=== PATIENT | female | born 1990 | race African-American/Black ===

== ENCOUNTER 2017-06-30 14:50 | Inpatient (IN) | payer OTHER ==
[~2017-06-30] VITALS: Ht 167.6 cm; Wt 132.7 kg
[2017-06-30] VITALS (13 sets, daily range): BP systolic 105–155; BP diastolic 49–90; PULSE 84–96; TEMP 36.7–37.6; O2SAT 96–100; Ht 167.6 cm; Wt 132.7 kg
[2017-06-30] MEDS ORDERED: ONDANSETRON INJ 2 MG/ML 2 ML VIAL IV STA ×2 (15:14→16:40)
[2017-06-30] MEDS ORDERED: FERR1TAB23 PO (15:28)
[2017-06-30] MEDS ORDERED: PHEN-582 PO (15:28)
[2017-06-30 15:37] LABS: ISTAT CREATININE 0.7 mg/dl (0.6-1.3); ISTAT HEMOGLOBIN 8.5 g/dl (12.0-16.0); ISTAT IONIZED CALCIUM 1.17 mmol/l (1.12-1.32)
[2017-06-30 15:38] LABS: MEAN CELL VOLUME 63.1 fL (80-100); MEAN CORPUSCULAR HEMOGLOBIN 16.4 pg (25-34); MEAN PLATELET VOLUME 8.4 fL (7.4-10.4); PLATELET COUNT 596 K/uL (130-400); RED BLOOD COUNT 3.96 M/uL (4.2-5.4); WHITE BLOOD COUNT 7.12 K/uL (4.8-10.8)
[2017-06-30 15:39] LABS: PROTHROMBIN TIME (PATIENT) 10.8 SECONDS (9.0-12.0)
[2017-06-30 15:47] LABS: ALT/SGPT 28 U/L (12-78); BLOOD UREA NITROGEN 10 mg/dl (7-18); BUN/CREATININE RATIO 11.5 (10-20); CALCIUM 8.7 mg/dl (8.5-10.1); CARBON DIOXIDE 23 mmol/L (21-32); CHLORIDE 105 mmol/L (98-107); CREATININE 0.83 mg/dl (0.60-1.20); GLUCOSE 89 mg/dl (70-99); POTASSIUM 3.5 mmol/L (3.5-5.1); SODIUM 137 mmol/L (136-145)
[2017-06-30 15:50] LABS: ALKALINE PHOSPHATASE 111 U/L (45-117); AST/SGOT 24 U/L (15-37)
[2017-06-30 15:52] LABS: ANISOCYTOSIS PRESENT; BASO % 0.4 %; BASO ABS # 0.03 K/uL (0-0.2); COMPLETE YES; HYPOCHROMIA PRESENT; IG% 0.3 %; LYMPH % 41.6 %; LYMPH ABS # 2.96 K/uL (1.2-3.4); MONO % 12.6 %; NEUT % 43.1 %; STOMATOCYTE 1+
--- NOTE | 2017-06-30 16:36 | DIAGNOSTIC IMAGING REPORT ---
CT SCAN OF THE ABDOMEN AND PELVIS WITH IV CONTRAST CLINICAL HISTORY: Left upper quadrant abdominal pain. Anemia. Vaginal bleeding. COMPARISON STUDY: No priors. TECHNIQUE: Following the IV administration of 115 cc of Optiray 320, CT scan of the abdomen and pelvis is performed from the lung bases to the proximal femora. Images are reviewed in the axial, sagittal, and coronal planes. IV contrast was administered without complication. A dose lowering technique was utilized adhering to the principles of ALARA. The examination is degraded by large body habitus, and by streak artifact from the body wall abutting the CT gantry. CT DOSE: 1654.92 mGy.cm FINDINGS: Lung bases: The heart is normal in size and without pericardial effusion. The lung bases are clear. There is a tiny hiatal hernia. Liver: The contrast-enhanced liver is normal in size, contour, and attenuation. There is no intrahepatic biliary ductal dilatation. The hepatic veins and portal veins are patent. Gallbladder: Unremarkable. Spleen: Normal in size and attenuation. Pancreas: Unremarkable. Adrenal glands: Unremarkable. Kidneys: The contrast enhanced kidneys are normal in size and without hydronephrosis. The kidneys enhance symmetrically. Abdominal vasculature: The abdominal aorta is normal in course and caliber. Bowel: The small bowel and colon are normal in course and caliber. The appendix is well-visualized and normal. Peritoneum: There is no intraperitoneal free air or abdominal ascites. There is a fat-containing umbilical hernia. Lymphadenopathy: None. Pelvic viscera: The bladder is decompressed and grossly unremarkable. The uterus and adnexa are normal as visualized. Bilateral ovarian follicles are observed. Skeletal structures: No lytic or blastic lesions are seen. Sclerotic change is noted in the sacroiliac joints. IMPRESSION: There are no acute infectious or inflammatory findings in the abdomen or pelvis. Electronically signed by: Abimael Lovell M.D. 06/30/2017 4:34 PM Dictated Date/Time: 06/30/2017 4:31 PM
[2017-06-30] MEDS ORDERED: OPTIRAY 320 IV PRN (16:45)
[2017-06-30] MEDS ORDERED: NORETHINDRONE ACETATE 5 MG TAB PO STA (16:45)
[2017-06-30 17:26] LABS: MANUAL MICROSCOPIC REQUIRED? YES; REVIEW REQ? NO
[2017-06-30 17:27] LABS: SULFASALICYLIC ACID POS (NEG); URINE APPEARANCE TURBID (CLEAR); URINE COLOR RED
[2017-06-30 17:28] LABS: URINE SPECIFIC GRAVITY 1.029 (1.000-1.030)
[2017-06-30 17:48] LABS: URINE RBC >30 /hpf (0-4); URINE WBC >30 /hpf (0-5)
[2017-06-30 17:50] LABS: URINE BACTERIA 2+ (NEG)
[2017-06-30] MEDS ORDERED: NXM/40 PO (18:10)
[2017-06-30] MEDS ORDERED: FLUT1INH5 INH (18:10)
[2017-06-30] MEDS ORDERED: MONT1TAB3 PO (18:10)
[2017-06-30] MEDS ORDERED: FLVHFA110 INH (18:10)
[2017-06-30] MEDS ORDERED: ARNUITY~ORDER AWAITING ACTION SCH (18:30)
--- NOTE | 2017-06-30 19:17 | EMERGENCY ROOM VISIT NOTE ---
History Report prepared by Racquel: Carley Weir Under the Supervision of: Dr. Sp Cosme M.D. First contact with patient: 15:01 Chief Complaint: OTHER COMPLAINT Stated Complaint: SENT BY FOR BLOOD TRANSFUSION History of Present Illness The patient is a 26 year old female who presents to the Emergency Room with complaints of constant vaginal bleeding beginning in February. The patient was referred to the ED by her PCP, Dr. Colin, for a blood transfusion. The patient was put on control twice a day for 2 weeks in early May by Dr. Pichardo for her vaginal bleeding. The patient was taken off of control on June 18. She reports she started bleeding again immediately after stopping her control. The patient reports having a hemoglobin level of 7.5 in early May and a hemoglobin level of 5.5 on June 18. On June 18 the patient was put on iron pills. The patient states she has been unable to come into the ED since being referred on June 18 because of her job. She states she would be fired if she takes time off of work. She reports increased weakness, shortness of breath, fatigue, decreased appetite and upper abdominal burning starting in mid-May. She states her abdominal pain begins in her upper left abdomen and radiates to her right upper abdomen. The patient states she has been eating only chicken noodle soup since early May because of her decreased appetite. She notes vomiting and diarrhea on Thursday, 2 days ago. She reports daily chest tightness beginning 2 months ago. The patient also notes a subjective fever occurring 3 days ago. She reports having normal bowel movements last week and denies any black stools. The patient reports a syncopal episode occurring three days before thanks but denies any more recent syncopal episodes. She denies any headache. The patient had a pelvic ultrasound in May which was unremarkable. The patient has a history of asthma. She denies any chance of and reports being abstinent. Source of History: patient Onset: February Position: other (vaginal) Quality: other (bleeding) Timing: constant Associated Symptoms: + fevers, + chest pain, + SOB, + vomiting, + abdominal pain, + diarrhea, + fatigue, + weakness, No headache Review of Systems See HPI for pertinent positives & negatives. A total of 10 systems reviewed and were otherwise negative. Past Medical & Surgical Medical Problems: (1) Asthma (2) Menometrorrhagia Social History Smoking Status: Never Smoker Current/Historical Medications Scheduled Esomeprazole Magnesium (Nexium), 1 CAP PO DAILY Ferrous Sulfate (Iron), 1 TAB PO TID Fluticasone Furoate (Inhalatio (Arnuity Ellipta), 1 PUFF INH DAILY Fluticasone Propionate (Flovent Hfa), Unknown Dose INH BID Montelukast Sodium (Singulair), 1 TAB PO DAILY Scheduled PRN Yttyusxhzdpef-Ri-Im W/ Apap (Tylenol Cold & Flu Severe), 1 TAB PO UD PRN for Cold/Flu Symptoms Allergies Coded Allergies: Penicillins (Verified Allergy, Unknown, Unknown, 06/30/17) As a child Physical Exam Vital Signs Date Time Temp Pulse Resp B/P (MAP) Pulse Ox O2 Delivery O2 Flow Rate FiO2 06/30/17 18:48 37.2 95 18 155/90 99 06/30/17 18:32 37.2 96 20 148/87 98 06/30/17 18:17 37.2 92 18 153/90 99 06/30/17 18:02 37.0 92 18 146/76 99 06/30/17 17:44 96 20 146/76 99 Room Air 06/30/17 16:45 103 06/30/17 16:39 99 20 144/82 100 Room Air 06/30/17 14:54 37.1 111 20 154/96 100 Room Air Physical Exam Constitutional: Vital signs reviewed. Eyes: Pupils are equal round reactive to light. Conjunctiva are noninjected. ENT: Pharynx is clear without erythema or exudate. Mucous membranes are moist. Neck supple without meningeal signs. Respiratory: Clear to auscultation bilaterally. Breath sounds are equal bilaterally. Cardiovascular: Regular rate and rhythm. No rubs or gallops. GI: Left upper quadrant and epigastric tenderness, no guarding. Soft, nondistended.. Bowel sounds are present. Musculoskeletal: No peripheral edema. No lower extremity tenderness. Integumentary: No cyanosis. Neurological: The patient is awake and alert. No focal deficits. Psychiatric: Normal affect. Medical Decision & Procedures ER Provider Diagnostic Interpretation: Radiology results as stated below per my review and the radiologist's interpretation: CT SCAN OF THE ABDOMEN AND PELVIS WITH IV CONTRAST FINDINGS: Lung bases: The heart is normal in size and without pericardial effusion. The lung bases are clear. There is a tiny hiatal hernia. Liver: The contrast-enhanced liver is normal in size, contour, and attenuation. There is no intrahepatic biliary ductal dilatation. The hepatic veins and portal veins are patent. Gallbladder: Unremarkable. Spleen: Normal in size and attenuation. Pancreas: Unremarkable. Adrenal glands: Unremarkable. Kidneys: The contrast enhanced kidneys are normal in size and without hydronephrosis. The kidneys enhance symmetrically. Abdominal vasculature: The abdominal aorta is normal in course and caliber. Bowel: The small bowel and colon are normal in course and caliber. The appendix is well-visualized and normal. Peritoneum: There is no intraperitoneal free air or abdominal ascites. There is a fat-containing umbilical hernia. Lymphadenopathy: None. Pelvic viscera: The bladder is decompressed and grossly unremarkable. The uterus and adnexa are normal as visualized. Bilateral ovarian follicles are observed. Skeletal structures: No lytic or blastic lesions are seen. Sclerotic change is noted in the sacroiliac joints. IMPRESSION: There are no acute infectious or inflammatory findings in the abdomen or pelvis. Electronically signed by: Abimael Lovell M.D. Laboratory Results 06/30/17 15:14 Red Blood Count 3.96, Mean Corpuscular Volume 63.1, Mean Corpuscular Hemoglobin 16.4, Mean Corpuscular Hemoglobin Concent 26.0, Mean Platelet Volume 8.4, Neutrophils (%) (Auto) 43.1, Lymphocytes (%) (Auto) 41.6, Monocytes (%) (Auto) 12.6, Eosinophils (%) (Auto) 2.0, Basophils (%) (Auto) 0.4, Neutrophils # (Auto ) 3.07, Lymphocytes # (Auto) 2.96, Monocytes # (Auto) 0.90, Eosinophils # (Auto ) 0.14, Basophils # (Auto) 0.03 06/30/17 15:14 Test 06/30/17 15:14 06/30/17 15:21 06/30/17 15:24 06/30/17 16:20 White Blood Count 7.12 K/uL (4.8-10.8) Red Blood Count 3.96 M/uL (4.2-5.4) Hemoglobin 6.5 g/dL (12.0-16.0) Hematocrit 25.0 % (37-47) Mean Corpuscular Volume 63.1 fL (80-100) Mean Corpuscular Hemoglobin 16.4 pg (25-34) Mean Corpuscular Hemoglobin Concent 26.0 g/dl (32-36) Platelet Count 596 K/uL (130-400) Mean Platelet Volume 8.4 fL (7.4-10.4) Neutrophils (%) (Auto) 43.1 % Lymphocytes (%) (Auto) 41.6 % Monocytes (%) (Auto) 12.6 % Eosinophils (%) (Auto) 2.0 % Basophils (%) (Auto) 0.4 % Neutrophils # (Auto) 3.07 K/uL (1.4-6.5) Lymphocytes # (Auto) 2.96 K/uL (1.2-3.4) Monocytes # (Auto) 0.90 K/uL (0.11-0.59) Eosinophils # (Auto) 0.14 K/uL (0-0.5) Basophils # (Auto) 0.03 K/uL (0-0.2) RDW Standard Deviation 49.3 fL (36.4-46.3) RDW Coefficient of Variation 21.5 % (11.5-14.5) Immature Granulocyte % (Auto) 0.3 % Immature Granulocyte # (Auto) 0.02 K/uL (0.00-0.02) Hypochromasia PRESENT Anisocytosis PRESENT Stomatocytes 1+ Prothrombin Time 10.8 SECONDS (9.0-12.0) Prothromb Time International Ratio 1.0 (0.9-1.1) Activated Partial Thromboplast Time 25.0 SECONDS (21.0-31.0) Partial Thromboplastin Ratio 1.0 Est Creatinine Clear Calc Drug Dose 143.7 ml/min Estimated GFR () 112.8 Estimated GFR (Non- 97.3 BUN/Creatinine Ratio 11.5 (10-20) Calcium Level 8.7 mg/dl (8.5-10.1) Total Bilirubin 0.3 mg/dl (0.2-1) Direct Bilirubin < 0.1 mg/dl (0-0.2) Aspartate Amino Transf (AST/SGOT) 24 U/L (15-37) Alanine Aminotransferase (ALT/SGPT) 28 U/L (12-78) Alkaline Phosphatase 111 U/L (45-117) Total Protein 8.6 gm/dl (6.4-8.2) Albumin 3.4 gm/dl (3.4-5.0) Lipase 153 U/L (73-393) Bedside Troponin I < 0.030 ng/ml (0-0.045) Bedside Hemoglobin 8.5 g/dl (12.0-16.0) Bedside Hematocrit 25 % (37-47) Bedside Sodium 140 mEq/L (135-144) Bedside Potassium 3.6 mEq/L (3.3-5.0) Bedside Chloride 105 mEq/L (101-112) Bedside Total CO2 24 mEq/l (24-31) Anion Gap 15.0 mmol/L (16-25) Bedside Blood Urea Nitrogen 8 mg/dl (7-18) Bedside Creatinine 0.7 mg/dl (0.6-1.3) Bedside Glucose (other) 97 mg/dl (70-99) Bedside Ionized Calcium (Zonia) 1.17 mmol/l (1.12-1.32) Urine Color RED Urine Appearance TURBID (CLEAR) Urine pH (4.5-7.5) Urine Specific Momence 1.029 (1.000-1.030) Urine Protein POS (NEG) Urine Glucose (UA) (NEG) Urine Ketones (NEG) Urine Occult Blood (NEG) Urine Nitrite (NEG) Urine Bilirubin (NEG) Urine Urobilinogen (NEG) Urine Leukocyte Esterase (NEG) Urine RBC >30 /hpf (0-4) Urine WBC >30 /hpf (0-5) Urine Epithelial Cells 0-5 /lpf (0-5) Urine Bacteria 2+ (NEG) Urine Test NEG (NEG) Laboratory results as reviewed by me. Medications Administered Medications (Trade) Dose Ordered Sig/Kell Route Start Time Stop Time Status Last Admin Dose Admin Ondansetron HCl (Zofran Inj) 4 mg NOW STAT IV 06/30/17 15:14 06/30/17 15:17 DC 06/30/17 15:30 4 MG Ondansetron HCl (Zofran Inj) 4 mg NOW STAT IV 06/30/17 16:40 06/30/17 16:41 DC 06/30/17 16:45 4 MG Norethindrone Acetate (Aygestin Tab) 5 mg NOW STAT PO 06/30/17 16:45 06/30/17 16:46 DC 06/30/17 16:45 5 MG ECG Indication: chest pain Rate (beats per minute): 99 Rhythm: normal sinus Findings: T-wave inversion (lead 3), no ectopy ED Course 1503: The patient was evaluated in room A9B. A complete history and physical exam was performed. 1514: Ordered Zofran Inj 4 mg IV. 1634: On reassessment, the patient is feeling nauseous. I discussed consent for blood transfusion and she is agreeable. 1640: Ordered Zofran Inj 4 mg IV. 1642: I spoke with Dr. Khanna of [facility] OB-REGULATORY AGENCY DIRECTOR. We discussed the patient and her results. He suggested starting the patient on 5 mg Aygestin TID. 1645: Ordered Aygestin Tab 5 mg PO. 165: I spoke with Dr. Pelletier of [facility] Hospitalist Service. We discussed the patient and her results. The patient will be further evaluated by him. 1653: I updated the patient on her test results. 1750: The patient is still waiting for transfusion. Medical Decision This is a 26-year-old female who presents with abdominal pain, weakness, vaginal bleeding, shortness of breath and chest pain. Differential diagnosis includes dysfunctional uterine bleeding, uterine fibroid, bowel obstruction, mass, anemia, asthma exacerbation, cardiac disease. I did perform a limited focused review of portions of the patient's old chart on the electronic medical record. The patient has had no recent pertinent visits to this hospital. Review of EPIC: The patient had a Pelvic Ultrasound on June 04 with showed a normal uterus in size with homogenous myometrium. The patient's hemoglobin level was 6.2 on June 04 and 5.7 on June 18. The patient was advised for transfusion but refused. I did evaluate the patient as noted above. Patient is presenting with worsening weakness with shortness of breath and chest pain since having heavy vaginal bleeding since February. She did have a normal pelvic ultrasound as described above. IV access was established. The patient was placed on a continuous cardiac cath lab technologist. I did order and personally review the patient's 12- lead EKG as described above. I did order and review the patient's blood work as noted in the electronic medical record. The i-STAT labs showed a hemoglobin of 8.5. I verified this with the lab and the lab came up with 6.5. This is more consistent with her clinical history. I did treat patient with Zofran. I did order a transfusion for 2 units of packed red blood cells. I did obtain written consent from the patient. I did order a CT of the abdomen and pelvis. I did review the images myself as well as the radiology report as described above. A CAT scan did not show any signs of acute abnormality. She was given additional IV Zofran for continued nausea. I did discuss the test results with her. I did discuss the case with the entry level youth nutritional monitor from [facility]. He recommended placing a paced and on Aygestin. He will see the patient in the hospital. Her transfusion was started here in the emergency department. I did discuss case with the hospitalist and correctional casework specialist. Medication Reconcilliation Current Medication List: was personally reviewed by me Blood Pressure Screening Patient's blood pressure: Normal blood pressure Consults Time Called: 1640 Consulting Physician: Dr. Khanna of [facility] OB-REGULATORY AGENCY DIRECTOR Returned Call: [address] Khanna of [facility] OB-REGULATORY AGENCY DIRECTOR. We discussed the patient and her results. He suggested starting the patient on 5 mg Aygestin TID. Additional Consults: Time Called: 1649 Consulted Physician: Dr. Pelletier of [facility] Hospitalist Service Returned Call: 1651 Additional Comments: I spoke with Dr. Pelletier of [facility] Hospitalist Service. We discussed the patient and her results. The patient will be further evaluated by him. Impression Primary Impression: Symptomatic anemia Additional Impressions: Dyspnea Abdominal pain, left upper quadrant Dysfunctional uterine bleeding Acute chest pain Critical Care I have personally spent greater than 40 minutes of critical care time in the direct management of this patient. This includes bedside care, interpretation of diagnostic studies, and testing, discussion with consultants, patient, and family members, and other required patient management activities. This 40 minutes is in excess of all separately billable procedures. Scribe Attestation The scribe's documentation has been prepared under my direct and personally reviewed by me in its entirety. I confirm that the note above accurately reflects all work, treatment, procedures, and medical decision making performed by me. Departure Information Dispostion Being Evaluated By Hospitalist Referrals No Doctor, Assigned (PCP) Patient Instructions My [facility] Problem Qualifiers Additional Impressions: Dyspnea Dyspnea type: dyspnea on exertion Qualified Codes: R06.09 - Other forms of dyspnea
--- NOTE | 2017-06-30 19:51 | DIAGNOSTIC IMAGING REPORT ---
CHEST ONE VIEW PORTABLE CLINICAL HISTORY: Chest pain. COMPARISON STUDY: No previous studies for comparison. FINDINGS: Lung volumes are normal. No pneumothorax or pleural effusion is present. There is no consolidation. Pulmonary vascularity is normal. Cardiomediastinal silhouette is normal. IMPRESSION: No acute cardiopulmonary findings. Electronically signed by: Son Perez M.D. 06/30/2017 7:50 PM Dictated Date/Time: 06/30/2017 7:49 PM
--- NOTE | 2017-06-30 20:16 | History and Physical ---
History & Physical Date & Time of Service: Jun 30, 2017 at 18:02 Chief Complaint: Sent By For Blood Transfusion Primary Care Physician: No Doctor, Assigned History of Present Illness Source: patient, clinic records This is a 26 year old obese female with PMH of asthma, GERD and a few month hx. of vaginal bleeding presents with dizziness/lightheadedness and excessive vaginal bleeding. States that since February, she has been having worsening periods and gets daily bleeding since the end of February. She states she was seen by her primary care physician and was initially prescribed oral contraceptives, which helped with her bleeding. At the end of May, she was told to stop the OCPs and the bleeding recurred. She has had a pelvic/ transvaginal US with no acute findings. Has not seen an general scrap worker for this as of yet. As an outpatient, she was noted to have Hgb of 5.7 at the end of May, but she stated that she could not come in to the ER because of work. She finally came to the ER because of worsening symptoms - dizziness. Upon presentation, Hgb was noted to be 6.5. Abdominal CT performed and no acute findings. Computer Typesetter was called and they recommended norethindrone. Denies fevers/ chills, denies urinary symptoms. Past Medical/Surgical History Medical Problems: (1) Asthma Status: Chronic Social History Smoking Status: Never Smoker Allergies Coded Allergies: Penicillins (Verified Allergy, Unknown, Unknown, 06/30/17) As a child Home Medications Scheduled Esomeprazole Magnesium (Nexium), 1 CAP PO DAILY Ferrous Sulfate (Iron), 1 TAB PO TID Fluticasone Furoate (Inhalatio (Arnuity Ellipta), 1 PUFF INH DAILY Fluticasone Propionate (Flovent Hfa), Unknown Dose INH BID Montelukast Sodium (Singulair), 1 TAB PO DAILY Scheduled PRN [id number] W/ Apap (Tylenol Cold & Flu Severe), 1 TAB PO UD PRN for Cold/Flu Symptoms Review of Systems Constitutional: No fever, No chills Respiratory: No cough, No sputum, No wheezing, No shortness of breath, No dyspnea on exertion, No dyspnea at rest, No hemoptysis Cardiovascular: No chest pain, No orthopnea, No edema, No palpitations Abdomen: No pain, No nausea, No vomiting, No diarrhea, No constipation, No GI bleeding Genitourinary - Female: + menorrhagia, + metrorrhagia, No dysuria, No urinary frequency, No urinary urgency, No urinary incontinence, No urinary retention, No hematuria Neurologic: + problem reported (lightheadedness), No numbness/tingling, No balance problems Psychiatric: No depression symptoms, No anxiety, No insomnia Endocrine: No fatigue, No excessive thirst, No excessive urination Hematologic / Lymphatic: + abnormal bleeding/bruising Integumentary: No rash Allergic / Immunologic: No environmental allergies, No seasonal allergies Physical Exam Vital Signs Date Time Temp Pulse Resp B/P (MAP) Pulse Ox O2 Delivery O2 Flow Rate FiO2 06/30/17 17:44 96 20 146/76 99 Room Air 06/30/17 16:45 103 06/30/17 16:39 99 20 144/82 100 Room Air 06/30/17 14:54 37.1 111 20 154/96 100 Room Air General Appearance: no apparent distress, + obese Head: normocephalic, atraumatic Eyes: normal inspection ENT: hearing grossly normal Neck: supple Respiratory/Chest: chest non-tender, lungs clear, normal breath sounds, no respiratory distress, no accessory muscle use Cardiovascular: regular rate, rhythm, no edema, no gallop, no JVD, no murmur, normal peripheral pulses Abdomen/GI: normal bowel sounds, non tender, soft Extremities/Musculoskelatal: normal inspection, no calf tenderness, normal capillary refill, no pedal edema, normal range of motion Neurologic/Psych: community music therapist II-XII nml as tested, no motor/sensory deficits, alert, normal mood/affect, oriented x 3 Skin: normal color Lymphatic: no adenopathy Diagnostics Laboratory Results Results Past 24 Hours Test 06/30/17 15:14 06/30/17 15:21 06/30/17 15:24 06/30/17 16:20 Range/Units White Blood Count 7.12 4.8-10.8 K/uL Red Blood Count 3.96 4.2-5.4 M/uL Hemoglobin 6.5 12.0-16.0 g/dL Hematocrit 25.0 37-47 % Mean Corpuscular Volume 63.1 80-100 fL Mean Corpuscular Hemoglobin 16.4 25-34 pg Mean Corpuscular Hemoglobin Concent 26.0 32-36 g/dl Platelet Count 596 130-400 K/uL Mean Platelet Volume 8.4 7.4-10.4 fL Neutrophils (%) (Auto) 43.1 % Lymphocytes (%) (Auto) 41.6 % Monocytes (%) (Auto) 12.6 % Eosinophils (%) (Auto) 2.0 % Basophils (%) (Auto) 0.4 % Neutrophils # (Auto) 3.07 1.4-6.5 K/uL Lymphocytes # (Auto) 2.96 1.2-3.4 K/uL Monocytes # (Auto) 0.90 0.11-0.59 K/uL Eosinophils # (Auto) 0.14 0-0.5 K/uL Basophils # (Auto) 0.03 0-0.2 K/uL RDW Standard Deviation 49.3 36.4-46.3 fL RDW Coefficient of Variation 21.5 11.5-14.5 % Immature Granulocyte % (Auto) 0.3 % Immature Granulocyte # (Auto) 0.02 0.00-0.02 K/uL Hypochromasia PRESENT Anisocytosis PRESENT Stomatocytes 1+ Prothrombin Time 10.8 9.0-12.0 SECONDS Prothromb Time International Ratio 1.0 0.9-1.1 Activated Partial Thromboplast Time 25.0 21.0-31.0 SECONDS Partial Thromboplastin Ratio 1.0 Sodium Level 137 136-145 mmol/L Potassium Level 3.5 3.5-5.1 mmol/L Chloride Level 105 98-107 mmol/L Carbon Dioxide Level 23 21-32 mmol/L Anion Gap 9.0 15.0 16-25 mmol/L Blood Urea Nitrogen 10 7-18 mg/dl Creatinine 0.83 0.60-1.20 mg/dl Est Creatinine Clear Calc Drug Dose 143.7 ml/min Estimated GFR () 112.8 Estimated GFR (Non- 97.3 BUN/Creatinine Ratio 11.5 10-20 Random Glucose 89 70-99 mg/dl Calcium Level 8.7 8.5-10.1 mg/dl Total Bilirubin 0.3 0.2-1 mg/dl Direct Bilirubin < 0.1 0-0.2 mg/dl Aspartate Amino Transf (AST/SGOT) 24 15-37 U/L Alanine Aminotransferase (ALT/SGPT) 28 12-78 U/L Alkaline Phosphatase 111 45-117 U/L Total Protein 8.6 6.4-8.2 gm/dl Albumin 3.4 3.4-5.0 gm/dl Lipase 153 73-393 U/L Bedside Troponin I < 0.030 0-0.045 ng/ml Bedside Hemoglobin 8.5 12.0-16.0 g/dl Bedside Hematocrit 25 37-47 % Bedside Sodium 140 135-144 mEq/L Bedside Potassium 3.6 3.3-5.0 mEq/L Bedside Chloride 105 101-112 mEq/L Bedside Total CO2 24 24-31 mEq/l Bedside Blood Urea Nitrogen 8 7-18 mg/dl Bedside Creatinine 0.7 0.6-1.3 mg/dl Bedside Glucose (other) 97 70-99 mg/dl Bedside Ionized Calcium (Zonia) 1.17 1.12-1.32 mmol/l Urine Color RED Urine Appearance TURBID CLEAR Urine pH 4.5-7.5 Urine Specific [place] 1.029 1.000-1.030 Urine Protein POS NEG Urine Glucose (UA) NEG Urine Ketones NEG Urine Occult Blood NEG Urine Nitrite NEG Urine Bilirubin NEG Urine Urobilinogen NEG Urine Leukocyte Esterase NEG Urine RBC >30 0-4 /hpf Urine WBC >30 0-5 /hpf Urine Epithelial Cells 0-5 0-5 /lpf Urine Bacteria 2+ NEG Urine Test NEG NEG Diagnostic Radiology CHEST ONE VIEW PORTABLE CLINICAL HISTORY: Chest pain. COMPARISON STUDY: No previous studies for comparison. FINDINGS: Lung volumes are normal. No pneumothorax or pleural effusion is present. There is no consolidation. Pulmonary vascularity is normal. Cardiomediastinal silhouette is normal. IMPRESSION: No acute cardiopulmonary findings. CT SCAN OF THE ABDOMEN AND PELVIS WITH IV CONTRAST CLINICAL HISTORY: Left upper quadrant abdominal pain. Anemia. Vaginal bleeding. COMPARISON STUDY: No priors. TECHNIQUE: Following the IV administration of 115 cc of Optiray 320, CT scan of the abdomen and pelvis is performed from the lung bases to the proximal femora. Images are reviewed in the axial, sagittal, and coronal planes. IV contrast was administered without complication. A dose lowering technique was utilized adhering to the principles of ALARA. The examination is degraded by large body habitus, and by streak artifact from the body wall abutting the CT gantry. CT DOSE: 1654.92 mGy.cm FINDINGS: Lung bases: The heart is normal in size and without pericardial effusion. The lung bases are clear. There is a tiny hiatal hernia. Liver: The contrast-enhanced liver is normal in size, contour, and attenuation. There is no intrahepatic biliary ductal dilatation. The hepatic veins and portal veins are patent. Gallbladder: Unremarkable. Spleen: Normal in size and attenuation. Pancreas: Unremarkable. Adrenal glands: Unremarkable. Kidneys: The contrast enhanced kidneys are normal in size and without hydronephrosis. The kidneys enhance symmetrically. Abdominal vasculature: The abdominal aorta is normal in course and caliber. Bowel: The small bowel and colon are normal in course and caliber. The appendix is well-visualized and normal. Peritoneum: There is no intraperitoneal free air or abdominal ascites. There is a fat-containing umbilical hernia. Lymphadenopathy: None. Pelvic viscera: The bladder is decompressed and grossly unremarkable. The uterus and adnexa are normal as visualized. Bilateral ovarian follicles are observed. Skeletal structures: No lytic or blastic lesions are seen. Sclerotic change is noted in the sacroiliac joints. IMPRESSION: There are no acute infectious or inflammatory findings in the abdomen or pelvis. EKG Normal sinus rhythm Nonspecific T wave abnormality Impression Assessment and Plan This is a 26 year old obese female with PMH of asthma, GERD and a few month hx. of vaginal bleeding presents with dizziness/lightheadedness and excessive vaginal bleeding. Acute Blood Loss Anemia secondary to Menometrorrhagia patient has been having excessive bleeding since February Hgb as outpatient dropped all the way to 5.7 at the end of May symptoms: lightheadedness, dizziness Abdominal CT negative Hgb now 6.5 started on Norethindrone as per support staff will transfuse two units PRBCs recheck CBC in AM consulted support staff Asthma continue Singulair, continue Flovent and Arnuity Ellipta inhalers FULL CODE VTE Prophylaxis VTE Risk Assessment Done? Y/N: Yes Risk Level: Low Given or contraindicated: Treatment not indicated
[2017-06-30] MEDS: MONTELUKAST SOD 10 MG TAB PO SCH (21:13)
[2017-06-30] MEDS: FLUTICASONE HFA 220 MCG INHALER INH SCH (21:13)
[2017-06-30] MEDS: ACETAMINOPHEN 325 MG TAB PO PRN (21:27)
[2017-07-01] MEDS ORDERED: NURSING VERBAL MED ORDER ONE ×2 (03:45→15:15)
[2017-07-01 04:30] VITALS: BP 126/72; PULSE 88; TEMP 36.8; O2SAT 99
[2017-07-01 06:26] LABS: HEMATOCRIT 28.9 % (37-47); MEAN CELL VOLUME 68.3 fL (80-100); MEAN CORPUSCULAR HEMOGLOBIN 18.9 pg (25-34); MEAN CORPUSCULAR HGB CONC 27.7 g/dl (32-36); MEAN PLATELET VOLUME 8.7 fL (7.4-10.4); PLATELET COUNT 496 K/uL (130-400); RED BLOOD COUNT 4.23 M/uL (4.2-5.4); WHITE BLOOD COUNT 7.19 K/uL (4.8-10.8)
[2017-07-01 06:44] LABS: MICROCYTOSIS PRESENT
[2017-07-01 07:25] VITALS: BP 126/64; PULSE 82; TEMP 37; O2SAT 98
[2017-07-01] MEDS: FERROUS SULFATE 325 MG TAB PO SCH ×3 (07:36→17:27)
[2017-07-01] MEDS: ACETAMINOPHEN 325 MG TAB PO PRN (07:37)
[2017-07-01] MEDS ORDERED: PNEUMOCOCCAL POLYSACCHARIDES 25 MCG/0.5 ML VIAL/SYR IM. ONE (08:00)
[2017-07-01] MEDS ORDERED: PNEUMOCOCCAL ADMINISTRATION CHARGE ONE (08:00)
[2017-07-01] MEDS: PANTOprazole SOD 40 MG TAB PO SCH (08:43)
[2017-07-01] MEDS: FLUTICASONE HFA 220 MCG INHALER INH SCH ×2 (08:43→21:07)
--- NOTE | 2017-07-01 12:00 | Medical Consult ---
Consultation Date of Consultation: Jul 01, 2017. Attending Physician: Nathaly Juarez M.D. Reason for Consultation: vaginal bleeding Past Medical/Surgical History Medical Problems: (1) Abdominal pain, left upper quadrant Status: Acute (2) Acute chest pain Status: Acute (3) Dysfunctional uterine bleeding Status: Acute (4) Dyspnea Status: Acute (5) Symptomatic anemia Status: Acute Social History Smoking Status: Former Smoker Smokeless Tobacco Use: No Alcohol Use: none Drug Use: none Marital Status: single Housing Status: unknown Occupation Status: employed Allergies Coded Allergies: Penicillins (Verified Allergy, Unknown, Unknown, 06/30/17) As a child Current Inpatient Medications Current Inpatient Medications Medications (Trade) Dose Ordered Sig/Kell Route Start Time Stop Time Status Last Admin Dose Admin Ioversol (Optiray 320) 111 ml UD PRN IV 06/30/17 16:45 07/04/17 16:44 Acetaminophen (Tylenol Tab) 650 mg Q4H PRN PO 06/30/17 17:30 07/30/17 17:29 07/01/17 07:37 650 MG Ferrous Sulfate (Feosol Tab) 325 mg TIDM PO 07/01/17 08:00 07/31/17 07:59 07/01/17 11:48 325 MG Montelukast Sodium (Singulair Tab) 10 mg HS PO 06/30/17 21:00 07/30/17 20:59 06/30/17 21:13 10 MG Fluticasone Propionate (Flovent Hfa 220MCG Inhaler) 2 puffs BID INH 06/30/17 21:00 07/30/17 20:59 07/01/17 08:43 2 PUFFS Pantoprazole Sodium (Protonix Tab) 40 mg QAM PO 07/01/17 09:00 07/31/17 08:59 07/01/17 08:43 40 MG Review of Systems Constitutional: + weakness, + fatigue Respiratory: + shortness of breath Abdomen: + pain Genitourinary - Female: + metrorrhagia, + vaginal bleeding Hematologic / Lymphatic: + abnormal bleeding/bruising, + clotting problems, No swollen lymph nodes, No night sweats, No problem reported Physical Exam Date Time Temp Pulse Resp B/P (MAP) Pulse Ox O2 Delivery O2 Flow Rate FiO2 07/01/17 07:25 37.0 82 18 126/64 (84) 98 Room Air 07/01/17 07:25 98 Room Air 07/01/17 04:30 36.8 88 18 126/72 (90) 99 Room Air 06/30/17 23:45 36.8 85 18 133/73 99 06/30/17 23:45 99 Room Air 06/30/17 22:45 37.0 92 18 112/70 99 06/30/17 22:16 37.2 96 18 107/55 98 06/30/17 21:47 36.9 92 18 105/59 100 06/30/17 21:30 36.8 94 18 120/66 99 06/30/17 21:16 36.7 84 18 107/49 96 06/30/17 20:44 36.9 92 18 139/80 Room Air 06/30/17 20:15 36.9 95 20 130/88 99 06/30/17 19:41 37.6 95 20 130/75 99 Room Air 06/30/17 19:23 37.2 93 18 153/90 99 Room Air 06/30/17 19:15 37.6 96 20 130/75 99 06/30/17 18:48 37.2 95 18 155/90 99 06/30/17 18:32 37.2 96 20 148/87 98 06/30/17 18:17 37.2 92 18 153/90 99 06/30/17 18:02 37.0 92 18 146/76 99 06/30/17 17:44 96 20 146/76 99 Room Air 06/30/17 16:45 103 06/30/17 16:39 99 20 144/82 100 Room Air 06/30/17 14:54 37.1 111 20 154/96 100 Room Air General Appearance: no apparent distress, + obese Abdomen/GI: non tender, soft Extremities/Musculoskelatal: no calf tenderness Neurologic/Psych: alert, oriented x 3 Skin: normal color, no rash Laboratory Results Last 24 Hours Test 06/30/17 15:14 06/30/17 15:21 06/30/17 15:24 06/30/17 16:20 White Blood Count 7.12 K/uL Red Blood Count 3.96 M/uL Hemoglobin 6.5 g/dL Hematocrit 25.0 % Mean Corpuscular Volume 63.1 fL Mean Corpuscular Hemoglobin 16.4 pg Mean Corpuscular Hemoglobin Concent 26.0 g/dl Platelet Count 596 K/uL Mean Platelet Volume 8.4 fL Neutrophils (%) (Auto) 43.1 % Lymphocytes (%) (Auto) 41.6 % Monocytes (%) (Auto) 12.6 % Eosinophils (%) (Auto) 2.0 % Basophils (%) (Auto) 0.4 % Neutrophils # (Auto) 3.07 K/uL Lymphocytes # (Auto) 2.96 K/uL Monocytes # (Auto) 0.90 K/uL Eosinophils # (Auto) 0.14 K/uL Basophils # (Auto) 0.03 K/uL RDW Standard Deviation 49.3 fL RDW Coefficient of Variation 21.5 % Immature Granulocyte % (Auto) 0.3 % Immature Granulocyte # (Auto) 0.02 K/uL Hypochromasia PRESENT Anisocytosis PRESENT Microcytosis PRESENT Stomatocytes 1+ Prothrombin Time 10.8 SECONDS Prothromb Time International Ratio 1.0 Activated Partial Thromboplast Time 25.0 SECONDS Partial Thromboplastin Ratio 1.0 Sodium Level 137 mmol/L Potassium Level 3.5 mmol/L Chloride Level 105 mmol/L Carbon Dioxide Level 23 mmol/L Anion Gap 9.0 mmol/L 15.0 mmol/L Blood Urea Nitrogen 10 mg/dl Creatinine 0.83 mg/dl Est Creatinine Clear Calc Drug Dose 143.7 ml/min Estimated GFR () 112.8 Estimated GFR (Non- 97.3 BUN/Creatinine Ratio 11.5 Random Glucose 89 mg/dl Calcium Level 8.7 mg/dl Total Bilirubin 0.3 mg/dl Direct Bilirubin < 0.1 mg/dl Aspartate Amino Transf (AST/SGOT) 24 U/L Alanine Aminotransferase (ALT/SGPT) 28 U/L Alkaline Phosphatase 111 U/L Total Protein 8.6 gm/dl Albumin 3.4 gm/dl Lipase 153 U/L Bedside Troponin I < 0.030 ng/ml Bedside Hemoglobin 8.5 g/dl Bedside Hematocrit 25 % Bedside Sodium 140 mEq/L Bedside Potassium 3.6 mEq/L Bedside Chloride 105 mEq/L Bedside Total CO2 24 mEq/l Bedside Blood Urea Nitrogen 8 mg/dl Bedside Creatinine 0.7 mg/dl Bedside Glucose (other) 97 mg/dl Bedside Ionized Calcium (Zonia) 1.17 mmol/l Urine Color RED Urine Appearance TURBID Urine pH Urine Specific [place] 1.029 Urine Protein POS Urine Glucose (UA) Urine Ketones Urine Occult Blood Urine Nitrite Urine Bilirubin Urine Urobilinogen Urine Leukocyte Esterase Urine RBC >30 /hpf Urine WBC >30 /hpf Urine Epithelial Cells 0-5 /lpf Urine Bacteria 2+ Urine Test NEG Test 07/01/17 05:22 White Blood Count 7.19 K/uL Red Blood Count 4.23 M/uL Hemoglobin 8.0 g/dL Hematocrit 28.9 % Mean Corpuscular Volume 68.3 fL Mean Corpuscular Hemoglobin 18.9 pg Mean Corpuscular Hemoglobin Concent 27.7 g/dl RDW Standard Deviation 62.2 fL RDW Coefficient of Variation 25.1 % Platelet Count 496 K/uL Mean Platelet Volume 8.7 fL Assessment & Plan Abnormal uterine bleeding Will recommend starting Aygestin 5 mg PO four times daily for at least 5 days and then transition into oral contraceptives Motrin 800 mg for pain/cramps hold on blood unless symptomatic
[2017-07-01] MEDS ORDERED: IBUPROFEN 800 MG TAB PO PRN (12:15)
[2017-07-01 12:30] VITALS: BP 116/62; PULSE 92; TEMP 37.2; O2SAT 97
[2017-07-01] MEDS: NORETHINDRONE ACETATE 5 MG TAB PO SCH ×3 (13:57→21:06)
[2017-07-01] MEDS ORDERED: ONDANSETRON INJ 2 MG/ML 2 ML VIAL IV PRN (15:15)
[2017-07-01] MEDS: MoRPHine SULFATE 2 MG/ML CARP IV PRN ×2 (15:37→23:14)
[2017-07-01 15:40] VITALS: BP 125/53; PULSE 88; TEMP 37.3; O2SAT 99
--- NOTE | 2017-07-01 18:23 | Progress Note ---
Internal Med Progress Note Date of Service: Jul 01, 2017. Provider Documentation: SUBJECTIVE: complains epigastric discomfort /pain no nausea , not related to food hx of GERD , has been on Nexium pt is continued on PPI , added Maalox for symptom hold NSAID no complain of SOB or dizzy spell , no MCNAIR vaginal bleeding stopped OBJECTIVE: Vital Signs-as noted below Exam: General-well appearing female, no sign of distress Eyes-sclera non icteric , PERRLA/EOMI ENT-moist oral mucosa , normal oropharynx Neck-no thyromegaly , trachea midline Lungs-CTA, no wheeze or rales Heart-regular S1/S2 Abdomen-soft. mild epigastric tenderness Extremities-no rash or deformity Neuro-AAO x3, no focal deficit Lab data as noted below. 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 from [employer] recommend to start on Aygestin 5 mg PO four times daily for at least 5 days and then transition into oral contraceptives pelvic USG ordered to R/o fibroid uterus per pt's request EPIGASTRIC DISCOMFORT /GERD: possible due to acid reflux continue on Protonix added Maalox for PRN for heart burn hold Motrin pt will need out pt eval possible EGD if continues to have debilitating symptom Asthma stable no wheeze or SOB continue Singulair, continue Flovent and Arnuity Ellipta inhalers FULL CODE DVT PROPHYLAXIS low risk SCD and teds ambulate DISPOSITION possible discharge home tomorrow medicine follow up with Dr Pichardo will need out pt follow up with [employer] Vital Signs: Date Time Temp Pulse Resp B/P (MAP) Pulse Ox O2 Delivery O2 Flow Rate FiO2 07/01/17 19:25 36.7 77 18 120/72 (88) 100 Room Air 07/01/17 15:40 37.3 88 18 125/53 (77) 99 Room Air 07/01/17 15:40 99 Room Air 07/01/17 12:30 37.2 92 20 116/62 (80) 97 Room Air 07/01/17 07:25 37.0 82 18 126/64 (84) 98 Room Air 07/01/17 07:25 98 Room Air 07/01/17 04:30 36.8 88 18 126/72 (90) 99 Room Air 06/30/17 23:45 36.8 85 18 133/73 99 06/30/17 23:45 99 Room Air 06/30/17 22:45 37.0 92 18 112/70 99 06/30/17 22:16 37.2 96 18 107/55 98 06/30/17 21:47 36.9 92 18 105/59 100 06/30/17 21:30 36.8 94 18 120/66 99 06/30/17 21:16 36.7 84 18 107/49 96 06/30/17 20:44 36.9 92 18 139/80 Room Air Lab Results: Results Past 24 Hours Test 07/01/17 05:22 Range/Units White Blood Count 7.19 4.8-10.8 K/uL Red Blood Count 4.23 4.2-5.4 M/uL Hemoglobin 8.0 12.0-16.0 g/dL Hematocrit 28.9 37-47 % Mean Corpuscular Volume 68.3 80-100 fL Mean Corpuscular Hemoglobin 18.9 25-34 pg Mean Corpuscular Hemoglobin Concent 27.7 32-36 g/dl RDW Standard Deviation 62.2 36.4-46.3 fL RDW Coefficient of Variation 25.1 11.5-14.5 % Platelet Count 496 130-400 K/uL Mean Platelet Volume 8.7 7.4-10.4 fL
[2017-07-01 19:25] VITALS: BP 120/72; PULSE 77; TEMP 36.7; O2SAT 100
[2017-07-01] MEDS ORDERED: AYG5 PO ×2 (20:21→20:23)
--- NOTE | 2017-07-01 20:21 | Discharge Instructions ---
Discharge Instructions Date of Service Jul 03, 2017. Admission Reason for Admission: Menometrorrhagia Discharge Discharge Diagnosis / Problem: INCREASED VAGINAL BLEEDING /ANEMIA /ABDOMINAL PAIN Discharge Goals Goal(s): Decrease discomfort, Increase independence, Improve disease control, Diagnostic testing, Therapeutic intervention Activity Recommendations Activity Limitations: resume your previous activity . Instructions / Follow-Up Instructions / Follow-Up HOSPITAL FOLLOW UP 07/07/2017 11:00 AM Genesis Pichardo DO 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 : 07/17/2017 2:30 PM Carlos Alberto Hu MD [facility] Gynecology/Obstetrics FOR ABDOMINAL PAIN - Bentyl 10 mg three times daily as needed - Miralax 17 g daily/Colace 1 cap twice daily -to maintain one soft bowel movement a day -add plenty of fiber /fluid to you diet to prevent constipation ACID REFLUX DISEASE - Omeprazole/Nexium increased to 20 mg twice daily - avoid Alcohol -Limit caffeine intake -avoid spicy /hot foot - elevate head of bed/can use Pillow wedges - smaller, more frequent meals - no NSAIDs-no Motrin , Advil , Aleve, Ibuprofen, Naproxen , - Outpatient GI follow up in 2-3 weeks , please call office for appointment Current Hospital Diet Patient's current hospital diet: Regular Diet Discharge Diet Recommended Diet: Regular Diet Pending Studies Studies pending at discharge: no Medical Emergencies . Who to Call and When: Medical Emergencies: If at any time you feel your situation is an emergency, please call 911 immediately. . Non-Emergent Contact Non-Emergency issues call your: Primary Care Provider . . "Provider Documentation" section prepared by Natahly Juarez. . VTE Core Measure Inpt VTE Proph given/why not?: Gia Benavides, SCD's
[2017-07-01] MEDS ORDERED: BCPILLS PO (20:24)
[2017-07-01] MEDS ORDERED: ALUMINUM/MAGNESIUM/SIMETH (MAALOX MAX) 30 ML UDC PO PRN (20:30)
[2017-07-01] MEDS: MONTELUKAST SOD 10 MG TAB PO SCH (21:06)
--- NOTE | 2017-07-01 21:21 | DIAGNOSTIC IMAGING REPORT ---
PELVIC COMPLETE NON OB HISTORY: 26 years-old Female evaluation for uterine fibroid /metromenorrhegia COMPARISON: CT abdomen and pelvis 06/30/2017 TECHNIQUE: Multiple real-time sonographic images of the deep pelvic structures were obtained transabdominally and transvaginally assessing grayscale appearance, color and spectral flow FINDINGS: TRANSABDOMINAL: The pelvic structures are not well seen. TRANSVAGINAL: Anteflexed uterus measures 8.2 x 3.7 x 5.2 cm. Endometrium measures 0.8 cm. No intramural mass lesions identified to suggest fibroid. Study however is mildly limited secondary to patient body habitus. Right ovary measures 2.7 x 1.9 x 2.3 cm demonstrating arterial inflow. There is an ovoid circumscribed cystic lesion within the right adnexum adjacent to the right ovary, 2.2 x 1.4 x 2.1 cm without internal vascularity identified. Left ovary measures 2.9 x 2.0 x 3.1 cm and is unremarkable arterial inflow documented. No significant free pelvic fluid. IMPRESSION: 1. Unremarkable sonographic appearance of the uterus and endometrium without evidence of uterine leiomyoma. 2. No evidence of ovarian torsion. 3. Ovoid cystic lesion of the right adnexum adjacent to the right ovary measuring up to 2.2 cm suggests exophytic follicle or para ovarian cyst The above report was generated using voice recognition software. It may contain grammatical, syntax or spelling errors. Electronically signed by: Kartik Aguilera M.D. 07/01/2017 9:20 PM Dictated Date/Time: 07/01/2017 9:16 PM
[2017-07-01 23:15] VITALS: BP 118/70; PULSE 75; TEMP 36.8; O2SAT 99
[2017-07-02 03:30] VITALS: BP 128/72; PULSE 84; TEMP 36.8; O2SAT 100
[2017-07-02] MEDS: ACETAMINOPHEN 325 MG TAB PO PRN (05:09)
[2017-07-02 06:13] LABS: HEMATOCRIT 29.2 % (37-47); MEAN CELL VOLUME 68.1 fL (80-100); MEAN CORPUSCULAR HEMOGLOBIN 18.9 pg (25-34); MEAN CORPUSCULAR HGB CONC 27.7 g/dl (32-36); MEAN PLATELET VOLUME 8.6 fL (7.4-10.4); PLATELET COUNT 509 K/uL (130-400); RED BLOOD COUNT 4.29 M/uL (4.2-5.4); WHITE BLOOD COUNT 8.79 K/uL (4.8-10.8)
[2017-07-02 07:35] VITALS: BP 122/71; PULSE 75; TEMP 37.1; O2SAT 98
[2017-07-02] MEDS: MoRPHine SULFATE 2 MG/ML CARP IV PRN (07:39)
[2017-07-02] MEDS: FERROUS SULFATE 325 MG TAB PO SCH ×3 (07:47→18:10)
[2017-07-02] MEDS ORDERED: DOCUSATE SODIUM 100 MG CAP PO ONE (08:30)
[2017-07-02] MEDS: PANTOprazole SOD 40 MG TAB PO SCH (09:00)
[2017-07-02] MEDS: NORETHINDRONE ACETATE 5 MG TAB PO SCH ×4 (09:03→20:41)
[2017-07-02] MEDS: POLYETHYLENE (MIRALAX) 17 GM PACK PO SCH (09:26)
[2017-07-02] MEDS: FLUTICASONE HFA 220 MCG INHALER INH SCH ×2 (09:26→20:40)
[2017-07-02 11:55] VITALS: BP 126/67; PULSE 78; TEMP 37.1; O2SAT 99
[2017-07-02] MEDS: OXYCODONE/ACETAMINOPHEN 5-325 TAB PO PRN ×2 (15:13→20:39)
[2017-07-02 15:15] VITALS: BP 128/76; PULSE 87; TEMP 37.1; O2SAT 99
[2017-07-02] MEDS ORDERED: MEDR10TA PO ×2 (16:59→17:00)
--- NOTE | 2017-07-02 19:25 | Progress Note ---
Internal Med Progress Note Date of Service: Jul 02, 2017. Provider Documentation: SUBJECTIVE: continues to complain of abdominal pain 10/10 requesting narcotic pain meds frequently pain is worse with food did not had any bowel movement since admission GI eval requested vaginal bleeding stopped OBJECTIVE: Vital Signs-as noted below Exam: General-well appearing female, no sign of distress Eyes-sclera non icteric , PERRLA/EOMI ENT-moist oral mucosa , normal oropharynx Neck-no thyromegaly , trachea midline Lungs-CTA, no wheeze or rales Heart-regular S1/S2 Abdomen-soft. mild epigastric tenderness Extremities-no rash or deformity Neuro-AAO x3, no focal deficit Lab data as noted below. 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 Sourcing recommend cont on Aygestin 5 mg PO four times daily for at least 5 days and then transition into oral contraceptives pelvic USG shows -normal study , no uterine fibroid noted INTRACTABLE ABDOMINAL PAIN /NARCOTIC PAIN MEDS DEPENDENCY : not sure about the etiology clinically pt does not appear to be in discomfort rated pain 10/10 , Tylenol or Motrin does not help IV morphine works ; asking for frequent dose CT Abdomen pelvis /Pelvic USG -no pathology noted Abdominal exam benign concern for narcotic pain meds dependency pt is counselled to limit narcotics says nothing works -pain is 10/10 with out morphine ; pain worse after eating ordered for Clear liq diet GI eval requested GERD: continue on Protonix added Maalox for PRN for heart burn hold Motrin pt will need out pt eval possible EGD if continues to have debilitating symptom Asthma stable no wheeze or SOB continue Singulair, continue Flovent and Arnuity Ellipta inhalers FULL CODE DVT PROPHYLAXIS low risk SCD and teds ambulate DISPOSITION possible discharge home tomorrow medicine follow up with Dr Pichardo will need out pt follow up with Manager Sourcing Vital Signs: Date Time Temp Pulse Resp B/P (MAP) Pulse Ox O2 Delivery O2 Flow Rate FiO2 07/03/17 17:42 37.2 76 20 100 Room Air 07/03/17 16:30 37.2 76 20 141/64 (89) 100 Room Air 07/03/17 16:30 100 Room Air 07/03/17 07:15 36.9 84 20 124/76 (92) 99 Room Air 07/03/17 07:15 99 Room Air 07/03/17 04:50 37.0 78 18 111/60 (77) 100 Room Air 07/02/17 23:55 100 Room Air 07/02/17 23:55 36.7 76 18 132/73 (92) 100 Room Air 07/02/17 19:30 36.4 76 18 126/70 (88) 100 Room Air Lab Results: Results Past 24 Hours Test 07/03/17 07:17 07/03/17 11:29 Range/Units White Blood Count 8.09 4.8-10.8 K/uL Red Blood Count 4.19 4.2-5.4 M/uL Hemoglobin 8.0 12.0-16.0 g/dL Hematocrit 28.6 37-47 % Mean Corpuscular Volume 68.3 80-100 fL Mean Corpuscular Hemoglobin 19.1 25-34 pg Mean Corpuscular Hemoglobin Concent 28.0 32-36 g/dl RDW Standard Deviation 62.7 36.4-46.3 fL RDW Coefficient of Variation 25.4 11.5-14.5 % Platelet Count 458 130-400 K/uL Mean Platelet Volume 8.1 7.4-10.4 fL Total Bilirubin 0.2 0.2-1 mg/dl Direct Bilirubin 0.1 0-0.2 mg/dl Aspartate Amino Transf (AST/SGOT) 12 15-37 U/L Alanine Aminotransferase (ALT/SGPT) 21 12-78 U/L Alkaline Phosphatase 87 45-117 U/L Total Protein 7.4 6.4-8.2 gm/dl Albumin 3.0 3.4-5.0 gm/dl Lipase 92 73-393 U/L
[2017-07-02 19:30] VITALS: BP 126/70; PULSE 76; TEMP 36.4; O2SAT 100
[2017-07-02] MEDS: MONTELUKAST SOD 10 MG TAB PO SCH (20:40)
[2017-07-02] MEDS: DOCUSATE SODIUM 100 MG CAP PO SCH (20:59)
[2017-07-02 23:55] VITALS: BP 132/73; PULSE 76; TEMP 36.7; O2SAT 100
[2017-07-03 04:50] VITALS: BP 111/60; PULSE 78; TEMP 37; O2SAT 100
[2017-07-03 07:15] VITALS: BP 124/76; PULSE 84; TEMP 36.9; O2SAT 99
[2017-07-03 07:34] LABS: HEMATOCRIT 28.6 % (37-47); MEAN CELL VOLUME 68.3 fL (80-100); MEAN CORPUSCULAR HEMOGLOBIN 19.1 pg (25-34); MEAN PLATELET VOLUME 8.1 fL (7.4-10.4); PLATELET COUNT 458 K/uL (130-400); RED BLOOD COUNT 4.19 M/uL (4.2-5.4); WHITE BLOOD COUNT 8.09 K/uL (4.8-10.8)
[2017-07-03] MEDS: OXYCODONE/ACETAMINOPHEN 5-325 TAB PO PRN (07:44)
[2017-07-03] MEDS: FERROUS SULFATE 325 MG TAB PO SCH ×3 (07:44→17:54)
[2017-07-03] MEDS: POLYETHYLENE (MIRALAX) 17 GM PACK PO SCH (09:00)
[2017-07-03] MEDS: PANTOprazole SOD 40 MG TAB PO SCH (09:00)
[2017-07-03] MEDS: NORETHINDRONE ACETATE 5 MG TAB PO SCH ×3 (09:05→17:20)
[2017-07-03] MEDS: DOCUSATE SODIUM 100 MG CAP PO SCH (09:06)
[2017-07-03] MEDS: FLUTICASONE HFA 220 MCG INHALER INH SCH (09:07)
--- NOTE | 2017-07-03 09:38 | DIAGNOSTIC IMAGING REPORT ---
KUB CLINICAL HISTORY: Abdominal pain. Constipation. COMPARISON STUDY: CT of the abdomen and pelvis June 30, 2017. FINDINGS: Pelvic calcifications reflect phleboliths. There are no urinary calculi. The bowel gas pattern is normal. There is a moderate amount of stool within the ascending and transverse colon. IMPRESSION: 1. No evidence for a bowel obstruction. 2. Moderate amount of stool within the ascending and transverse colon. Electronically signed by: Son Perez M.D. 07/03/2017 9:36 AM Dictated Date/Time: 07/03/2017 9:33 AM
[2017-07-03] MEDS ORDERED: METHYLNALTREXONE BROMIDE INJ 12 MG/0.6 ML SYR SQ SCH (10:00)
--- NOTE | 2017-07-03 10:03 | Gastrointestinal Consultation ---
Gastrointestinal Consultation Date of Consultation: Jul 03, 2017 Attending Physician: Larry Consulting Physician: Rafael Reason for Consultation: abd pain, constipation History of Present Illness Patient is a 26 year old female w/ PMH GERD who presented through the ED for evaluation of anemia and abnormal vaginal bleeding. GI was consulted for abdominal pain. Pt was seen and evaluated, chart reviewed. Pt notes long standing abdominal complaints. Has chronic GERD, maintained on nexium, with good symptom control. No epigastric pain, nausea, vomiting, regurgitation, painful/difficulty swallowing. She notes daily abdominal cramping, upper abdominal, constant, mild. Becomes sharp stabbing after PO intake. Typically moves her bowels 1-2 times daily. Abdominal pain is slightly relieved with BM, but persists. She also endorses lower abdominal cramping. No black or bloody stools. Notes she has issues with dairy products, and tries to avoid. Today, no fever, chills, CP, SOB. Is hungry, wants to eat and go home. NSAIDs: none Steroids: none Caffeine: little ETOH: rare Family history IBD: none EGD: about three years ago, normal per pt KUB 07/03/17: No evidence for a bowel obstruction. Moderate amount of stool within the ascending and transverse colon CT ABD/Pelvis 06/30/17: There are no acute infectious or inflammatory findings in the abdomen or pelvis. Past Medical/Surgical History Medical Problems: (1) Abdominal pain, left upper quadrant Status: Acute (2) Acute chest pain Status: Acute (3) Dysfunctional uterine bleeding Status: Acute (4) Dyspnea Status: Acute (5) Symptomatic anemia Status: Acute Past Medical History: GERD, abd pain, obesity, asthma Past Surgical History: EGD Social History Smoking Status: Former Smoker Drug Use: none Marital Status: single Housing Status: unknown Occupation Status: employed Allergies Coded Allergies: Penicillins (Verified Allergy, Unknown, Unknown, 06/30/17) As a child Current Medications Home Meds and Scripts Medications Dose Route/Sig Max Daily Dose Days Date Category Dose Instructions Provera (Medroxyprogesterone Acetate) 10 Mg Tab 10 Mg PO UD 07/02/17 Rx 2 TABLETS A DAY FOR TWO DAYS THEN 1 TABLET DAILY Norethindrone Acetate 5 Mg Tab 5 Mg PO QID 5 07/01/17 Rx Singulair (Montelukast Sodium) 10 Mg Tab 1 Tab PO DAILY 90 06/30/17 Reported Nexium (Esomeprazole Magnesium) 40 Mg Cap 1 Cap PO DAILY 30 06/30/17 Reported Flovent Hfa (Fluticasone Propionate) Unknown Strength Aero Unknown Dose INH BID 30 06/30/17 Reported Arnuity Ellipta (Fluticasone Furoate (Inhalatio) 200 Mcg/Act Inh 1 Puff INH DAILY 06/30/17 Reported Tylenol Cold & Flu Severe (Ftyvlhzcqestq-My-Dg W/ Apap) 1 Tab Tab 1 Tab PO UD PRN 06/30/17 Reported Iron (Ferrous Sulfate) Unknown Strength Tab 1 Tab PO TID 06/30/17 Reported Review of Systems Constitutional: No fever, No chills Respiratory: No cough, No shortness of breath Cardiac: No chest pain Abdomen: + pain, + constipation, No nausea, No vomiting, No diarrhea, No GI bleeding, No dysphagia, No odynophagia Physical Exam Date Time Temp Pulse Resp B/P (MAP) Pulse Ox O2 Delivery O2 Flow Rate FiO2 07/03/17 07:15 36.9 84 20 124/76 (92) 99 Room Air 07/03/17 07:15 99 Room Air 07/03/17 04:50 37.0 78 18 111/60 (77) 100 Room Air 07/02/17 23:55 100 Room Air 07/02/17 23:55 36.7 76 18 132/73 (92) 100 Room Air 07/02/17 19:30 36.4 76 18 126/70 (88) 100 Room Air 07/02/17 15:15 37.1 87 18 128/76 (93) 99 Room Air 07/02/17 11:55 37.1 78 20 126/67 (86) 99 Room Air General Appearance: no apparent distress Eyes: PERRL ENT: hearing grossly normal Neck: supple Respiratory/Chest: lungs clear, normal breath sounds Cardiovascular: regular rate, rhythm Abdomen: soft, no organomegaly, no pulsatile mass, + abnormal bowel sounds ( diminished x 4 ) Neurologic/Psych: alert, normal mood/affect, oriented x 3 Skin: normal color, warm/dry, no rash Laboratory Results Last 24 Hours Test 07/03/17 07:17 White Blood Count 8.09 K/uL Red Blood Count 4.19 M/uL Hemoglobin 8.0 g/dL Hematocrit 28.6 % Mean Corpuscular Volume 68.3 fL Mean Corpuscular Hemoglobin 19.1 pg Mean Corpuscular Hemoglobin Concent 28.0 g/dl RDW Standard Deviation 62.7 fL RDW Coefficient of Variation 25.4 % Platelet Count 458 K/uL Mean Platelet Volume 8.1 fL Total Bilirubin 0.2 mg/dl Direct Bilirubin 0.1 mg/dl Aspartate Amino Transf (AST/SGOT) 12 U/L Alanine Aminotransferase (ALT/SGPT) 21 U/L Alkaline Phosphatase 87 U/L Total Protein 7.4 gm/dl Albumin 3.0 gm/dl Lipase 92 U/L Impression Patient is a 26 year old female with chronic abdominal pain, admitted to [facility] for abnormal vaginal bleeding and anemia, will be started on OCPs. Notes upper abdominal cramping, worse after PO intake, mildly improved with BM. Typically moves her bowels 1-2 times daily, no bleeding. No BM in 6 days. Differentials: chronic abd pain, IBS, GERD Plan - KUB - GI ok for diet - One dose of Relistor - Bentyl 10 mg three times daily as needed - Celiac panel - FODMAPs diet - Miralax 17 g daily - Omeprazole 20 mg twice daily - GERD dietary changes - decrease ETOH - decrease caffiene - elevate head of bed - smaller, more frequent meals - no NSAIDs - Outpatient GI follow up GI will sign off, no GI contraindication to discharge as KUB is nonobstructive w / moderate fecal load. Please call with any questions or concerns.
[2017-07-03] MEDS ORDERED: DICYCLOMINE HCL 10 MG CAP PO SCH (14:00)
[2017-07-03] MEDS: ACETAMINOPHEN 325 MG TAB PO PRN (14:54)
[2017-07-03] MEDS ORDERED: MRLP17 PO (16:02)
[2017-07-03] MEDS ORDERED: BNT10 PO (16:02)
[2017-07-03] MEDS ORDERED: NXM/40 PO (16:02)
[2017-07-03] MEDS ORDERED: CLC100 PO (16:02)
[2017-07-03 16:30] VITALS: BP 141/64; PULSE 76; TEMP 37.2; O2SAT 100
[2017-07-03 17:42] VITALS: BP 141/64; PULSE 76; TEMP 37.2; O2SAT 100
--- NOTE | 2017-07-03 18:48 | Discharge Summary ---
Discharge Summary Date of Service Jul 03, 2017. Discharge Summary Admission Date: Jun 30, 2017 at 17:29 Discharge Date: Jul 02, 2017 Discharge Disposition: Home Principal Diagnosis: INCREASED VAGINAL BLEEDING /ANEMIA /ABDOMINAL PAIN Procedures: XRAY KUB : IMPRESSION: 1. No evidence for a bowel obstruction. 2. Moderate amount of stool within the ascending and transverse colon. PELVIS USG : IMPRESSION: 1. Unremarkable sonographic appearance of the uterus and endometrium without evidence of uterine leiomyoma. 2. No evidence of ovarian torsion. 3. Ovoid cystic lesion of the right adnexum adjacent to the right ovary measuring up to 2.2 cm suggests exophytic follicle or para ovarian cyst CT ABDOMEN/PELVIS : IMPRESSION: There are no acute infectious or inflammatory findings in the abdomen or pelvis. Consultations: [facility] GI Medication Reconciliation New Medications: Medroxyprogesterone Acetate (Provera) 10 Mg Tab 10 MG PO UD, #30 TAB 2 Refills 2 TABLETS A DAY FOR TWO DAYS THEN 1 TABLET DAILY Dicyclomine HCl (Dicyclomine HCl) 10 Mg Cap 10 MG PO TID PRN for abdominal pain for 30 Days, #90 CAP 2 Refills Docusate Sodium (Docusate Sodium) 100 Mg Cap 100 MG PO BID for 30 Days, #60 CAP over the counter Norethindrone Acetate (Norethindrone Acetate) 5 Mg Tab 5 MG PO QID for 5 Days, #20 TAB Polyethylene (Miralax) 17 Gm Pow 17 GM PO DAILY for 30 Days over the counter Changed Medications: Esomeprazole Magnesium (Nexium) 40 Mg Cap 1 CAP PO BID for 30 Days, #60 CAP 5 Refills (Changed from: DAILY; 30) Continued Medications: Ferrous Sulfate (Iron) Unknown Strength Tab 1 TAB PO TID Fluticasone Furoate (Inhalatio (Arnuity Ellipta) 200 Mcg/Act Inh 1 PUFF INH DAILY Fluticasone Propionate (Flovent Hfa) Unknown Strength Aero Unknown Dose INH BID for 30 Days, #1 INHALER 2 Refills Montelukast Sodium (Singulair) 10 Mg Tab 1 TAB PO DAILY for 90 Days, #90 TAB 1 Refill Uuwfeqentkmij-Sh-Hd W/ Apap (Tylenol Cold & Flu Severe) 1 Tab Tab 1 TAB PO UD PRN for Cold/Flu Symptoms Referrals At Discharge Follow up Referrals: [facility] Referral - Please Call For Appointment with Bryan Howe MD [facility] Referral - 07/17/17 with Carlos Alberto Hu M.D. Physician Referral - 07/07/17 with Genesis Pichardo DO Admission Information HPI (per Admitting provider): This is a 26 year old obese female with PMH of asthma, GERD and a few month hx. of vaginal bleeding presents with dizziness/lightheadedness and excessive vaginal bleeding. States that since February, she has been having worsening periods and gets daily bleeding since the end of February. She states she was seen by her primary care physician and was initially prescribed oral contraceptives, which helped with her bleeding. At the end of May, she was told to stop the OCPs and the bleeding recurred. She has had a pelvic/ transvaginal US with no acute findings. Has not seen an slot editor for this as of yet. As an outpatient, she was noted to have Hgb of 5.7 at the end of May, but she stated that she could not come in to the ER because of work. She finally came to the ER because of worsening symptoms - dizziness. Upon presentation, Hgb was noted to be 6.5. Abdominal CT performed and no acute findings. Student Services Vice President was called and they recommended norethindrone. Denies fevers/ chills, denies urinary symptoms. 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, no motor/sensory deficits, alert , normal mood/affect, oriented x 3 Skin: normal color Lymphatic: no adenopathy Hospital Course continued complain of abdominal pain /mid epigastrium to left upper quadrant Xray of KUB shows no evidence of obstruction abdominal clinical exam benign pt continued to rate pain 10/10 , but appears to be comfortable all narcotic pain meds D/drake P/E: General-well appearing female, obese no sign of distress noted , upset and tearful as pt is notified that no more narcotic pain medication will be given Eyes-sclera non icteric , PERRLA/EOMI ENT-moist oral mucosa , normal oropharynx Neck-no thyromegaly , trachea midline Lungs-CTA, no wheeze or rales Heart-regular S1/S2 Abdomen-soft. mild epigastric tenderness , no rebound tenderness, bowel sound active Extremities-no rash or deformity Neuro-AAO x3, no focal deficit Acute Blood Loss Anemia secondary to Menometrorrhagia resolved , HB stable post transfusion ~8 per vaginal bleeding has stopped patient has been having excessive bleeding since February Hgb as outpatient dropped all the way to 5.7 at the end of May refused to come to ED or have Blood transfusion due to work having on going symptoms: lightheadedness, dizziness Abdominal CT negative for pathology presents with Hgb 6.5 s/p 2 units of PRBC transfusion /Hb improved to 8 started on Norethindrone as 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 health informatics instructor appreciated from Student Services Vice President recommend cont on Aygestin 5 mg PO four times daily for at least 5 days and then transition into oral contraceptives pelvic USG shows -normal study , no uterine fibroid noted stable to be discharged home with out pt Student Services Vice President follow up INTRACTABLE ABDOMINAL PAIN /NARCOTIC PAIN MEDS DEPENDENCY : not sure about the etiology clinically pt does not appear to be in discomfort rated pain 10/10 , Tylenol or Motrin does not help IV morphine works ; asking for frequent dose CT Abdomen pelvis /Pelvic USG -no pathology noted Abdominal exam benign concern for narcotic pain meds dependency Xray of KUB shows evidence of fecal load /constipation GI eval appreciated , possible IBS ordered for Flexeril PRN for abdominal pain /spasm avoid narcotics ordered Relistor for narcotic induced constipation advanced tolerating well stable to be discharged home GERD: - Omeprazole/Nexium increased to 20 mg twice daily - avoid Alcohol -Limit caffeine intake -avoid spicy /hot foot - elevate head of bed/can use Pillow wedges - smaller, more frequent meals - no NSAIDs-no Motrin , Advil , Aleve, Ibuprofen, Naproxen , - Outpatient GI follow up in 2-3 weeks , please call office for appointment Asthma stable no wheeze or SOB continue Singulair, continue Flovent and Arnuity Ellipta inhalers FULL CODE DVT PROPHYLAXIS low risk SCD and teds ambulate DISPOSITION stable to be discharge home today medicine follow up with Dr Pichardo will need out pt follow up with Student Services Vice President follow up with GI as out pt Total time spent on discharge = 45 SC NS This includes examination of the patient, discharge planning, medication reconciliation, and communication with other providers. Discharge Instructions Discharge Instructions Date of Service Jul 03, 2017. Admission Reason for Admission: Menometrorrhagia Discharge Discharge Diagnosis / Problem: INCREASED VAGINAL BLEEDING /ANEMIA /ABDOMINAL PAIN Discharge Goals Goal(s): Decrease discomfort, Increase independence, Improve disease control, Diagnostic testing, Therapeutic intervention Activity Recommendations Activity Limitations: resume your previous activity . Instructions / Follow-Up Instructions / Follow-Up HOSPITAL FOLLOW UP 07/07/2017 11:00 AM Genesis Pichardo DO [facility] Aygestin 5 mg PO four times daily for at least 5 days and then transition into oral contraceptives PLEASE NOTIFY DR PICHARDO OFFICE IF YOU ARE EXPERIENCING DIZZY SPELL / LIGHTHEADEDNESS /INCREASED VAGINAL BLEEDING [facility] FOLLOW UP : 07/17/2017 2:30 PM Carlos Alberto Hu MD [facility] Gynecology/Obstetrics FOR ABDOMINAL PAIN - Bentyl 10 mg three times daily as needed - Miralax 17 g daily/Colace 1 cap twice daily -to maintain one soft bowel movement a day -add plenty of fiber /fluid to you diet to prevent constipation ACID REFLUX DISEASE - Omeprazole/Nexium increased to 20 mg twice daily - avoid Alcohol -Limit caffeine intake -avoid spicy /hot foot - elevate head of bed/can use Pillow wedges - smaller, more frequent meals - no NSAIDs-no Motrin , Advil , Aleve, Ibuprofen, Naproxen , - Outpatient GI follow up in 2-3 weeks , please call office for appointment Current Hospital Diet Patient's current hospital diet: Regular Diet Discharge Diet Recommended Diet: Regular Diet Pending Studies Studies pending at discharge: no Medical Emergencies . Who to Call and When: Medical Emergencies: If at any time you feel your situation is an emergency, please call 911 immediately. . Non-Emergent Contact Non-Emergency issues call your: Primary Care Provider . . "Provider Documentation" section prepared by Nathaly Juarez. . VTE Core Measure Inpt VTE Proph given/why not?: T.Iglesia.D. Stockings, SCD's Additional Copies To Genesis iPchardo,Carlos Alberto Burton M.D.
== END 2017-07-03 18:42 | disposition home or self-care (01) | DRG 812 ==
LOC: C.EDB 14:52 → C.MS4N 17:29 → ENRESERV 18:29
PROVIDERS: ADMIT Family Medicine; ATTEND Hospitalist
DX: D62 Acute posthemorrhagic anemia (principal); F11.20 Opioid dependence, uncomplicated; R10.84 Generalized abdominal pain; J45.909 Unspecified asthma, uncomplicated; N92.1 Excessive and frequent menstruation with irregular cycle; Z88.0 Allergy status to penicillin; K21.9 Gastro-esophageal reflux disease without esophagitis; K59.03 Drug induced constipation; T40.605A Adverse effect of unspecified narcotics, initial encounter; Y92.019 Unspecified place in single-family (private) house as the place of occurrence of the external cause; Z87.891 Personal history of nicotine dependence

== ENCOUNTER → 2017-09-03 | Outpatient (CLI) | payer OTHER ==
[~2017-09-03] MED LIST: FERR1TAB23 PO; FLUT1INH5 INH; FLVHFA110 INH; NORE5TAB5 PO; NXM/40 PO; PHEN-582 PO; VNTHFA/IN INH
--- NOTE | 2017-09-04 05:27 | SPLIT NIGHT TECHNICIAN REPORT ---
[facility] Split Night Polysomnogram - Almond Pan Finisher Report Study date: 09/03/2017 Referring Physician: MADDIE CONNELL Name: DULCE CORTES Almond Pan Finisher: GETACHEW Gutierrez. Date of : 1990 Height: 27 years, Height 5' 6.5" Sex: Female Weight: 314 lbs Age: 27 Neck Circum: 14.25inches BMI: Medications: 49.92 Bentyl 10mg, Norethindrone Acetate 5mg, Ptilosec 20mg, Wellbutrin XL 150mg, Proventil 2.5mg/3ml, Arnuity Ellipta 200mcg/act, Flovent HFA 200mcg/act, Singulair 10mg, Provera 10mg, Feosol 325mg Patient History Study started on room air with ETCO2 monitoring in room #6. 27 yr old female here tonight for a diagnostic psg. She complains of EDS, loud snoring and has reflux. She has asthma. Tonight she is having pain on the right side of her middle back. Her ESS=8/21(she does not drive). Her neck circ=14.25inches. Parameters Monitored NPSG: E1-M2, E2-M1, Fp1-M2, Fp2-M1, F3-M2, F4-M2, F4-M1, C3-M2, C4-M2, C4-M1, O1-M2, O2-M2, O2-M1, T3-M2, T4-M1, P3-M2, P4-M1, CHIN1, CHIN2, HR, EKG, Legs, PFLOW, SNOR, FLOW, CFLOW, Tidal Volume, THOR, ABDO, SpO2, PLTH, CPRESS, ETCO2 Wave, ETCO2, pH SLEEP SUMMARY DATA DIAGNOSTIC TREATMENT Lights Out: 9:09:57 PM 12:17:57 AM Lights On: 12:10:27 AM 5:20:27 AM Total Recording Time (TRT): 180.5 min. 302.5 min. Total Sleep Time (TST): 162.0 min. 145.5 min. NREM Time: 150.0 min. 100.5 min. REM Time: 12.0 min. 45.0 min. Sleep Period Time (SPT): 165.0 min. 186.0 min. Sleep Efficiency (SE): 90 % 48 % Sleep Latency: 9.5 min. 116.5 min. Arousal Index: 8.1 1.6 PAP Treatment Levels: 4, 6, 8, 10 * Optimal Pressure(s) SLEEP STAGING DATA DIAGNOSTIC TREATMENT Duration (min) TST % Duration (min) TST % Stage Wake: 18.5 min. -- 157.0 min. -- WASO: 9.0 min. -- 40.5 min. -- NREM: 150.0 min. 93 % 100.5 min. 69 % Stage N1: 15.0 min. 9 % 10.5 min. 7 % Stage N2: 100.0 min. 62 % 55.0 min. 38 % Stage N3: 35.0 min. 22 % 35.0 min. 24 % REM: 12.0 min. 7 % 45.0 min. 31 % POSITIONAL DATA Event Count Index Event Count Index Supine: 59 37 46 36.3 Supine NREM: 59 36.5 46 88.7 Supine REM: N/A N/A 0 0 Non-Supine: 37 34.1 4 3.5 Non-Supine NREM: 26 29.4 4 3.5 Non-Supine REM: 11 55.0 N/A N/A AROUSAL SUMMARY DATA: Event Count Index Event Count Index Apnea Arousals: 1 0.7 0 2.5 Hypopnea Arousals: 10 3.7 2 0.8 Snore Arousals: 3 1.1 0 0.0 PLM Arousals: 1 0.4 2 0.8 Non-Specific Arousals: 3 1.1 1 0.4 Total Arousals: 22 8.1 4 1.6 MYOCLONUS (PLM) Event Count Index Event Count Index PLM: 17 6.3 5 2.1 PLM AROUSAL: 1 0.4 2 0.8 PLM W/O AROUSAL 17 6.3 3 1.2 PLM W/RESP EVENT 4 0.0 1 0.0 MYOCLONUS (PLM) Event Count Index Event Count Index LM: 4 19.3 26 10.7 LM AROUSAL: 4 1.5 0 0.0 LM W/O AROUSAL LM W/RESP EVENT LM NON SPECIFIC 46 17.0 26 10.7 HEART RATE DATA DIAGNOSTIC TREATMENT Sleep (bpm): 92 85 REM (bpm): 91 93 NREM (bpm): 91 93 Tachycardia Count: 0 0 Tachycardia Duration: 0.00 0 Bradycardia Count: 0 0 Bradycardia Duration: 0.00 0 DIAGNOSTIC PORTION TREATMENT PORTION RESPIRATORY DATA Event Count Index Event Count Index AHI: -- 35.6 -- 20.6 RDI: -- 35.6 -- 21 Obstructive Apnea: 2 0.7 5 2.1 Central Apnea: 0 0.0 1 0.4 Mixed Apnea: 0 0.0 0 0.0 Hypopnea: 94 34.8 44 18.1 RERA: 0 0.0 0 0.0 Total Apneas: 2 0.7 6 2.5 RESPIRATORY DATA REM NREM SLEEP REM NREM SLEEP Supine Position: Obstructive Apneas: N/A 2 2 0 5 5 Central Apneas: N/A 0 0 0 1 1 Mixed Apneas: N/A 0 0 0 0 0 Hypopneas: N/A 57 57 0 40 40 RERA N/A 0 0 0 0 0 Total Supine Events: N/A 59 59 0 46 46 Supine AHI: N/A 36.5 37 0 88.7 36.3 Supine RDI: N/A 36.5 36.5 0.0 88.7 36.3 REM NREM SLEEP REM NREM SLEEP Non-Supine Position: Obstructive Apneas: 0 0 0 N/A 0 0 Central Apneas: 0 0 0 N/A 0 0 Mixed Apneas: 0 0 0 N/A 0 0 Hypopneas: 11 26 37 N/A 4 4 RERA 0 0 0 N/A 0 0 Total Supine Events: 11 26 37 N/A 4 4 Supine AHI: 55.0 29.4 34.1 N/A 3.5 3.5 Supine RDI: 55.0 29.4 34.1 N/A 3.5 3.5 OXYGEN DESTAURATION DATA: Event Count Index Event Count Index REM Desaturations: 14 70.0 4 5.3 NREM Desaturations: 200 80.0 47 28.1 SNORE DATA DIAGNOSTIC TREATMENT Snore Time: 27.5 2:14:27 AM Snore TST%: 11 2 Snore Arousal Count: 3 0 Snore Arousal Index: 1.1 0.0 Desaturation Event Summary: Minimum %SpO2 Event Count Mean/Min/Max Duration(sec.) Desaturation Index % Time In Bed > 90 269 16.2 / 4.8 / 59.5 41.3 83.0 86 - 90 39 13.2 / 4.8 / 45.0 30.3 16.4 81 - 85 0 N/A 0.0 0.6 76 - 80 0 N/A 0.0 0.0 71 - 75 0 N/A 0.0 0.0 66 - 70 0 N/A 0.0 0.0 61 - 65 0 N/A 0.0 0.0 56 - 60 0 N/A 0.0 0.0 51 - 55 0 N/A 0.0 0.0 < 50 0 N/A 0.0 0.0 OXYGEN SATURATION DATA DIAGNOSTIC TREATMENT SpO2 Mean Sleep: 91 % 93 % SpO2 Mean REM: 91 % 93 % SpO2 Mean NREM: 91 % 93 % SpO2 Minimum Sleep: 79 % 86 % SpO2 Minimum REM: 82 % 87 % SpO2 Minimum NREM: 79 % 86 % Time Below 90% (TST): 43.6 3.7 Time Below 88% (TST): 10.9 1.0 Total REM NREM Awake <50% 0.0 min. 0.0 min. 0.0 min. 0.0 min. 51 - 60% 0.0 min. 0.0 min. 0.0 min. 0.0 min. 61 - 70% 0.0 min. 0.0 min. 0.0 min. 0.0 min. 71 - 80% 0.2 min. 0.0 min. 0.2 min. 0.0 min. 81 - 90% 79.8 min. 6.5 min. 72.3 min. 1.0 min. 91 - 100% 390.5 min. 50.4 min. 177.8 min. 162.3 min. Average 93 93 92 94 Minimum SpO2 79 82 79 81 Desaturation Event Index 34.4 18.9 59.2 4.8 # Desat. Events below 89% 120 11 107 2 Time(%) with Saturation below 89% 5.3 0.8 4.4 0.2 Time(min.) with Saturation below 89% 25.1 3.9 20.6 0.7 Recording Almond Pan Finisher Comments: Ms. Cortes slept in the left and supine positions with the head of her bed elevated. No cardiac arrhythmia noted. Some leg movements were noted. No bruxism noted. Snoring was noted and scored as a 3 on a scale of 1 through 5. (0=no snoring, 5=snoring loud enough to be heard through a closed door or down the [address]) At 12:17 am she had met specific Split-Night criteria during the diagnostic portion of this study. CPAP was initiated at +4 CMH2O and up-titrated to a level of +10 CMH2O. A small Simplus full face mask by Silvino was used during titration. She awoke to use the restroom 2 times during the night. She stated that she slept worse than when at home. The final report will be interpreted and signed by a sleep physician. The completed physician report will then be placed in the patient medical record. Therapy Event: Therapy (cm H20) 0 4 6 8 10 Total Time at Pressure (min.) 180.5 125.2 109.0 5.6 62.6 TST at Pressure (min.) 162.0 8.7 68.5 5.6 62.6 # Periods 1 1 1 1 1 Sleep Onset (min.) 9.5 116.5 0.0 0.0 0.0 REM Onset (min.) 114.0 N/A N/A N/A 13.1 Sleep Efficiency % 89 7 62 100 100 Wakefulness (%) 10.2 93.0 37.1 0.0 0.0 Wakefulness (min.) 18.5 116.5 40.5 0.0 0.0 NREM 1 (%) 8.3 2.8 6.4 0.0 0.0 NREM 1 (min.) 15.0 3.5 7.0 0.0 0.0 NREM 2 (%) 55.4 4.2 24.3 100.0 28.2 NREM 2 (min.) 100.0 5.2 26.5 5.6 17.6 NREM 3 (%) 19.4 0.0 32.1 0.0 0.0 NREM 3 (min.) 35.0 0.0 35.0 0.0 0.0 REM (%) 6.6 0.0 0.0 0.0 71.8 REM (min.) 12.0 0.0 0.0 0.0 45.0 # Arousals 22 1 2 0 1 Arousal Index 8.1 6.9 1.8 0.0 1.0 # Snore 1,423 0 4 1 15 Snore Index 527.0 0.0 3.5 10.7 14.4 AHI 35.6 27.5 10.5 182.2 16.3 AHI Supine 36.5 N/A 91.4 182.2 16.3 AHI Non-Supine 34.1 27.5 0.0 N/A N/A NREM AHI 34.0 27.5 10.5 182.2 57.8 REM AHI 55.0 N/A N/A N/A 0.0 RDI 35.6 27.5 10.5 182.2 16.3 # Obstructive 2 0 3 2 0 # Central Ap 0 0 0 0 1 # Mixed 0 0 0 0 0 # Hypopneas 94 4 9 15 16 RERAS 0 0 0 0 0 Total Respiratory Events 96 4 12 17 17 Time Below SpO2 89.00% (min.) 22.7 0.0 0.4 0.2 1.0 Mean NREM SpO2 (%) 91 93 93 91 92 Mean REM SpO2 (%) 91 N/A N/A N/A 93 Mean Sleep SpO2 (%) 91 93 93 91 93 Min NREM SpO2 (%) 79 87 86 88 86 Min REM SpO2 (%) 82 N/A N/A N/A 87 Position Supine (min.) 97.0 0.0 7.9 5.6 62.6 Position Non-supine (min.) 65.0 8.7 60.7 0.0 0.0 LM Index Sleep 25.6 34.4 7.9 0.0 16.3 LM Index NREM 24.4 34.4 7.9 0.0 13.6 LM Index REM 40.0 N/A N/A N/A 17.3 Mean Heart Rate (bpm) 92 94 88 77 81 Min Heart Rate (bpm) 80 85 74 72 72
--- NOTE | 2017-09-07 14:42 | POLYSOMNOGRAPH REPORT ---
CLINICAL DATA: A 27-year-old female with BMI of 49.9, referred by Dr. Pichardo for a split night study. She has excessive daytime sleepiness, loud snoring and reflux. She also has asthma. She was having pain on the right side of her mid-back area during this study. Her [place] Sleepiness score was 8/21. SLEEP ARCHITECTURE: For the diagnostic portion of the study, sleep period time was 165 minutes. Total sleep time was 162 minutes divided between 150 minutes of non-REM sleep and 12 minutes of REM sleep. Sleep latency was 9.5 minutes. Sleep efficiency was 90%. Sleep consisted of stage N1 9%, stage N2 62%, stage N3 22% and REM 7%. For the treatment portion of the study, sleep period time was 186 minutes. Total sleep time was 145.5 minutes divided between 100.5 minutes of non-REM sleep and 45 minutes of REM sleep. Sleep latency was 116.5 minutes. Sleep efficiency was 48%. Sleep consisted of stage N1 7%, stage N2 38%, stage N3 24% and REM 31%. AROUSAL DATA: Prior to treatment, 22 arousals were recorded for an index of 8 per hour. During treatment, 4 arousals were recorded for an index of 1.6 per hour. PERIODIC LIMB MOVEMENT DATA: Prior to treatment, 46 limb movements during sleep were noted for an index of 17 per hour. During treatment, 26 limb movements during sleep were noted for an index of 10.7 per hour. EKG: Heart rates ranged from 85-93 beats per minute. No arrhythmias were noted. RESPIRATORY DATA: Severe sleep apnea diagnosed prior to treatment. The diagnostic AHI was 35.6. There were 2 obstructive apneic episodes and 94 hypopneic episodes recorded. The average AHI during treatment was 20.6. There were 5 obstructive apneic episodes and 45 hypopneic episodes. OXIMETRY DATA: Nocturnal hypoxemia was seen prior to treatment. Oxygen diya was 79% during non-REM sleep prior to treatment. Mean saturation during treatment was 93%. BRICK MOLDER HAND'S COMMENTS AND TREATMENT SUMMARY: The patient slept in the left and supine positions with the head of her bed elevated. Snoring was moderate, rated 3 on a scale of 1-5. At 12:17 a.m., she met split night criteria. A small Simplus full facemask by Samanta was used. She was titrated up to 12 cm of water pressure. At her final pressure setting, she slept for 43.8 minutes with an AHI of 2.7 with resolution of her nocturnal hypoxemia. IMPRESSION: Severe sleep apnea/hypopnea, corrected with CPAP 12 cm of water pressure, small Simplus full facemask by Samanta. RECOMMENDATIONS: The patient will be started on the above-noted treatment regimen and seen back in followup within 90 days to document efficacy and compliance. OCTAVIA
== END | disposition home or self-care (01) ==
LOC: C.NEUR 20:00
PROVIDERS: ATTEND Family Medicine
DX: G47.30 Sleep apnea, unspecified (principal)

== ENCOUNTER → 2017-09-08 | Day surgery (SDC) | payer OTHER ==
[2017-08-06 10:40] VITALS: BMI 49.0
[~2017-09-08] VITALS: Ht 167.6 cm; Wt 141.4 kg
[~2017-09-08] MED LIST changes: +FENTANYL CITRATE INJ 50 MCG/1 ML 2 ML VIAL ONE; +LIDOCAINE HCL 2% 2 ML VIAL (20MG/ML) ONE; +PROPOFOL IV EMULSION 10 MG/ML 20 ML VIAL IV ONE; +SODIUM CHLORIDE 0.9% 500ML 500 ML IV ONE
[2017-09-08 12:41] VITALS: Ht 167.6 cm; Wt 141.4 kg
--- NOTE | 2017-09-08 12:43 | Endo History and Physical ---
History & Physical Date of Service: Sep 08, 2017. Chief Complaint: Referring Physician: History of Present Illness patient with epigastric pain Past Surgical History Hx Cardiac Surgery: No Hx Internal Defibrillator: No Hx Pacemaker: No Hx Abdominal Surgery: No Hx of Implantable Prosthesis: No Hx Post-Op Nausea and Vomiting: No Hx Cancer Surgery: No Hx Thoracic Surgery: No Hx Orthopedic: No Hx Urinary Tract Surgery: No Family History None Social History Smoking Status: Former Smoker Hx Substance Use: No Hx Alcohol Use: Yes (occasionally) Allergies Coded Allergies: Penicillins (Verified Allergy, Unknown, Unknown, 08/06/17) As a child Current Medications Reported Home Medications Medications Dose Route/Sig Max Daily Dose Days Date Category Ventolin Hfa (Albuterol) 200 Puffs/94426 Mcg Aers 2-4 Puffs INH Q6H PRN 08/06/17 Reported Aygestin (Norethindrone Acetate) 5 Mg Tab 5 Mg PO BID 08/06/17 Reported Nexium (Esomeprazole Magnesium) 40 Mg Cap 1 Cap PO BID 30 07/03/17 Rx Flovent Hfa (Fluticasone Propionate) Unknown Strength Aero 2 Puff INH BID 06/30/17 Reported Arnuity Ellipta (Fluticasone Furoate (Inhalatio) 200 Mcg/Act Inh 1 Puff INH QAM 06/30/17 Reported Tylenol Cold & Flu Severe (Fjdyhenfwnfvf-Kp-Tj W/ Apap) 1 Tab Tab 1 Tab PO UD PRN 06/30/17 Reported Iron (Ferrous Sulfate) Unknown Strength Tab 1 Tab PO TID 06/30/17 Reported Vital Signs Weight (Kilograms): 141.36 Height (Feet): 5 Height (Inches): 6.5 Physical Exam General Appearance: no apparent distress Respiratory/Chest: Auscultation: breath sounds normal Cardiovascular: Heart Auscultation: RRR Abdomen: Inspection & Palpation: soft Liver: non-tender Assessment and Plan stable for EGD
--- NOTE | 2017-09-08 13:29 | Discharge Instructions ---
Endoscopy Patient Instructions Date / Procedure(s) Performed Sep 08, 2017. EGD Allergy Information Coded Allergies: Penicillins (Verified Allergy, Unknown, Unknown, 08/06/17) As a child Discharge Date / Findings Sep 08, 2017. Normal upper endoscopy Provider Instructions Activity Restrictions - No exercising or heavy lifting for 24 hours. - Do not drink alcohol the day of the procedure. - Do not drive a car or operate machinery until the day after the procedure. - Do not make any important decisions or sign important papers in 24 hours after the procedure. Following Day: - Return to full activity which may include returning to work/school. Diet Start your diet with liquids and light foods (jello, soup, juice, toast). Then eat your usual diet if not nauseated. Treatment For Common After Affects For mild abdominal pain, bloating, or excessive gas: - Rest - Eat lightly - Lie on right side Follow-Up Information Follow-up with DR. CONNELL as scheduled Anesthesia Information What You Should Know You have had a procedure that required some medicine to reduce anxiety and discomfort. This treatment is called moderate sedation. After receiving the treatment, you may be sleepy, but you will be able to breathe on your own. The effects of the treatment may last for several hours. Follow these instructions along with Activity/Diet recommendations noted above: * Do NOT do anything where dizziness or clumsiness would be dangerous. * Rest quietly at home today, then you can be up and about tomorrow. * Have a responsible person stay with you the rest of today. * You may have had an I.V. today. If so, you may take the dressing off later today. Recommendations Call your doctor if: * Trouble breathing * Continuous vomiting for more than 24 hours * Temperature above 101 degrees * Severe abdominal pain or bloating * Pain not relieved by pain medicine ordered * There is increased drainage or redness from any incision * A large amount of rectal bleeding greater than 2-3 tablespoons. (If you had a polyp/s removed or have hemorrhoids, a small amount of blood - from the rectum is to be expected.) * You have any unanswered questions or concerns. IN THE EVENT OF A SERIOUS EMERGENCY, GO TO THE NEAREST EMERGENCY ROOM Your discharge instructions were prepared by provider Bryan Howe. Patient Instructions Signature Page Susan Carrillo Patient (or Guardian) Signature/Date: I have read and understand the instructions given to me by my caregivers. Caregiver/RN/Doctor Signature/Date: The above-named patient and/or guardian has received patient instructions on this date. + Original Patient Signature Page (only) stays with chart. Please make copy for patient.
--- NOTE | 2017-09-08 13:31 | GI REPORT ---
Procedure Date: 09/08/2017 12:41 PM Procedure: Upper GI endoscopy Indications: Epigastric abdominal pain Medicines: See the Anesthesia note for documentation of the administered medications Complications: No immediate complications. Estimated Blood Loss: Estimated blood loss: none. Procedure: Pre-Anesthesia Assessment: - Prior to the procedure, a History and Physical was performed, and patient medications, allergies and sensitivities were reviewed. The patient's tolerance of previous anesthesia was reviewed. - The risks and benefits of the procedure and the sedation options and risks were discussed with the patient. All questions were answered and informed consent was obtained. - Patient identification and proposed procedure were verified prior to the procedure by the physician and the nurse. The procedure was verified in the pre-procedure area. - Pre-procedure physical examination revealed no contraindications to sedation. - After reviewing the risks and benefits, the patient was deemed in satisfactory condition to undergo the procedure. After obtaining informed consent, the endoscope was passed under direct vision. Throughout the procedure, the patient's blood pressure, pulse, and oxygen saturations were monitored continuously. The scope was introduced through the mouth, and advanced to the third part of duodenum. The upper GI endoscopy was accomplished without difficulty. The patient tolerated the procedure well. Findings: The esophagus was normal. The stomach was normal. The examined duodenum was normal. The cardia and gastric fundus were normal on retroflexion. Impression: - Normal esophagus. - Normal stomach. - Normal examined duodenum. - No specimens collected. Recommendation: - Discharge patient to home. Bryan Howe M.D. Bryan Howe MD 09/08/2017 1:30:45 PM This report has been signed electronically. Note Initiated On: 09/08/2017 12:41 PM I attest to the content of the Intraoperative Record and orders documented therein, exceptions below
[2017-09-08 14:05] VITALS: BP 144/87; PULSE 83; O2SAT 99
--- NOTE | 2017-09-08 14:22 | Anesthesiology Progress Note ---
Anesthesia Post Op Note Date & Time Sep 08, 2017 at 14:22 Vital Signs Pain Intensity: 0 Vital Signs Past 12 Hours Date Time Temp Pulse Resp B/P (MAP) Pulse Ox O2 Delivery O2 Flow Rate FiO2 09/08/17 14:05 83 18 144/87 (106) 99 Room Air 09/08/17 13:50 91 18 149/107 (121) 100 Room Air 09/08/17 13:35 93 18 137/97 (110) 100 Room Air 09/08/17 12:55 37.1 89 18 158/91 (113) 98 Room Air Notes Mental Status: alert / awake / arousable, participated in evaluation Pt Amnestic to Procedure: Yes Nausea / Vomiting: adequately controlled Pain: adequately controlled Airway Patency, RR, SpO2: stable & adequate BP & HR: stable & adequate Hydration State: stable & adequate Anesthetic Complications: no major complications apparent
== END | disposition home or self-care (01) ==
LOC: C.GI 12:15
PROVIDERS: ATTEND Internal Medicine Gastroenterology
DX: R10.13 Epigastric pain (principal); K21.9 Gastro-esophageal reflux disease without esophagitis; J45.909 Unspecified asthma, uncomplicated; E66.9 Obesity, unspecified; Z87.891 Personal history of nicotine dependence; Z88.0 Allergy status to penicillin

== ENCOUNTER → 2018-02-19 | Day surgery (SDC) | payer OTHER ==
[2018-02-18 09:46] VITALS: Ht 168.9 cm; Wt 154.6 kg
[~2018-02-19] VITALS: Ht 168.9 cm; Wt 154.6 kg
[~2018-02-19] MED LIST changes: +ALBU2SYP9 INH; +BUPRTAB51 PO; +DICL1GEL12 EXT; +DOCU-94 PO; -FENTANYL CITRATE INJ 50 MCG/1 ML 2 ML VIAL ONE; -FERR1TAB23 PO; +FERR325T5 PO; +FLUO10CA48 PO; -FLVHFA110 INH; +HYDR25CA PO; -LIDOCAINE HCL 2% 2 ML VIAL (20MG/ML) ONE; +MELO15TA10 PO; -NORE5TAB5 PO; +ONDA4TAB46 PO; -PHEN-582 PO; -PROPOFOL IV EMULSION 10 MG/ML 20 ML VIAL IV ONE; +PROPOFOL IV EMULSION 10 MG/ML 20 ML VIAL ONE
--- NOTE | 2018-02-19 12:04 | Endo History and Physical ---
History & Physical Date of Service: Feb 19, 2018. Chief Complaint: Constipation, abd pain Referring Physician: Dr. Pichardo History of Present Illness Diarrhea and abdominal pain Past Surgical History Hx Cardiac Surgery: No Hx Internal Defibrillator: No Hx Pacemaker: No Hx Abdominal Surgery: No Hx of Implantable Prosthesis: No Hx Post-Op Nausea and Vomiting: No Hx Cancer Surgery: No Hx Thoracic Surgery: No Hx Orthopedic: No Hx Urinary Tract Surgery: No Family History None Social History Smoking Status: Former Smoker Hx Substance Use: No Hx Alcohol Use: Yes (OCCASIONALLY) Allergies Coded Allergies: Penicillins (Verified Allergy, Unknown, UNSURE/ A CHILD, 02/18/18) Current Medications Reported Home Medications Medications Dose Route/Sig Max Daily Dose Days Date Category Ferrous Sulfate 325 Mg Tab 1 Tab PO TID 02/18/18 Reported Arnuity Ellipta (Fluticasone Furoate (Inhalatio) 200 Mcg/Act Inh 1 Puff INH QAM 02/18/18 Reported Ventolin (Albuterol Sulfate) 2 Mg/5 Ml Syrp 1 Dose INH DIRECTED PRN 02/18/18 Reported Nexium (Esomeprazole Magnesium) 40 Mg Capcr 40 Mg PO QAM 02/18/18 Reported Mobic (Meloxicam) 15 Mg Tab 15 Mg PO DAILY 02/18/18 Reported Voltaren 1% Top Gel (Diclofenac Sodium (Topical)) 1 % Gel 1 Dose EXT DIRECTED PRN 02/18/18 Reported Vistaril (Hydroxyzine Pamoate) 25 Mg Cap 1 Cap PO QAM 02/18/18 Reported Zofran (Ondansetron HCl) 4 Mg Tab 4 Mg PO Q8H PRN 02/18/18 Reported Colace (Docusate Sodium) 100 Mg Cap 1 Cap PO BID 02/18/18 Reported Prozac (Fluoxetine HCl) 10 Mg Cap 10 Mg PO QAM 01/30/18 Reported Wellbutrin-Xl (Bupropion HCl) 300 Mg Tabcr 300 Mg PO QAM 01/30/18 Reported Ventolin Hfa (Albuterol) 200 Puffs/67804 Mcg Aers 2 Puffs INH Q6H 01/30/18 Reported Vital Signs Weight (Kilograms): 154.55 Height (Feet): 5 Height (Inches): 6.5 Date Time Temp Pulse Resp B/P (MAP) Pulse Ox O2 Delivery O2 Flow Rate FiO2 02/19/18 11:33 36.3 80 18 144/80 (101) 99 Room Air Physical Exam General Appearance: WD/WN, no apparent distress, + obese Respiratory/Chest: Auscultation: breath sounds normal, no wheezing Cardiovascular: Heart Auscultation: RRR, no murmurs Abdomen: Inspection & Palpation: soft, no tenderness, guarding & rebound Assessment and Plan Colonoscopy today.
--- NOTE | 2018-02-19 13:06 | GI REPORT ---
Patient Name: Susan Carrillo Procedure Date: 02/19/2018 12:07 PM Date of : 1990 Admit Type: Outpatient Age: 27 Gender: Female Attending MD: Sorin Carlos MD Procedure: Colonoscopy Providers: Sorin Carlos MD Referring MD: Mya Blanton Indications: Abdominal pain, Clinically significant diarrhea of unexplained origin Medicines: Propofol per Anesthesia Complications: No immediate complications. Estimated blood loss: None. Estimated Blood Loss: Estimated blood loss: none. Procedure: Pre-Anesthesia Assessment: - Prior to the procedure, a History and Physical was performed, and patient medications, allergies and sensitivities were reviewed. The patient's tolerance of previous anesthesia was reviewed. - ASA Grade Assessment: II - A patient with mild systemic disease. After I obtained informed consent, the scope was passed under direct vision. Throughout the procedure, the patient's blood pressure, pulse, and oxygen saturations were monitored continuously. The scope was introduced through the anus and advanced to the terminal ileum, with identification of the appendiceal orifice and IC valve. The colonoscopy was performed without difficulty. The patient tolerated the procedure well. The quality of the bowel preparation was fair. The bowel preparation used was split dose MIralax. Findings: The colon (entire examined portion) appeared normal. Biopsies for histology were taken with a cold forceps from the entire colon for evaluation of microscopic colitis. Fluid aspiration for bacterial cultures, Clostridium difficile and ova and parasites was performed. Verification of patient identification for the specimens was done by the physician and nurse using the patient's name, date and medical record number. Impression: - Preparation of the colon was fair. - The entire examined colon is normal to the terminal ileum with retroflexed views of the rectum. Biopsied. Fluid aspiration performed. Recommendation: - Await pathology results. - Discharge patient to home (with escort). Sorin Carlos M.D. Sorin Carlos MD 02/19/2018 1:05:40 PM This report has been signed electronically. Note Initiated On: 02/19/2018 12:07 PM Number of Addenda: 0 I attest to the content of the Intraoperative Record and orders documented therein, exceptions below {[id number]}
[2018-02-19 13:08] VITALS: BP 154/100; PULSE 80; O2SAT 100
--- NOTE | 2018-02-19 13:14 | Discharge Instructions ---
Endoscopy Patient Instructions Date / Procedure(s) Performed Feb 19, 2018. Colonoscopy Allergy Information Coded Allergies: Penicillins (Verified Allergy, Unknown, UNSURE/ A CHILD, 02/18/18) Discharge Date / Findings Feb 19, 2018. Normal colon, random biopsies obtained. Medication Instructions Restart Stopped Medication(s): Resume all medications today. Provider Instructions Activity Restrictions - No exercising or heavy lifting for 24 hours. - Do not drink alcohol the day of the procedure. - Do not drive a car or operate machinery until the day after the procedure. - Do not make any important decisions or sign important papers in 24 hours after the procedure. Following Day: - Return to full activity which may include returning to work/school. Diet Start your diet with liquids and light foods (jello, soup, juice, toast). Then eat your usual diet if not nauseated. Treatment For Common After Affects For mild abdominal pain, bloating, or excessive gas: - Rest - Eat lightly - Lie on right side Follow-Up Information Follow-up with Randaer as scheduled Anesthesia Information What You Should Know You have had a procedure that required some medicine to reduce anxiety and discomfort. This treatment is called moderate sedation. After receiving the treatment, you may be sleepy, but you will be able to breathe on your own. The effects of the treatment may last for several hours. Follow these instructions along with Activity/Diet recommendations noted above: * Do NOT do anything where dizziness or clumsiness would be dangerous. * Rest quietly at home today, then you can be up and about tomorrow. * Have a responsible person stay with you the rest of today. * You may have had an I.V. today. If so, you may take the dressing off later today. Recommendations Call your doctor if: * Trouble breathing * Continuous vomiting for more than 24 hours * Temperature above 101 degrees * Severe abdominal pain or bloating * Pain not relieved by pain medicine ordered * There is increased drainage or redness from any incision * A large amount of rectal bleeding greater than 2-3 tablespoons. (If you had a polyp/s removed or have hemorrhoids, a small amount of blood - from the rectum is to be expected.) * You have any unanswered questions or concerns. IN THE EVENT OF A SERIOUS EMERGENCY, GO TO THE NEAREST EMERGENCY ROOM Your discharge instructions were prepared by provider Sorin Carlos. Patient Instructions Signature Page Susan Carrillo Patient (or Guardian) Signature/Date: I have read and understand the instructions given to me by my caregivers. Caregiver/RN/Doctor Signature/Date: The above-named patient and/or guardian has received patient instructions on this date. + Original Patient Signature Page (only) stays with chart. Please make copy for patient.
--- NOTE | 2018-02-19 13:19 | Anesthesiology Progress Note ---
Anesthesia Post Op Note Date & Time Feb 19, 2018 at 13:19 Vital Signs Pain Intensity: 0 Vital Signs Past 12 Hours Date Time Temp Pulse Resp B/P (MAP) Pulse Ox O2 Delivery O2 Flow Rate FiO2 02/19/18 13:08 80 20 154/100 (118) 100 Room Air 02/19/18 12:53 86 20 140/84 (102) 98 Room Air 02/19/18 12:38 36.3 80 18 128/77 (94) 99 Room Air 02/19/18 11:33 36.3 80 18 144/80 (101) 99 Room Air Notes Mental Status: alert / awake / arousable, participated in evaluation Pt Amnestic to Procedure: Yes Nausea / Vomiting: adequately controlled Pain: adequately controlled Airway Patency, RR, SpO2: stable & adequate BP & HR: stable & adequate Hydration State: stable & adequate Anesthetic Complications: no major complications apparent
== END | disposition home or self-care (01) ==
LOC: C.GI 10:21
PROVIDERS: ATTEND Internal Medicine Gastroenterology
DX: K59.00 Constipation, unspecified (principal); R10.9 Unspecified abdominal pain; J45.909 Unspecified asthma, uncomplicated; F32.9 Major depressive disorder, single episode, unspecified; E66.01 Morbid (severe) obesity due to excess calories; Z68.43 Body mass index [BMI] 50.0-59.9, adult; Z88.0 Allergy status to penicillin; Z87.891 Personal history of nicotine dependence

== ENCOUNTER 2020-10-06 15:10 | Observation (INO) ==
[2020-10-06] MEDS ORDERED: KETOROLAC 30 MG/ML VIAL IV STA (16:02)
--- NOTE | 2020-10-06 16:05 | Emergency Department Note ---
History of Present Illness General Chief complaint: Chest Pain Stated complaint: BURNING PAIN IN LEGS,CHEST PAIN INTO LEFT ARM Time Seen by Provider: 10/06/20 15:32 History of Present Illness Maximum Pain Intensity: 9 This is a 30-year-old female the presents to the emergency department via private vehicle with complaints of a burning pain in legs, chest pain in the left arm". The patient notes that she has been experiencing a burning/aching sensation in her bilateral legs with associated left-sided chest pain that goes into her left arm/left arm heaviness since this past Thursday. She does note that she undergoes routine COVID-19 testing on a weekly basis at her place of employment. She works at [employer]. Patient notes that she was informed that a coworker tested positive earlier this week for COVID-19. The patient notes that in addition to her symptoms as noted above since this past to now she has had also associated nausea, vomiting and headache. She has tried ibuprofen without relief. She does note that she also has associated diarrhea. No loss of taste or smell. Home Medications Medication Instructions Recorded Confirmed Type albuterol sulfate 2 puffs INH Q4H PRN 10/06/20 10/06/20 History dicyclomine 10 mg PO TID PRN 10/06/20 10/06/20 History docusate sodium [DOK] 100 mg PO BID 10/06/20 10/06/20 History famotidine 20 mg PO DAILY 10/06/20 10/06/20 History ferrous sulfate 325 mg PO TID 10/06/20 10/06/20 History hydroxyzine pamoate 25 mg PO HS PRN 10/06/20 10/06/20 History metformin 1,000 mg PO BIDM 10/06/20 10/06/20 History Allergies Allergy/AdvReac Type Severity Reaction Status Date / Time Penicillins Allergy Unknown Unknown Verified 10/06/20 16:58 Past Med/Surg History Medical History (Updated 10/06/20 @ 21:12 by Jose Joy PA-C) Anxiety Asthma GERD (gastroesophageal reflux disease) Menometrorrhagia PCOS (polycystic ovarian syndrome) Surgical History History of colonoscopy History of esophagogastroduodenoscopy (EGD) Family History Sister Breast cancer Mother Hypertension Social History Smoking Status: Former smoker Tobacco Type: Cigarettes Hx Alcohol Use: Yes Alcohol Intake Frequency: Monthly or Less Hx Substance Use: No Preferred Language: Bengali Communication Ability: Effective Visual Impairment: No Limitations Hearing Ability: Normal Scoop Operator Required: No Beliefs That Will Affect Care: None Current Living Situation: Other Current Living Situation Comment: roommate current occupational status: employed Feels Safe at Home: Yes Safety Concerns: Feels Safe At This Time Review of Systems A total of 10 systems reviewed and were otherwise negative Physical Exam Vital Signs Vital Signs - 24 hr 10/06/20 15:24 10/06/20 16:05 10/06/20 17:10 Temperature 36.9 C Temperature Source Temporal Artery Scan Pulse Rate 103 H Pulse Rate [Apical] 82 Respiratory Rate 20 19 Blood Pressure 179/74 H Blood Pressure [Left Arm] 167/82 H Blood Pressure Mean 109 Blood Pressure Mean [Left Arm] 110 Pulse Oximetry 99 99 99 Oxygen Delivery Method Room Air Room Air Room Air Sepsis Recent Fever Within 48 Hours No Sepsis New/Unexplained Change in Mental Status N/A Sepsis Action Taken by Nursing No Action Required 10/06/20 18:00 Temperature Temperature Source Pulse Rate 88 Pulse Rate [Apical] Respiratory Rate 24 Blood Pressure Blood Pressure [Left Arm] Blood Pressure Mean Blood Pressure Mean [Left Arm] Pulse Oximetry Oxygen Delivery Method Sepsis Recent Fever Within 48 Hours Sepsis New/Unexplained Change in Mental Status Sepsis Action Taken by Nursing VITAL SIGNS - Vital signs and nursing notes were reviewed. Stable and afebrile. GENERAL -30-year-old female appearing her stated age who is in no acute distress. Communicates well with provider and answers questions appropriately. SKIN - Without rashes. No meningeal or petechial rash. HEAD - NC/AT. EYES - PERRL with EOMI bilaterally. Sclera anicteric. EARS - No deformities of external structures noted on gross examination bilaterally. NOSE - Midline and without cyanosis. No epistaxis or purulent drainage noted. MOUTH/OROPHARYNX - Without perioral cyanosis. NECK - Neck with FROM. No nuchal rigidity. LUNGS - Chest wall symmetric without accessory muscle use, intercostals retractions, or central cyanosis. Normal vesicular breath sounds CTA B/L. No wheezes, rales, or rhonchi appreciated. CARDIAC - RRR with S1/S2. No murmur, rubs, or gallops appreciated. EXTREMITIES - No clubbing or peripheral cyanosis. +5/5 strength noted in UE/LE bilaterally. NEUROLOGIC - Cranial nerves II through XII grossly intact. Sensory intact to light touch throughout. PSYCH - A&Ox3 and cooperates fully with examiner. Pt is very pleasant and interacts well with examiner. Course Administered Medications Discontinued Medications Ketorolac Tromethamine (Ketorolac 30 Mg/Ml Vial) 30 mg IV NOW STA Stop: 10/06/20 16:03 Last Admin: 10/06/20 16:20 Dose: 30 mg Documented by: [id number] Medical Decision Making Laboratory Data Result diagrams: 10/06/20 16:20 10/06/20 16:20 Lab Results 10/06/20 10/06/20 10/06/20 Range/Units 16:20 16:20 16:20 WBC 5.76 (4.8-10.8) K/uL RBC 4.16 L (4.2-5.4) M/uL Hgb 7.2 L (12.0-16.0) g/dL Hct 27.0 L (37-47) % MCV 64.9 L (80-100) fL MCH 17.3 L (25-34) pg MCHC 26.7 L (32-36) g/dL RDW Std Deviation 45.2 (36.4-46.3) fL RDW Coeff of Esmer 19.3 H (11.5-14.5) % Plt Count 494 H (130-400) K/uL MPV 8.8 (7.4-10.4) fL Immature Gran % (Auto) 0.3 % Neut % (Auto) 51.8 % Lymph % (Auto) 36.1 % Millard % (Auto) 9.2 % Eos % (Auto) 2.3 % Baso % (Auto) 0.3 % Neut # (Auto) 2.98 (1.4-6.5) K/uL Lymph # (Auto) 2.08 (1.2-3.4) K/uL Millard # (Auto) 0.53 (0.11-0.59) K/uL Eos # (Auto) 0.13 (0-0.5) K/uL Baso # (Auto) 0.02 (0-0.2) K/uL Immature Gran # (Auto) 0.02 (0.00-0.02) K/uL Polychromasia 1+ Hypochromasia Present Microcytosis Present PT 10.3 (9.0-12.0) Seconds INR 1.0 (0.9-1.1) APTT 23.9 (21.0-31.0) Seconds PTT Ratio 0.9 D-Dimer 200 (0-500) ug/L FEU Sodium 139 (136-145) mmol/L Potassium 3.5 (3.5-5.1) mmol/L Chloride 106 (98-107) mmol/L Carbon Dioxide 26 (21-32) mmol/L Anion Gap 6.0 (3-11) BUN 6 L (7-18) mg/dl Creatinine 0.67 (0.6-1.2) mg/dl Est Cr Clr Drug Dosing 185.8 ml/min Est GFR ( Amer) 136.7 Est GFR (Non-Af Amer) 118.0 BUN/Creatinine Ratio 9.0 L (10-20) Glucose 85 (70-99) mg/dl Calcium 8.7 (8.5-10.1) mg/dl Magnesium 1.9 (1.8-2.4) mg/dl Total Bilirubin 0.3 (0.2-1) mg/dl AST 15 (15-37) U/L ALT 22 (12-78) U/L Alkaline Phosphatase 113 (45-117) U/L Troponin I < 0.015 (0-0.045) ng/ml Total Protein 7.9 (6.4-8.2) gm/dl Albumin 3.2 L (3.4-5.0) gm/dl Globulin 4.7 H (2.5-4.0) gm/dl Albumin/Globulin Ratio 0.7 L (0.9-2) COVID-19 Eval Order SARS-CoV-2, RNA, NAAT (NEGATIVE) 10/06/20 10/06/20 Range/Units 16:25 17:00 WBC (4.8-10.8) K/uL RBC (4.2-5.4) M/uL Hgb (12.0-16.0) g/dL Hct (37-47) % MCV (80-100) fL MCH (25-34) pg MCHC (32-36) g/dL RDW Std Deviation (36.4-46.3) fL RDW Coeff of Esmer (11.5-14.5) % Plt Count (130-400) K/uL MPV (7.4-10.4) fL Immature Gran % (Auto) % Neut % (Auto) % Lymph % (Auto) % Millard % (Auto) % Eos % (Auto) % Baso % (Auto) % Neut # (Auto) (1.4-6.5) K/uL Lymph # (Auto) (1.2-3.4) K/uL Millard # (Auto) (0.11-0.59) K/uL Eos # (Auto) (0-0.5) K/uL Baso # (Auto) (0-0.2) K/uL Immature Gran # (Auto) (0.00-0.02) K/uL Polychromasia Hypochromasia Microcytosis PT (9.0-12.0) Seconds INR (0.9-1.1) APTT (21.0-31.0) Seconds PTT Ratio D-Dimer (0-500) ug/L FEU Sodium (136-145) mmol/L Potassium (3.5-5.1) mmol/L Chloride (98-107) mmol/L Carbon Dioxide (21-32) mmol/L Anion Gap (3-11) BUN (7-18) mg/dl Creatinine (0.6-1.2) mg/dl Est Cr Clr Drug Dosing ml/min Est GFR ( Amer) Est GFR (Non-Af Amer) BUN/Creatinine Ratio (10-20) Glucose (70-99) mg/dl Calcium (8.5-10.1) mg/dl Magnesium (1.8-2.4) mg/dl Total Bilirubin (0.2-1) mg/dl AST (15-37) U/L ALT (12-78) U/L Alkaline Phosphatase (45-117) U/L Troponin I (0-0.045) ng/ml Total Protein (6.4-8.2) gm/dl Albumin (3.4-5.0) gm/dl Globulin (2.5-4.0) gm/dl Albumin/Globulin Ratio (0.9-2) COVID-19 Eval Order Covid19 [facility] SARS-CoV-2, RNA, NAAT NEGATIVE (NEGATIVE) Imaging Data Radiologist's Impression: XR chest 1V portable HISTORY: Atypical chest pain COMPARISON: Chest 07/06/2020. FINDINGS: The lungs are clear. Cardiac silhouette is normal in size. No pleural effusions. No pneumothorax. IMPRESSION: No acute process. ACT 112: Negative or not required by law. Electronically signed by: Benjamin Choudhury M.D. 10/06/2020 4:24 PM MDM Narrative Patient was seen and evaluated as above in room B8. Review was performed of nursing notes and vital signs. I did review pertinent previous visits and patient history. After obtaining a thorough history and physical examination the above work up was performed. Patient presents to us today with chest pain that radiates to the left arm with associated bilateral lower extremity pain/aching sensation and a headache. Over the past few days she has also developed nausea, vomiting. She has had diarrhea as well. She does note a remote history of COVID-19 a few months ago. She was also recently notified of a coworker testing positive for COVID-19 a few days ago that she could have been exposed to. Patient denies any personal history of AK or PE. On arrival she is nontoxic on examination. Vital signs stable. Options of care were discussed with the patient. IV access was established. Labs were drawn. EKG reveals normal sinus rhythm at rate of 94 bpm. QTc 460. QRS 82. This was compared EKG of July 06, 2020. No ST elevation noted. No significant change. Chest x-ray negative. There is no leukocytosis. There is anemia with hemoglobin of 7.2 which is similar to previous but a bit lower. I did review her [facility] outpatient record and will note that she had a hemoglobin of 7.0 on 09/21 and also a recent hemoglobin within the past 7 days it appears of 6.6. Patient notes that she was started on iron supplementation. At this time I am not able to completely rule out symptomatic anemia as the etiology of the patient's symptoms at this time. Options of care in regard to management were discussed. Decision was made to proceed with transfusion of 1 unit of packed red blood cells. Appropriate consent was completed. Covid testing negative. Patient admitted to the hospital for further evaluation and management. Please refer to further documentation regarding her stay. Patient happy with plan of care and her preference was to stay in the hospital versus discharge from ED. we did discuss indication of Hemoccult testing for stool and discussed options of rectal exam versus other methods and she would prefer to provide stool sample to test this for occult blood. This was ordered. She respectfully declined rectal exam. While in the department, I personally reevaluated the patient several times and each time the patient was found to be resting comfortably. Case was discussed with the attending physician. An order was placed for continuous cardiac monitoring. The monitor shows a rate of 103 with sinus tachycardia GCS: 15 In the evaluation and treatment of this patient, the following differential diagnoses were considered: AK, ASC, Dysrhythmia, Angina, Mediastinitis, GERD, Esophagitis, PE, Pneumonia, Bronchitis, Costochondritis, Rib Fracture, Zoster. Impression & Plan Symptomatic anemia, Chest pain, Bilateral leg pain Discharge Plan Visit Data Chief Complaint: Chest Pain Stated Complaint: BURNING PAIN IN LEGS,CHEST PAIN INTO LEFT ARM ED Provider: Slava Pardo ED Midlevel Provider: Jose Joy Discharge Problem: Symptomatic anemia, Chest pain, Bilateral leg pain Patient Disposition: Admitted As Inpatient Condition: Good Discharge Instructions Interventions: ED Discharge Assessment Last Done: 10/06/20 20:04
--- NOTE | 2020-10-06 16:25 | XRay Report ---
XR chest 1V portable HISTORY: Atypical chest pain COMPARISON: Chest 07/06/2020. FINDINGS: The lungs are clear. Cardiac silhouette is normal in size. No pleural effusions. No pneumot horax. IMPRESSION: No acute process. ACT 112: Negative or not required by law. Electronically signed by: Benjamin Choudhury M.D. 10/06/2020 4:24 PM
[2020-10-06 16:53] LABS: Albumin Level 3.2 gm/dl (3.4-5.0); Aspartate Aminotransferase 15 U/L (15-37); Blood Urea Nitrogen 6 mg/dl (7-18); Calcium 8.7 mg/dl (8.5-10.1); Carbon Dioxide 26 mmol/L (21-32); Chloride 106 mmol/L (98-107); Creatinine Clr Calc Pharmacy 185.8 ml/min; Est GFR (African American) 136.7; Glucose 85 mg/dl (70-99); Hemoglobin 7.2 g/dL (12.0-16.0); Magnesium 1.9 mg/dl (1.8-2.4); Mean Corpuscular Hemoglobin 17.3 pg (25-34); Mean Corpuscular Hgb Conc 26.7 g/dL (32-36); Mean Corpuscular Volume 64.9 fL (80-100); Mean Platelet Volume 8.8 fL (7.4-10.4); Platelet Count 494 K/uL (130-400); Potassium 3.5 mmol/L (3.5-5.1); RDW Coefficient of Variation 19.3 % (11.5-14.5); RDW Standard Deviation 45.2 fL (36.4-46.3); Red Blood Count 4.16 M/uL (4.2-5.4); Sodium 139 mmol/L (136-145); White Blood Count 5.76 K/uL (4.8-10.8)
[2020-10-06 16:58] LABS: Alanine Aminotransferase 22 U/L (12-78); Albumin Globulin Ratio 0.7 (0.9-2); Alkaline Phosphatase 113 U/L (45-117); Bilirubin,Total 0.3 mg/dl (0.2-1); Globulin 4.7 gm/dl (2.5-4.0); Total Protein 7.9 gm/dl (6.4-8.2); Troponin I < 0.015 ng/ml (0-0.045)
[2020-10-06 17:02] LABS: D Dimer 200 ug/L FEU (0-500); Partial Thromboplastin Ratio 0.9; Partial Thromboplastin Time 23.9 Seconds (21.0-31.0); Prothrombin Time 10.3 Seconds (9.0-12.0)
[2020-10-06 17:05] LABS: Basophils # (auto) 0.02 K/uL (0-0.2); Basophils % (auto) 0.3 %; Eosinophils # (auto) 0.13 K/uL (0-0.5); Eosinophils % (auto) 2.3 %; Hypochromasia Present; Immature Granulocytes # (auto) 0.02 K/uL (0.00-0.02); Immature Granulocytes % (auto) 0.3 %; Lymphocytes # (auto) 2.08 K/uL (1.2-3.4); Lymphocytes % (auto) 36.1 %; Microcytosis Present; Monocytes # (auto) 0.53 K/uL (0.11-0.59); Monocytes % (auto) 9.2 %; Neutrophils # (auto) 2.98 K/uL (1.4-6.5); Neutrophils % (auto) 51.8 %; Polychromasia 1+
[2020-10-06] MEDS ORDERED: SODIUM CHLORIDE 0.9% 250 ML IV PRN (18:37)
--- NOTE | 2020-10-06 19:01 | History & Physical Report ---
Date of Service October 06, 2020 Assessment & Plan (1) Symptomatic anemia: Pt is 30 y/o F with PMH PCOS, heavy vaginal bleeding C/O chest pain, exertional SOB, dizziness, palpitations, leg aching x 5 days. H/O heavy menstrual vaginal bleeding from 04/2020 through 08/2020 with noted progressive anemia outpatient. 09/21/20 Hgb: 7.0. Oral iron supplement was started. Was prescribed TID, however has been taking BID. Outpatient lab on 10/01/20 Hgb: 6.6. No Active vaginal bleeding or other bleeding. Reports no vaginal bleeding during month of 09/2020. In ER vitals stable. Hgb: 7.2, Hct: 27, microcytic, microchromic. Negative troponin. D-Dimer WNL. CXR: no acute process Hemoccult stool Type and cross and transfuse 1 unit Repeat H&H in AM Anemia labs pending Continue outpatient followup with [facility] Anticipate pt will require close f/u H&H and PCP and may need consideration IV iron (2) Atypical chest pain: DDX: secondary to anemia vs musculoskeletal as is reproducible on exam Scheduled Tylenol Monitor (3) PCOS (polycystic ovarian syndrome): Continue metformin Continue outpatient OBGYN follow up DVT Prophylaxis -SCDs Full Code Follows with Dr Pichardo for routine care Pt was seen and care coordinated with Dr Flores. See addendum History of Present Illness Chief Complaint: CP Primary Care Provider: Genesis Pichardo, DO Pt is 30 y/o F with PMH PCOS, heavy vaginal bleeding C/O chest pain x 5 days. Was having vaginal bleeding from 04/2020 through 08/2020 with noted progressive anemia. Has upcoming appointment with [facility]. States LMP near the end of August (pt unsure of exact date). Pt states no vaginal bleeding currently or during the month of September 2020. Outpatient labs on 09/21/20 Hgb: 7.0. Oral iron supplement was started. Was prescribed three times daily, however has been taking twice daily. Outpatient lab on 10/01/20 Hgb: 6.6. PCP had contacted pt about possible IV iron, however nothing has been completed yet. 5 days ago started with sharp constant pain across her chest, worse with sitting, improves with ambulation. Also c/o bilateral leg pain from anterior thigh down leg, left leg with increased pain. Having increased SOB with exertion this week. Feels palpitations with walking. Also c/o ALMANZAR, dizziness. Reports vom iting. Was having intermittent abdominal pain, daily diarrhea and followed with [facility] and was prescribed Bentyl. Had negative stool culture and c.diff testing. Has been taking ibuprofen 800mg BID for several days this week for the leg pain and chest pain. Denies fever/chills, diaphoresis, hematemesis, hematochezia, melena, syncope, vision changes, neck pain, orthopnea, cough, sore throat, choking, otalgia, rhinorrhea, paresthesias, back pain, extremity weakness, extremity edema, rashes, urinary symptoms. Allergies Allergy/AdvReac Type Severity Reaction Status Date / Time Penicillins Allergy Unknown Unknown Verified 10/06/20 16:58 Home Medications Medication Instructions Recorded Confirmed Type albuterol sulfate 2 puffs INH Q4H PRN 10/06/20 10/06/20 History dicyclomine 10 mg PO TID PRN 10/06/20 10/06/20 History docusate sodium [DOK] 100 mg PO BID 10/06/20 10/06/20 History famotidine 20 mg PO DAILY 10/06/20 10/06/20 History ferrous sulfate 325 mg PO TID 10/06/20 10/06/20 History hydroxyzine pamoate 25 mg PO HS PRN 10/06/20 10/06/20 History metformin 1,000 mg PO BIDM 10/06/20 10/06/20 History Past Med/Surg History Medical History (Updated 10/06/20 @ 21:12 by Jose Joy PA-C) Anxiety Asthma GERD (gastroesophageal reflux disease) Menometrorrhagia PCOS (polycystic ovarian syndrome) Surgical History History of colonoscopy History of esophagogastroduodenoscopy (EGD) Family History Sister Breast cancer Mother Hypertension Social History Smoking Status: Former smoker Tobacco Type: Cigarettes Hx Alcohol Use: Yes Alcohol Intake Frequency: Monthly or Less Hx Substance Use: No Preferred Language: Polish Communication Ability: Effective Visual Impairment: No Limitations Hearing Ability: Normal Client Specialist Required: No Beliefs That Will Affect Care: None Current Living Situation: Other Current Living Situation Comment: roommate current occupational status: employed Feels Safe at Home: Yes Safety Concerns: Feels Safe At This Time Review of Systems Review of Systems: All systems reviewed & are unremarkable except as noted in HPI & below Physical Exam Physical Exam: General: no distress, obese Head: normocephalic, atraumatic Eyes: conjunctiva non-injected, anicteric ENT: normal inspection external ears, nose, mucous membranes moist Neck: supple, trachea midline, non-tender Lungs: clear, no respiratory distress, no wheezing/rhonchi/rales CV: RRR, no murmur, no pretibial edema; chest wall tenderness to palpation Abd: normal BS, soft, non-tender Ext: no cyanosis, no calf tenderness Neuro: A&O x 3, no focal deficits noted, normal affect Skin: warm, dry Results & Data Results & Data ([facility]) Vital Signs (Past 12 Hours) Vital Signs Temp Pulse Pulse Resp BP BP Pulse Ox 10/06/20 17:10 82 19 167/82 H 99 10/06/20 16:05 99 10/06/20 15:24 36.9 C 103 H 20 179/74 H 99 Laboratory Results Short CBC 10/06/20 Range/Units 16:20 WBC 5.76 (4.8-10.8) K/uL Hgb 7.2 L (12.0-16.0) g/dL Hct 27.0 L (37-47) % Plt Count 494 H (130-400) K/uL BMP 10/06/20 16:20 Sodium 139 Potassium 3.5 Chloride 106 Carbon Dioxide 26 BUN 6 L Creatinine 0.67 Glucose 85 Calcium 8.7 Cardiac Enzymes 10/06/20 Range/Units 16:20 Troponin I < 0.015 (0-0.045) ng/ml Liver Function 10/06/20 Range/Units 16:20 Total Bilirubin 0.3 (0.2-1) mg/dl AST 15 (15-37) U/L ALT 22 (12-78) U/L Alkaline Phosphatase 113 (45-117) U/L Albumin 3.2 L (3.4-5.0) gm/dl Diagnostic Findings CXR: IMPRESSION: No acute process. Code Status & VTE Plan VTE Prophylaxis Plan VTE Prophylaxis will be ordered: Yes Supervising Physician Co-Signing Physician Notes Date of Service: October 06, 2020 30-year-old woman with a history of PCOS, prediabetes, abnormal uterine bleeding who presents to the ER complaining of chest pain started on Thursday. Described chest pain as sharp left-sided involving left upper arm and associated with left arm numbness. She also stated that she started having bilateral leg pains with some numbness as well. She states that she usually has intermittent shortness of breath due to her asthma but this has gotten worse this past few days associated with dyspnea on exertion and palpitations. Patient denied any melena or hematochezia. Acknowledges abdominal pain for which she saw the cloth hand in the office on Thursday. Reports a few days of diarrhea [greenish stool] Patient reports significant vaginal bleed with last menstrual period about 3 weeks ago Reports she is recently started on iron pills twice daily. Physical exam notable for morbid obesity, left-sided chest wall tenderness on palpation EKG showed normal sinus rhythm Lab work notable for hemoglobin of 7.2 Chest x-ray was unremarkable -Atypical chest pain -Symptomatic anemia Atypical chest pain likely related to musculoskeletal pain +/-symptomatic anemia Patient had blood work on 10/01/2020 outpatient which showed hemoglobin of 6.6 [baseline appears to be 8-9] Check anemia work-up including iron studies, folate and B12 We will transfuse 1 unit of blood We will keep on telemetry monitoring overnight Tylenol as needed for pain Continue Metformin for PCOS Other plans as detailed by Amanda Pimentel PA-C
[2020-10-06 19:40] LABS: Appearance Urine Cloudy (Clear); Bacteria Urine Automated 4+ (Negative); Bilirubin Urine Negative (Negative); Blood Urine Negative (Negative); Color Urine Dark Yellow; Epithelial Cell Urine Auto >30 /lpf (0-5); Glucose Urine UA Negative (Negative); Ketones Urine Trace (Negative); Leukocyte Esterase Urine Negative (Negative); Nitrite Urine Negative (Negative); Protein Urine Negative (Negative); RBC Urine Automated 0-4 /hpf (0-4); Specific Gravity Urine 1.027 (1.000-1.030); Urobilinogen Urine Negative (Negative); pH Urine 5.5 (4.5-7.5)
[2020-10-06 19:41] LABS: Pregnancy Test, Serum Negative (Negative)
[2020-10-06 19:59] LABS: Cast Urine Automated 0 /lpf (0-5); Mucus Urine Present (None Prsent)
[2020-10-06] MEDS ORDERED: ALBUTEROL HFA 8 GM INHALER INH PRN (21:04)
[2020-10-06] MEDS ORDERED: hydrOXYzine HCl 25 MG TAB PO PRN (21:04)
[2020-10-06] MEDS ORDERED: DICYCLOMINE HCL 10 MG CAP PO PRN (21:04)
[2020-10-06] MEDS ORDERED: ACETAMINOPHEN 325 MG TAB PO PRN (21:04)
[2020-10-06 21:06] LABS: Ferritin 14.3 ng/ml (8-388)
[2020-10-06] MEDS: ACETAMINOPHEN 500 MG TAB PO SCH (22:01)
[2020-10-06] MEDS: DOCUSATE SODIUM 100 MG CAP PO SCH (22:02)
[2020-10-06] MEDS: FERROUS SULFATE 325 MG TAB PO SCH (22:02)
[2020-10-07] MEDS ORDERED: oxyCODONE HCL IR 5 MG TAB (IMMEDIATE RELEASE) PO STA (01:06)
[2020-10-07] MEDS ORDERED: oxyCODONE HCL IR 5 MG TAB (IMMEDIATE RELEASE) PO PRN (01:06)
[2020-10-07] MEDS ORDERED: SODIUM CHLORIDE 0.9% 250 ML IV PRN ×2 (01:07→10:45)
--- NOTE | 2020-10-07 04:14 | Communication Note ---
Date of Service: October 07, 2020 I was notified by the nurse that the patient felt short of breath while receiving blood. Vitals are normal (135/83, P91, R 20, afebrile, 99% RA) On arrival to the bedside she was sleeping comfortably. When awoken, she reported that her breathing had normalized. She had also just received oxycodone to improve her leg pain and she was in and out of sleep. Her pain was improved in her legs. She doesn't continue to have shortness of breath, and after questioning it was thought the oxycodone may have contributed to her symptom. Although it does not appear the patient was having a blood transfusion reaction, to be conservative, the remainder of the blood was held as the oxycodone was still on board and it was just past midnight. Will defer to primary team in the morning to reassess her and decide on attempting another transfusion. Will relay to am provider. I discussed the plans with the primary nurse. Teja,
[2020-10-07] MEDS: ACETAMINOPHEN 500 MG TAB PO SCH ×3 (06:23→19:53)
[2020-10-07 06:50] LABS: Hematocrit (blood only) 25.7 % (37-47); Mean Corpuscular Hemoglobin 17.9 pg (25-34); Mean Corpuscular Hgb Conc 27.2 g/dL (32-36); Mean Corpuscular Volume 65.6 fL (80-100); Mean Platelet Volume 8.9 fL (7.4-10.4); Platelet Count 457 K/uL (130-400); RDW Standard Deviation 49.7 fL (36.4-46.3); Red Blood Count 3.92 M/uL (4.2-5.4); White Blood Count 6.21 K/uL (4.8-10.8)
[2020-10-07 07:05] LABS: BUN Creatinine Ratio 13.5 (10-20); Calcium 8.1 mg/dl (8.5-10.1); Creatinine Clr Calc Pharmacy 194.6 ml/min; Est GFR (African American) 135.4; Est GFR (Non-African American) 116.8; Potassium 3.5 mmol/L (3.5-5.1)
[2020-10-07] MEDS: FAMOTIDINE 20 MG TAB PO SCH (07:51)
[2020-10-07] MEDS: DOCUSATE SODIUM 100 MG CAP PO SCH ×2 (07:51→19:53)
[2020-10-07] MEDS: FERROUS SULFATE 325 MG TAB PO SCH ×3 (07:51→19:53)
[2020-10-07] MEDS: metFORMIN HCL 500 MG TAB PO SCH ×2 (07:51→17:07)
--- NOTE | 2020-10-07 10:14 | Electrocardiogram Report ---
Test Reason : Blood Pressure : / mmHG Vent. Rate : 094 BPM Atrial Rate : 094 BPM P-R Int : 134 ms QRS Dur : 082 ms QT Int : 368 ms P-R-T Axes : 067 065 033 degrees QTc Int : 460 ms Normal sinus rhythm Nonspecific T wave abnormality Abnormal ECG When compared with ECG of 06-JUL-2020 10:12, Nonspecific T wave abnormality now evident in Lateral leads Confirmed by Manohar Hilliard ([id number]) on 10/07/2020 10:13:54 AM Referred By: REFERRED SELF Confirmed By:Manohar Hilliard
[2020-10-07] MEDS ORDERED: diphenhydrAMINE Capsule 25 MG CAP PO PRN (10:47)
--- NOTE | 2020-10-07 11:21 | Hospitalist Progress Note ---
Date of Service October 07, 2020 Assessment & Plan (1) Symptomatic anemia: Pt is 30 y/o F with PMH PCOS, heavy vaginal bleeding C/O chest pain, exertional SOB, dizziness, palpitations, leg aching x 5 days. H/O heavy menstrual vaginal bleeding from 04/2020 through 08/2020 with noted progressive anemia outpatient. 09/21/20 Hgb: 7.0. Oral iron supplement was started. Was prescribed TID, however has been taking BID. Outpatient lab on 10/01/20 Hgb: 6.6. History of heavy menstrual bleeding No Active vaginal bleeding or other bleeding. Reports no vaginal bleeding during month of 09/2020. Anemia seems to be secondary to subacute uterine bleeding Hemoglobin is 7.2 on admission but could not complete 1 unit of blood transfusion due to questionable reaction Hemoglobin this morning is 7.0 Hemoccult is still pending We will transfuse 1 units of PRBC and will give Benadryl before transfusion Abnormal uterine bleeding Has been followed up by [employer] as an outpatient Left leg pain Not relieved with Tylenol Was given oxycodone with some reaction She wants stronger medicine than Tylenol Will try Ultram (2) Atypical chest pain: DDX: secondary to anemia vs musculoskeletal as is reproducible on exam Scheduled Tylenol No more chest pain and EKG and troponin are unremarkable (3) PCOS (polycystic ovarian syndrome): Continue metformin Continue outpatient OBGYN follow up DVT Prophylaxis -SCDs Full Code Follows with Dr Pichardo for routine care We will transfuse 1 units of PRBC today Recheck CBC in the morning and possible discharge tomorrow Admission and Anticipated Discharge Date Admission Date: October 06, 2020 Subjective 10/07/20 The patient was seen and examined in medical telemetry unit She was admitted with symptomatic anemia with questionable chest pain She has had questionable reaction to blood transfusion/narcotic medications last night Complains to have some pain involving the left lower back Her hemoglobin noted to be at 7.0 this morning and she denies any more bleeding for the last 2 weeks Review of Systems Review of Systems: All systems reviewed and are unremarkable except as noted below Musculoskeletal: + joint pain (Left leg pain) Physical Exam Physical Exam: Lying in bed comfortably Constitutional: well developed, well nourished and + obese; not ill appearing Eyes: PERRL, conjunctivae normal, anicteric sclerae ENMT: external ear and nose normal, oropharynx normal Neck: trachea midline, no thyromegaly Respiratory: no respiratory distress Auscultation: lungs clear to auscultation bilaterally Cardiovascular: Rate/Rhythm: regular rate and regular rhythm Heart Sounds: no murmur Extremities: + edema (Trace edema bilaterally) Gastrointestinal (Abdomen): Inspection/Auscultation: normal bowel sounds; abdomen not distended Percussion/Palpation: abdomen soft; abdomen nontender Musculoskeletal: No acute arthritis in any joint Neurologic: Alert, awake and oriented x3. No focal sensory and motor deficit appreciated Lymphatic: no cervical or axillary lymphadenopathy Results & Data Results & Data ([facility]) Vital Signs (Past 12 Hours) Vital Signs Temp Pulse Pulse Resp BP BP Pulse Ox 10/07/20 07:35 36.6 C 81 20 137/84 98 10/07/20 07:14 80 10/07/20 04:06 36.8 C 91 H 20 135/83 99 10/07/20 03:05 37.1 C 85 20 118/77 98 10/07/20 02:30 37 C 87 20 117/78 95 10/07/20 02:20 37 C 82 20 136/80 99 10/07/20 02:04 37 C 82 20 129/79 98 10/06/20 23:25 36.5 C 94 H 18 134/82 95 Laboratory Results Short CBC 10/06/20 10/07/20 Range/Units 16:20 06:09 WBC 5.76 6.21 (4.8-10.8) K/uL Hgb 7.2 L 7.0 L (12.0-16.0) g/dL Hct 27.0 L 25.7 L (37-47) % Plt Count 494 H 457 H (130-400) K/uL BMP 10/06/20 10/07/20 16:20 06:09 Sodium 139 138 Potassium 3.5 3.5 Chloride 106 107 Carbon Dioxide 26 27 BUN 6 L 9 Creatinine 0.67 0.69 Glucose 85 88 Calcium 8.7 8.1 L Cardiac Enzymes 10/06/20 Range/Units 16:20 Troponin I < 0.015 (0-0.045) ng/ml Liver Function 10/06/20 Range/Units 16:20 Total Bilirubin 0.3 (0.2-1) mg/dl AST 15 (15-37) U/L ALT 22 (12-78) U/L Alkaline Phosphatase 113 (45-117) U/L Albumin 3.2 L (3.4-5.0) gm/dl Urine 10/06/20 Range/Units 19:23 Urine Color Dark Yellow Urine Appearance Cloudy A (Clear) Urine pH 5.5 (4.5-7.5) Ur Specific Engel[place] 1.027 (1.000-1.030) Urine Protein Negative (Negative) Urine Glucose (UA) Negative (Negative) Medications Administered Current Inpatient Medications Acetaminophen (Acetaminophen 500 Mg Tab) 1,000 mg PO Q8 [facility] Stop: 11/05/20 21:59 Last Admin: 10/07/20 06:23 Dose: 1,000 mg Documented by: Albuterol (Albuterol Hfa 8 Gm Inhaler) 2 puffs INH Q4H PRN PRN Reason: Shortness Of Breath Or Wheezing Stop: 11/05/20 21:03 Dicyclomine HCl (Dicyclomine Hcl 10 Mg Cap) 10 mg PO TID PRN PRN Reason: Abdominal Pain Stop: 11/05/20 21:03 Diphenhydramine HCl (Diphenhydramine Capsule 25 Mg Cap) 25 mg PO ONE PRN PRN Reason: Allergic Symptoms Stop: 11/06/20 10:46 Docusate Sodium (Docusate Sodium 100 Mg Cap) 100 mg PO BID [facility] Stop: 11/05/20 21:03 Last Admin: 10/07/20 07:51 Dose: 100 mg Documented by: Famotidine (Famotidine 20 Mg Tab) 20 mg PO DAILY [facility] Stop: 11/06/20 08:59 Last Admin: 10/07/20 07:51 Dose: 20 mg Documented by: Ferrous Sulfate (Ferrous Sulfate 325 Mg Tab) 325 mg PO TID [facility] Stop: 11/05/20 21:03 Last Admin: 10/07/20 07:51 Dose: 325 mg Documented by: Hydroxyzine HCl (Hydroxyzine Hcl 25 Mg Tab) 25 mg PO HS PRN PRN Reason: Anxiety Stop: 11/05/20 21:03 Sodium Chloride (Nss) 250 mls @ 15 mls/hr IV .[id number] PRN PRN Reason: For Transfusion Stop: 10/07/20 20:45 Metformin HCl (Metformin Hcl 500 Mg Tab) 1,000 mg PO BIDM [facility] Stop: 11/06/20 07:59 Last Admin: 10/07/20 07:51 Dose: 1,000 mg Documented by: Oxycodone HCl (Oxycodone Hcl Ir 5 Mg Tab (Immediate Release)) 5 mg PO Q6H PRN PRN Reason: severe pain Stop: 10/21/20 01:05 Tramadol HCl (Tramadol Hcl 50 Mg Tablet) 50 mg PO Q4H PRN PRN Reason: Pain Stop: 11/06/20 10:45
[2020-10-07] MEDS: traMADol HCL 50 MG TABLET PO PRN (15:24)
[2020-10-08] MEDS: ACETAMINOPHEN 500 MG TAB PO SCH ×2 (05:27→13:16)
--- NOTE | 2020-10-08 07:23 | Ultrasound Report ---
BILATERAL LOWER EXTREMITY VENOUS DOPPLER HISTORY: lower extremity pain, dvt? COMPARISON STUDY: None. FINDINGS: There is normal compressibility, flow, and augmentation within the bilateral lower extremit y deep venous systems. IMPRESSION: No DVT within the right or left lower extremity. ACT 112: Negative or not required by law. Electronically signed by: Benjamin Choudhury M.D. 10/08/2020 7:22 AM
[2020-10-08] MEDS: metFORMIN HCL 500 MG TAB PO SCH ×2 (08:06→18:09)
[2020-10-08] MEDS: FERROUS SULFATE 325 MG TAB PO SCH ×2 (08:06→13:16)
[2020-10-08] MEDS: FAMOTIDINE 20 MG TAB PO SCH (08:06)
[2020-10-08] MEDS: traMADol HCL 50 MG TABLET PO PRN ×2 (08:07→16:10)
[2020-10-08] MEDS: DOCUSATE SODIUM 100 MG CAP PO SCH (08:07)
[2020-10-08 09:01] LABS: Hematocrit (blood only) 29.7 % (37-47); Hemoglobin 8.3 g/dL (12.0-16.0); Mean Corpuscular Hemoglobin 19.2 pg (25-34); Mean Corpuscular Hgb Conc 27.9 g/dL (32-36); Mean Corpuscular Volume 68.6 fL (80-100); Nucleated RBC # (auto) 0.03 K/uL (0-0); Nucleated RBC % (auto) 0.5 %; Platelet Count 451 K/uL (130-400); RDW Coefficient of Variation 22.6 % (11.5-14.5); RDW Standard Deviation 56.2 fL (36.4-46.3); Red Blood Count 4.33 M/uL (4.2-5.4); White Blood Count 6.25 K/uL (4.8-10.8)
[2020-10-08 09:21] LABS: Anisocytosis Present; Basophils # (auto) 0.02 K/uL (0-0.2); Basophils % (auto) 0.3 %; Eosinophils # (auto) 0.18 K/uL (0-0.5); Eosinophils % (auto) 2.9 %; Hypochromasia Present; Immature Granulocytes # (auto) 0.01 K/uL (0.00-0.02); Immature Granulocytes % (auto) 0.2 %; Lymphocytes % (auto) 36.8 %; Microcytosis Present; Monocytes # (auto) 0.49 K/uL (0.11-0.59); Monocytes % (auto) 7.8 %; Neutrophils # (auto) 3.25 K/uL (1.4-6.5); Polychromasia 1+
[2020-10-08] MEDS ORDERED: PANTOprazole 40 MG TAB PO SCH (09:30)
--- NOTE | 2020-10-08 10:44 | Hospitalist Progress Note ---
Date of Service October 08, 2020 Assessment & Plan (1) Symptomatic anemia: Pt is 30 y/o F with PMH PCOS, heavy vaginal bleeding C/O chest pain, exertional SOB, dizziness, palpitations, leg aching x 5 days. H/O heavy menstrual vaginal bleeding from 04/2020 through 08/2020 with noted progressive anemia outpatient. 09/21/20 Hgb: 7.0. Oral iron supplement was started. Was prescribed TID, however has been taking BID. Outpatient lab on 10/01/20 Hgb: 6.6. History of heavy menstrual bleeding No Active vaginal bleeding or other bleeding. Reports no vaginal bleeding during month of 09/2020. Anemia seems to be secondary to subacute uterine bleeding Hemoglobin is 7.2 on admission but could not complete 1 unit of blood transfusion due to questionable reaction Hemoglobin this morning is 7.0 Hemoccult is still pending We will transfuse 1 units of PRBC and will give Benadryl before transfusion Hemoglobin went up to 8.3 today with symptomatic relief Denies any significant symptoms Will be discharged home this afternoon Abnormal uterine bleeding Has been followed up by [employer] as an outpatient Denies any bleeding for the last 3 weeks Left leg pain Not relieved with Tylenol Was given oxycodone with some reaction She wants stronger medicine than Tylenol Will try Ultram Ultrasound of the leg did not show any DVT (2) Atypical chest pain: DDX: secondary to anemia vs musculoskeletal as is reproducible on exam Scheduled Tylenol No more chest pain and EKG and troponin are unremarkable No more chest pain Need to have epigastric discomfort and will change famotidine to Protonix (3) PCOS (polycystic ovarian syndrome): Continue metformin Continue outpatient OBGYN follow up DVT Prophylaxis -SCDs Full Code Follows with Dr Pichardo for routine care We will transfuse 1 units of PRBC today She will be discharged home this afternoon Admission and Anticipated Discharge Date Admission Date: October 06, 2020 Subjective 10/07/20 The patient was seen and examined in medical telemetry unit She was admitted with symptomatic anemia with questionable chest pain She has had questionable reaction to blood transfusion/narcotic medications last night Complains to have some pain involving the left lower back Her hemoglobin noted to be at 7.0 this morning and she denies any more bleeding for the last 2 weeks 10/08/2020 The patient was seen and examined in medical telemetry unit Still complains some pain in the left leg and epigastric discomfort Denies any fever and/or chills, any nausea no vomiting She did not have any more uterine bleeding Review of Systems Review of Systems: All systems reviewed and are unremarkable except as noted below Musculoskeletal: + joint pain (Left leg pain) Physical Exam Physical Exam: Lying in bed comfortably Constitutional: well developed, well nourished and + obese; not ill appearing Eyes: PERRL, conjunctivae normal, anicteric sclerae ENMT: external ear and nose normal, oropharynx normal Neck: trachea midline, no thyromegaly Respiratory: no respiratory distress Auscultation: lungs clear to auscultation bilaterally Cardiovascular: Rate/Rhythm: regular rate and regular rhythm Heart Sounds: no murmur Extremities: + edema (Trace edema bilaterally) Gastrointestinal (Abdomen): Inspection/Auscultation: normal bowel sounds; abdomen not distended Percussion/Palpation: abdomen soft; abdomen nontender Musculoskeletal: No acute arthritis in any joint Neurologic: Alert, awake and oriented x3. No focal sensory and/or motor deficit appreciated Lymphatic: no cervical or axillary lymphadenopathy Results & Data Results & Data ([facility]) Vital Signs (Past 12 Hours) Vital Signs Temp Pulse Pulse Resp BP Pulse Ox 10/08/20 07:41 36.5 C 85 18 116/78 96 10/08/20 04:56 89 10/07/20 23:22 37.2 C 91 H 18 137/81 98 Laboratory Results Short CBC 10/08/20 Range/Units 08:14 WBC 6.25 (4.8-10.8) K/uL Hgb 8.3 L (12.0-16.0) g/dL Hct 29.7 L (37-47) % Plt Count 451 H (130-400) K/uL Medications Administered Current Inpatient Medications Acetaminophen (Acetaminophen 500 Mg Tab) 1,000 mg PO Q8 [facility] Stop: 11/05/20 21:59 Last Admin: 10/08/20 05:27 Dose: Not Given Documented by: Albuterol (Albuterol Hfa 8 Gm Inhaler) 2 puffs INH Q4H PRN PRN Reason: Shortness Of Breath Or Wheezing Stop: 11/05/20 21:03 Dicyclomine HCl (Dicyclomine Hcl 10 Mg Cap) 10 mg PO TID PRN PRN Reason: Abdominal Pain Stop: 11/05/20 21:03 Last Admin: 10/08/20 09:01 Dose: 10 mg Documented by: Diphenhydramine HCl (Diphenhydramine Capsule 25 Mg Cap) 25 mg PO ONE PRN PRN Reason: Allergic Symptoms Stop: 11/06/20 10:46 Last Admin: 10/07/20 12:14 Dose: 25 mg Documented by: Docusate Sodium (Docusate Sodium 100 Mg Cap) 100 mg PO BID [facility] Stop: 11/05/20 21:03 Last Admin: 10/08/20 08:07 Dose: 100 mg Documented by: Ferrous Sulfate (Ferrous Sulfate 325 Mg Tab) 325 mg PO TID [facility] Stop: 11/05/20 21:03 Last Admin: 10/08/20 08:06 Dose: 325 mg Documented by: Hydroxyzine HCl (Hydroxyzine Hcl 25 Mg Tab) 25 mg PO HS PRN PRN Reason: Anxiety Stop: 11/05/20 21:03 Metformin HCl (Metformin Hcl 500 Mg Tab) 1,000 mg PO BIDM [facility] Stop: 11/06/20 07:59 Last Admin: 10/08/20 08:06 Dose: 1,000 mg Documented by: Oxycodone HCl (Oxycodone Hcl Ir 5 Mg Tab (Immediate Release)) 5 mg PO Q6H PRN PRN Reason: severe pain Stop: 10/21/20 01:05 Pantoprazole Sodium (Pantoprazole 40 Mg Tab) 40 mg PO QAM [facility] Stop: 11/07/20 09:29 Tramadol HCl (Tramadol Hcl 50 Mg Tablet) 50 mg PO Q4H PRN PRN Reason: Pain Stop: 11/06/20 10:45 Last Admin: 10/08/20 08:07 Dose: 50 mg Documented by:
--- NOTE | 2020-10-09 08:47 | Discharge Summary ---
Date of Service October 09, 2020 Admission HPI Per Admitting Provider Pt is 30 y/o F with PMH PCOS, heavy vaginal bleeding C/O chest pain x 5 days. Was having vaginal bleeding from 04/2020 through 08/2020 with noted progressive anemia. 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 States LMP near the end of August (pt unsure of exact date). Pt states no vaginal bleeding currently or during the month of September 2020. Outpatient labs on 09/21/20 Hgb: 7.0. Oral iron supplement was started. Was prescribed three times daily, however has been taking twice daily. Outpatient lab on 10/01/20 Hgb: 6.6. PCP had contacted pt about possible IV iron, however nothing has been completed yet. 5 days ago started with sharp constant pain across her chest, worse with sitting, improves with ambulation. Also c/o bilateral leg pain from anterior thigh down leg, left leg with increased pain. Having increased SOB with exertion this week. Feels palpitations with walking. Also c/o ALMANZAR, dizziness. Reports vomiting. Was having intermittent abdominal pain, daily diarrhea and followed with [facility] and was prescribed Bentyl. Had negative stool culture and c.diff testing. Has been taking ibuprofen 800mg BID for several days this week for the leg pain and chest pain. Denies fever/chills, diaphoresis, hematemesis, hematochezia, melena, syncope, vision changes, neck pain, orthopnea, cough, sore throat, choking, otalgia, rhinorrhea, paresthesias, back pain, extremity weakness, extremity edema, rashes, urinary symptoms. Admission Exam Per Admitting Provider Physical Exam: General: no distress, obese Head: normocephalic, atraumatic Eyes: conjunctiva non-injected, anicteric ENT: normal inspection external ears, nose, mucous membranes moist Neck: supple, trachea midline, non-tender Lungs: clear, no respiratory distress, no wheezing/rhonchi/rales CV: RRR, no murmur, no pretibial edema; chest wall tenderness to palpation Abd: normal BS, soft, non-tender Ext: no cyanosis, no calf tenderness Neuro: A&O x 3, no focal deficits noted, normal affect Skin: warm, dry Principal Diagnosis Symptomatic anemia, subacute blood loss anemia, abnormal uterine bleeding, atypical chest pain-no ACS, PCOS Discharge Exam Constitutional well developed, well nourished and + obese; not ill appearing Eyes PERRL, conjunctivae normal, anicteric sclerae ENMT external ear and nose normal, oropharynx normal Neck trachea midline, no thyromegaly Respiratory no respiratory distress Auscultation: lungs clear to auscultation bilaterally Cardiovascular Rate/Rhythm: regular rate and regular rhythm Heart Sounds: no murmur Extremities: + edema (Trace edema bilaterally) Gastrointestinal (Abdomen) Inspection/Auscultation: normal bowel sounds; abdomen not distended Percussion/Palpation: abdomen soft; abdomen nontender Lymphatic no cervical or axillary lymphadenopathy Discharge Data Allergies Allergy/AdvReac Type Severity Reaction Status Date / Time Penicillins Allergy Unknown Unknown Verified 10/06/20 16:58 Consultations 10/06/20 18:39 ED Decision to Admit Stat Ordered Studies 10/07/20 21:15 US venous doppler [facility] Urgent Hospital Course (1) Symptomatic anemia: Pt is 30 y/o F with PMH PCOS, heavy vaginal bleeding C/O chest pain, exertional SOB, dizziness, palpitations, leg aching x 5 days. H/O heavy menstrual vaginal bleeding from 04/2020 through 08/2020 with noted progressive anemia outpatient. 09/21/20 Hgb: 7.0. Oral iron supplement was started. Was prescribed TID, however has been taking BID. Outpatient lab on 10/01/20 Hgb: 6.6. History of heavy menstrual bleeding No Active vaginal bleeding or other bleeding. Reports no vaginal bleeding during month of 09/2020. 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 Denies any bleeding for the last 3 weeks Left leg pain Not relieved with Tylenol Was given oxycodone with some reaction She wants stronger medicine than Tylenol Will try Ultram Ultrasound of the leg did not show any DVT (2) Atypical chest pain: DDX: secondary to anemia vs musculoskeletal as is reproducible on exam Scheduled Tylenol No more chest pain and EKG and troponin are unremarkable No more chest pain Need to have epigastric discomfort and will change famotidine to Protonix (3) PCOS (polycystic ovarian syndrome): Continue metformin Continue outpatient OBGYN follow up DVT Prophylaxis -SCDs Full Code Follows with Dr Pichardo for routine care We will transfuse 1 units of PRBC today She will be discharged home this afternoon Total Time Total Time Spent Total Time Spent (In Minutes): 35 minutes Total Time Includes: Examination of the Patient, Discharge Planning, Medication Reconciliation and Communication With Other Providers Discharge Plan Discharge Items Patient Disposition: Home - Self-Care Reason For Visit: SYMPTOMATIC ANEMIA Discharge Diagnosis: Symptomatic anemia, subacute blood loss anemia, abnormal uterine bleeding, atypical chest pain-no ACS, PCOS Condition on Discharge: Good Activity: Resume your previous activity Non-emergency contact: Primary Care Provider Call non-emergency contact if: you have any medication questions and your symptoms worsen Follow-up/Referrals: Genesis Pichardo DO [Primary Care Provider] - (Date & Time 10/12/2020 11:20 AM Provider Genesis Pichardo DO Department [facility] ) Diet: Regular Addtl Attending Provider Instructions: You can try Tylenol 1 g every 8 hours as needed for pain control Please take extreme Precautions present while you are on oral tramadol for pain Pending Studies at Discharge: No Stand-Alone Forms: [facility], Work/School Release (Inpt), Smoking Cessation Medications and DC Order Prescriptions: New tramadol 50 mg Tablet 50 mg PO Q4H PRN (Reason: pain) Qty: 20 RF: 0 pantoprazole 40 mg Tablet,Delayed Release (Dr/Ec) 40 mg PO QAM Qty: 30 RF: 0 Continued ferrous sulfate 325 mg (65 mg iron) tablet 325 mg PO TID RF: 0 metformin 1,000 mg tablet 1,000 mg PO BIDM RF: 0 docusate sodium [DOK] 100 mg capsule 100 mg PO BID RF: 0 dicyclomine 10 mg capsule 10 mg PO TID PRN (Reason: Abdominal Pain) RF: 0 albuterol sulfate 90 mcg/actuation HFA aerosol inhaler 2 puffs INH Q4H PRN (Reason: Shortness Of Breath Or Wheezing) RF: 0 hydroxyzine pamoate 25 mg capsule 25 mg PO HS PRN (Reason: Anxiety) RF: 0 Discontinued famotidine 20 mg tablet 20 mg PO DAILY RF: 0 Discharge Orders: Discharge Order (Routine); Ordered 10/08/20 Ordered By: Kalpesh Carmen Admission Data Admit Date/Time: 10/08/20 11:03 Attending Provider: Kalpesh Carmen Admit Provider: Lyudmila Flores I. Primary Care Provider: Genessi Pichardo Other Providers: Lyudmila Flores I. Other Interventions: Discharge Summary Assessment (RN) Last Done: 10/08/20 17:57
== END 2020-10-08 18:32 | disposition home or self-care (01) | DRG 812 ==
LOC: 2N 15:10 → ED 15:10 → SUATTDRO 18:45 → 2N 20:04

== ENCOUNTER 2021-03-21 09:39 | Inpatient (IN) ==
[2021-03-21] MEDS ORDERED: MoRPHine SULFATE 4 MG/ML 1 ML CARP\\VIAL IV STA (10:32)
[2021-03-21] MEDS ORDERED: ONDANSETRON INJ 2 MG/ML 2 ML VIAL IV STA ×2 (10:32→14:07)
--- NOTE | 2021-03-21 10:36 | Emergency Department Note ---
History of Present Illness General Chief complaint: Vomiting Stated complaint: vomiting bile Time Seen by Provider: 03/21/21 10:22 History of Present Illness Maximum Pain Intensity: 9 This is a 38-year-old female that presents to the emergency department via private vehicle with complaints of "vomiting". The patient notes that since this past Thursday she is not been able to keep anything down. She has been vomiting. She notes that anytime she goes to eat or drink she begins to vomit. If she is not vomiting she still feels nauseous. She is concerned as she was recently started on medications secondary to H. pylori as identified by recent EGD/sampling and notes that she cannot take these secondary to persistent nausea and vomiting. The patient denies any persistence of blood in the vomit. She does note some mild diarrhea. She does state that there was a small amount of blood in the vomit earlier but thinks that is from her throat. She denies any fevers, chills, chest pain or shortness of breath. She also notes periumbilical abdominal pain which she currently rates as a 9/10. Home Medications Medication Instructions Recorded Confirmed Type albuterol sulfate 90 mcg/actuation 2 puffs INH Q4H PRN 10/06/20 03/21/21 History aerosol inhaler ferrous sulfate 325 mg (65 mg 325 mg PO TID 10/06/20 03/21/21 History iron) tablet hydroxyzine pamoate 25 mg capsule 25 mg PO HS PRN 10/06/20 03/21/21 History (Vistaril) metformin 1,000 mg tablet 1,000 mg PO BIDM 10/06/20 03/21/21 History magnesium 200 mg tablet 400 mg PO QAM 11/02/20 03/21/21 History bupropion HCl 300 mg 24 hr tablet, 300 mg PO QAM 02/11/21 03/21/21 History extended release (Wellbutrin XL) hydrochlorothiazide 12.5 mg tablet 12.5 mg PO QAM 02/11/21 03/21/21 History ondansetron 4 mg disintegrating 4 mg PO Q8 PRN 02/11/21 03/21/21 History tablet levonorgestrel 20 mcg/24 hours (6 20 mcg INTRAUTERINE CONT 03/13/21 03/21/21 History yrs) 52 mg intrauterine device (Mirena) clarithromycin 500 mg 500 mg PO BID 03/21/21 03/21/21 History tablet,extended release 24 hr metronidazole 500 mg tablet 500 mg PO TID 03/21/21 03/21/21 History montelukast 10 mg tablet 10 mg PO QAM 03/21/21 03/21/21 History omeprazole 20 mg capsule,delayed 20 mg PO BID 03/21/21 03/21/21 History release Allergies Allergy/AdvReac Type Severity Reaction Status Date / Time Penicillins Allergy Unknown Unknown Verified 03/21/21 11:52 Past Med/Surg History Medical History Anemia hx multiple blood transfusions 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 sometimes will feel like chest pressure. has been happening for about 1 - 1.5 years. Depression with anxiety GERD (gastroesophageal reflux disease) controlled H. pylori infection History of COVID-19 Dx 06/2020. Symptoms at time of body aches, chills, fever, cough, sob, loss of taste/smell, fatigue > resolved except lingering body aches, fatigue Hypertension Menometrorrhagia Migraines Morbid obesity BMI 60.5 PCOS (polycystic ovarian syndrome) on Metformin Prediabetes Severe sleep apnea CPAP Surgical History History of colonoscopy History of dilatation and curettage with insertion of mirena History of esophagogastroduodenoscopy (EGD) Family History Sister Breast cancer, Onset Age: 30 had surgery and chemo 2 sisters age 31 the other Uterine cancer, Onset Age: 31 also has breast cancer Mother Myocardial infarction Hypertension Aunt Uterine cancer Mother Lung cancer Other No family history of adverse response to anesthesia Denies family history of Ovarian cancer Colorectal cancer Social History Smoking Status: Former smoker Tobacco Type: Cigarettes Second Hand Exposure: No; Hx Alcohol Use: Yes Alcohol Intake Frequency: Monthly or Less Hx Substance Use: No Preferred Language: Andorran Communication Ability: Effective Visual Impairment: No Limitations 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 Required: No Beliefs That Will Affect Care: None Current Living Situation: Other current occupational status: employed Feels Safe at Home: Yes Assistive Devices: None Review of Systems A total of 10 systems reviewed and were otherwise negative Physical Exam Vital Signs Vital Signs - 24 hr 03/21/21 09:46 03/21/21 11:34 03/21/21 14:50 Temperature 36.4 C L Temperature Source Temporal Artery Scan Pulse Rate 81 Pulse Rate [Right Finger] 85 86 Pulse Rhythm Regular Pulse Strength Normal Respiratory Rate 20 20 20 Respiratory Effort / Characteristics Non-Labored Spontaneous Non-Labored Spontaneous Non-Labored Spontaneous Respiratory Depth Normal Normal Normal Respiratory Pattern Regular Regular Blood Pressure 148/80 H Blood Pressure [Right Arm] 154/88 H 145/83 H Blood Pressure Mean 102 Blood Pressure Mean [Right Arm] 110 103 Blood Pressure Position Sitting Pulse Oximetry 100 97 96 Oxygen Delivery Method Room Air Room Air Room Air Sepsis Recent Fever Within 48 Hours No Sepsis New/Unexplained Change in Mental Status No Sepsis Action Taken by Nursing No Action Required VITAL SIGNS - Vital signs and nursing notes were reviewed. Stable and afebrile. GENERAL - 30-year-old female appearing her stated age who is in no acute distress. Communicates well with provider and answers questions appropriately. SKIN - Without rashes. HEAD - NC/AT. EYES - PERRL with EOMI bilaterally. Sclera anicteric. EARS - No deformities of external structures noted on gross examination bilaterally. NOSE - Midline and without cyanosis. No epistaxis or purulent drainage noted. Septum midline without deviation or septal hematoma noted. MOUTH/OROPHARYNX - Without perioral cyanosis. NECK - Neck with FROM. No nuchal rigidity. LUNGS - Chest wall symmetric without accessory muscle use, intercostals retractions, or central cyanosis. Normal vesicular breath sounds CTA B/L. No wheezes, rales, or rhonchi appreciated. CARDIAC - RRR with S1/S2. No murmur, rubs, or gallops appreciated. ABDOMEN - Abdominal contour normal without pulsations or visible masses. BS normoactive all four quadrants. Midline abdominal tenderness to palpation noted in the periumbilical region. No guarding or rigidity. Abdomen is soft and nonrigid. No palpable masses, hepatosplenomegaly, or ascites noted. EXTREMITIES - No clubbing or peripheral cyanosis. +5/5 strength noted in UE/LE bilaterally. NEUROLOGIC - Cranial nerves II through XII grossly intact. PSYCH - A&O, and cooperates fully with examiner. Pt is very pleasant and interacts well with examiner. Course Administered Medications Discontinued Medications Diphenhydramine HCl (Diphenhydramine 50 Mg/Ml Vial) 25 mg IV NOW STA Stop: 03/21/21 15:34 Last Admin: 03/21/21 15:44 Dose: 25 mg Documented by: [id number] Hydromorphone HCl (Hydromorphone Inj 1 Mg/Ml Syringe) 1 mg IV NOW STA Stop: 03/21/21 13:29 Last Admin: 03/21/21 13:53 Dose: 1 mg Documented by: [id number] Sodium Chloride (Nss 1000ml) 1,000 mls @ 999 mls/hr IV .Q1H1M FEMI Stop: 03/21/21 11:45 Last Infusion: 03/21/21 12:15 Dose: 0 mls/hr Documented by: [id number] Admin: 03/21/21 11:26 Dose: 999 mls/hr Documented by: [id number] Ioversol (Optiray 320 125ml) 120 ml IV ONCE ONE Stop: 03/21/21 12:22 Last Admin: 03/21/21 12:21 Dose: 120 ml Documented by: [id number] Metoclopramide HCl (Metoclopramide Hcl Inj 5 Mg/Ml 2 Ml Vial) 5 mg IV ONE ONE Stop: 03/21/21 15:34 Last Admin: 03/21/21 15:45 Dose: 5 mg Documented by: [id number] Morphine Sulfate (Morphine Sulfate 4 Mg/Ml 1 Ml Carp\\Vial) 4 mg IV NOW STA Stop: 03/21/21 10:33 Last Admin: 03/21/21 11:27 Dose: 4 mg Documented by: [id number] Ondansetron HCl (Ondansetron Inj 2 Mg/Ml 2 Ml Vial) 4 mg IV NOW STA Stop: 03/21/21 10:33 Last Admin: 03/21/21 11:27 Dose: 4 mg Documented by: [id number] Ondansetron HCl (Ondansetron Inj 2 Mg/Ml 2 Ml Vial) 4 mg IV NOW STA Stop: 03/21/21 14:08 Last Admin: 03/21/21 14:18 Dose: 4 mg Documented by: [id number] Medical Decision Making Laboratory Data Result diagrams: 03/21/21 11:11 03/21/21 11:11 Lab Results 03/21/21 03/21/21 03/21/21 Range/Units 11:11 11:11 11:20 WBC 6.14 (4.8-10.8) K/uL RBC 4.90 (4.2-5.4) M/uL Hgb 9.4 L (12.0-16.0) g/dL Hct 33.5 L (37-47) % MCV 68.4 L (80-100) fL MCH 19.2 L (25-34) pg MCHC 28.1 L (32-36) g/dL RDW Std Deviation 44.1 (36.4-46.3) fL RDW Coeff of Esmer 17.8 H (11.5-14.5) % Plt Count 468 H (130-400) K/uL MPV 9.2 (7.4-10.4) fL Immature Gran % (Auto) 0.2 % Neut % (Auto) 54.5 % Lymph % (Auto) 33.7 % [place] % (Auto) 10.1 % Eos % (Auto) 1.0 % Baso % (Auto) 0.5 % Neut # (Auto) 3.35 (1.4-6.5) K/uL Lymph # (Auto) 2.07 (1.2-3.4) K/uL [place] # (Auto) 0.62 H (0.11-0.59) K/uL Eos # (Auto) 0.06 (0-0.5) K/uL Baso # (Auto) 0.03 (0-0.2) K/uL Immature Gran # (Auto) 0.01 (0.00-0.02) K/uL Hypochromasia Present Microcytosis Present Sodium 138 (136-145) mmol/L Potassium 3.7 (3.5-5.1) mmol/L Chloride 107 (98-107) mmol/L Carbon Dioxide 26 (21-32) mmol/L Anion Gap 5.0 (3-11) BUN 8 (7-18) mg/dl Creatinine 0.76 (0.6-1.2) mg/dl Est Cr Clr Drug Dosing 168.2 ml/min Est GFR ( Amer) 122.0 ml/min Est GFR (Non-Af Amer) 105.3 ml/min BUN/Creatinine Ratio 9.9 L (10-20) Glucose 98 (70-99) mg/dl Calcium 8.7 (8.5-10.1) mg/dl Magnesium 1.9 (1.8-2.4) mg/dl Total Bilirubin 0.4 (0.2-1) mg/dl AST 20 (15-37) U/L ALT 29 (12-78) U/L Alkaline Phosphatase 104 (45-117) U/L Total Protein 8.0 (6.4-8.2) gm/dl Albumin 3.4 (3.4-5.0) gm/dl Globulin 4.6 H (2.5-4.0) gm/dl Albumin/Globulin Ratio 0.7 L (0.9-2) Lipase 127 (73-393) U/L Urine Color Dark Yellow Urine Appearance Clear (Clear) Urine pH 7.0 (4.5-7.5) Ur Specific [place] 1.025 (1.000-1.030) Urine Protein Negative (Negative) Urine Glucose (UA) Negative (Negative) Urine Ketones Trace H (Negative) Urine Blood Negative (Negative) Urine Nitrite Negative (Negative) Urine Bilirubin Negative (Negative) Urine Urobilinogen Negative (Negative) Ur Leukocyte Esterase 1+ H (Negative) Urine WBC (Auto) 1-5 (0-5) /hpf Urine RBC (Auto) 0-4 (0-4) /hpf U Hyaline Cast (Auto) 1-5 (0-5) /lpf U Epithel Cells (Auto) >30 H (0-5) /lpf Urine Bacteria (Auto) Negative (Negative) POC Ur Test (NEG) Urine Opiates Screen (Neg) Ur Methadone, Qual (Neg) Urine Barbiturates (Neg) Ur Phencyclidine (PCP) (Neg) U Amphetamin/Meth Scrn (Neg) MDMA (Ecstasy) Screen (Neg) U Benzodiazepines Scrn (Neg) Ur Cocaine Metabolite (Neg) U Marijuana (THC) Screen (Neg) COVID-19 Eval Order SARS-CoV-2 (PCR) (Negative) 03/21/21 03/21/21 03/21/21 Range/Units 11:20 11:20 16:47 WBC (4.8-10.8) K/uL RBC (4.2-5.4) M/uL Hgb (12.0-16.0) g/dL Hct (37-47) % MCV (80-100) fL MCH (25-34) pg MCHC (32-36) g/dL RDW Std Deviation (36.4-46.3) fL RDW Coeff of Esmer (11.5-14.5) % Plt Count (130-400) K/uL MPV (7.4-10.4) fL Immature Gran % (Auto) % Neut % (Auto) % Lymph % (Auto) % [place] % (Auto) % Eos % (Auto) % Baso % (Auto) % Neut # (Auto) (1.4-6.5) K/uL Lymph # (Auto) (1.2-3.4) K/uL [place] # (Auto) (0.11-0.59) K/uL Eos # (Auto) (0-0.5) K/uL Baso # (Auto) (0-0.2) K/uL Immature Gran # (Auto) (0.00-0.02) K/uL Hypochromasia Microcytosis Sodium (136-145) mmol/L Potassium (3.5-5.1) mmol/L Chloride (98-107) mmol/L Carbon Dioxide (21-32) mmol/L Anion Gap (3-11) BUN (7-18) mg/dl Creatinine (0.6-1.2) mg/dl Est Cr Clr Drug Dosing ml/min Est GFR ( Amer) ml/min Est GFR (Non-Af Amer) ml/min BUN/Creatinine Ratio (10-20) Glucose (70-99) mg/dl Calcium (8.5-10.1) mg/dl Magnesium (1.8-2.4) mg/dl Total Bilirubin (0.2-1) mg/dl AST (15-37) U/L ALT (12-78) U/L Alkaline Phosphatase (45-117) U/L Total Protein (6.4-8.2) gm/dl Albumin (3.4-5.0) gm/dl Globulin (2.5-4.0) gm/dl Albumin/Globulin Ratio (0.9-2) Lipase (73-393) U/L Urine Color Urine Appearance (Clear) Urine pH (4.5-7.5) Ur Specific [place] (1.000-1.030) Urine Protein (Negative) Urine Glucose (UA) (Negative) Urine Ketones (Negative) Urine Blood (Negative) Urine Nitrite (Negative) Urine Bilirubin (Negative) Urine Urobilinogen (Negative) Ur Leukocyte Esterase (Negative) Urine WBC (Auto) (0-5) /hpf Urine RBC (Auto) (0-4) /hpf U Hyaline Cast (Auto) (0-5) /lpf U Epithel Cells (Auto) (0-5) /lpf Urine Bacteria (Auto) (Negative) POC Ur Test NEG (NEG) Urine Opiates Screen Neg (Neg) Ur Methadone, Qual Neg (Neg) Urine Barbiturates Neg (Neg) Ur Phencyclidine (PCP) Neg (Neg) U Amphetamin/Meth Scrn Neg (Neg) MDMA (Ecstasy) Screen Neg (Neg) U Benzodiazepines Scrn Neg (Neg) Ur Cocaine Metabolite Neg (Neg) U Marijuana (THC) Screen Pos H (Neg) COVID-19 Eval Order Covid19 at [facility] SARS-CoV-2 (PCR) (Negative) 03/21/21 Range/Units 16:47 WBC (4.8-10.8) K/uL RBC (4.2-5.4) M/uL Hgb (12.0-16.0) g/dL Hct (37-47) % MCV (80-100) fL MCH (25-34) pg MCHC (32-36) g/dL RDW Std Deviation (36.4-46.3) fL RDW Coeff of Esmer (11.5-14.5) % Plt Count (130-400) K/uL MPV (7.4-10.4) fL Immature Gran % (Auto) % Neut % (Auto) % Lymph % (Auto) % [place] % (Auto) % Eos % (Auto) % Baso % (Auto) % Neut # (Auto) (1.4-6.5) K/uL Lymph # (Auto) (1.2-3.4) K/uL [place] # (Auto) (0.11-0.59) K/uL Eos # (Auto) (0-0.5) K/uL Baso # (Auto) (0-0.2) K/uL Immature Gran # (Auto) (0.00-0.02) K/uL Hypochromasia Microcytosis Sodium (136-145) mmol/L Potassium (3.5-5.1) mmol/L Chloride (98-107) mmol/L Carbon Dioxide (21-32) mmol/L Anion Gap (3-11) BUN (7-18) mg/dl Creatinine (0.6-1.2) mg/dl Est Cr Clr Drug Dosing ml/min Est GFR ( Amer) ml/min Est GFR (Non-Af Amer) ml/min BUN/Creatinine Ratio (10-20) Glucose (70-99) mg/dl Calcium (8.5-10.1) mg/dl Magnesium (1.8-2.4) mg/dl Total Bilirubin (0.2-1) mg/dl AST (15-37) U/L ALT (12-78) U/L Alkaline Phosphatase (45-117) U/L Total Protein (6.4-8.2) gm/dl Albumin (3.4-5.0) gm/dl Globulin (2.5-4.0) gm/dl Albumin/Globulin Ratio (0.9-2) Lipase (73-393) U/L Urine Color Urine Appearance (Clear) Urine pH (4.5-7.5) Ur Specific [place] (1.000-1.030) Urine Protein (Negative) Urine Glucose (UA) (Negative) Urine Ketones (Negative) Urine Blood (Negative) Urine Nitrite (Negative) Urine Bilirubin (Negative) Urine Urobilinogen (Negative) Ur Leukocyte Esterase (Negative) Urine WBC (Auto) (0-5) /hpf Urine RBC (Auto) (0-4) /hpf U Hyaline Cast (Auto) (0-5) /lpf U Epithel Cells (Auto) (0-5) /lpf Urine Bacteria (Auto) (Negative) POC Ur Test (NEG) Urine Opiates Screen (Neg) Ur Methadone, Qual (Neg) Urine Barbiturates (Neg) Ur Phencyclidine (PCP) (Neg) U Amphetamin/Meth Scrn (Neg) MDMA (Ecstasy) Screen (Neg) U Benzodiazepines Scrn (Neg) Ur Cocaine Metabolite (Neg) U Marijuana (THC) Screen (Neg) COVID-19 Eval Order SARS-CoV-2 (PCR) NEGATIVE (Negative) Imaging Data Radiologist's Impression: Abdomen/Pelvis CT 03/21/21 10:[address] WITH IV CONTRAST CT DOSE: 1067.06 mGycm HISTORY: Midline abd pain, emesis TECHNIQUE: Multiaxial CT images of the abdomen and pelvis were performed follo wing the use of intravenous contrast. A dose lowering technique was utilized adhering to the principles of ALARA. COMPARISON STUDY: Abdomen and pelvis CT 09/22/2019. FINDINGS: There is artifact from the patient's body abutting the left side of the gantry. This is due to the patient's large body habitus. The lung bases are clear. No pneumoperitoneum. No pneumatosis. No fractures within the visualized osseous structures. There is a small fat-containing umbilical hernia. The bladder appears unremarkable. No pelvic free fluid. There appears to be a low- lying intrauterine device. The adnexa are unremarkable. The liver, gallbladder, spleen, adrenal glands, pancreas, and kidneys are unremarkable. No hydronephrosis. No bowel wall thickening or obstruction. Normal appendix. IMPRESSION: 1. No bowel wall thickening or obstruction. 2. Normal appendix. 3. No hydronephrosis. 4. There is a low-lying intrauterine device. Follow-up nonemergent pelvic ultrasound is recommended to evaluate the position of the intrauterine device. ACT 112: Negative or not required by law. Electronically signed by: Benjamin Choudhury M.D. 03/21/2021 1:11 PM MDM Narrative Patient was seen and evaluated as above in room C10. Review was performed of nursing notes and vital signs. I did review pertinent previous visits and patient history. After obtaining a thorough history and physical examination the above work up was performed. Patient presents to us today with vomiting and mid abdominal discomfort. Vital signs stable. She is nontoxic on examination. Options of care were discussed with the patient. IV access was established. Labs were drawn. She was given several rounds of antiemetics and was also given IV analgesics. CT scan of the abdomen pelvis is essentially negative however there is a comment of a low-lying intrauterine device. Follow-up nonemergent pelvic ultrasound is recommended per radiology report. Patient denies any pelvic pain or pelvic complaints at this time. Laboratory studies reveal no leukocytosis. Stable anemia noted. Platelet count elevated at 468. No emergent metabolic disturbance. Urinalysis does not suggest infection. Covid testing negative. Patient denies any alcohol use as I will note that she is currently on metronidazole. With the patient having persistence of symptoms here in the ED despite multiple rounds of IV analgesics benefit versus risk of inpatient versus outpatient management discussed. Through shared decision making we will proceed with inpatient management. Case discussed with the hospitalist. Please refer to further documentation regarding her stay. GCS: 15 In the evaluation and treatment of this patient the following differential diagnoses were entertained: UTI, torsion, pyelonephritis, bowel obstruction, appendicitis, pancreatitis, medication reaction, GERD, among others. Impression & Plan Intractable nausea and vomiting, Abdominal pain Discharge Plan Visit Data Chief Complaint: Vomiting Stated Complaint: vomiting bile ED Provider: Albert Aguirre ED Midlevel Provider: Jose Joy Discharge Problem: Intractable nausea and vomiting, Abdominal pain Patient Disposition: Admitted As Inpatient Condition: Good Forms Stand Alone Forms: [facility], [facility], [place] [facility], Important Visit Information Prescriptions Prescriptions: No Action Mirena 20 mcg/24 hours (6 yrs) 52 mg intrauterine device 20 mcg intrauterine CONT RF: 0 ferrous sulfate 325 mg (65 mg iron) tablet 325 mg PO TID RF: 0 metformin 1,000 mg tablet 1,000 mg PO BIDM RF: 0 albuterol sulfate 90 mcg/actuation HFA aerosol inhaler 2 puffs INH Q4H PRN (Reason: Shortness Of Breath Or Wheezing) RF: 0 hydroxyzine pamoate [Vistaril] 25 mg capsule 25 mg PO HS PRN (Reason: Anxiety) RF: 0 magnesium 200 mg Tablet 400 mg PO QAM RF: 0 hydrochlorothiazide 12.5 mg Tablet 12.5 mg PO QAM RF: 0 bupropion HCl [Wellbutrin XL] 300 mg Tablet Extended Release 24 Hr 300 mg PO QAM RF: 0 ondansetron 4 mg Tablet,Disintegrating 4 mg PO Q8 PRN (Reason: Nausea) RF: 0 metronidazole 500 mg tablet 500 mg PO TID RF: 0 clarithromycin 500 mg tablet extended release 24 hr 500 mg PO BID RF: 0 omeprazole 20 mg capsule,delayed release(DR/EC) 20 mg PO BID RF: 0 montelukast 10 mg tablet 10 mg PO QAM RF: 0 Referrals Referrals: Genesis Pichardo, [Primary Care Provider] -
[2021-03-21] MEDS ORDERED: SODIUM CHLORIDE 0.9% 1000ML 1,000 ML IV SCH (10:45)
[2021-03-21 11:30] LABS: Hematocrit (blood only) 33.5 % (37-47); Hemoglobin 9.4 g/dL (12.0-16.0); Mean Corpuscular Hemoglobin 19.2 pg (25-34); Mean Corpuscular Hgb Conc 28.1 g/dL (32-36); Mean Corpuscular Volume 68.4 fL (80-100); Mean Platelet Volume 9.2 fL (7.4-10.4); Platelet Count 468 K/uL (130-400); RDW Coefficient of Variation 17.8 % (11.5-14.5); RDW Standard Deviation 44.1 fL (36.4-46.3); White Blood Count 6.14 K/uL (4.8-10.8)
[2021-03-21 11:45] LABS: Appearance Urine Clear (Clear); Bacteria Urine Automated Negative (Negative); Bilirubin Urine Negative (Negative); Blood Urine Negative (Negative); Color Urine Dark Yellow; Epithelial Cell Urine Auto >30 /lpf (0-5); Glucose Urine UA Negative (Negative); Ketones Urine Trace (Negative); Leukocyte Esterase Urine 1+ (Negative); Nitrite Urine Negative (Negative); Protein Urine Negative (Negative); RBC Urine Automated 0-4 /hpf (0-4); Specific Gravity Urine 1.025 (1.000-1.030); Urobilinogen Urine Negative (Negative)
[2021-03-21 11:51] LABS: Albumin Level 3.4 gm/dl (3.4-5.0); BUN Creatinine Ratio 9.9 (10-20); Calcium 8.7 mg/dl (8.5-10.1); Creatinine Clr Calc Pharmacy 168.2 ml/min; Est GFR (Non-African American) 105.3 ml/min; Magnesium 1.9 mg/dl (1.8-2.4); Potassium 3.7 mmol/L (3.5-5.1)
[2021-03-21 11:54] LABS: Albumin Globulin Ratio 0.7 (0.9-2); Bilirubin,Total 0.4 mg/dl (0.2-1); Globulin 4.6 gm/dl (2.5-4.0)
[2021-03-21 11:55] LABS: Basophils # (auto) 0.03 K/uL (0-0.2); Basophils % (auto) 0.5 %; Eosinophils # (auto) 0.06 K/uL (0-0.5); Hypochromasia Present; Immature Granulocytes # (auto) 0.01 K/uL (0.00-0.02); Immature Granulocytes % (auto) 0.2 %; Lymphocytes # (auto) 2.07 K/uL (1.2-3.4); Lymphocytes % (auto) 33.7 %; Microcytosis Present; Monocytes # (auto) 0.62 K/uL (0.11-0.59); Monocytes % (auto) 10.1 %; Neutrophils # (auto) 3.35 K/uL (1.4-6.5); Neutrophils % (auto) 54.5 %
[2021-03-21] MEDS ORDERED: OPTIRAY 320 100ml IV ONE (12:20)
[2021-03-21] MEDS ORDERED: OPTIRAY 320 125ml IV ONE (12:21)
--- NOTE | 2021-03-21 13:13 | CT Scan Report ---
ABDOMEN AND PELVIS CT WITH IV CONTRAST CT DOSE: 1067.06 mGycm HISTORY: Midline abd pain, emesis TECHNIQUE: Multiaxial CT images of the abdomen and pelvis were performed following the use of intrave nous contrast. A dose lowering technique was utilized adhering to the principles of ALARA. COMPARISON STUDY: Abdomen and pelvis CT 09/22/2019. FINDINGS: There is artifact from the patient's body abutting the left side of the gantry. This is due to the patient's large body habitus. The lung bases are clear. No pneumoperitoneum. No pneumatosis. No fractures within the visualized osseous structures. There is a small fat-containing umbilical rubia ia. The bladder appears unremarkable. No pelvic free fluid. There appears to be a low-lying intrauter ine device. The adnexa are unremarkable. The liver, gallbladder, spleen, adrenal glands, pancreas, an d kidneys are unremarkable. No hydronephrosis. No bowel wall thickening or obstruction. Normal append ix. IMPRESSION: 1. No bowel wall thickening or obstruction. 2. Normal appendix. 3. No hydronephrosis. 4. There is a low-lying intrauterine device. Follow-up nonemergent pelvic ultrasound is recommended t o evaluate the position of the intrauterine device. ACT 112: Negative or not required by law. Electronically signed by: Benjamin Choudhury M.D. 03/21/2021 1:11 PM
[2021-03-21] MEDS ORDERED: HYDROmorphone INJ 1 MG/ML SYRINGE IV STA (13:28)
[2021-03-21] MEDS ORDERED: diphenhydrAMINE 50 MG/ML VIAL IV STA (15:33)
[2021-03-21] MEDS ORDERED: METOCLOPRAMIDE HCL INJ 5 MG/ML 2 ML VIAL IV ONE (15:33)
--- NOTE | 2021-03-21 17:38 | History & Physical Report ---
Date of Service March 21, 2021 Assessment & Plan (1) Intractable nausea and vomiting: Plan: -Admit to [facility] -Patient presenting from home with reports of intractable nausea and vomiting x 4 days -In the ED, labs unremarkable, CT ABD/pelvis negative for acute findings -Check UDS -Supportive care with IVF, antiemetics -EGD 03/08/2021 essentially unremarkable however biopsy positive for H. pylori which may be contributing to symptoms and/or antibiotics -Given reports of diarrhea, check stool studies -Clear liquid diet (2) H. pylori infection: Plan: -Positive from EGD 03/08 -Convert PPI and metronidazole to IV, continue clarithromycin p.o. (3) Anemia: Plan: -Chronic, at patient's baseline -Continue home iron replacement (4) Prediabetes: Plan: -Hgb A1c 6.3 09/2020 -Monitor glucose on a.m. labs (5) DVT prophylaxis: Plan: -SCDs History of Present Illness Chief Complaint: Nausea and vomiting Primary Care Provider: Genesis Pichardo DO 30-year-old female with PMH PCOS, prediabetes, asthma, chronic anemia due to iron deficiency and menometrorrhagia, H. pylori positive on EGD from 03/08, and other problems listed below who presents to the ED for evaluation of intractable nausea and vomiting. Patient underwent EGD on 03/08 and biopsy was positive for H. pylori. Patient started triple therapy with PPI, clarithromycin, metronidazole about 1 week ago. 4 days ago, patient reports she developed nausea and vomiting. She reports several episodes of vomiting and has been unable to keep her medications down. She reports she has some diarrhea at baseline which also has been worse. She denies bright red blood per rectum and dark tarry stools. No hematemesis or coffee-ground emesis. She also has chronic abdominal pain which is slightly worse from baseline as well. She denies fevers and chills. Reports some persistent chest pain that has been ongoing for the past couple of years. Recently evaluated by cardiology and diagnosed with costochondritis, outpatient echo pending. Has had some lightheadedness and dizziness this week however no syncopal event. Denies urinary symptoms. In the ED, labs are unremarkable/at patient's baseline. CT ABD/pelvis negative for acute findings. Patient is hemodynamically stable. P atient received IV diphenhydramine, IV Dilaudid, IV Reglan, IV morphine, IV Zofran x 2 doses, IVF. She continues to have persistent nausea and vomiting. Allergies Allergy/AdvReac Type Severity Reaction Status Date / Time Penicillins Allergy Unknown Unknown Verified 03/21/21 11:52 Home Medications Medication Instructions Recorded Confirmed Type albuterol sulfate 90 mcg/actuation 2 puffs INH Q4H PRN 10/06/20 03/21/21 History aerosol inhaler ferrous sulfate 325 mg (65 mg 325 mg PO TID 10/06/20 03/21/21 History iron) tablet hydroxyzine pamoate 25 mg capsule 25 mg PO HS PRN 10/06/20 03/21/21 History (Vistaril) metformin 1,000 mg tablet 1,000 mg PO BIDM 10/06/20 03/21/21 History magnesium 200 mg tablet 400 mg PO QAM 11/02/20 03/21/21 History bupropion HCl 300 mg 24 hr tablet, 300 mg PO QAM 02/11/21 03/21/21 History extended release (Wellbutrin XL) hydrochlorothiazide 12.5 mg tablet 12.5 mg PO QAM 02/11/21 03/21/21 History ondansetron 4 mg disintegrating 4 mg PO Q8 PRN 02/11/21 03/21/21 History tablet levonorgestrel 20 mcg/24 hours (6 20 mcg INTRAUTERINE CONT 03/13/21 03/21/21 History yrs) 52 mg intrauterine device (Mirena) clarithromycin 500 mg 500 mg PO BID 03/21/21 03/21/21 History tablet,extended release 24 hr metronidazole 500 mg tablet 500 mg PO TID 03/21/21 03/21/21 History montelukast 10 mg tablet 10 mg PO QAM 03/21/21 03/21/21 History omeprazole 20 mg capsule,delayed 20 mg PO BID 03/21/21 03/21/21 History release Past Med/Surg History Medical History Anemia hx multiple blood transfusions 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 sometimes will feel like chest pressure. has been happening for about 1 - 1.5 years. Depression with anxiety GERD (gastroesophageal reflux disease) controlled H. pylori infection History of COVID-19 Dx 06/2020. Symptoms at time of body aches, chills, fever, cough, sob, loss of taste/smell, fatigue > resolved except lingering body aches, fatigue Hypertension Menometrorrhagia Migraines Morbid obesity BMI 60.5 PCOS (polycystic ovarian syndrome) on Metformin Prediabetes Severe sleep apnea CPAP Surgical History History of colonoscopy History of dilatation and curettage with insertion of mirena History of esophagogastroduodenoscopy (EGD) Family History Sister Breast cancer, Onset Age: 30 had surgery and chemo 2 sisters age 31 the other Uterine cancer, Onset Age: 31 also has breast cancer Mother Myocardial infarction Hypertension Aunt Uterine cancer Mother Lung cancer Other No family history of adverse response to anesthesia Denies family history of Ovarian cancer Colorectal cancer Social History Smoking Status: Former smoker Tobacco Type: Cigarettes Second Hand Exposure: No; Hx Alcohol Use: Yes Alcohol Intake Frequency: Monthly or Less Hx Substance Use: No Preferred Language: Luxembourgish Communication Ability: Effective Visual Impairment: No Limitations Hearing Ability: Normal [employer] Required: No Beliefs That Will Affect Care: None Current Living Situation: Other current occupational status: employed Feels Safe at Home: Yes Assistive Devices: None Review of Systems Review of Systems: ROS per HPI, all other systems reviewed and negative Physical Exam Physical Exam: Please refer to Dr. Murphy's addendum for physical exam. Results & Data Results & Data ([facility]) Vital Signs (Past 12 Hours) Vital Signs Temp Pulse Pulse Resp BP BP Pulse Ox 03/21/21 14:50 86 20 145/83 H 96 03/21/21 11:34 85 20 154/88 H 97 03/21/21 09:46 36.4 C L 81 20 148/80 H 100 Laboratory Results Short CBC 03/21/21 Range/Units 11:11 WBC 6.14 (4.8-10.8) K/uL Hgb 9.4 L (12.0-16.0) g/dL Hct 33.5 L (37-47) % Plt Count 468 H (130-400) K/uL BMP 03/21/21 11:11 Sodium 138 Potassium 3.7 Chloride 107 Carbon Dioxide 26 BUN 8 Creatinine 0.76 Glucose 98 Calcium 8.7 Liver Function 03/21/21 Range/Units 11:11 Total Bilirubin 0.4 (0.2-1) mg/dl AST 20 (15-37) U/L ALT 29 (12-78) U/L Alkaline Phosphatase 104 (45-117) U/L Albumin 3.4 (3.4-5.0) gm/dl Urine 03/21/21 Range/Units 11:20 Urine Color Dark Yellow Urine Appearance Clear (Clear) Urine pH 7.0 (4.5-7.5) Ur Specific [place] 1.025 (1.000-1.030) Urine Protein Negative (Negative) Urine Glucose (UA) Negative (Negative) Diagnostic Findings Abdomen/Pelvis CT 03/21/21 10:[address] WITH IV CONTRAST CT DOSE: 1067.06 mGycm HISTORY: Midline abd pain, emesis TECHNIQUE: Multiaxial CT images of the abdomen and pelvis were performed following the use of intravenous contrast. A dose lowering technique was utilized adhering to the principles of ALARA. COMPARISON STUDY: Abdomen and pelvis CT 09/22/2019. FINDINGS: There is artifact from the patient's body abutting the left side of the gantry. This is due to the patient's large body habitus. The lung bases are clear. No pneumoperitoneum. No pneumatosis. No fractures within the visualized osseous structures. There is a small fat-containing umbilical hernia. The bladder appears unremarkable. No pelvic free fluid. There appears to be a low- lying intrauterine device. The adnexa are unremarkable. The liver, gallbladder, spleen, adrenal glands, pancreas, and kidneys are unremarkable. No hydronephrosis. No bowel wall thickening or obstruction. Normal appendix. IMPRESSION: 1. No bowel wall thickening or obstruction. 2. Normal appendix. 3. No hydronephrosis. 4. There is a low-lying intrauterine device. Follow-up nonemergent pelvic ultrasound is recommended to evaluate the position of the intrauterine device. ACT 112: Negative or not required by law. Electronically signed by: Benjamin Choudhury M.D. 03/21/2021 1:11 PM Code Status & VTE Plan VTE Prophylaxis Plan VTE Prophylaxis will be ordered: Yes Supervising Physician Co-Signing Physician Notes Patient is a 30-year-old female with history of PCOS, prediabetes, asthma, chronic anemia and other medical problems presents with history of intractable nausea, vomiting since 4 days duration associated with generalized abdominal pain and diarrhea. She was recently diagnosed to have H. pylori and is currently on antibiotics since 1 week duration. She admits to using her home inhaler for asthma more frequently lately. She denies any blood in the vomitus, bloody stools, melena. Also denies any chest pain, fever, chills. Please review HPI for complete details of presentation. Blood work suggestive of chronic microcytic anemia, hemoglobin at baseline. CT abdomen showed no acute findings. Physical Exam: Vitals signs as noted above General Appearance:Morbidly Obese, no apparent distress Head: normocephalic, Atraumatic Eyes: normal inspection, EOMI Neck: supple, Trachea midline Respiratory/Chest: Normal breath sounds, CTA, No accessory muscle use Cardiovascular: S1, S2, No murmur Abdomen/GI:Soft, generalized tender, Bowel sounds present Extremities/Musculoskeletal:normal inspection, Trace edema Neurologic/Psych:AAOX3, grossly no focal neurological deficits Skin: normal color, warm Intractable nausea, vomiting CT abdomen showed no obstruction Agree with toxicology screen Clear liquid diet, advance as tolerated Antiemetics, IV fluids Check stool studies to rule out C. difficile Consider GI eval if needed. Prediabetes Update HbA1c I personally reviewed the record. Patient is interviewed and examined at bedside. Patient's care is coordinated with Romi Ross [employer]. Please refer to the documentation above for details of patient's presentation and for discussion of other issues.
[2021-03-21 17:48] LABS: Amphetamines+Metham, Urine Neg (Neg); Barbiturates, Urine Neg (Neg); Benzodiazepine, Urine Neg (Neg); Cocaine, Urine Neg (Neg); MDMA (Ecstacy), Urine Neg (Neg); Methadone, Urine Neg (Neg); Opiate, Urine Neg (Neg); Phencyclidine, Urine Neg (Neg)
[2021-03-21] MEDS ORDERED: ALBUTEROL 0.083% NEBU SOLN 3 ML VIAL NEB PRN (19:45)
[2021-03-21] MEDS ORDERED: ACETAMINOPHEN 325 MG TAB PO PRN (19:45)
[2021-03-21] MEDS: SODIUM CHLORIDE 0.9% 1000ML 1,000 ML IV SCH (20:55)
[2021-03-21] MEDS: metroNIDAZOLE 500 MG/100 ML BAG IV SCH (20:55)
[2021-03-21] MEDS: FERROUS SULFATE 325 MG TAB PO SCH (21:04)
[2021-03-21] MEDS: CLARITHROMYCIN 500 MG TAB PO SCH (21:04)
[2021-03-21] MEDS: PANTOprazole 40 MG in SYRINGE 0 ML IV SCH (21:53)
[2021-03-21] MEDS: MoRPHine SULFATE 4 MG/ML 1 ML CARP\\VIAL IV PRN (22:08)
[2021-03-22] MEDS: metroNIDAZOLE 500 MG/100 ML BAG IV SCH ×3 (04:37→20:26)
[2021-03-22] MEDS: MoRPHine SULFATE 4 MG/ML 1 ML CARP\\VIAL IV PRN ×4 (05:38→20:49)
[2021-03-22] MEDS: SODIUM CHLORIDE 0.9% 1000ML 1,000 ML IV SCH ×4 (06:34→23:30)
[2021-03-22 06:42] LABS: Hematocrit (blood only) 32.5 % (37-47); Hemoglobin 9.1 g/dL (12.0-16.0); Mean Corpuscular Hemoglobin 19.5 pg (25-34); Mean Corpuscular Volume 69.6 fL (80-100); Mean Platelet Volume 9.5 fL (7.4-10.4); Platelet Count 475 K/uL (130-400); RDW Coefficient of Variation 17.7 % (11.5-14.5); RDW Standard Deviation 45.3 fL (36.4-46.3); Red Blood Count 4.67 M/uL (4.2-5.4); White Blood Count 5.98 K/uL (4.8-10.8)
[2021-03-22 07:09] LABS: Calcium 8.2 mg/dl (8.5-10.1); Creatinine Clr Calc Pharmacy 171.1 ml/min; Est GFR (African American) 116.4 ml/min; Est GFR (Non-African American) 100.5 ml/min; Potassium 3.5 mmol/L (3.5-5.1)
[2021-03-22 07:37] LABS: Estimated Average Glucose 148 mg/dl; Hemoglobin A1C 6.8 % (4.5-5.6)
[2021-03-22] MEDS: ONDANSETRON INJ 2 MG/ML 2 ML VIAL IV PRN ×2 (07:46→20:26)
[2021-03-22] MEDS: CLARITHROMYCIN 500 MG TAB PO SCH ×2 (08:11→20:26)
[2021-03-22] MEDS: FERROUS SULFATE 325 MG TAB PO SCH ×3 (08:11→20:25)
[2021-03-22] MEDS: PANTOprazole 40 MG in SYRINGE 0 ML IV SCH ×2 (08:11→20:26)
[2021-03-22] MEDS: buPROPion XL 300 MG TABCR PO SCH (08:11)
[2021-03-22] MEDS: MONTELUKAST SODIUM 10 MG TABLET PO SCH (08:12)
[2021-03-22] MEDS: LACTOBACILLUS ACIDOPHILUS 1 GM PACK PO SCH ×3 (09:17→16:17)
[2021-03-22] MEDS: PROMETHAZINE HCL 12.5 MG in SODIUM CHLORIDE 0.9% 50 ML IV PRN (10:20)
[2021-03-22] MEDS: SUCRALFATE 1 GM TAB PO SCH ×2 (16:20→20:25)
--- NOTE | 2021-03-22 17:52 | Hospitalist Progress Note ---
Date of Service March 22, 2021 Assessment & Plan (1) Intractable nausea and vomiting: Plan: -Patient presenting from home with reports of intractable nausea and vomiting x 4 days -Could be secondary to triple therapy for H. pylori or the H. pylori infection itself -In the ED, labs unremarkable, CT ABD/pelvis negative for acute findings -Supportive care with IVF, antiemetics -EGD 03/08/2021 essentially unremarkable however biopsy positive for H. pylori which may be contributing to symptoms and/or antibiotics -Given reports of diarrhea, check stool studies -negative for C. difficile toxin -Urine tox screen positive for marijuana -We will add sucralfate. Metronidazole has been changed to IV -We will observe (2) H. pylori infection: Plan: -Positive from EGD 03/08 -Convert PPI and metronidazole to IV, continue clarithromycin p.o. -Sucralfate has been added (3) Anemia: Plan: -Chronic, at patient's baseline -Continue home iron replacement (4) Prediabetes: Plan: -Hgb A1c 6.3 09/2020 -Monitor glucose on a.m. labs (5) DVT prophylaxis: Plan: -SCDs Plan: Likely discharge in a day or 2 Admission and Anticipated Discharge Date Admission Date: March 21, 2021 Subjective 03/22/2021 The patient was seen and examined in medical floor She was admitted with intractable nausea and vomiting and she has been on triple therapy for recent diagnosis of H. pylori She remains nauseous and vomiting at times even with [id number] IV Zofran and/or Phenergan She denies any other symptoms Review of Systems Review of Systems: All systems reviewed and are unremarkable except as noted below Gastrointestinal: Continue to have nausea and vomiting Physical Exam Physical Exam: Sitting at the edge of the bed with moderate distress due to nausea Constitutional: well developed, well nourished, + ill appearing and + obese Eyes: PERRL, conjunctivae normal, anicteric sclerae ENMT: external ear and nose normal, oropharynx normal Respiratory: no respiratory distress Auscultation: lungs clear to auscultation bilaterally Cardiovascular: Rate/Rhythm: regular rate and regular rhythm; not tachycardic Heart Sounds: normal S1 and normal S2; no murmur Extremities: + edema (1+ edema bilaterally) Gastrointestinal (Abdomen): Inspection/Auscultation: + abdomen distended and normal bowel sounds Percussion/Palpation: + abdomen tender (Mildly tender all over) and abdomen soft; no guarding and abdomen not rigid Musculoskeletal: No acute arthritis involving any joint Neurologic: Alert, awake and oriented x3. No focal sensory and motor deficit appreciated Results & Data Results & Data ([facility]) Vital Signs (Past 12 Hours) Vital Signs Temp Pulse Resp BP Pulse Ox 03/22/21 14:52 37.1 C 84 18 148/85 H 99 03/22/21 12:50 36.9 C 82 17 153/83 H 100 03/22/21 07:26 36.8 C 74 18 146/79 H 97 Laboratory Results Short CBC 03/22/21 Range/Units 05:32 WBC 5.98 (4.8-10.8) K/uL Hgb 9.1 L (12.0-16.0) g/dL Hct 32.5 L (37-47) % Plt Count 475 H (130-400) K/uL BMP 03/22/21 05:32 Sodium 138 Potassium 3.5 Chloride 107 Carbon Dioxide 25 BUN 6 L Creatinine 0.79 Glucose 87 Calcium 8.2 L Medications Administered Current Inpatient Medications Acetaminophen (Acetaminophen 325 Mg Tab) 650 mg PO Q4H PRN PRN Reason: pain/fever Stop: 04/20/21 19:44 Albuterol (Albuterol 0.083% Nebu Soln 3 Ml Vial) 2.5 mg NEB Q6R PRN PRN Reason: Shortness Of Breath Or Wheezing Stop: 04/20/21 19:44 Bupropion HCl (Bupropion Xl 300 Mg Tabcr) 300 mg PO QAM [facility] Stop: 04/21/21 08:59 Last Admin: 03/22/21 08:11 Dose: 300 mg Documented by: Clarithromycin (Clarithromycin 500 Mg Tab) 500 mg PO BID [facility] Stop: 03/31/21 20:59 Last Admin: 03/22/21 08:11 Dose: 500 mg Documented by: Ferrous Sulfate (Ferrous Sulfate 325 Mg Tab) 325 mg PO TID [facility] Stop: 04/20/21 20:59 Last Admin: 03/22/21 14:17 Dose: 325 mg Documented by: Sodium Chloride (Nss 1000ml) 1,000 mls @ 125 mls/hr IV .Q8H [facility] Stop: 04/20/21 19:44 Last Admin: 03/22/21 14:57 Dose: 125 mls/hr Documented by: Pantoprazole Sodium 40 mg/ (Syringe) 10 mls @ 5 mls/min IV BID [facility] Stop: 04/20/21 20:59 Last Admin: 03/22/21 08:11 Dose: 5 mls/min Documented by: Metronidazole (Flagyl) 500 mg in 100 mls @ 100 mls/hr IV Q8H [facility] Stop: 03/31/21 19:59 Last Infusion: 03/22/21 13:55 Dose: Infused Documented by: Promethazine HCl 12.5 mg/ (Sodium Chloride) 50.5 mls @ 202 mls/hr IV Q6H PRN PRN Reason: Nausea And Vomiting Stop: 04/21/21 08:56 Last Infusion: 03/22/21 10:40 Dose: Infused Documented by: Lactobacillus Acidophilus (Lactobacillus Acidophilus 1 Gm Pack) 1 gm PO TIDM [facility] Stop: 04/21/21 07:59 Last Admin: 03/22/21 16:17 Dose: Not Given Documented by: Montelukast Sodium (Montelukast Sodium 10 Mg Tablet) 10 mg PO QAM [facility] Stop: 04/21/21 08:59 Last Admin: 03/22/21 08:12 Dose: 10 mg Documented by: Morphine Sulfate (Morphine Sulfate 4 Mg/Ml 1 Ml Carp\Vial) 3 mg IV Q4H PRN PRN Reason: Pain Stop: 04/04/21 21:53 Last Admin: 03/22/21 14:06 Dose: 3 mg Documented by: Ondansetron HCl (Ondansetron Inj 2 Mg/Ml 2 Ml Vial) 4 mg IV Q6H PRN PRN Reason: Nausea Stop: 04/20/21 19:44 Last Admin: 03/22/21 07:46 Dose: 4 mg Documented by: Sucralfate (Sucralfate 1 Gm Tab) 1 gm PO QID [facility] Stop: 04/21/21 16:59 Last Admin: 03/22/21 16:20 Dose: 1 gm Documented by:
[2021-03-23] MEDS: metroNIDAZOLE 500 MG/100 ML BAG IV SCH ×3 (04:25→20:05)
[2021-03-23] MEDS: MoRPHine SULFATE 4 MG/ML 1 ML CARP\\VIAL IV PRN ×4 (06:28→23:59)
[2021-03-23 07:04] LABS: BUN Creatinine Ratio 4.8 (10-20); Calcium 8.2 mg/dl (8.5-10.1); Creatinine Clr Calc Pharmacy 185.1 ml/min; Est GFR (African American) 128.1 ml/min; Est GFR (Non-African American) 110.5 ml/min; Magnesium 2.1 mg/dl (1.8-2.4); Potassium 3.5 mmol/L (3.5-5.1)
[2021-03-23] MEDS: SODIUM CHLORIDE 0.9% 1000ML 1,000 ML IV SCH ×2 (08:21→15:43)
[2021-03-23] MEDS: LACTOBACILLUS ACIDOPHILUS 1 GM PACK PO SCH ×3 (08:25→18:29)
[2021-03-23] MEDS: buPROPion XL 300 MG TABCR PO SCH (08:26)
[2021-03-23] MEDS: SUCRALFATE 1 GM TAB PO SCH ×4 (08:27→20:06)
[2021-03-23] MEDS: PANTOprazole 40 MG in SYRINGE 0 ML IV SCH ×2 (08:28→20:06)
[2021-03-23] MEDS: MONTELUKAST SODIUM 10 MG TABLET PO SCH (08:29)
[2021-03-23] MEDS: CLARITHROMYCIN 500 MG TAB PO SCH ×2 (08:29→20:06)
[2021-03-23] MEDS: FERROUS SULFATE 325 MG TAB PO SCH ×3 (08:36→20:06)
[2021-03-23] MEDS: ONDANSETRON INJ 2 MG/ML 2 ML VIAL IV PRN ×2 (12:38→18:32)
[2021-03-23] MEDS ORDERED: ALUMINUM/MAGNESIUM/SIMETH (MAALOX MAX) 30 ML UDC PO PRN (13:54)
--- NOTE | 2021-03-23 16:56 | Hospitalist Progress Note ---
Date of Service March 23, 2021 Assessment & Plan (1) Intractable nausea and vomiting: Plan: -Patient presenting from home with reports of intractable nausea and vomiting x 4 days -Could be secondary to triple therapy for H. pylori or the H. pylori infection itself -In the ED, labs unremarkable, CT ABD/pelvis negative for acute findings -Supportive care with IVF, antiemetics -EGD 03/08/2021 essentially unremarkable however biopsy positive for H. pylori which may be contributing to symptoms and/or antibiotics -Given reports of diarrhea, check stool studies -negative for C. difficile toxin -Urine tox screen positive for marijuana -We will add sucralfate. Metronidazole has been changed to IV -Has not been improving and cannot tolerate any food yet -We will get GI input Abdominal pain Has been getting morphine 4 mg every 4 hourly as needed We will decrease the doses to every 8 hourly and add Toradol for pain control (2) H. pylori infection: Plan: -Positive from EGD 03/08 -Convert PPI and metronidazole to IV, continue clarithromycin p.o. -Sucralfate has been added (3) Anemia: Plan: -Chronic, at patient's baseline -Continue home iron replacement (4) Prediabetes: Plan: -Hgb A1c 6.3 09/2020 -Monitor glucose on a.m. labs (5) DVT prophylaxis: Plan: -SCDs Plan: Likely discharge in a day or 2 Admission and Anticipated Discharge Date Admission Date: March 21, 2021 Subjective 03/22/2021 The patient was seen and examined in medical floor She was admitted with intractable nausea and vomiting and she has been on triple therapy for recent diagnosis of H. pylori She remains nauseous and vomiting at times even with [id number] IV Zofran and/or Phenergan She denies any other symptoms 03/23/2021 The patient was seen and examined in medical floor She continues to have nausea and vomiting with some abdominal discomfort Review of Systems Review of Systems: All systems reviewed and are unremarkable except as noted below Gastrointestinal: Continue to have nausea and vomiting Physical Exam Physical Exam: Sitting at the edge of the bed with moderate distress due to nausea Constitutional: well developed, well nourished, + ill appearing and + obese Eyes: PERRL, conjunctivae normal, anicteric sclerae ENMT: external ear and nose normal, oropharynx normal Respiratory: no respiratory distress Auscultation: lungs clear to auscultation bilaterally Cardiovascular: Rate/Rhythm: regular rate and regular rhythm; not tachycardic Heart Sounds: normal S1 and normal S2; no murmur Extremities: + edema (1+ edema bilaterally) Gastrointestinal (Abdomen): Inspection/Auscultation: + abdomen distended and normal bowel sounds Percussion/Palpation: + abdomen tender (Mildly tender all over) and abdomen soft; no guarding and abdomen not rigid Musculoskeletal: No acute arthritis in any joint Neurologic: Alert, awake and oriented x3. No focal sensory and motor deficit appreciated Results & Data Results & Data ([facility]) Vital Signs (Past 12 Hours) Vital Signs Temp Pulse Resp BP Pulse Ox 03/23/21 15:11 36.9 C 79 16 158/83 H 91 03/23/21 07:16 36.7 C 85 16 130/78 96 Laboratory Results [facility] 03/23/21 06:14 Sodium 141 Potassium 3.5 Chloride 110 H Carbon Dioxide 27 BUN 3 L Creatinine 0.73 Glucose 93 Calcium 8.2 L Medications Administered Current Inpatient Medications Acetaminophen (Acetaminophen 325 Mg Tab) 650 mg PO Q4H PRN PRN Reason: pain/fever Stop: 04/20/21 19:44 Al Hydrox/Mg Hydrox/Simethicone (Aluminum/Magnesium/Simeth (Maalox Max) 30 Ml Udc) 30 ml PO Q6H PRN PRN Reason: Dyspepsia Stop: 04/22/21 13:53 Albuterol (Albuterol 0.083% Nebu Soln 3 Ml Vial) 2.5 mg NEB Q6R PRN PRN Reason: Shortness Of Breath Or Wheezing Stop: 04/20/21 19:44 Bupropion HCl (Bupropion Xl 300 Mg Tabcr) 300 mg PO QAM [facility] Stop: 04/21/21 08:59 Last Admin: 03/23/21 08:26 Dose: 300 mg Documented by: Clarithromycin (Clarithromycin 500 Mg Tab) 500 mg PO BID [facility] Stop: 03/31/21 20:59 Last Admin: 03/23/21 08:29 Dose: 500 mg Documented by: Ferrous Sulfate (Ferrous Sulfate 325 Mg Tab) 325 mg PO TID [facility] Stop: 04/20/21 20:59 Last Admin: 03/23/21 14:13 Dose: Not Given Documented by: Sodium Chloride (Nss 1000ml) 1,000 mls @ 125 mls/hr IV .Q8H [facility] Stop: 04/20/21 19:44 Last Admin: 03/23/21 15:43 Dose: 125 mls/hr Documented by: Pantoprazole Sodium 40 mg/ (Syringe) 10 mls @ 5 mls/min IV BID [facility] Stop: 04/20/21 20:59 Last Admin: 03/23/21 08:28 Dose: 5 mls/min Documented by: Metronidazole (Flagyl) 500 mg in 100 mls @ 100 mls/hr IV Q8H [facility] Stop: 03/31/21 19:59 Last Infusion: 03/23/21 14:13 Dose: Infused Documented by: Promethazine HCl 12.5 mg/ (Sodium Chloride) 50.5 mls @ 202 mls/hr IV Q6H PRN PRN Reason: Nausea And Vomiting Stop: 04/21/21 08:56 Last Infusion: 03/22/21 10:40 Dose: Infused Documented by: Lactobacillus Acidophilus (Lactobacillus Acidophilus 1 Gm Pack) 1 gm PO TIDM [facility] Stop: 04/21/21 07:59 Last Admin: 03/23/21 12:38 Dose: Not Given Documented by: Montelukast Sodium (Montelukast Sodium 10 Mg Tablet) 10 mg PO QAM [facility] Stop: 04/21/21 08:59 Last Admin: 03/23/21 08:29 Dose: 10 mg Documented by: Morphine Sulfate (Morphine Sulfate 4 Mg/Ml 1 Ml Carp\Vial) 3 mg IV Q4H PRN PRN Reason: Pain Stop: 04/04/21 21:53 Last Admin: 03/23/21 15:14 Dose: 3 mg Documented by: Ondansetron HCl (Ondansetron Inj 2 Mg/Ml 2 Ml Vial) 4 mg IV Q6H PRN PRN Reason: Nausea Stop: 04/20/21 19:44 Last Admin: 03/23/21 12:38 Dose: 4 mg Documented by: Sucralfate (Sucralfate 1 Gm Tab) 1 gm PO QID [facility] Stop: 04/21/21 16:59 Last Admin: 03/23/21 12:42 Dose: 1 gm Documented by:
[2021-03-23] MEDS: KETOROLAC 30 MG/ML VIAL IV PRN (19:39)
[2021-03-24] MEDS: SODIUM CHLORIDE 0.9% 1000ML 1,000 ML IV SCH ×3 (00:28→16:49)
[2021-03-24] MEDS: metroNIDAZOLE 500 MG/100 ML BAG IV SCH (03:27)
[2021-03-24 07:57] LABS: Marijuana Quant, GCMS Urine 656 ng/mL (<5)
[2021-03-24] MEDS: MoRPHine SULFATE 4 MG/ML 1 ML CARP\\VIAL IV PRN ×2 (08:39→16:50)
[2021-03-24] MEDS: ONDANSETRON INJ 2 MG/ML 2 ML VIAL IV PRN ×3 (08:40→23:02)
[2021-03-24] MEDS: PANTOprazole 40 MG in SYRINGE 0 ML IV SCH (08:51)
[2021-03-24] MEDS: LACTOBACILLUS ACIDOPHILUS 1 GM PACK PO SCH (08:51)
[2021-03-24] MEDS: buPROPion XL 300 MG TABCR PO SCH (08:52)
[2021-03-24] MEDS: CLARITHROMYCIN 500 MG TAB PO SCH ×2 (08:52→22:54)
[2021-03-24] MEDS: SUCRALFATE 1 GM TAB PO SCH ×4 (08:53→22:53)
[2021-03-24] MEDS: FERROUS SULFATE 325 MG TAB PO SCH ×3 (08:53→22:53)
[2021-03-24] MEDS: MONTELUKAST SODIUM 10 MG TABLET PO SCH (08:53)
--- NOTE | 2021-03-24 10:28 | Gastrointestinal Consultation ---
Date of Consultation March 24, 2021 Assessment & Plan (1) H. pylori infection: (2) Intractable nausea and vomiting: suspect her nausea and vomiting is secondary to antibiotics, she has received 11 days of antibiotics already today is day 12. more than enough to adequately treat h. pylori. Recs: --start probiotic supplement --anti-emetics prn (zofran or reglan) --ok to stop antibiotics after today --advance diet as tolerated this evening, can likely d/c home tomorrow with outpatient follow up if she is tolerating po intake --check h. pylori stool antigen in 4 weeks to confirm eradication Thank you for allowing me to participate in the care of this patient History of Present Illness Attending Physician: Kalpesh Carmen MD History of Present Illness 30 yo female with hx PCOS, prediabetes here for nausea and vomiting x 5 days. She has h. pylori infection and was on triple therapy since 03/13, today is day 12 of antibiotics. She has not been able to tolerate food intake and has been having severe nausea and vomiting. Her EGD in february was otherwise normal. labs reviewed, stable anemia, VSS. Allergies Allergy/AdvReac Type Severity Reaction Status Date / Time Penicillins Allergy Unknown Unknown Verified 03/21/21 11:52 Home Medications Medication Instructions Recorded Confirmed Type albuterol sulfate 90 mcg/actuation 2 puffs INH Q4H PRN 10/06/20 03/21/21 History aerosol inhaler ferrous sulfate 325 mg (65 mg 325 mg PO TID 10/06/20 03/21/21 History iron) tablet hydroxyzine pamoate 25 mg capsule 25 mg PO HS PRN 10/06/20 03/21/21 History (Vistaril) metformin 1,000 mg tablet 1,000 mg PO BIDM 10/06/20 03/21/21 History magnesium 200 mg tablet 400 mg PO QAM 11/02/20 03/21/21 History bupropion HCl 300 mg 24 hr tablet, 300 mg PO QAM 02/11/21 03/21/21 History extended release (Wellbutrin XL) hydrochlorothiazide 12.5 mg tablet 12.5 mg PO QAM 02/11/21 03/21/21 History ondansetron 4 mg disintegrating 4 mg PO Q8 PRN 02/11/21 03/21/21 History tablet levonorgestrel 20 mcg/24 hours (6 20 mcg INTRAUTERINE CONT 03/13/21 03/21/21 History yrs) 52 mg intrauterine device (Mirena) clarithromycin 500 mg 500 mg PO BID 03/21/21 03/21/21 History tablet,extended release 24 hr metronidazole 500 mg tablet 500 mg PO TID 03/21/21 03/21/21 History montelukast 10 mg tablet 10 mg PO QAM 03/21/21 03/21/21 History omeprazole 20 mg capsule,delayed 20 mg PO BID 03/21/21 03/21/21 History release Patient History Medical History Anemia hx multiple blood transfusions 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 sometimes will feel like chest pressure. has been happening for about 1 - 1.5 years. Depression with anxiety GERD (gastroesophageal reflux disease) controlled H. pylori infection History of COVID-19 Dx 06/2020. Symptoms at time of body aches, chills, fever, cough, sob, loss of taste/smell, fatigue > resolved except lingering body aches, fatigue Hypertension Menometrorrhagia Migraines Morbid obesity BMI 60.5 PCOS (polycystic ovarian syndrome) on Metformin Prediabetes Severe sleep apnea CPAP Surgical History History of colonoscopy History of dilatation and curettage with insertion of mirena History of esophagogastroduodenoscopy (EGD) Family History Sister Breast cancer, Onset Age: 30 had surgery and chemo 2 sisters age 31 the other Uterine cancer, Onset Age: 31 also has breast cancer Mother Myocardial infarction Hypertension Aunt Uterine cancer Mother Lung cancer Other No family history of adverse response to anesthesia Denies family history of Ovarian cancer Colorectal cancer Social History Smoking Status: Former smoker Tobacco Type: Cigarettes Second Hand Exposure: Yes; Do You Dip or Chew Tobacco: No; Hx Alcohol Use: Yes Alcohol Intake Frequency: Monthly or Less Hx Substance Use: No Preferred Language: Belarusian Communication Ability: Effective Visual Impairment: No Limitations Hearing Ability: Normal Weight And Test Bar Clerk Required: No Beliefs That Will Affect Care: None Current Living Situation: Other Current Living Situation Comment: Roomate current occupational status: employed Other Information That Helps Us Care for You: No Feels Safe at Home: Yes Safety Concerns: Feels Safe At This Time Assistive Devices: None Review of Systems Constitutional: no fever, no chills and no weight loss Eyes: as per Subjective / HPI Ear, Nose, Mouth, Throat: as per Subjective / HPI Respiratory: no dyspnea and no dyspnea on exertion Cardiovascular: no chest pain and no palpitations Gastrointestinal: as per Subjective / HPI Musculoskeletal: no joint pain and no swelling Integumentary: no rash and no lesions Neurologic: no numbness and no paresthesia Psychiatric: no depression and no anxiety Endocrine: no fatigue Hematologic / Lymphatic: no easy bleeding and no easy bruising Physical Exam Constitutional: WD/WN, vitals as above Eyes: EOM intact bilaterally Neck: normal visual inspection Respiratory: normal respiratory effort, lungs clear to auscultation Cardiovascular: RRR, no murmur, no edema Gastrointestinal (Abdomen): Inspection/Auscultation: abdomen normal to inspection; abdomen not distended Percussion/Palpation: abdomen soft; abdomen nontender and no hepatosplenomegaly Musculoskeletal: Extremities: no cyanosis Gait: normal gait Skin: no rashes, warm and dry Neurologic: moves all extremities Psychiatric: A+Ox3, euthymic affect Results & Data ([facility]) Vital Signs (Past 12 Hours) Vital Signs Temp Pulse Pulse Resp BP Pulse Ox 03/24/21 07:29 37.0 C 82 16 152/87 H 97 03/23/21 22:32 36.9 C 78 16 166/94 H 97 PG Care Time/CCT Total # of Minutes Spent Total Time Spent with Patient: Total time spent is greater than 50% in coordination of care (as documented) at patient's floor/unit and/or counseling patient: Coding Level of Care Code 10541 Office/OBS Consult Lvl 4 Diagnoses H. pylori infection A04.8 Intractable nausea and vomiting R11.2
[2021-03-24] MEDS: KETOROLAC 30 MG/ML VIAL IV PRN ×2 (13:55→23:01)
[2021-03-24] MEDS: miSOPROStoL 100 MCG TAB PO SCH ×3 (13:57→22:53)
[2021-03-24] MEDS: metroNIDAZOLE 500 MG TAB PO SCH ×2 (13:59→22:53)
--- NOTE | 2021-03-24 14:01 | Hospitalist Progress Note ---
Date of Service March 24, 2021 Assessment & Plan (1) Intractable nausea and vomiting: Plan: -Patient presenting from home with reports of intractable nausea and vomiting x 4 days -Could be secondary to triple therapy for H. pylori or the H. pylori infection itself -In the ED, labs unremarkable, CT ABD/pelvis negative for acute findings -Supportive care with IVF, antiemetics -EGD 03/08/2021 essentially unremarkable however biopsy positive for H. pylori which may be contributing to symptoms and/or antibiotics -Given reports of diarrhea, check stool studies -negative for C. difficile toxin -Urine tox screen positive for marijuana -We will add sucralfate. Metronidazole has been changed to IV -Has not been improving and cannot tolerate any food yet -Appreciate GI input and recommendation. Likely cause of GI upset is the use of antibiotic -She started H. pylori treatment from of last and will try to finish the course of antibiotic and she wants to finish the course -We will start oral form of antibiotics -Given misoprostol on top of other medications -Supportive care Abdominal pain Has been getting morphine 4 mg every 4 hourly as needed We will decrease the doses to every 8 hourly and add Toradol for pain control (2) H. pylori infection: Plan: -Positive from EGD 03/08 -Convert PPI and metronidazole to IV, continue clarithromycin p.o. -Sucralfate has been added -Started to take antibiotics from of last -We will finish the course of antibiotic (3) Anemia: Plan: -Chronic, at patient's baseline -Continue home iron replacement (4) Prediabetes: Plan: -Hgb A1c 6.3 09/2020 -Monitor glucose on a.m. labs (5) DVT prophylaxis: Plan: -SCDs Plan: Likely discharge in a day or 2 Admission and Anticipated Discharge Date Admission Date: March 21, 2021 Subjective 03/22/2021 The patient was seen and examined in medical floor She was admitted with intractable nausea and vomiting and she has been on triple therapy for recent diagnosis of H. pylori She remains nauseous and vomiting at times even with [id number] IV Zofran and/or Phenergan She denies any other symptoms 03/23/2021 The patient was seen and examined in medical floor She continues to have nausea and vomiting with some abdominal discomfort 03/24/2021 The patient was seen and examined in medical floor She continues to have nausea and vomiting and cannot tolerate any food She was upset following GI recommendation to start solid food She will still need to have the antibiotics to finish the course for H. pylori treatment Review of Systems Review of Systems: All systems reviewed and are unremarkable except as noted below Gastrointestinal: Continue to have nausea and vomiting Physical Exam Physical Exam: Sitting at the edge of the bed with moderate distress due to nausea Constitutional: well developed, well nourished, + ill appearing and + obese Eyes: PERRL, conjunctivae normal, anicteric sclerae ENMT: external ear and nose normal, oropharynx normal Respiratory: no respiratory distress Auscultation: lungs clear to auscultation bilaterally Cardiovascular: Rate/Rhythm: regular rate and regular rhythm; not tachycardic Heart Sounds: normal S1 and normal S2; no murmur Extremities: + edema (1+ edema bilaterally) Gastrointestinal (Abdomen): Inspection/Auscultation: + abdomen distended and normal bowel sounds Percussion/Palpation: + abdomen tender (Mildly tender all over) and abdomen soft; no guarding and abdomen not rigid Neurologic: Very anxious and has been crying. Generally weak but no focal neuro deficit Results & Data Results & Data ([facility]) Vital Signs (Past 12 Hours) Vital Signs Temp Pulse Resp BP Pulse Ox 03/24/21 07:29 37.0 C 82 16 152/87 H 97 Medications Administered Current Inpatient Medications Acetaminophen (Acetaminophen 325 Mg Tab) 650 mg PO Q4H PRN PRN Reason: pain/fever Stop: 04/20/21 19:44 Al Hydrox/Mg Hydrox/Simethicone (Aluminum/Magnesium/Simeth (Maalox Max) 30 Ml Udc) 30 ml PO Q6H PRN PRN Reason: Dyspepsia Stop: 04/22/21 13:53 Albuterol (Albuterol 0.083% Nebu Soln 3 Ml Vial) 2.5 mg NEB Q6R PRN PRN Reason: Shortness Of Breath Or Wheezing Stop: 04/20/21 19:44 Bupropion HCl (Bupropion Xl 300 Mg Tabcr) 300 mg PO QAM [facility] Stop: 04/21/21 08:59 Last Admin: 03/24/21 08:52 Dose: 300 mg Documented by: Clarithromycin (Clarithromycin 500 Mg Tab) 500 mg PO Q12 [facility] Stop: 04/03/21 20:59 Ferrous Sulfate (Ferrous Sulfate 325 Mg Tab) 325 mg PO TID [facility] Stop: 04/20/21 20:59 Last Admin: 03/24/21 08:53 Dose: 325 mg Documented by: Sodium Chloride (Nss 1000ml) 1,000 mls @ 125 mls/hr IV .Q8H [facility] Stop: 04/20/21 19:44 Last Admin: 03/24/21 08:56 Dose: 125 mls/hr Documented by: Promethazine HCl 12.5 mg/ (Sodium Chloride) 50.5 mls @ 202 mls/hr IV Q6H PRN PRN Reason: Nausea And Vomiting Stop: 04/21/21 08:56 Last Infusion: 03/22/21 10:40 Dose: Infused Documented by: Ketorolac Tromethamine (Ketorolac 30 Mg/Ml Vial) 30 mg IV Q6H PRN PRN Reason: Pain Stop: 03/28/21 16:54 Last Admin: 03/23/21 19:39 Dose: 30 mg Documented by: Metronidazole (Metronidazole 500 Mg Tab) 500 mg PO TID [facility] Stop: 04/03/21 13:59 Misoprostol (Misoprostol 100 Mcg Tab) 100 mcg PO QID [facility] Stop: 04/23/21 12:59 Montelukast Sodium (Montelukast Sodium 10 Mg Tablet) 10 mg PO QAM [facility] Stop: 04/21/21 08:59 Last Admin: 03/24/21 08:53 Dose: 10 mg Documented by: Morphine Sulfate (Morphine Sulfate 4 Mg/Ml 1 Ml Carp\Vial) 3 mg IV Q8H PRN PRN Reason: Pain Stop: 04/04/21 21:53 Last Admin: 03/24/21 08:39 Dose: 3 mg Documented by: Ondansetron HCl (Ondansetron Inj 2 Mg/Ml 2 Ml Vial) 4 mg IV Q6H PRN PRN Reason: Nausea Stop: 04/20/21 19:44 Last Admin: 03/24/21 08:40 Dose: 4 mg Documented by: Pantoprazole Sodium (Pantoprazole 40 Mg Tab) 40 mg PO BID [facility] Stop: 04/23/21 20:59 Sucralfate (Sucralfate 1 Gm Tab) 1 gm PO QID [facility] Stop: 04/21/21 16:59 Last Admin: 03/24/21 08:53 Dose: 1 gm Documented by:
[2021-03-24] MEDS: PROMETHAZINE HCL 12.5 MG in SODIUM CHLORIDE 0.9% 50 ML IV PRN (18:13)
[2021-03-24] MEDS: PANTOprazole 40 MG TAB PO SCH (22:53)
[2021-03-25] MEDS: MoRPHine SULFATE 4 MG/ML 1 ML CARP\\VIAL IV PRN (03:28)
[2021-03-25] MEDS: SODIUM CHLORIDE 0.9% 1000ML 1,000 ML IV SCH ×3 (03:30→19:39)
[2021-03-25] MEDS: KETOROLAC 30 MG/ML VIAL IV PRN ×3 (06:03→19:05)
[2021-03-25] MEDS: ONDANSETRON INJ 2 MG/ML 2 ML VIAL IV PRN ×2 (06:03→13:01)
[2021-03-25 06:37] LABS: BUN Creatinine Ratio 3.5 (10-20); Calcium 7.9 mg/dl (8.5-10.1); Creatinine Clr Calc Pharmacy 177.8 ml/min; Est GFR (Non-African American) 105.3 ml/min; Potassium 3.4 mmol/L (3.5-5.1)
[2021-03-25 06:45] LABS: Hematocrit (blood only) 32.5 % (37-47); Hemoglobin 9.1 g/dL (12.0-16.0); Mean Corpuscular Hemoglobin 19.3 pg (25-34); Platelet Count 414 K/uL (130-400); RDW Standard Deviation 44.1 fL (36.4-46.3); Red Blood Count 4.71 M/uL (4.2-5.4); White Blood Count 5.54 K/uL (4.8-10.8)
[2021-03-25 06:48] LABS: Basophils # (auto) 0.03 K/uL (0-0.2); Basophils % (auto) 0.5 %; Eosinophils # (auto) 0.15 K/uL (0-0.5); Eosinophils % (auto) 2.7 %; Immature Granulocytes # (auto) 0.01 K/uL (0.00-0.02); Immature Granulocytes % (auto) 0.2 %; Lymphocytes # (auto) 2.19 K/uL (1.2-3.4); Lymphocytes % (auto) 39.5 %; Microcytosis Present; Monocytes # (auto) 0.72 K/uL (0.11-0.59); Neutrophils # (auto) 2.44 K/uL (1.4-6.5); Neutrophils % (auto) 44.1 %; Polychromasia 1+
[2021-03-25] MEDS ORDERED: POTASSIUM CHLORIDE CRTAB 20 MEQ TABCR PO STA (08:12)
[2021-03-25] MEDS: PROMETHAZINE HCL 12.5 MG in SODIUM CHLORIDE 0.9% 50 ML IV PRN ×2 (08:36→17:39)
[2021-03-25] MEDS: PANTOprazole 40 MG TAB PO SCH ×2 (08:46→20:03)
[2021-03-25] MEDS: FERROUS SULFATE 325 MG TAB PO SCH ×3 (08:46→20:03)
[2021-03-25] MEDS: CLARITHROMYCIN 500 MG TAB PO SCH ×2 (08:46→20:02)
[2021-03-25] MEDS: buPROPion XL 300 MG TABCR PO SCH (08:46)
[2021-03-25] MEDS: MONTELUKAST SODIUM 10 MG TABLET PO SCH (08:46)
[2021-03-25] MEDS: SUCRALFATE 1 GM TAB PO SCH ×4 (08:47→20:03)
[2021-03-25] MEDS: miSOPROStoL 100 MCG TAB PO SCH ×4 (08:47→20:03)
[2021-03-25] MEDS: metroNIDAZOLE 500 MG TAB PO SCH ×3 (08:47→20:02)
[2021-03-25 12:06] LABS: Hypochromasia Present
--- NOTE | 2021-03-25 14:21 | Hospitalist Progress Note ---
Date of Service March 25, 2021 Assessment & Plan (1) Intractable nausea and vomiting: Plan: -Patient presenting from home with reports of intractable nausea and vomiting x 4 days -Could be secondary to triple therapy for H. pylori or the H. pylori infection itself -In the ED, labs unremarkable, CT ABD/pelvis negative for acute findings -Supportive care with IVF, antiemetics -EGD 03/08/2021 essentially unremarkable however biopsy positive for H. pylori which may be contributing to symptoms and/or antibiotics -Given reports of diarrhea, check stool studies -negative for C. difficile toxin -Urine tox screen positive for marijuana -We will add sucralfate. Metronidazole has been changed to IV -Has not been improving and cannot tolerate any food yet -Appreciate GI input and recommendation. Likely cause of GI upset is the use of antibiotic -She started H. pylori treatment from of last and will try to finish the course of antibiotic and she wants to finish the course -We will start oral form of antibiotics -Given misoprostol on top of other medications -Supportive care Abdominal pain Has been getting morphine 4 mg every 4 hourly as needed We will decrease the doses to every 8 hourly and add Toradol for pain control Very anxious We will try small dose of oral Ativan as needed (2) H. pylori infection: Plan: -Positive from EGD 03/08 -Convert PPI and metronidazole to IV, continue clarithromycin p.o. -Sucralfate has been added -Started to take antibiotics from of last -We will finish the course of antibiotic (3) Anemia: Plan: -Chronic, at patient's baseline -Continue home iron replacement (4) Prediabetes: Plan: -Hgb A1c 6.3 09/2020 -Monitor glucose on a.m. labs (5) DVT prophylaxis: Plan: -SCDs Plan: Likely discharge in a day or 2 Admission and Anticipated Discharge Date Admission Date: March 24, 2021 Subjective 03/22/2021 The patient was seen and examined in medical floor She was admitted with intractable nausea and vomiting and she has been on triple therapy for recent diagnosis of H. pylori She remains nauseous and vomiting at times even with [id number] IV Zofran and/or Phenergan She denies any other symptoms 03/23/2021 The patient was seen and examined in medical floor She continues to have nausea and vomiting with some abdominal discomfort 03/24/2021 The patient was seen and examined in medical floor She continues to have nausea and vomiting and cannot tolerate any food She was upset following GI recommendation to start solid food She will still need to have the antibiotics to finish the course for H. pylori treatment 03/25/2021 The patient was seen and examined in medical floor She and continues to have nausea and vomiting after food Abdominal pain seems to be improving Review of Systems Review of Systems: All systems reviewed and are unremarkable except as noted below Gastrointestinal: Continue to have nausea and vomiting Physical Exam Physical Exam: Lying in bed very anxious and continues to have nausea and vomiting Constitutional: well developed, well nourished, + ill appearing and + obese Eyes: PERRL, conjunctivae normal, anicteric sclerae ENMT: external ear and nose normal, oropharynx normal Respiratory: no respiratory distress Auscultation: lungs clear to auscultation bilaterally Cardiovascular: Rate/Rhythm: regular rate and regular rhythm; not tachycardic Heart Sounds: normal S1 and normal S2; no murmur Extremities: + edema (1+ edema bilaterally) Gastrointestinal (Abdomen): Inspection/Auscultation: + abdomen distended and normal bowel sounds Percussion/Palpation: + abdomen tender (Mildly tender all over) and abdomen soft; no guarding and abdomen not rigid Musculoskeletal: No acute arthritis in any joint Neurologic: Alert, awake and oriented x3. No focal sensory no motor deficit appreciated Psychiatric: Mood: + anxious mood Results & Data Results & Data ([facility]) Vital Signs (Past 12 Hours) Vital Signs Temp Pulse Resp BP Pulse Ox 03/25/21 07:29 36.8 C 81 18 139/90 98 Laboratory Results Short CBC 03/25/21 Range/Units 05:38 WBC 5.54 (4.8-10.8) K/uL Hgb 9.1 L (12.0-16.0) g/dL Hct 32.5 L (37-47) % Plt Count 414 H (130-400) K/uL BMP 03/25/21 05:38 Sodium 139 Potassium 3.4 L Chloride 108 H Carbon Dioxide 27 BUN 3 L Creatinine 0.76 Glucose 88 Calcium 7.9 L Medications Administered Current Inpatient Medications Acetaminophen (Acetaminophen 325 Mg Tab) 650 mg PO Q4H PRN PRN Reason: pain/fever Stop: 04/20/21 19:44 Al Hydrox/Mg Hydrox/Simethicone (Aluminum/Magnesium/Simeth (Maalox Max) 30 Ml Udc) 30 ml PO Q6H PRN PRN Reason: Dyspepsia Stop: 04/22/21 13:53 Albuterol (Albuterol 0.083% Nebu Soln 3 Ml Vial) 2.5 mg NEB Q6R PRN PRN Reason: Shortness Of Breath Or Wheezing Stop: 04/20/21 19:44 Bupropion HCl (Bupropion Xl 300 Mg Tabcr) 300 mg PO QAM [facility] Stop: 04/21/21 08:59 Last Admin: 03/25/21 08:46 Dose: 300 mg Documented by: Clarithromycin (Clarithromycin 500 Mg Tab) 500 mg PO Q12 [facility] Stop: 04/03/21 20:59 Last Admin: 03/25/21 08:46 Dose: 500 mg Documented by: Ferrous Sulfate (Ferrous Sulfate 325 Mg Tab) 325 mg PO TID [facility] Stop: 04/20/21 20:59 Last Admin: 03/25/21 13:00 Dose: 325 mg Documented by: Sodium Chloride (Nss 1000ml) 1,000 mls @ 125 mls/hr IV .Q8H [facility] Stop: 04/20/21 19:44 Last Admin: 03/25/21 11:28 Dose: 125 mls/hr Documented by: Promethazine HCl 12.5 mg/ (Sodium Chloride) 50.5 mls @ 202 mls/hr IV Q6H PRN PRN Reason: Nausea And Vomiting Stop: 04/21/21 08:56 Last Infusion: 03/25/21 08:51 Dose: Infused Documented by: Ketorolac Tromethamine (Ketorolac 30 Mg/Ml Vial) 30 mg IV Q6H PRN PRN Reason: Pain Stop: 03/28/21 16:54 Last Admin: 03/25/21 13:00 Dose: 30 mg Documented by: Metronidazole (Metronidazole 500 Mg Tab) 500 mg PO TID [facility] Stop: 04/03/21 13:59 Last Admin: 03/25/21 13:00 Dose: 500 mg Documented by: Misoprostol (Misoprostol 100 Mcg Tab) 100 mcg PO QID [facility] Stop: 04/23/21 12:59 Last Admin: 03/25/21 08:47 Dose: 100 mcg Documented by: Montelukast Sodium (Montelukast Sodium 10 Mg Tablet) 10 mg PO QAM [facility] Stop: 04/21/21 08:59 Last Admin: 03/25/21 08:46 Dose: 10 mg Documented by: Morphine Sulfate (Morphine Sulfate 4 Mg/Ml 1 Ml Carp\Vial) 3 mg IV Q8H PRN PRN Reason: Pain Stop: 04/04/21 21:53 Last Admin: 03/25/21 03:28 Dose: 3 mg Documented by: Ondansetron HCl (Ondansetron Inj 2 Mg/Ml 2 Ml Vial) 4 mg IV Q6H PRN PRN Reason: Nausea Stop: 04/20/21 19:44 Last Admin: 03/25/21 13:01 Dose: 4 mg Documented by: Pantoprazole Sodium (Pantoprazole 40 Mg Tab) 40 mg PO BID [facility] Stop: 04/23/21 20:59 Last Admin: 03/25/21 08:46 Dose: 40 mg Documented by: Sucralfate (Sucralfate 1 Gm Tab) 1 gm PO QID [facility] Stop: 04/21/21 16:59 Last Admin: 03/25/21 13:00 Dose: 1 gm Documented by:
[2021-03-25] MEDS ORDERED: LORazepam 0.5 MG TAB PO PRN (14:24)
[2021-03-26] MEDS: SODIUM CHLORIDE 0.9% 1000ML 1,000 ML IV SCH ×3 (03:39→20:02)
[2021-03-26] MEDS: KETOROLAC 30 MG/ML VIAL IV PRN ×3 (04:23→18:31)
[2021-03-26 07:26] LABS: BUN Creatinine Ratio 2.7 (10-20); Calcium 8.5 mg/dl (8.5-10.1); Creatinine Clr Calc Pharmacy 173.2 ml/min; Est GFR (African American) 118.2 ml/min; Magnesium 1.9 mg/dl (1.8-2.4); Potassium 3.5 mmol/L (3.5-5.1)
[2021-03-26] MEDS: ONDANSETRON INJ 2 MG/ML 2 ML VIAL IV PRN (08:23)
[2021-03-26] MEDS: miSOPROStoL 100 MCG TAB PO SCH ×4 (08:24→20:00)
[2021-03-26] MEDS: PANTOprazole 40 MG TAB PO SCH ×2 (08:24→20:01)
[2021-03-26] MEDS: SUCRALFATE 1 GM TAB PO SCH ×4 (08:24→20:02)
[2021-03-26] MEDS: FERROUS SULFATE 325 MG TAB PO SCH ×3 (08:24→20:01)
[2021-03-26] MEDS: CLARITHROMYCIN 500 MG TAB PO SCH ×2 (08:25→20:01)
[2021-03-26] MEDS: metroNIDAZOLE 500 MG TAB PO SCH ×3 (08:25→20:01)
[2021-03-26] MEDS: buPROPion XL 300 MG TABCR PO SCH (08:25)
[2021-03-26] MEDS: MONTELUKAST SODIUM 10 MG TABLET PO SCH (08:25)
[2021-03-26] MEDS: ONDANSETRON 4 MG OD TAB PO SCH ×2 (11:49→17:31)
--- NOTE | 2021-03-26 13:29 | Gastroenterology Progress Note ---
Date of Service March 26, 2021 Assessment & Plan (1) H. pylori infection: Plan: Nausea, diarrhea diffuse abdominal pain and cramping., Likely secondary to antibiotic treatment of H. pylori. Will complete 10-day course. Continue antiemetics. Will need a stool for H. pylori test of cure in 6 to [address] that in the outpatient epic chart. Will need outpatient GI follow-up with CARMEN Atkinson. Our office will reach out to the patient to arrange follow-up. Admission and Anticipated Discharge Date Admission Date: March 24, 2021 Supervising Physician Co-Signing Physician Notes I saw and evalauted the patient she notes feeling improved from admission. impression: nausea / emesis likely rlated to course of antibiotics for H pylori therapy. Recomenations: advance diet as tolerated please call with questions / GI to sign off. Subjective Ms. Susan Carrillo is a 30-year-old female patient who underwent EGD on 03/08/2021 with biopsies consistent with H. pylori. EGD was completed for epigastric discomfort. During treatment for H. pylori she developed diffuse abdominal cramping nausea and diarrhea. Since arrival here on 03/24/2021, she has not had further bowel movements, she continues being treated with antibiotics, this morning feeling better after having a full liquid diet. Review of Systems Review of Systems: ROS: Gen: Denies weakness, fevers, weight loss Eyes: No eye redness, or pain, no recent vision changes Resp: No SOB, no cough Cardio: No palpitations/irregular beats, no chest pain GI: See HPI, otherwise negative : Denies pain on urination Skin: No jaundice, itching or new rashes Physical Exam Constitutional: WD/WN, vitals as above Eyes: PERRL, conjunctivae normal, anicteric sclerae ENMT: external ear and nose normal, oropharynx normal Neck: trachea midline, no thyromegaly Respiratory: normal respiratory effort, lungs clear to auscultation Cardiovascular: RRR, no murmur, no edema Gastrointestinal (Abdomen): Diffuse tenderness, bowel sounds present, very mild distention. Musculoskeletal: no cyanosis or clubbing, extremities motor strength 5/5 Skin: no rashes, warm and dry Neurologic: PERRL, EOMI, accommodation nl, no face palsy, no dysarthria Psychiatric: A+Ox3, euthymic affect Lymphatic: no cervical or axillary lymphadenopathy Results & Data ([facility]) Vital Signs (Past 12 Hours) Vital Signs Temp Pulse Resp BP Pulse Ox 03/26/21 07:54 36.9 C 78 18 154/87 H 98 Laboratory Results WBC 5, Hb 9, HCT 32, PLT S4 14, NA 141, K3.5, CL 108, CO2 25, BUN 2, CR 0.78, glucose 89 Diagnostic Findings EGD 03/08/[address] Hartley - Normal esophagus. - Z-line regular, 37 cm from the incisors. - Normal stomach. Biopsied. - Normal examined duodenum. Biopsied. Path positive for gastric H. pylori
--- NOTE | 2021-03-26 15:43 | Hospitalist Progress Note ---
Date of Service March 26, 2021 Assessment & Plan (1) Intractable nausea and vomiting: Plan: -Patient presenting from home with reports of intractable nausea and vomiting x 4 days -Could be secondary to triple therapy for H. pylori or the H. pylori infection itself -In the ED, labs unremarkable, CT ABD/pelvis negative for acute findings -Supportive care with IVF, antiemetics -EGD 03/08/2021 essentially unremarkable however biopsy positive for H. pylori which may be contributing to symptoms and/or antibiotics -Given reports of diarrhea, check stool studies -negative for C. difficile toxin -Urine tox screen positive for marijuana -We will add sucralfate. Metronidazole has been changed to IV -Has not been improving and cannot tolerate any food yet -Appreciate GI input and recommendation. Likely cause of GI upset is the use of antibiotic -She started H. pylori treatment from of last and will try to finish the course of antibiotic and she wants to finish the course -We will start oral form of antibiotics -Given misoprostol on top of other medications -Has been feeling much better but is still nauseous -We will try Zofran ODT before meals Abdominal pain Has been getting morphine 4 mg every 4 hourly as needed We will decrease the doses to every 8 hourly and add Toradol for pain control Could be secondary to fecal impaction-bowel has not moved for the last few days We will try MiraLAX and senna Very anxious We will try small dose of oral Ativan as needed (2) H. pylori infection: Plan: -Positive from EGD 03/08 -Convert PPI and metronidazole to IV, continue clarithromycin p.o. -Sucralfate has been added -Started to take antibiotics from of last -We will finish the course of antibiotic -Like to finish antibiotic tomorrow (3) Anemia: Plan: -Chronic, at patient's baseline -Continue home iron replacement (4) Prediabetes: Plan: -Hgb A1c 6.3 09/2020 -Monitor glucose on a.m. labs (5) DVT prophylaxis: Plan: -SCDs Plan: Likely discharge in a day or 2 Admission and Anticipated Discharge Date Admission Date: March 24, 2021 Subjective 03/22/2021 The patient was seen and examined in medical floor She was admitted with intractable nausea and vomiting and she has been on triple therapy for recent diagnosis of H. pylori She remains nauseous and vomiting at times even with [id number] IV Zofran and/or Phenergan She denies any other symptoms 03/23/2021 The patient was seen and examined in medical floor She continues to have nausea and vomiting with some abdominal discomfort 03/24/2021 The patient was seen and examined in medical floor She continues to have nausea and vomiting and cannot tolerate any food She was upset following GI recommendation to start solid food She will still need to have the antibiotics to finish the course for H. pylori treatment 03/25/2021 The patient was seen and examined in medical floor She and continues to have nausea and vomiting after food Abdominal pain seems to be improving 03/26/2021 The patient was seen and examined in medical floor She has been feeling much better and this is one of her best days in the hospital Still has nausea following food Bowel has not moved for the last few days Review of Systems Review of Systems: All systems reviewed and are unremarkable except as noted below Gastrointestinal: Continue to have nausea and vomiting Physical Exam Physical Exam: Lying in bed very anxious and continues to have nausea and vomiting Constitutional: well developed, well nourished, + ill appearing and + obese Eyes: PERRL, conjunctivae normal, anicteric sclerae ENMT: external ear and nose normal, oropharynx normal Respiratory: no respiratory distress Auscultation: lungs clear to auscultation bilaterally Cardiovascular: Rate/Rhythm: regular rate and regular rhythm; not tachycardic Heart Sounds: normal S1 and normal S2; no murmur Extremities: + edema (1+ edema bilaterally) Gastrointestinal (Abdomen): Inspection/Auscultation: + abdomen distended and normal bowel sounds Percussion/Palpation: + abdomen tender (Mildly tender all over) and abdomen soft; no guarding and abdomen not rigid Musculoskeletal: No acute arthritis in any joint Neurologic: Alert, awake and oriented x3 Psychiatric: Mood: + anxious mood Results & Data Results & Data ([facility]) Vital Signs (Past 12 Hours) Vital Signs Temp Pulse Resp BP Pulse Ox 03/26/21 15:32 37.1 C 84 18 153/97 H 97 03/26/21 07:54 36.9 C 78 18 154/87 H 98 Laboratory Results [facility] 03/26/21 06:23 Sodium 141 Potassium 3.5 Chloride 108 H Carbon Dioxide 25 BUN 2 L Creatinine 0.78 Glucose 89 Calcium 8.5 Medications Administered Current Inpatient Medications Acetaminophen (Acetaminophen 325 Mg Tab) 650 mg PO Q4H PRN PRN Reason: pain/fever Stop: 04/20/21 19:44 Al Hydrox/Mg Hydrox/Simethicone (Aluminum/Magnesium/Simeth (Maalox Max) 30 Ml Udc) 30 ml PO Q6H PRN PRN Reason: Dyspepsia Stop: 04/22/21 13:53 Albuterol (Albuterol 0.083% Nebu Soln 3 Ml Vial) 2.5 mg NEB Q6R PRN PRN Reason: Shortness Of Breath Or Wheezing Stop: 04/20/21 19:44 Bupropion HCl (Bupropion Xl 300 Mg Tabcr) 300 mg PO QAM [facility] Stop: 04/21/21 08:59 Last Admin: 03/26/21 08:25 Dose: 300 mg Documented by: Clarithromycin (Clarithromycin 500 Mg Tab) 500 mg PO Q12 [facility] Stop: 04/03/21 20:59 Last Admin: 03/26/21 08:25 Dose: 500 mg Documented by: Ferrous Sulfate (Ferrous Sulfate 325 Mg Tab) 325 mg PO TID [facility] Stop: 04/20/21 20:59 Last Admin: 03/26/21 14:22 Dose: 325 mg Documented by: Sodium Chloride (Nss 1000ml) 1,000 mls @ 125 mls/hr IV .Q8H [facility] Stop: 04/20/21 19:44 Last Admin: 03/26/21 11:49 Dose: 125 mls/hr Documented by: Promethazine HCl 12.5 mg/ (Sodium Chloride) 50.5 mls @ 202 mls/hr IV Q6H PRN PRN Reason: Nausea And Vomiting Stop: 04/21/21 08:56 Last Infusion: 03/25/21 18:07 Dose: Infused Documented by: Ketorolac Tromethamine (Ketorolac 30 Mg/Ml Vial) 30 mg IV Q6H PRN PRN Reason: Pain Stop: 03/28/21 16:54 Last Admin: 03/26/21 11:49 Dose: 30 mg Documented by: Lorazepam (Lorazepam 0.5 Mg Tab) 0.5 mg PO TID PRN PRN Reason: Anxiety Stop: 04/24/21 14:23 Metronidazole (Metronidazole 500 Mg Tab) 500 mg PO TID [facility] Stop: 04/03/21 13:59 Last Admin: 03/26/21 14:22 Dose: 500 mg Documented by: Misoprostol (Misoprostol 100 Mcg Tab) 100 mcg PO QID [facility] Stop: 04/23/21 12:59 Last Admin: 03/26/21 11:49 Dose: 100 mcg Documented by: Montelukast Sodium (Montelukast Sodium 10 Mg Tablet) 10 mg PO QAM [facility] Stop: 04/21/21 08:59 Last Admin: 03/26/21 08:25 Dose: 10 mg Documented by: Morphine Sulfate (Morphine Sulfate 4 Mg/Ml 1 Ml Carp\Vial) 3 mg IV Q8H PRN PRN Reason: Pain Stop: 04/04/21 21:53 Last Admin: 03/25/21 03:28 Dose: 3 mg Documented by: Ondansetron HCl (Ondansetron 4 Mg Od Tab) 4 mg PO AC [facility] Stop: 04/25/21 11:29 Pantoprazole Sodium (Pantoprazole 40 Mg Tab) 40 mg PO BID [facility] Stop: 04/23/21 20:59 Last Admin: 03/26/21 08:24 Dose: 40 mg Documented by: Polyethylene Glycol (Polyethylene (Miralax) 17 Gm Pack) 17 gm PO DAILY [facility] Stop: 04/25/21 15:29 Sennosides (Senna 8.6 Mg Tab) 17.2 mg PO QAM [facility] Stop: 04/25/21 15:29 Sucralfate (Sucralfate 1 Gm Tab) 1 gm PO QID [facility] Stop: 04/21/21 16:59 Last Admin: 03/26/21 11:49 Dose: 1 gm Documented by:
[2021-03-26] MEDS: POLYETHYLENE (MIRALAX) 17 GM PACK PO SCH (17:31)
[2021-03-26] MEDS: SENNA 8.6 MG TAB PO SCH (17:31)
--- NOTE | 2021-03-26 18:34 | Electrocardiogram Report ---
Test Reason : Blood Pressure : / mmHG Vent. Rate : 080 BPM Atrial Rate : 080 BPM P-R Int : 162 ms QRS Dur : 080 ms QT Int : 388 ms P-R-T Axes : 035 056 022 degrees QTc Int : 447 ms Normal sinus rhythm Normal ECG When compared with ECG of 20-FEB-2021 21:51, No significant change was found Confirmed by Madi Kmuar ([id number]) on 03/26/2021 6:34:29 PM Referred By: REFERRED SELF Confirmed By:Conrad Kumar
[2021-03-26] MEDS: MoRPHine SULFATE 4 MG/ML 1 ML CARP\\VIAL IV PRN (19:38)
[2021-03-26] MEDS: PROMETHAZINE HCL 12.5 MG in SODIUM CHLORIDE 0.9% 50 ML IV PRN (20:07)
[2021-03-27] MEDS: SODIUM CHLORIDE 0.9% 1000ML 1,000 ML IV SCH ×2 (04:13→12:18)
[2021-03-27] MEDS: miSOPROStoL 100 MCG TAB PO SCH ×2 (08:33→12:17)
[2021-03-27] MEDS: buPROPion XL 300 MG TABCR PO SCH (08:33)
[2021-03-27] MEDS: CLARITHROMYCIN 500 MG TAB PO SCH (08:33)
[2021-03-27] MEDS: metroNIDAZOLE 500 MG TAB PO SCH ×2 (08:33→14:26)
[2021-03-27] MEDS: POLYETHYLENE (MIRALAX) 17 GM PACK PO SCH (08:33)
[2021-03-27] MEDS: MONTELUKAST SODIUM 10 MG TABLET PO SCH (08:33)
[2021-03-27] MEDS: ONDANSETRON 4 MG OD TAB PO SCH ×2 (08:33→12:18)
[2021-03-27] MEDS: PANTOprazole 40 MG TAB PO SCH (08:33)
[2021-03-27] MEDS: SENNA 8.6 MG TAB PO SCH (08:33)
[2021-03-27] MEDS: FERROUS SULFATE 325 MG TAB PO SCH ×2 (08:33→14:26)
[2021-03-27] MEDS: SUCRALFATE 1 GM TAB PO SCH ×2 (08:33→12:17)
[2021-03-27] MEDS: KETOROLAC 30 MG/ML VIAL IV PRN ×2 (08:34→14:26)
--- NOTE | 2021-03-27 12:44 | Hospitalist Progress Note ---
Date of Service March 27, 2021 Assessment & Plan (1) Intractable nausea and vomiting: Plan: -Patient presenting from home with reports of intractable nausea and vomiting x 4 days -Could be secondary to triple therapy for H. pylori or the H. pylori infection itself -In the ED, labs unremarkable, CT ABD/pelvis negative for acute findings -Supportive care with IVF, antiemetics -EGD 03/08/2021 essentially unremarkable however biopsy positive for H. pylori which may be contributing to symptoms and/or antibiotics -Given reports of diarrhea, check stool studies -negative for C. difficile toxin -Urine tox screen positive for marijuana -We will add sucralfate. Metronidazole has been changed to IV -Has not been improving and cannot tolerate any food yet -Appreciate GI input and recommendation. Likely cause of GI upset is the use of antibiotic -She started H. pylori treatment from of last and will try to finish the course of antibiotic and she wants to finish the course -We will start oral form of antibiotics -Given misoprostol on top of other medications -Has been feeling much better but is still nauseous -We will try Zofran ODT before meals Abdominal pain Has been getting morphine 4 mg every 4 hourly as needed We will decrease the doses to every 8 hourly and add Toradol for pain control Could be secondary to fecal impaction-bowel has not moved for the last few days We will try MiraLAX and senna Very anxious We will try small dose of oral Ativan as needed (2) H. pylori infection: Plan: -Positive from EGD 03/08 -Convert PPI and metronidazole to IV, continue clarithromycin p.o. -Sucralfate has been added -Started to take antibiotics from of last -We will finish the course of antibiotic -Like to finish antibiotic tomorrow (3) Anemia: Plan: -Chronic, at patient's baseline -Continue home iron replacement IUD in situ Ongoing vaginal bleeding likely secondary to IUD Was advised to make an appointment with [facility] OPERATOR sooner than later (4) Prediabetes: Plan: -Hgb A1c 6.3 09/2020 -Monitor glucose on a.m. labs (5) DVT prophylaxis: Plan: -SCDs Plan: Likely discharge in a day or 2 Admission and Anticipated Discharge Date Admission Date: March 24, 2021 Subjective 03/22/2021 The patient was seen and examined in medical floor She was admitted with intractable nausea and vomiting and she has been on triple therapy for recent diagnosis of H. pylori She remains nauseous and vomiting at times even with [id number] IV Zofran and/or Phenergan She denies any other symptoms 03/23/2021 The patient was seen and examined in medical floor She continues to have nausea and vomiting with some abdominal discomfort 03/24/2021 The patient was seen and examined in medical floor She continues to have nausea and vomiting and cannot tolerate any food She was upset following GI recommendation to start solid food She will still need to have the antibiotics to finish the course for H. pylori treatment 03/25/2021 The patient was seen and examined in medical floor She and continues to have nausea and vomiting after food Abdominal pain seems to be improving 03/26/2021 The patient was seen and examined in medical floor She has been feeling much better and this is one of her best days in the hospital Still has nausea following food Bowel has not moved for the last few days 03/27/2021 The patient was seen and examined in medical floor She still has nausea and vomiting after food but reasonably well-tolerated She wants to go home today Review of Systems Review of Systems: All systems reviewed and are unremarkable except as noted below Gastrointestinal: Continue to have nausea and vomiting Physical Exam Physical Exam: Lying in bed very anxious and continues to have nausea and vomiting Constitutional: well developed, well nourished, + ill appearing and + obese Eyes: PERRL, conjunctivae normal, anicteric sclerae ENMT: external ear and nose normal, oropharynx normal Respiratory: no respiratory distress Auscultation: lungs clear to auscultation bilaterally Cardiovascular: Rate/Rhythm: regular rate and regular rhythm; not tachycardic Heart Sounds: normal S1 and normal S2; no murmur Extremities: + edema (1+ edema bilaterally) Gastrointestinal (Abdomen): Inspection/Auscultation: + abdomen distended and normal bowel sounds Percussion/Palpation: + abdomen tender (Mildly tender all over) and abdomen soft; no guarding and abdomen not rigid Musculoskeletal: No acute arthritis in any joint Neurologic: Alert, awake and oriented x3. No focal sensory no motor deficit appreciated Psychiatric: Mood: + anxious mood Genitourinary: Has been having minimal vaginal bleeding throughout the hospital stay. Has IUD in place Results & Data Results & Data ([facility]) Vital Signs (Past 12 Hours) Vital Signs Temp Pulse Resp BP Pulse Ox 03/27/21 07:32 36.8 C 81 16 149/80 H 95 Medications Administered Current Inpatient Medications Acetaminophen (Acetaminophen 325 Mg Tab) 650 mg PO Q4H PRN PRN Reason: pain/fever Stop: 04/20/21 19:44 Al Hydrox/Mg Hydrox/Simethicone (Aluminum/Magnesium/Simeth (Maalox Max) 30 Ml Udc) 30 ml PO Q6H PRN PRN Reason: Dyspepsia Stop: 04/22/21 13:53 Albuterol (Albuterol 0.083% Nebu Soln 3 Ml Vial) 2.5 mg NEB Q6R PRN PRN Reason: Shortness Of Breath Or Wheezing Stop: 04/20/21 19:44 Bupropion HCl (Bupropion Xl 300 Mg Tabcr) 300 mg PO QAM [facility] Stop: 04/21/21 08:59 Last Admin: 03/27/21 08:33 Dose: 300 mg Documented by: Clarithromycin (Clarithromycin 500 Mg Tab) 500 mg PO Q12 [facility] Stop: 04/03/21 20:59 Last Admin: 03/27/21 08:33 Dose: 500 mg Documented by: Ferrous Sulfate (Ferrous Sulfate 325 Mg Tab) 325 mg PO TID [facility] Stop: 04/20/21 20:59 Last Admin: 03/27/21 14:26 Dose: 325 mg Documented by: Sodium Chloride (Nss 1000ml) 1,000 mls @ 125 mls/hr IV .Q8H [facility] Stop: 04/20/21 19:44 Last Admin: 03/27/21 12:18 Dose: Not Given Documented by: Promethazine HCl 12.5 mg/ (Sodium Chloride) 50.5 mls @ 202 mls/hr IV Q6H PRN PRN Reason: Nausea And Vomiting Stop: 04/21/21 08:56 Last Infusion: 03/26/21 20:32 Dose: Infused Documented by: Ketorolac Tromethamine (Ketorolac 30 Mg/Ml Vial) 30 mg IV Q6H PRN PRN Reason: Pain Stop: 03/28/21 16:54 Last Admin: 03/27/21 14:26 Dose: 30 mg Documented by: Lorazepam (Lorazepam 0.5 Mg Tab) 0.5 mg PO TID PRN PRN Reason: Anxiety Stop: 04/24/21 14:23 Metronidazole (Metronidazole 500 Mg Tab) 500 mg PO TID [facility] Stop: 04/03/21 13:59 Last Admin: 03/27/21 14:26 Dose: 500 mg Documented by: Misoprostol (Misoprostol 100 Mcg Tab) 100 mcg PO QID [facility] Stop: 04/23/21 12:59 Last Admin: 03/27/21 12:17 Dose: 100 mcg Documented by: Montelukast Sodium (Montelukast Sodium 10 Mg Tablet) 10 mg PO QAM [facility] Stop: 04/21/21 08:59 Last Admin: 03/27/21 08:33 Dose: 10 mg Documented by: Morphine Sulfate (Morphine Sulfate 4 Mg/Ml 1 Ml Carp\Vial) 3 mg IV Q8H PRN PRN Reason: Pain Stop: 04/04/21 21:53 Last Admin: 03/26/21 19:38 Dose: 3 mg Documented by: Ondansetron HCl (Ondansetron 4 Mg Od Tab) 4 mg PO AC [facility] Stop: 04/25/21 11:29 Last Admin: 03/27/21 12:18 Dose: 4 mg Documented by: Pantoprazole Sodium (Pantoprazole 40 Mg Tab) 40 mg PO BID [facility] Stop: 04/23/21 20:59 Last Admin: 03/27/21 08:33 Dose: 40 mg Documented by: Polyethylene Glycol (Polyethylene (Miralax) 17 Gm Pack) 17 gm PO DAILY [facility] Stop: 04/25/21 15:29 Last Admin: 03/27/21 08:33 Dose: Not Given Documented by: Sennosides (Senna 8.6 Mg Tab) 17.2 mg PO QAM [facility] Stop: 04/25/21 15:29 Last Admin: 03/27/21 08:33 Dose: 17.2 mg Documented by: Sucralfate (Sucralfate 1 Gm Tab) 1 gm PO QID [facility] Stop: 04/21/21 16:59 Last Admin: 03/27/21 12:17 Dose: 1 gm Documented by:
--- NOTE | 2021-04-06 16:33 | Discharge Summary ---
Date of Service April 06, 2021 Admission HPI Per Admitting Provider 30-year-old female with PMH PCOS, prediabetes, asthma, chronic anemia due to iron deficiency and menometrorrhagia, H. pylori positive on EGD from 03/08, and other problems listed below who presents to the ED for evaluation of intractable nausea and vomiting. Patient underwent EGD on 03/08 and biopsy was positive for H. pylori. Patient started triple therapy with PPI, clarithromycin, metronidazole about 1 week ago. 4 days ago, patient reports she developed nausea and vomiting. She reports several episodes of vomiting and has been unable to keep her medications down. She reports she has some diarrhea at [facility] which also has been worse. She denies bright red blood per rectum and dark tarry stools. No hematemesis or coffee-ground emesis. She also has chronic abdominal pain which is slightly worse from baseline as well. She denies fevers and chills. Reports some persistent chest pain that has been ongoing for the past couple of years. Recently evaluated by cardiology and diagnosed with costochondritis, outpatient echo pending. Has had some lightheadedness and dizziness this week however no syncopal event. Denies urinary symptoms. In the ED, labs are unremarkable/at patient's baseline. CT ABD/pelvis negative for acute findings. Patient is hemodynamically stable. Patient received IV diphenhydramine, IV Dilaudid, IV Reglan, IV morphine, IV Zofran x 2 doses, IVF. She continues to have persistent nausea and vomiting. Admission Exam Per Admitting Provider Vitals signs as noted above General Appearance:Morbidly Obese, no apparent distress Head: normocephalic, Atraumatic Eyes: normal inspection, EOMI Neck: supple, Trachea midline Respiratory/Chest: Normal breath sounds, CTA, No accessory muscle use Cardiovascular: S1, S2, No murmur Abdomen/GI:Soft, generalized tender, Bowel sounds present Extremities/Musculoskeletal:normal inspection, Trace edema Neurologic/Psych:AAOX3, grossly no focal neurological deficits Skin: normal color, warm Principal Diagnosis Intractable nausea and vomiting. Likely secondary to use of antibiotics for H pylori, chronic anemia Discharge Exam Constitutional well developed, well nourished, + ill appearing and + obese Eyes PERRL, conjunctivae normal, anicteric sclerae ENMT external ear and nose normal, oropharynx normal Respiratory no respiratory distress Auscultation: lungs clear to auscultation bilaterally Cardiovascular Rate/Rhythm: regular rate and regular rhythm; not tachycardic Heart Sounds: normal S1 and normal S2; no murmur Extremities: + edema (1+ edema bilaterally) Gastrointestinal (Abdomen) Inspection/Auscultation: + abdomen distended and normal bowel sounds Percussion/Palpation: + abdomen tender (Mildly tender all over) and abdomen soft; no guarding and abdomen not rigid Psychiatric Mood: + anxious mood Discharge Data Allergies Allergy/AdvReac Type Severity Reaction Status Date / Time Penicillins Allergy Unknown Unknown Verified 03/21/21 11:52 Consultations 03/21/21 16:38 ED Decision to Admit Stat 03/24/21 08:55 Consult Gastroenterology Routine Ordered Studies 03/21/21 10:32 CT abd pelvis IV con only Stat Hospital Course (1) Intractable nausea and vomiting: -Patient presenting from home with reports of intractable nausea and vomiting x 4 days -Could be secondary to triple therapy for H. pylori or the H. pylori infection itself -In the ED, labs unremarkable, CT ABD/pelvis negative for acute findings -Supportive care with IVF, antiemetics -EGD 03/08/2021 essentially unremarkable however biopsy positive for H. pylori which may be contributing to symptoms and/or antibiotics -Given reports of diarrhea, check stool studies -negative for C. difficile toxin -Urine tox screen positive for marijuana -We will add sucralfate. Metronidazole has been changed to IV -Has not been improving and cannot tolerate any food yet -Appreciate GI input and recommendation. Likely cause of GI upset is the use of antibiotic -She started H. pylori treatment from of last month and will try to finish the course of antibiotic and she wants to finish the course -We will start oral form of antibiotics -Given misoprostol on top of other medications -Has been feeling much better but is still nauseous -We will try Zofran ODT before meals Abdominal pain Has been getting morphine 4 mg every 4 hourly as needed We will decrease the doses to every 8 hourly and add Toradol for pain control Could be secondary to fecal impaction-bowel has not moved for the last few days We will try MiraLAX and senna Very anxious We will try small dose of oral Ativan as needed (2) H. pylori infection: -Positive from EGD 03/08 -Convert PPI and metronidazole to IV, continue clarithromycin p.o. -Sucralfate has been added -Started to take antibiotics from of last month -We will finish the course of antibiotic -Like to finish antibiotic tomorrow (3) Anemia: -Chronic, at patient's baseline -Continue home iron replacement IUD in situ Ongoing vaginal bleeding likely secondary to IUD Was advised to make an appointment with [facility]CH[facility] OPERATOR sooner than later (4) Prediabetes: -Hgb A1c 6.3 09/2020 -Monitor glucose on a.m. labs (5) DVT prophylaxis: -SCDs Likely discharge in a day or 2 Total Time Total Time Spent Total Time Spent (In Minutes): 35 minutes Discharge Plan Discharge Items Patient Disposition: Home - Self-Care Reason For Visit: INTRACTABLE VOMITING Discharge Diagnosis: Intractable nausea and vomiting. Likely secondary to use of antibiotics for H pylori, chronic anemia Condition on Discharge: Good Activity: Resume your previous activity Non-emergency contact: Primary Care Provider Call non-emergency contact if: you have any medication questions and your symptoms worsen Follow-up/Referrals: Genesis Pichardo DO [Primary Care Provider] - (Date & Time 04/01/2021 11:20 AM Provider Genesis Pichardo DO Department Family [facility] ) Diet: Regular Addtl Attending Provider Instructions: Please take your medications with food Try to use nausea medicine before you eat You will have next 4 days to finish the course of antibiotic for H. 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 doctor as your bleeding continues with in situ IUD Pending Studies at Discharge: No Stand-Alone Forms: My [facility] [place], Work/School Release Medications and DC Order Prescriptions: New misoprostol 100 mcg Tablet 100 mcg PO QID Qty: 30 RF: 0 ondansetron 4 mg Tablet,Disintegrating 4 mg PO AC Qty: 10 RF: 0 sucralfate 1 gram Tablet 1 g PO QID Qty: 30 RF: 0 Continued Mirena 20 mcg/24 hours (6 yrs) 52 mg intrauterine device 20 mcg intrauterine CONT RF: 0 ferrous sulfate 325 mg (65 mg iron) tablet 325 mg PO TID RF: 0 metformin 1,000 mg tablet 1,000 mg PO BIDM RF: 0 albuterol sulfate 90 mcg/actuation HFA aerosol inhaler 2 puffs INH Q4H PRN (Reason: Shortness Of Breath Or Wheezing) RF: 0 hydroxyzine pamoate [Vistaril] 25 mg capsule 25 mg PO HS PRN (Reason: Anxiety) RF: 0 magnesium 200 mg Tablet 400 mg PO QAM RF: 0 hydrochlorothiazide 12.5 mg Tablet 12.5 mg PO QAM RF: 0 bupropion HCl [Wellbutrin XL] 300 mg Tablet Extended Release 24 Hr 300 mg PO QAM RF: 0 ondansetron 4 mg Tablet,Disintegrating 4 mg PO Q8 PRN (Reason: Nausea) RF: 0 metronidazole 500 mg tablet 500 mg PO TID RF: 0 clarithromycin 500 mg tablet extended release 24 hr 500 mg PO BID RF: 0 omeprazole 20 mg capsule,delayed release(DR/EC) 20 mg PO BID RF: 0 montelukast 10 mg tablet 10 mg PO QAM RF: 0 Discharge Orders: Discharge Order (Routine); Ordered 03/27/21 Ordered By: Kalpesh Erickson/Other Patient Handouts: A1C, Understanding H. pylori and Ulcers, Lifestyle Changes for Controlling GERD, 5 Steps for Eating Healthier Admission Data Admit Date/Time: 03/24/21 16:04 Attending Provider: Kalpesh Carmen Admit Provider: Herbert Murphy Primary Care Provider: Genesis Pichardo Other Providers: Wil Barragan ; Mona Hartley Other Interventions: Discharge Summary Assessment (RN) Last Done: 03/27/21 12:57
== END 2021-03-27 15:18 | disposition home or self-care (01) | DRG 392 ==
LOC: 3N 09:39 → ED 09:39 → SUATTDRO 16:57 → 3N 19:07

== ENCOUNTER 2022-10-11 06:53 | Inpatient (IN) ==
[2022-10-11] MEDS ORDERED: ALBUT/IPRATROP 3MG/0.5MG NEB 3 ML VIAL NEB ONE (07:15)
[2022-10-11] MEDS ORDERED: methylPREDNISolone 125 MG/2 ML VIAL IV STA (07:15)
--- NOTE | 2022-10-11 07:20 | Emergency Department Note ---
History of Present Illness General Chief complaint: Illness Stated complaint: SOB AND OTHER THINGS - FEELS LIKE COVID/FLU Time Seen by Provider: 10/11/22 07:09 History of Present Illness Maximum Pain Intensity: 7 This is a 32-year-old female that presents to the emergency department via p rivate vehicle with complaints of "shortness of breath". The patient notes that October 05 she began with what she describes as a headache then this past Thursday a fever. Thursday she woke with body aches and a cough. She also notes sinus congestion. Home COVID test was negative. She has a history of asthma and feels that this recent illness has been exacerbating her asthma. She notes that her inhalers and her breathing treatments at home have not been successful. She feels quite short of breath and wheezing at this time. She notes fever just prior to arrival but has resolved at this time. No chest pain. Home Medications Medication Instructions Recorded Confirmed Type albuterol sulfate 90 mcg/actuation 2 puffs inhalation Q4H PRN 10/06/20 10/11/22 History aerosol inhaler Shortness Of Breath Or Wheezing hydroxyzine pamoate 25 mg capsule 25 mg PO HS PRN Anxiety 10/06/20 10/11/22 History (Vistaril) metformin 1,000 mg tablet 1,000 mg PO BID 10/06/20 10/11/22 History bupropion HCl 300 mg 24 hr tablet, 300 mg PO QAM 02/11/21 10/11/22 History extended release (Wellbutrin XL) hydrochlorothiazide 12.5 mg tablet 12.5 mg PO QAM 02/11/21 10/11/22 History montelukast 10 mg tablet 10 mg PO QAM 03/21/21 10/11/22 History fluticasone propionate 220 2 inh inhalation BID 06/24/21 10/11/22 History mcg/actuation HFA aerosol inhaler (Flovent HFA) albuterol sulfate 2.5 mg/3 mL 2.5 mg inhalation Q4H PRN 10/11/22 10/11/22 History (0.083 %) solution for nebulization Shortness Of Breath Or Wheezing dulaglutide 1.5 mg/0.5 mL 1.5 mg subcut WK 10/11/22 10/11/22 History subcutaneous pen injector ([facility]) esomeprazole magnesium 20 mg 20 mg PO DAILY 10/11/22 10/11/22 History capsule,delayed release levocetirizine 5 mg tablet 5 mg PO PM 10/11/22 10/11/22 History Allergies Allergy/AdvReac Type Severity Reaction Status Date / Time Penicillins Allergy Unknown CHILDHOOD--CAN'T Verified 10/11/22 08:37 REMEMBER Past Med/Surg History Medical History Anemia Hx multiple blood transfusions Asthma Stable > using rescue inhaler every other day at present due to weather Depression with anxiety Diabetes mellitus, type 2 oral meds GERD (gastroesophageal reflux disease) controlled H. pylori infection Unsure if resolved yet per pt History of anesthesia problem "i woke up during my colonoscopy and an egd" History of COVID-19 Dx 06/2020. Symptoms at time of body aches, chills, fever, cough, sob, loss of taste/smell, fatigue > occasional short of breath x2, "2 other times tested negative, but I had all the same symptoms as the first time I tested positive." tested [facility] Hx of chest pain 03/10/22, in [facility] ER, "dr said she thinks she's having a withdrawal from not taking her prescription medications." Hypertension Intractable nausea and vomiting Migraines last one 03/10/22 Morbid obesity BMI 58.0 Obesity PCOS (polycystic ovarian syndrome) Severe sleep apnea CPAP Surgical History H/O total hysterectomy History of colonoscopy History of dilatation and curettage with insertion of mirena History of esophagogastroduodenoscopy (EGD) Family History Sister Breast cancer, Onset Age: 30 had surgery and chemo 2 sisters age 31 the other Uterine cancer, Onset Age: 31 also has breast cancer Mother Myocardial infarction Hypertension Aunt Uterine cancer Mother Lung cancer Other No family history of adverse response to anesthesia Denies family history of Ovarian cancer Colorectal cancer Social History Smoking Status: Former smoker Tobacco Type: Cigarettes Cigarettes Per Day: over 5 yrs ago; Second Hand Exposure: No; Do You Dip or Chew Tobacco: No; Tobacco Cessation Education Requested by Patient: No Hx Alcohol Use: Yes Alcohol type: hard liquor Alcohol Intake Frequency: Monthly or Less Hx Substance Use: No Preferred Language: Croatian Communication Ability: Effective Visual Impairment: No Limitations Hearing Ability: Normal Pharmaceutical Botanist Required: No Beliefs That Will Affect Care: None marital status: Single Current Living Situation: Other Current Living Situation Comment: roomate current occupational status: employed Other Information That Helps Us Care for You: No Feels Safe at Home: Yes Safety Concerns: Feels Safe At This Time Assistive Devices: Oxygen - Continuous Review of Systems A total of 10 systems reviewed and were otherwise negative Physical Exam Vital Signs Vital Signs - 24 hr 10/11/22 06:59 10/11/22 07:22 10/11/22 07:16 Temperature 36.7 C Temperature Source Temporal Artery Scan Pulse Rate 102 H 101 H 106 H Pulse Rate from SpO2 Sensor 105 H Respiratory Rate 20 25 H Respiratory Effort / Characteristics Non-Labored Respiratory Depth Normal Blood Pressure 164/97 H Blood Pressure Mean 119 Pulse Oximetry 96 94 Oxygen Delivery Method Room Air Room Air Sepsis Recent Fever Within 48 Hours No Sepsis New/Unexplained Change in Mental Status N/A Sepsis Action Taken by Nursing No Action Required 10/11/22 08:35 10/11/22 08:36 10/11/22 09:08 Temperature Temperature Source Pulse Rate 109 H Pulse Rate from SpO2 Sensor 110 H Respiratory Rate 26 H Respiratory Effort / Characteristics Respiratory Depth Blood Pressure 138/99 Blood Pressure Mean 112 Pulse Oximetry 90 96 89 L Oxygen Delivery Method Room Air Room Air Sepsis Recent Fever Within 48 Hours Sepsis New/Unexplained Change in Mental Status Sepsis Action Taken by Nursing 10/11/22 09:01 Temperature Temperature Source Pulse Rate 106 H Pulse Rate from SpO2 Sensor 116 H Respiratory Rate 22 Respiratory Effort / Characteristics Respiratory Depth Blood Pressure 172/87 H Blood Pressure Mean 115 Pulse Oximetry 87 L Oxygen Delivery Method Sepsis Recent Fever Within 48 Hours Sepsis New/Unexplained Change in Mental Status Sepsis Action Taken by Nursing VITAL SIGNS - Vital signs and nursing notes were reviewed. Stable and afebrile. GENERAL - 32-year-old female appearing her stated age who is in no acute distress. Communicates well with provider and answers questions appropriately. SKIN - Without rashes. HEAD - NC/AT. EYES - PERRL with EOMI bilaterally. Sclera anicteric. EARS - No deformities of external structures noted on gross examination bilaterally. NOSE - Midline and without cyanosis. MOUTH/OROPHARYNX - Without perioral cyanosis. There is no drooling, stridor, trismus or tripoding. Wheezing noted. NECK - Neck with FROM. No nuchal rigidity. LUNGS -bilateral wheezing noted. Minimal accessory muscle use noted. Increased work of breathing noted. Tachypnea with respiratory rate in the 20s noted. CARDIAC - RRR with S1/S2. No murmur, rubs, or gallops appreciated. EXTREMITIES - +5/5 strength noted in UE/LE bilaterally. NEUROLOGIC - Cranial nerves II through XII grossly intact. PSYCH - A&O, and cooperates fully with examiner. Pt is very pleasant and interacts well with examiner. Course Administered Medications Bupropion HCl (Bupropion Xl 300 Mg Tabcr) 300 mg PO QAM [facility] Stop: 11/10/22 14:45 Last Admin: 10/11/22 15:37 Dose: 300 mg Documented By: ALINA Fluticasone/Vilanterol (Fluticasone/Vilanterol 100/25mcg 14 Puffs/Inhaler) 1 puffs INH DAILY [facility] Stop: 11/10/22 14:45 Last Admin: 10/11/22 15:36 Dose: 1 puffs Documented By: ALINA Doxycycline Hyclate 100 mg/ (Dextrose) 110 mls @ 50 mls/hr IV Q12H [facility] Stop: 10/18/22 15:29 Last Infusion: 10/11/22 18:09 Dose: 0 mls/hr Documented By: Admin: 10/11/22 15:57 Dose: 50 mls/hr Documented By: ALINA Methylprednisolone 40 mg/ (Syringe) 0.64 mls @ 1.5 mls/min IV Q8H [facility] Stop: 11/10/22 15:29 Last Admin: 10/11/22 15:39 Dose: 1.5 mls/min Documented By: ALINA Insulin Aspart (Insulin Aspart Per Unit Charge) 0 units SC ACHS [facility] Stop: 11/10/22 15:14 Last Admin: 10/11/22 17:30 Dose: Not Given Documented By: Admin: 10/11/22 17:29 Dose: 2 units Documented By: MPC Co-signed By: RITA Ipratropium [place] (Ipratropium [place] Neb Soln 0.02% 2.5 Ml Vial) 0.5 mg INH Q6R [facility] Stop: 11/10/22 12:59 Last Admin: 10/11/22 15:29 Dose: Not Given Documented By: DANIELLE Levalbuterol HCl (Levalbuterol 1.25mg/0.5ml Neb) 1.25 mg INH Q6R [facility] Stop: 11/10/22 12:59 Last Admin: 10/11/22 15:29 Dose: Not Given Documented By: DANIELLE Discontinued Medications Albuterol (Albut/Ipratrop 3mg/0.5mg Neb 3 Ml Vial) 12 ml NEB ONE ONE; Protocol Stop: 10/11/22 07:16 Last Admin: 10/11/22 07:27 Dose: 12 ml Documented By: ENMANUEL Hydrochlorothiazide (Hydrochlorothiazide 25 Mg Tab) 12.5 mg PO NOW STA Stop: 10/11/22 12:04 Last Admin: 10/11/22 12:27 Dose: 12.5 mg Documented By: ENMANUEL Magnesium Sulfate/Dextrose (Magnesium Sulfate / D5w) 1 gm in 100 mls @ 100 mls/hr IV NOW STA Stop: 10/11/22 08:48 Last Infusion: 10/11/22 09:44 Dose: 0 mls/hr Documented By: Admin: 10/11/22 08:36 Dose: 100 mls/hr Documented By: ENMANUEL Ipratropium [place] (Ipratropium [place] Neb Soln 0.02% 2.5 Ml Vial) 0.5 mg INH NOW STA Stop: 10/11/22 16:09 Last Admin: 10/11/22 16:18 Dose: 0.5 mg Documented By: NOHEMI Levalbuterol HCl (Levalbuterol 1.25mg/0.5ml Neb) 1.25 mg INH NOW STA Stop: 10/11/22 16:09 Last Admin: 10/11/22 16:18 Dose: 1.25 mg Documented By: NOHEMI Methylprednisolone (Methylprednisolone 125 Mg/2 Ml Vial) 60 mg IV NOW STA Stop: 10/11/22 07:16 Last Admin: 10/11/22 07:28 Dose: 60 mg Documented By: ENMANUEL Potassium Chloride (Potassium Chloride Crtab 20 Meq Tabcr) 40 meq PO NOW STA Stop: 10/11/22 10:00 Last Admin: 10/11/22 10:56 Dose: 40 meq Documented By: ENMANUEL Medical Decision Making Laboratory Data 10/11/22 07:30 10/11/22 07:30 Lab Results 10/11/22 10/11/22 10/11/22 Range/Units 07:30 07:30 07:30 WBC 4.29 L (4.8-10.8) K/ul RBC 5.13 (4.20-5.40) M/uL Hgb 13.5 (12.0-16.0) g/dl Hct 41.4 (37.0-47.0) % MCV 80.7 (80.0-100.0) fL MCH 26.3 (25.0-34.0) pg MCHC 32.6 (32.0-36.0) g/dL RDW Std Deviation 42.8 (36.4-46.3) fL RDW Coeff of Esmer 14.4 (11.5-14.5) % Plt Count 271 (130-400) K/uL MPV 10.2 (9.4-12.4) fL Immature Gran % (Auto) 0.2 % Neut % (Auto) 59.4 % Lymph % (Auto) 24.5 % [place] % (Auto) 13.3 % Eos % (Auto) 1.9 % Baso % (Auto) 0.7 % Neut # (Auto) 2.55 (1.40-6.50) K/uL Lymph # (Auto) 1.05 L (1.2-3.4) K/uL [place] # (Auto) 0.57 (0.11-0.59) K/uL Eos # (Auto) 0.08 (0-0.50) K/uL Baso # (Auto) 0.03 (0-0.2) K/uL Immature Gran # (Auto) 0.01 (0.01-0.20) K/uL PT (9.0-12.0) Seconds INR (0.9-1.1) APTT (21.0-31.0) Seconds PTT Ratio Sodium 138 (136-145) mmol/L Potassium 3.4 L (3.5-5.1) mmol/L Chloride 106 (98-107) mmol/L Carbon Dioxide 23 (21-32) mmol/L Anion Gap 9 (3-11) BUN 9 (6-23) mg/dl Creatinine 0.75 (0.6-1.2) mg/dl Est Cr Clr Drug Dosing 154.9 ml/min Est GFR ( Amer) 122.2 ml/min Est GFR (Non-Af Amer) 105.5 ml/min BUN/Creatinine Ratio 12.0 (10-20) Glucose 98 (70-99(Fasting)) mg/dl Calcium 8.8 (8.6-10.3) mg/dl Magnesium 1.8 (1.7-2.4) mg/dl Total Bilirubin 0.5 (0.2-1.0) mg/dl AST 22 (13-39) U/L ALT 21 (7-52) U/L Alkaline Phosphatase 82 (34-104) U/L Troponin I High Sens 2.8 (0-14) pg/ml Total Protein 8.0 (6.0-8.3) gm/dl Albumin 4.1 (3.4-5.0) gm/dl Globulin 3.9 (2.5-4.0) gm/dl Albumin/Globulin Ratio 1.1 (0.9-2) HCG, Qual Negative (Negative) Adenovirus (PCR) (NotDetected) B. pertussis DNA (PCR) (NotDetected) B.parapertussis DNA PCR (NotDetected) C. pneumoniae DNA (PCR) (NotDetected) Coronavirus OC43 (PCR) (NotDetected) Coronavirus HKU1 (PCR) (NotDetected) Coronavirus 229E (PCR) (NotDetected) SARS-CoV-2 (PCR) (NotDetected) Coronavirus NL63 (PCR) (NotDetected) Human Metapneumovir PCR (NotDetected) Influenza Type A (PCR) (NotDetected) Influenza Type B (PCR) (NotDetected) M. pneumoniae (PCR) (NotDetected) Parainfluenza 1 (PCR) (NotDetected) Parainfluenza 2 (PCR) (NotDetected) Parainfluenza 3 (PCR) (NotDetected) Parainfluenza 4 (PCR) (NotDetected) RSV (PCR) (NotDetected) Entero/Rhino (PCR) (NotDetected) 10/11/22 10/11/22 Range/Units 07:30 07:30 WBC (4.8-10.8) K/ul RBC (4.20-5.40) M/uL Hgb (12.0-16.0) g/dl Hct (37.0-47.0) % MCV (80.0-100.0) fL MCH (25.0-34.0) pg MCHC (32.0-36.0) g/dL RDW Std Deviation (36.4-46.3) fL RDW Coeff of Esmer (11.5-14.5) % Plt Count (130-400) K/uL MPV (9.4-12.4) fL Immature Gran % (Auto) % Neut % (Auto) % Lymph % (Auto) % [place] % (Auto) % Eos % (Auto) % Baso % (Auto) % Neut # (Auto) (1.40-6.50) K/uL Lymph # (Auto) (1.2-3.4) K/uL [place] # (Auto) (0.11-0.59) K/uL Eos # (Auto) (0-0.50) K/uL Baso # (Auto) (0-0.2) K/uL Immature Gran # (Auto) (0.01-0.20) K/uL PT 10.9 (9.0-12.0) Seconds INR 1.0 (0.9-1.1) APTT 31.0 (21.0-31.0) Seconds PTT Ratio 1.1 Sodium (136-145) mmol/L Potassium (3.5-5.1) mmol/L Chloride (98-107) mmol/L Carbon Dioxide (21-32) mmol/L Anion Gap (3-11) BUN (6-23) mg/dl Creatinine (0.6-1.2) mg/dl Est Cr Clr Drug Dosing ml/min Est GFR ( Amer) ml/min Est GFR (Non-Af Amer) ml/min BUN/Creatinine Ratio (10-20) Glucose (70-99(Fasting)) mg/dl Calcium (8.6-10.3) mg/dl Magnesium (1.7-2.4) mg/dl Total Bilirubin (0.2-1.0) mg/dl AST (13-39) U/L ALT (7-52) U/L Alkaline Phosphatase (34-104) U/L Troponin I High Sens (0-14) pg/ml Total Protein (6.0-8.3) gm/dl Albumin (3.4-5.0) gm/dl Globulin (2.5-4.0) gm/dl Albumin/Globulin Ratio (0.9-2) HCG, Qual (Negative) Adenovirus (PCR) Not Detected (NotDetected) B. pertussis DNA (PCR) Not Detected (NotDetected) B.parapertussis DNA PCR Not Detected (NotDetected) C. pneumoniae DNA (PCR) Not Detected (NotDetected) Coronavirus OC43 (PCR) Not Detected (NotDetected) Coronavirus HKU1 (PCR) Not Detected (NotDetected) Coronavirus 229E (PCR) Not Detected (NotDetected) SARS-CoV-2 (PCR) Not Detected (NotDetected) Coronavirus NL63 (PCR) Not Detected (NotDetected) Human Metapneumovir PCR DETECTED A* (NotDetected) Influenza Type A (PCR) Not Detected (NotDetected) Influenza Type B (PCR) Not Detected (NotDetected) M. pneumoniae (PCR) Not Detected (NotDetected) Parainfluenza 1 (PCR) Not Detected (NotDetected) Parainfluenza 2 (PCR) Not Detected (NotDetected) Parainfluenza 3 (PCR) Not Detected (NotDetected) Parainfluenza 4 (PCR) Not Detected (NotDetected) RSV (PCR) Not Detected (NotDetected) Entero/Rhino (PCR) Not Detected (NotDetected) Imaging Data Radiologist's Impression: Chest X-Ray 10/11/22 07:20 SINGLE VIEW CHEST CLINICAL HISTORY: Cough and dyspnea FINDINGS: An AP, portable, upright chest radiograph is compared to study dated 06/15/2022 and correlated with chest CT dated 07/17/2021. The cardiomediastinal silhouette is unremarkable. The lungs and pleural spaces are clear. No pneumothorax is seen. The bony thorax is grossly intact. IMPRESSION: No active disease in the chest. ACT 112: Negative or not required by law. Electronically signed by: Abimael Lovell M.D. 10/11/2022 8:55 AM MDM Narrative Patient was seen and evaluated as above in room C11. Review was performed of nursing notes and vital signs. I did review pertinent previous visits and patient history. After obtaining a thorough history and physical examination the above work up was performed. Patient presents to us today for assessment of dyspnea in the setting of sinus congestion and flulike symptoms. She notes a history of asthma. There is increased work of breathing on examination. She is tachypneic. Wheezing noted. Options of care were discussed with the patient. IV access was established. Labs were drawn. EKG performed and reveals normal sinus rhythm at a rate of 99 bpm. QTc 454. QRS 82. No ST elevation. Patient medicated with IV steroids, IV magnesium, and an hour-long DuoNeb breathing treatment. Mild leukopenia 4.29. No anemia. Coags normal. Mild hypokalemia 3.4. Magnesium on the low end of normal at 1.8. Troponin negative. hCG negative. It is important note that the patient's presentation most consistent with that of viral URI that has exacerbated her asthma. Presentation is not felt to be secondary to that of PE or emergent intrathoracic process. Chest x-ray negative for acute process. Bio fire panel positive for human metapneumovirus. At this time with the patient having increased work of breathing and wheezing despite hour-long neb treatment and steroids I do believe that further evaluation and management in inpatient setting is warranted. Case discussed with the attending physician. Case then discussed with hospitalist service. Please refer to further documentation regarding his stay. GCS: 15 In the evaluation and treatment of this patient the following differential diagnoses were entertained: AL, PE, pericarditis, costochondritis, pneumothorax, pneumonia, asthma exacerbation, among others. Impression & Plan Asthma exacerbation, Hypoxia Discharge Plan Visit Data Chief Complaint: Illness Stated Complaint: SOB AND OTHER THINGS - FEELS LIKE COVID/FLU ED Provider: Tima Delgado ED Midlevel Provider: Jose Joy Discharge Problem: Asthma exacerbation, Hypoxia Patient Disposition: Admitted As Inpatient Condition: Good Discharge Instructions Interventions: ED Discharge Assessment Last Done: 10/11/22 14:17
[2022-10-11] MEDS ORDERED: MAGNESIUM SULFATE / D5W 1 GM/100 ML BAG IV STA (07:49)
[2022-10-11 07:56] LABS: Basophils # (auto) 0.03 K/uL (0-0.2); Basophils % (auto) 0.7 %; Eosinophils # (auto) 0.08 K/uL (0-0.50); Eosinophils % (auto) 1.9 %; Hematocrit (blood only) 41.4 % (37.0-47.0); Hemoglobin 13.5 g/dl (12.0-16.0); Immature Granulocytes # (auto) 0.01 K/uL (0.01-0.20); Immature Granulocytes % (auto) 0.2 %; Lymphocytes # (auto) 1.05 K/uL (1.2-3.4); Lymphocytes % (auto) 24.5 %; Mean Corpuscular Hemoglobin 26.3 pg (25.0-34.0); Mean Corpuscular Hgb Conc 32.6 g/dL (32.0-36.0); Mean Corpuscular Volume 80.7 fL (80.0-100.0); Mean Platelet Volume 10.2 fL (9.4-12.4); Monocytes # (auto) 0.57 K/uL (0.11-0.59); Monocytes % (auto) 13.3 %; Neutrophils # (auto) 2.55 K/uL (1.40-6.50); Neutrophils % (auto) 59.4 %; Platelet Count 271 K/uL (130-400); RDW Coefficient of Variation 14.4 % (11.5-14.5); RDW Standard Deviation 42.8 fL (36.4-46.3); Red Blood Count 5.13 M/uL (4.20-5.40); White Blood Count 4.29 K/ul (4.8-10.8)
[2022-10-11 08:08] LABS: Pregnancy Test, Serum Negative (Negative)
[2022-10-11 08:12] LABS: Albumin Globulin Ratio 1.1 (0.9-2); Albumin Level 4.1 gm/dl (3.4-5.0); Bilirubin,Total 0.5 mg/dl (0.2-1.0); Calcium 8.8 mg/dl (8.6-10.3); Creatinine Clr Calc Pharmacy 154.9 ml/min; Est GFR (African American) 122.2 ml/min; Est GFR (Non-African American) 105.5 ml/min; Globulin 3.9 gm/dl (2.5-4.0); Magnesium 1.8 mg/dl (1.7-2.4); Potassium 3.4 mmol/L (3.5-5.1)
[2022-10-11 08:16] LABS: Troponin I High Sensitivity 2.8 pg/ml (0-14)
[2022-10-11 08:17] LABS: Partial Thromboplastin Ratio 1.1; Prothrombin Time 10.9 Seconds (9.0-12.0)
--- NOTE | 2022-10-11 08:57 | XRay Report ---
SINGLE VIEW CHEST CLINICAL HISTORY: Cough and dyspnea FINDINGS: An AP, portable, upright chest radiograph is compared to study dated 06/15/2022 and correla jason with chest CT dated 07/17/2021. The cardiomediastinal silhouette is unremarkable. The lungs and p leural spaces are clear. No pneumothorax is seen. The bony thorax is grossly intact. IMPRESSION: No active disease in the chest. ACT 112: Negative or not required by law. Electronically signed by: Abimael Lovell M.D. 10/11/2022 8:55 AM
[2022-10-11 09:27] LABS: Adenovirus PCR Not Detected (NotDetected); Bordetella parapertussis PCR Not Detected (NotDetected); Bordetella pertussis PCR Not Detected (NotDetected); Chlamydia pneumoniae PCR Not Detected (NotDetected); Coronavirus 229E PCR Not Detected (NotDetected); Coronavirus CoV-2 (COVID19)PCR Not Detected (NotDetected); Coronavirus HKU1 PCR Not Detected (NotDetected); Coronavirus NL63 PCR Not Detected (NotDetected); Coronavirus OC43PCR Not Detected (NotDetected); Influenza A PCR Not Detected (NotDetected); Influenza B PCR Not Detected (NotDetected); Mycoplasma pneumoniae PCR Not Detected (NotDetected); Parainfluenza Virus 1 PCR Not Detected (NotDetected); Parainfluenza Virus 2 PCR Not Detected (NotDetected); Parainfluenza Virus 3 PCR Not Detected (NotDetected); Parainfluenza Virus 4 PCR Not Detected (NotDetected); Respiratory Syncytial VirusPCR Not Detected (NotDetected); Rhinovirus/Enterovirus PCR Not Detected (NotDetected)
[2022-10-11 09:31] LABS: Human Metapneumovirus PCR DETECTED (NotDetected)
--- NOTE | 2022-10-11 09:40 | History & Physical Report ---
Date of Service October 11, 2022 Assessment & Plan (1) Asthma exacerbation: (2) Acute respiratory failure with hypoxia: Plan: Patient is 32-year-old female with PMH HTN, DM II, asthma, GERD, depression, anxiety, LANG, obesity presented to ER with complaint of URI symptoms x 5 days with increased SOB and wheezing x3 days. In ER O2 sat noted to drop to 87% on room air up to 95% on 2 L. In ER was given hour-long albuterol neb, magnesium sulfate 1 g IV, Solu-Medrol 60 mg IV. Patient with residual wheezing and shortness of breath No leukocytosis. Respiratory panel + human metapneumovirus CXR: No acute infiltrate Asthma exacerbation secondary to human metapneumovirus Continue supplemental oxygen as needed, wean as able Xopenex, Atrovent scheduled nebs Solu-Medrol 40mg Q8H IV Hold home Flovent, start Breo Continue home singular CBC, BMP in a.m. (3) Hypokalemia: Plan: K: 3.4 Replace and monitor (4) Diabetes mellitus, type 2: Plan: A1c: 6.1 on 07/24/2022 Hold home metformin and Trulicity Basal bolus insulin sliding scale per protocol. Monitor BSG's, May need to further adjust with patient receiving steroids (5) Hypertension: Plan: Continue home HCTZ (6) Depression with anxiety: Plan: Continue bupropion, hydroxyzine as needed (7) Severe sleep apnea: Plan: CPAP at bedtime (8) Obesity: Plan: BMI: 49 Patient has been working with outpatient weight management and is making lifestyle changes and has had some weight loss DVT Prophylaxis SCDs Full Code as per discussion with pt Follows with Dr Pichardo for routine care Pt was seen and care coordinated with Dr Bonilla. See addendum I spent a total of 66 minutes reviewing notes, outpatient records, labs, medication, coordinating, documenting and providing care for this patient excluding time spent in the performance of separately billed services. History of Present Illness Chief Complaint: SOB Primary Care Provider: Genesis Pichardo DO Patient is 32-year-old female with PMH HTN, DM II, asthma, GERD, depression, anxiety, LANG, obesity presented to ER with complaint of shortness of breath x3 days. Patient states 6 days ago started with generalized headache, fever. Headache and fever lasted 2 days preceded by body aches. Patient reports no further fevers. Past 3 days with shortness of breath, wheezing that is aggravated with exertion. Has been using home albuterol inhaler and nebulizer without significant relief. Yesterday and today with increased shortness of breath and has just been sitting and unable to exert herself secondary to increased shortness of breath. Reports nonproductive cough. Denies chest pain. States yesterday mild nasal congestion. Denies sore throat. Denies ill contacts. History of asthma exacerbations in past however has never required hospitalization. Denies diaphoresis, N/V/D/C, dizziness, syncope, vision changes, neck pain, palpitations, hemoptysis, otalgia, abdominal pain, paresthesias, weakness, extremity edema, rashes, urinary symptoms. Allergies Allergy/AdvReac Type Severity Reaction Status Date / Time Penicillins Allergy Unknown CHILDHOOD--CAN'T Verified 10/11/22 08:37 REMEMBER Home Medications Medication Instructions Recorded Confirmed Type albuterol sulfate 90 mcg/actuation 2 puffs inhalation Q4H PRN 10/06/20 10/11/22 History aerosol inhaler Shortness Of Breath Or Wheezing hydroxyzine pamoate 25 mg capsule 25 mg PO HS PRN Anxiety 10/06/20 10/11/22 History (Vistaril) metformin 1,000 mg tablet 1,000 mg PO BID 10/06/20 10/11/22 History bupropion HCl 300 mg 24 hr tablet, 300 mg PO QAM 02/11/21 10/11/22 History extended release (Wellbutrin XL) hydrochlorothiazide 12.5 mg tablet 12.5 mg PO QAM 02/11/21 10/11/22 History montelukast 10 mg tablet 10 mg PO QAM 03/21/21 10/11/22 History fluticasone propionate 220 2 inh inhalation BID 06/24/21 10/11/22 History mcg/actuation HFA aerosol inhaler (Flovent HFA) albuterol sulfate 2.5 mg/3 mL 2.5 mg inhalation Q4H PRN 10/11/22 10/11/22 History (0.083 %) solution for nebulization Shortness Of Breath Or Wheezing dulaglutide 1.5 mg/0.5 mL 1.5 mg subcut WK 10/11/22 10/11/22 History subcutaneous pen injector (Trulicity) esomeprazole magnesium 20 mg 20 mg PO DAILY 10/11/22 10/11/22 History capsule,delayed release levocetirizine 5 mg tablet 5 mg PO PM 10/11/22 10/11/22 History Past Med/Surg History Medical History Anemia Hx multiple blood transfusions Asthma Stable > using rescue inhaler every other day at present due to weather Depression with anxiety Diabetes mellitus, type 2 oral meds GERD (gastroesophageal reflux disease) controlled H. pylori infection Unsure if resolved yet per pt History of anesthesia problem "i woke up during my colonoscopy and an egd" History of COVID-19 Dx 06/2020. Symptoms at time of body aches, chills, fever, cough, sob, loss of taste/smell, fatigue > occasional short of breath x2, "2 other times tested negative, but I had all the same symptoms as the first time I tested positive." tested [facility] Hx of chest pain 03/10/22, in [facility] ER, "dr said she thinks she's having a withdrawal from not taking her prescription medications." Hypertension Intractable nausea and vomiting Migraines last one 03/10/22 Morbid obesity BMI 58.0 Obesity PCOS (polycystic ovarian syndrome) Severe sleep apnea CPAP Surgical History H/O total hysterectomy History of colonoscopy History of dilatation and curettage with insertion of mirena History of esophagogastroduodenoscopy (EGD) Family History Sister Breast cancer, Onset Age: 30 had surgery and chemo 2 sisters age 31 the other Uterine cancer, Onset Age: 31 also has breast cancer Mother Myocardial infarction Hypertension Aunt Uterine cancer Mother Lung cancer Other No family history of adverse response to anesthesia Denies family history of Ovarian cancer Colorectal cancer Social History Smoking Status: Former smoker Tobacco Type: Cigarettes Cigarettes Per Day: over 5 yrs ago; Second Hand Exposure: No; Do You Dip or Chew Tobacco: No; Tobacco Cessation Education Requested by Patient: No Hx Alcohol Use: Yes Alcohol type: hard liquor Alcohol Intake Frequency: Monthly or Less Hx Substance Use: No Preferred Language: Telugu Communication Ability: Effective Visual Impairment: No Limitations Hearing Ability: Normal Inspector Purchased Parts Required: No Beliefs That Will Affect Care: None marital status: Single Current Living Situation: Other Current Living Situation Comment: roomate current occupational status: employed Other Information That Helps Us Care for You: No Feels Safe at Home: Yes Safety Concerns: Feels Safe At This Time Assistive Devices: Oxygen - Continuous Review of Systems Review of Systems: All systems reviewed & are unremarkable except as noted in HPI & below Physical Exam Physical Exam: General: no acute distress at rest, +obesity Head: normocephalic, atraumatic Eyes: conjunctiva non-injected, anicteric ENT: normal inspection external ears, nose, mucous membranes moist Neck: supple, trachea midline Lungs: +dyspnea with speaking sentences, 96% on 2L via NC, +diminished with diffuse inspiratory and expiratory wheezing throughout, no rhonchi/rales CV: RRR, no murmur, no pretibial edema Abd: Protuberant, normal BS, soft, non-tender Ext: no cyanosis, no calf tenderness Neuro: A&O x 3, no focal deficits noted, normal affect Skin: warm, dry Results & Data Results & Data Vital Signs (Past 12 Hours) Vital Signs Temp Pulse Resp BP Pulse Ox O2 Del Method 10/11/22 09:30 110 H 16 148/97 H 91 10/11/22 09:01 106 H 22 172/87 H 87 L 10/11/22 09:08 89 L Room Air 10/11/22 08:36 109 H 26 H 138/99 96 10/11/22 08:35 90 Room Air 10/11/22 07:16 106 H 25 H 164/97 H 94 Room Air 10/11/22 07:22 101 H 10/11/22 06:59 36.7 C 102 H 20 96 Room Air Laboratory Results Short CBC 10/11/22 Range/Units 07:30 WBC 4.29 L (4.8-10.8) K/ul Hgb 13.5 (12.0-16.0) g/dl Hct 41.4 (37.0-47.0) % Plt Count 271 (130-400) K/uL BMP 10/11/22 07:30 Sodium 138 Potassium 3.4 L Chloride 106 Carbon Dioxide 23 BUN 9 Creatinine 0.75 Glucose 98 Calcium 8.8 Liver Function 10/11/22 Range/Units 07:30 Total Bilirubin 0.5 (0.2-1.0) mg/dl AST 22 (13-39) U/L ALT 21 (7-52) U/L Alkaline Phosphatase 82 (34-104) U/L Albumin 4.1 (3.4-5.0) gm/dl Diagnostic Findings Chest X-Ray 10/11/22 07:20 SINGLE VIEW CHEST CLINICAL HISTORY: Cough and dyspnea FINDINGS: An AP, portable, upright chest radiograph is compared to study dated 06/15/2022 and correlated with chest CT dated 07/17/2021. The cardiomediastinal silhouette is unremarkable. The lungs and pleural spaces are clear. No pneumothorax is seen. The bony thorax is grossly intact. IMPRESSION: No active disease in the chest. ACT 112: Negative or not required by law. Electronically signed by: Abimael Lovell M.D. 10/11/2022 8:55 AM Code Status & VTE Plan VTE Prophylaxis Plan VTE Prophylaxis will be ordered: Yes Supervising Physician Co-Signing Physician Notes Attending Addendum: care coordinated with ENID Alfaro please refer to her notes for full details, I agree with her notes patient seen and examined, records reviewed by myself as well on exam, patient seen just returned to bed from the bathroom has some dyspnea and occasional cough speaking in sentences with some effort, but not in distress, no accessory muscle use smiling no chest pain, palpitations, dizziness no other symptoms VS noted and reviewed oriented x3 , not in distress, speaks in sentences with mild effort but no accessory muscle use normal rate, regular rhythm, no murmurs mild scattered wheeze BL non distended, soft, nontender no bipedal edema, erythema, warmth no neuro deficits all labs noted and reviewed ASSESSMENT AND PLAN ASTHMA EXACERBATION ACUTE BRONCHITIS, VIRAL POSSIBLE BACTERIAL COMPONENT nebs q6h Breo Solumedrol q8h glycemic control consult Doxy IV monitor closely Luke Bonilla MD
[2022-10-11] MEDS ORDERED: POTASSIUM CHLORIDE CRTAB 20 MEQ TABCR PO STA (09:59)
[2022-10-11] MEDS ORDERED: hydroCHLOROthiazide 25 MG TAB PO STA (12:03)
--- NOTE | 2022-10-11 12:35 | Electrocardiogram Report ---
Test Reason : Blood Pressure : / mmHG Vent. Rate : 099 BPM Atrial Rate : 099 BPM P-R Int : 136 ms QRS Dur : 082 ms QT Int : 354 ms P-R-T Axes : 070 071 042 degrees QTc Int : 454 ms Normal sinus rhythm Possible Left atrial enlargement Borderline ECG When compared with ECG of 10-MAR-2022 10:27, No significant change was found Confirmed by Sorin Aden ([id number]) on 10/11/2022 12:35:05 PM Referred By: REFERRED SELF Confirmed By:Sorin Aden
[2022-10-11] MEDS ORDERED: XOPENEX/ATROVENT 1.25mg/0.5MG NEB COMBO NEB SCH (13:00)
[2022-10-11] MEDS ORDERED: GLUCOSE 10 TAB/TUBE PO PRN (14:46)
[2022-10-11] MEDS ORDERED: CARBOHYDRATES FOR HYPOGLYCEMIA PO PRN (14:46)
[2022-10-11] MEDS ORDERED: DEXTROSE 50% 50 ML SYRINGE IV PRN (14:46)
[2022-10-11] MEDS ORDERED: GLUCAGON FOR INJ 1 MG VIAL SQ PRN (14:46)
[2022-10-11] MEDS ORDERED: PHARMACY GLYCEMIC MGMT CONSULT PRN (14:46)
[2022-10-11] MEDS ORDERED: GLUCOSE 40% GEL 15 GM TUBE PO PRN (14:46)
[2022-10-11] MEDS ORDERED: hydrOXYzine HCl 25 MG TAB PO PRN (14:46)
[2022-10-11] MEDS: IPRATROPIUM BROMIDE NEB SOLN 0.02% 2.5 ML VIAL INH SCH ×2 (15:29→19:24)
[2022-10-11] MEDS: LEVALBUTEROL 1.25MG/0.5ML NEB INH SCH ×2 (15:29→19:24)
[2022-10-11] MEDS: FLUTICASONE/VILANTEROL 100/25MCG 14 PUFFS/INHALER INH SCH (15:36)
[2022-10-11] MEDS: buPROPion XL 300 MG TABCR PO SCH (15:37)
[2022-10-11] MEDS: methylPREDNISolone 40 MG in SYRINGE 0 ML IV SCH (15:39)
[2022-10-11] MEDS ORDERED: XOPENEX/ATROVENT 1.25mg/0.5MG NEB COMBO NEB STA ×2 (15:45→16:08)
[2022-10-11] MEDS ORDERED: LEVALBUTEROL 1.25MG/0.5ML NEB INH STA ×2 (15:53→16:08)
[2022-10-11] MEDS ORDERED: IPRATROPIUM BROMIDE NEB SOLN 0.02% 2.5 ML VIAL INH STA ×2 (15:54→16:08)
[2022-10-11] MEDS: DOXYCYCLINE HYCLATE 100 MG in DEXTROSE 5% 100 ML IV SCH (15:57)
[2022-10-11] MEDS: INSULIN ASPART PER UNIT CHARGE SC SCH ×3 (17:29→20:48)
[2022-10-11] MEDS ORDERED: ACETAMINOPHEN 325 MG TAB PO STA (20:29)
[2022-10-11] MEDS: CETIRIZINE HCL 10 MG TABLET PO SCH (20:47)
[2022-10-11] MEDS ORDERED: LANTUS PER UNIT CHARGE SQ ONE (21:00)
[2022-10-11] MEDS ORDERED: LANTUS PER UNIT CHARGE SQ SCH (21:00)
[2022-10-12] MEDS: methylPREDNISolone 40 MG in SYRINGE 0 ML IV SCH ×4 (00:02→23:03)
[2022-10-12] MEDS ORDERED: oxyCODONE HCL IR 5 MG TAB (IMMEDIATE RELEASE) PO PRN (00:35)
[2022-10-12] MEDS ORDERED: KETOROLAC TROMETHAMINE 15 MG/ML VIAL IV ONE (00:45)
--- NOTE | 2022-10-12 01:11 | CT Scan Report ---
Exam(s): CT HEAD Without Contrast EXAM: CT Head Without Intravenous Contrast CLINICAL HISTORY: Reason for exam: ernandez. TECHNIQUE: Axial computed tomography images of the head/brain without intravenous contrast. Automated exposure control was utilized for the study. A dose lowering technique was utilized adhering to the principles of ALARA. COMPARISON: 04/26/22 FINDINGS: Brain: Unremarkable. No hemorrhage. No significant white matter disease. No edema. Ventricles: Unremarkable. No ventriculomegaly. Bones/joints: Unremarkable. No acute fracture. Soft tissues: Unremarkable. Sinuses: Unremarkable as visualized. No acute sinusitis. Mastoid air cells: Unremarkable as visualized. No mastoid effusion. IMPRESSION: Normal head/brain CT. Electronically signed by: Hudson Dykes MD 10/12/22 01:11 AM
[2022-10-12] MEDS: IPRATROPIUM BROMIDE NEB SOLN 0.02% 2.5 ML VIAL INH SCH ×4 (01:59→19:42)
[2022-10-12] MEDS: LEVALBUTEROL 1.25MG/0.5ML NEB INH SCH ×4 (02:00→19:42)
[2022-10-12] MEDS: DOXYCYCLINE HYCLATE 100 MG in DEXTROSE 5% 100 ML IV SCH ×2 (03:11→15:09)
[2022-10-12 07:36] LABS: Hematocrit (blood only) 41.9 % (37.0-47.0); Hemoglobin 13.7 g/dl (12.0-16.0); Mean Corpuscular Hemoglobin 26.4 pg (25.0-34.0); Mean Corpuscular Hgb Conc 32.7 g/dL (32.0-36.0); Mean Corpuscular Volume 80.7 fL (80.0-100.0); Mean Platelet Volume 10.3 fL (9.4-12.4); Platelet Count 307 K/uL (130-400); RDW Coefficient of Variation 14.5 % (11.5-14.5); RDW Standard Deviation 42.5 fL (36.4-46.3); Red Blood Count 5.19 M/uL (4.20-5.40); White Blood Count 3.52 K/ul (4.8-10.8)
[2022-10-12 07:51] LABS: BUN Creatinine Ratio 15.6 (10-20); Calcium 9.5 mg/dl (8.6-10.3); Creatinine Clr Calc Pharmacy 150.3 ml/min; Est GFR (African American) 118.4 ml/min; Est GFR (Non-African American) 102.2 ml/min; Magnesium 2.2 mg/dl (1.7-2.4); Potassium 3.6 mmol/L (3.5-5.1)
[2022-10-12] MEDS: MONTELUKAST SODIUM 10 MG TABLET PO SCH (08:13)
[2022-10-12] MEDS: buPROPion XL 300 MG TABCR PO SCH (08:13)
[2022-10-12] MEDS: hydroCHLOROthiazide 25 MG TAB PO SCH (08:14)
[2022-10-12] MEDS: FLUTICASONE/VILANTEROL 100/25MCG 14 PUFFS/INHALER INH SCH (08:15)
[2022-10-12] MEDS: PANTOprazole 40 MG TAB PO SCH (08:22)
[2022-10-12] MEDS: INSULIN ASPART PER UNIT CHARGE SC SCH ×4 (08:32→21:23)
[2022-10-12] MEDS: traMADol HCL 50 MG TABLET PO PRN (11:07)
--- NOTE | 2022-10-12 12:13 | Hospitalist Progress Note ---
Date of Service October 12, 2022 Assessment & Plan (1) Asthma exacerbation: Plan: per admitting service notes with addendum: (2) Acute respiratory failure with hypoxia: Plan: Patient is 32-year-old female with PMH HTN, DM II, asthma, GERD, depression, anxiety, LANG, obesity presented to ER with complaint of URI symptoms x 5 days with increased SOB and wheezing x3 days. In ER O2 sat noted to drop to 87% on room air up to 95% on 2 L. In ER was given hour-long albuterol neb, magnesium sulfate 1 g IV, Solu-Medrol 60 mg IV. Patient with residual wheezing and shortness of breath No leukocytosis. Respiratory panel + human metapneumovirus CXR: No acute infiltrate Asthma exacerbation secondary to human metapneumovirus Continue supplemental oxygen as needed, wean as able Xopenex, Atrovent scheduled nebs Solu-Medrol 40mg Q8H IV Hold home Flovent, start Breo Continue home singular CBC, BMP in a.m. 10/12 improving continue Nebs, Solumedrol, Doxy wean off oxygen as possible headache CT head: unremarkable PRN Tramadol (3) Hypokalemia: Plan: K: 3.4 Replace and monitor resolved (4) Diabetes mellitus, type 2: Plan: A1c: 6.1 on 07/24/2022 Hold home metformin and Trulicity Basal bolus insulin sliding scale per protocol. Monitor BSG's, May need to further adjust with patient receiving steroids BSG 120s-140s continue Insulin regimen (5) Hypertension: Plan: Continue home HCTZ (6) Depression with anxiety: Plan: Continue bupropion, hydroxyzine as needed (7) Severe sleep apnea: Plan: CPAP at bedtime (8) Obesity: Plan: BMI: 49 Patient has been working with outpatient weight management and is making lifestyle changes and has had some weight loss DVT Prophylaxis SCDs Full Code as per discussion with pt Follows with Dr Pichardo for routine care Disposition lives at home anticipate d/c home when medically stable Admission and Anticipated Discharge Date Admission Date: October 11, 2022 Subjective ff up for asthma exacerbation, etc seen resting in bed, comfortable, in good spirits on 2 L oxygen states she feels better compared to yesterday breathing still not at baseline has productive cough has some frontal headache denies focal neuro symptoms no chest pain, dyspnea, palpitations, dizziness no other symptoms Review of Systems Review of Systems: all noted and negative except for above Physical Exam Physical Exam: General- oriented x 3, not in distress, speaks in sentences with no effort or accessory muscle use Eyes- anicteric Neck- no JVD Lungs- mild wheeze bilaterally no crackles good air entry bilaterally Heart- normal rate, regular rhythm; no murmurs Abdomen- normal bowel sounds, nondistended, soft, nontender Extremities- no pretibial edema, no calf tenderness Neuro- alert, oriented x 3; no gross focal neurologic deficits Skin- warm & dry Results & Data Results & Data Vital Signs (Past 12 Hours) Vital Signs Temp Pulse Pulse Resp BP Pulse Ox O2 Del Method 10/12/22 11:55 36.7 C 83 16 142/82 H 94 Nasal Cannula 10/12/22 11:36 Room Air 10/12/22 07:48 36.6 C 87 18 154/75 H 95 Nasal Cannula 10/12/22 07:12 85 10/12/22 07:12 78 18 95 Nasal Cannula 10/12/22 03:20 36.5 C 82 20 128/81 93 Nasal Cannula 10/12/22 02:02 87 18 96 Nasal Cannula O2 Flow Rate 10/12/22 11:55 2 10/12/22 11:36 10/12/22 07:48 2 10/12/22 07:12 10/12/22 07:12 2 10/12/22 03:20 2 10/12/22 02:02 2 all noted and reviewed including below
[2022-10-12 12:20] LABS: Estimated Average Glucose 134 mg/dl; Hemoglobin A1C 6.3 % (4.5-5.6)
--- NOTE | 2022-10-12 13:42 | Pharmacy Report ---
Pharmacy Glycemic Short Note 2 - Date of Service October 12, 2022 - Glycemic Short BSG Results (Last 24 hours): 10/11/22 10/11/22 10/12/22 16:37 20:12 07:00 Glucose 122 H POC Glucose 121 H 131 H 10/12/22 10/12/22 07:44 11:53 Glucose POC Glucose 124 H 142 H OUTPATIENT ANTIDIABETIC REGIMEN: * Trulicity, metformin * A1c 6.3% ASSESSMENT: * 32 year old admitted with asthma exacerbation. Type 2 diabetic - pharmacy consulted for glycemic management * Patient received total of 12 units of insulin yesterday, of which 10 units were basal insulin * Fasting BSG 122 mg/dL - will continue with same basal insulin. BSGs stable today, no change to CF/CR PLAN FOR INPATIENT GLYCEMIC CONTROL: * Hold outpatient oral diabetes medications * Basal insulin * Lantus 10 units SQ daily HS * Bolus insulin * NovoLog per scale ACHS or Q6hrs while NPO * Goal Range: Low 110 mg/dL - High 140 mg/dL * Correction Factor: 20 mg/dL/unit * Nutritional / Prandial insulin per carb ratio of 1 unit per 7 grams CHO consumed
[2022-10-12] MEDS ORDERED: LANTUS PER UNIT CHARGE SQ SCH (21:00)
[2022-10-12] MEDS: CETIRIZINE HCL 10 MG TABLET PO SCH (21:25)
[2022-10-13] MEDS: traMADol HCL 50 MG TABLET PO PRN ×2 (00:03→14:20)
[2022-10-13] MEDS: LEVALBUTEROL 1.25MG/0.5ML NEB INH SCH ×4 (00:11→20:33)
[2022-10-13] MEDS: IPRATROPIUM BROMIDE NEB SOLN 0.02% 2.5 ML VIAL INH SCH ×4 (00:11→20:33)
[2022-10-13] MEDS: DOXYCYCLINE HYCLATE 100 MG in DEXTROSE 5% 100 ML IV SCH ×2 (03:21→15:11)
[2022-10-13] MEDS: methylPREDNISolone 40 MG in SYRINGE 0 ML IV SCH ×2 (08:50→21:09)
[2022-10-13] MEDS: INSULIN ASPART PER UNIT CHARGE SC SCH ×6 (08:50→20:52)
[2022-10-13] MEDS: PANTOprazole 40 MG TAB PO SCH (08:52)
[2022-10-13] MEDS: buPROPion XL 300 MG TABCR PO SCH (08:52)
[2022-10-13] MEDS: MONTELUKAST SODIUM 10 MG TABLET PO SCH (08:52)
[2022-10-13] MEDS: hydroCHLOROthiazide 25 MG TAB PO SCH (08:52)
[2022-10-13] MEDS: FLUTICASONE/VILANTEROL 100/25MCG 14 PUFFS/INHALER INH SCH (08:52)
--- NOTE | 2022-10-13 11:21 | Hospitalist Progress Note ---
Date of Service October 13, 2022 Assessment & Plan (1) Asthma exacerbation: Plan: per admitting service notes with addendum: (2) Acute respiratory failure with hypoxia: Plan: Patient is 32-year-old female with PMH HTN, DM II, asthma, GERD, depression, anxiety, LANG, obesity presented to ER with complaint of URI symptoms x 5 days with increased SOB and wheezing x3 days. In ER O2 sat noted to drop to 87% on room air up to 95% on 2 L. In ER was given hour-long albuterol neb, magnesium sulfate 1 g IV, Solu-Medrol 60 mg IV. Patient with residual wheezing and shortness of breath No leukocytosis. Respiratory panel + human metapneumovirus CXR: No acute infiltrate Asthma exacerbation secondary to human metapneumovirus Continue supplemental oxygen as needed, wean as able Xopenex, Atrovent scheduled nebs Solu-Medrol 40mg Q8H IV Hold home Flovent, start Breo Continue home singular CBC, BMP in a.m. 10/13 gradually improving continue Nebs, Breo, Solumedrol- taper to q12h , Doxy PO add Mucinex IS, FV headache CT head: unremarkable PRN Tramadol resolving (3) Hypokalemia: Plan: K: 3.4 Replace and monitor resolved (4) Diabetes mellitus, type 2: Plan: A1c: 6.1 on 07/24/2022 Hold home metformin and Trulicity Basal bolus insulin sliding scale per protocol. Monitor BSG's, May need to further adjust with patient receiving steroids BSG 120s-140s continue Insulin regimen (5) Hypertension: Plan: Continue home HCTZ (6) Depression with anxiety: Plan: Continue bupropion, hydroxyzine as needed (7) Severe sleep apnea: Plan: CPAP at bedtime (8) Obesity: Plan: BMI: 49 Patient has been working with outpatient weight management and is making lifestyle changes and has had some weight loss DVT Prophylaxis Lovenox SC Full Code as per discussion with pt Follows with Dr Pichardo for routine care Disposition lives at home anticipate d/c home when medically stable plan of care discussed with patient in detail and at length all questions answered she is understanding, agreeable, comfortable with the plan of care Admission and Anticipated Discharge Date Admission Date: October 11, 2022 Subjective ff up for asthma exacerbation, etc seen resting in bed, sitting up on room air, in good spirits states she feels slightly better than yesterday able to bring up more phlegm no chest pain, active dyspnea no fever/chills no other symptoms Review of Systems Review of Systems: all noted and negative except for above Physical Exam Physical Exam: General- oriented x 3, not in distress, speaks in sentences with no effort or accessory muscle use Eyes- anicteric Neck- no JVD Lungs- mild scattered wheeze BL no crackles good air entry bilaterally Heart- normal rate, regular rhythm; no murmurs Abdomen- normal bowel sounds, nondistended, soft, nontender Extremities- no pretibial edema, no calf tenderness Neuro- alert, oriented x 3; no gross focal neurologic deficits Skin- warm & dry Results & Data Results & Data Vital Signs (Past 12 Hours) Vital Signs Temp Pulse Pulse Resp BP Pulse Ox Pulse Ox 10/13/22 09:00 92 10/13/22 07:00 92 10/13/22 08:13 36.6 C 87 16 121/76 96 10/13/22 07:40 72 10/13/22 07:38 104 H 18 96 10/13/22 03:40 36.5 C 73 18 124/75 95 10/13/22 00:12 18 93 10/12/22 23:36 36.8 C 80 20 139/84 92 O2 Del Method O2 Del Method O2 Flow Rate FiO2 10/13/22 09:00 Room Air 10/13/22 07:00 Room Air 10/13/22 08:13 Room Air 10/13/22 07:40 10/13/22 07:38 Room Air 21 10/13/22 03:40 Room Air 10/13/22 00:12 Room Air 10/12/22 23:36 Nasal Cannula 2 all noted and reviewed including below
[2022-10-13] MEDS: ENOXAPARIN INJ 40 MG/0.4 ML SYR SQ SCH (12:25)
[2022-10-13] MEDS: guaiFENesin 600 MG TABCR PO SCH ×2 (12:25→21:04)
[2022-10-13] MEDS: LANTUS PER UNIT CHARGE SQ SCH (21:03)
[2022-10-13] MEDS: CETIRIZINE HCL 10 MG TABLET PO SCH (21:05)
[2022-10-14] MEDS: ENOXAPARIN INJ 40 MG/0.4 ML SYR SQ SCH ×3 (00:11→23:30)
[2022-10-14] MEDS: LEVALBUTEROL 1.25MG/0.5ML NEB INH SCH ×4 (00:17→19:07)
[2022-10-14] MEDS: IPRATROPIUM BROMIDE NEB SOLN 0.02% 2.5 ML VIAL INH SCH ×4 (00:17→19:07)
[2022-10-14] MEDS: DOXYCYCLINE HYCLATE 100 MG in DEXTROSE 5% 100 ML IV SCH (03:49)
[2022-10-14] MEDS: INSULIN ASPART PER UNIT CHARGE SC SCH ×4 (08:52→21:34)
[2022-10-14] MEDS ORDERED: LANTUS PER UNIT CHARGE SQ ONE (08:54)
[2022-10-14] MEDS ORDERED: INSULIN ASPART PER UNIT CHARGE SC ONE (08:54)
[2022-10-14] MEDS: methylPREDNISolone 40 MG in SYRINGE 0 ML IV SCH ×2 (08:56→21:48)
[2022-10-14] MEDS: guaiFENesin 600 MG TABCR PO SCH ×2 (08:56→21:34)
[2022-10-14] MEDS: PANTOprazole 40 MG TAB PO SCH (08:56)
[2022-10-14] MEDS: hydroCHLOROthiazide 25 MG TAB PO SCH (08:57)
[2022-10-14] MEDS: FLUTICASONE/VILANTEROL 100/25MCG 14 PUFFS/INHALER INH SCH (08:59)
[2022-10-14] MEDS: buPROPion XL 300 MG TABCR PO SCH (09:00)
--- NOTE | 2022-10-14 13:51 | Pharmacy Report ---
Pharmacy Glycemic Short Note 2 - Date of Service October 14, 2022 - Glycemic Short BSG Results (Last 24 hours): 10/13/22 10/13/22 10/14/22 16:34 20:33 07:31 POC Glucose 122 H 107 H 115 H 10/14/22 11:36 POC Glucose 121 H OUTPATIENT ANTIDIABETIC REGIMEN: * Trulicity 1.5mg SQ weekly * Metformin 1000mg PO BID * HbA1c: 6.3% (10/12/22) ASSESSMENT: 10/14/22: * BSGs have been stable on current regimen. * SoluMedrol was reduced from q8h --> q12h yesterday. Expect that insulin requirements may decrease as steroids are further tapered. * No changes indicated at this time. 10/12 * 32 year old admitted with asthma exacerbation. Type 2 diabetic - pharmacy consulted for glycemic management * Patient received total of 12 units of insulin yesterday, of which 10 units were basal insulin * Fasting BSG 122 mg/dL - will continue with same basal insulin. BSGs stable today, no change to CF/CR PLAN FOR INPATIENT GLYCEMIC CONTROL: * Hold outpatient oral diabetes medications * Basal insulin * Lantus 10 units SQ qHS * Bolus insulin * NovoLog per scale ACHS or Q6hrs while NPO * Goal Range: Low 110 mg/dL - High 140 mg/dL * Correction Factor: 20 mg/dL/unit * Nutritional / Prandial insulin per carb ratio of 1 unit per 7 grams CHO consumed
[2022-10-14] MEDS: DOXYCYCLINE HYCLATE 100 MG CAP PO SCH (17:21)
--- NOTE | 2022-10-14 18:29 | Hospitalist Progress Note ---
Date of Service October 14, 2022 Assessment & Plan (1) Asthma exacerbation: Plan: per admitting service notes with addendum: (2) Acute respiratory failure with hypoxia: Plan: Patient is 32-year-old female with PMH HTN, DM II, asthma, GERD, depression, anxiety, LANG, obesity presented to ER with complaint of URI symptoms x 5 days with increased SOB and wheezing x3 days. In ER O2 sat noted to drop to 87% on room air up to 95% on 2 L. In ER was given hour-long albuterol neb, magnesium sulfate 1 g IV, Solu-Medrol 60 mg IV. Patient with residual wheezing and shortness of breath No leukocytosis. Respiratory panel + human metapneumovirus CXR: No acute infiltrate Asthma exacerbation secondary to human metapneumovirus 10/14 gradually improving continue Nebs, Breo, Solumedrol- q12h , Doxy PO, Mucinex IS, FV Will need slow prednisone taper upon discharge and Breo headache CT head: unremarkable PRN Tramadol Resolved (3) Hypokalemia: Plan: K: 3.4 Replace and monitor resolved (4) Diabetes mellitus, type 2: Plan: A1c: 6.1 on 07/24/2022 Hold home metformin and Trulicity Basal bolus insulin sliding scale per protocol. Monitor BSG's, May need to further adjust with patient receiving steroids BSG 120s continue Insulin regimen (5) Hypertension: Plan: Continue home HCTZ (6) Depression with anxiety: Plan: Continue bupropion, hydroxyzine as needed (7) Severe sleep apnea: Plan: CPAP at bedtime (8) Obesity: Plan: BMI: 49 Patient has been working with outpatient weight management and is making lifestyle changes and has had some weight loss DVT Prophylaxis Lovenox SC Full Code as per discussion with pt Follows with Dr Pichardo for routine care Disposition lives at home anticipate d/c home when medically stable plan of care discussed with patient in detail and at length all questions answered she is understanding, agreeable, comfortable with the plan of care Admission and Anticipated Discharge Date Admission Date: October 11, 2022 Subjective For asthma exacerbation secondary to metapneumovirus, etc. Seen resting in bed, on room air, in good spirits States she is gradually improving daily Breathing is improving, but still not back to baseline, still has some dyspnea on exertion Able to expectorate more phlegm No chest pain, fevers or chills, dizziness, No other symptom Review of Systems Review of Systems: all noted and negative except for above Physical Exam Physical Exam: General- oriented x 3, not in distress, speaks in sentences with no effort or accessory muscle use Eyes- anicteric Neck- no JVD Lungs-mild scattered wheeze bilaterally, no crackles Heart- normal rate, regular rhythm; no murmurs Abdomen- normal bowel sounds, nondistended, soft, nontender Extremities- no pretibial edema, no calf tenderness Neuro- alert, oriented x 3; no gross focal neurologic deficits Skin- warm & dry Results & Data Results & Data Vital Signs (Past 12 Hours) Vital Signs Temp Pulse Pulse Resp BP Pulse Ox Pulse Ox 10/14/22 16:53 36.9 C 97 H 16 143/95 H 93 10/14/22 14:10 98 H 10/14/22 12:52 78 17 95 10/14/22 12:07 36.7 C 83 16 148/82 H 94 10/14/22 10:39 10/14/22 09:00 96 10/14/22 07:00 96 10/14/22 08:10 36.6 C 88 16 125/78 92 10/14/22 07:11 85 10/14/22 07:04 79 17 97 O2 Del Method O2 Del Method 10/14/22 16:53 Room Air 10/14/22 14:10 10/14/22 12:52 Room Air 10/14/22 12:07 Room Air 10/14/22 10:39 Room Air 10/14/22 09:00 Room Air 10/14/22 07:00 Room Air 10/14/22 08:10 Room Air 10/14/22 07:11 10/14/22 07:04 Room Air all noted and reviewed including below
[2022-10-14] MEDS: CETIRIZINE HCL 10 MG TABLET PO SCH (21:33)
[2022-10-14] MEDS: LANTUS PER UNIT CHARGE SQ SCH (21:46)
[2022-10-15] MEDS: LEVALBUTEROL 1.25MG/0.5ML NEB INH SCH ×4 (01:01→19:28)
[2022-10-15] MEDS: IPRATROPIUM BROMIDE NEB SOLN 0.02% 2.5 ML VIAL INH SCH ×4 (01:01→19:28)
[2022-10-15] MEDS: DOXYCYCLINE HYCLATE 100 MG CAP PO SCH ×2 (05:58→18:20)
[2022-10-15] MEDS: INSULIN ASPART PER UNIT CHARGE SC SCH ×4 (08:57→22:21)
[2022-10-15] MEDS: methylPREDNISolone 40 MG in SYRINGE 0 ML IV SCH ×2 (09:05→22:21)
[2022-10-15] MEDS: guaiFENesin 600 MG TABCR PO SCH ×2 (09:06→22:20)
[2022-10-15] MEDS: buPROPion XL 300 MG TABCR PO SCH (09:06)
[2022-10-15] MEDS: PANTOprazole 40 MG TAB PO SCH (09:06)
[2022-10-15] MEDS: FLUTICASONE/VILANTEROL 100/25MCG 14 PUFFS/INHALER INH SCH (09:06)
[2022-10-15] MEDS: hydroCHLOROthiazide 25 MG TAB PO SCH (09:07)
[2022-10-15] MEDS: ENOXAPARIN INJ 40 MG/0.4 ML SYR SQ SCH ×2 (12:22→22:30)
--- NOTE | 2022-10-15 14:54 | Pharmacy Report ---
Pharmacy Glycemic Short Note 2 - Date of Service October 15, 2022 - Glycemic Short BSG Results (Last 24 hours): 10/14/22 10/14/22 10/15/22 16:48 20:06 07:43 POC Glucose 123 H 96 109 H 10/15/22 11:23 POC Glucose 125 H OUTPATIENT ANTIDIABETIC REGIMEN: * Trulicity 1.5mg SC weekly * Metformin 1000mg PO BID * HbA1c: 6.3% (10/12/22) ASSESSMENT: 10/15: * Susan received 30 units of insulin yesterday, 10 units basal + 20 units bolus. BSGs were: 367-304-777-96 mg/dL. * Fasting BSG this AM was 109 mg/dL. * No change to regimen today. * Remains on Doxycycline IV and Solu-Medrol 40 mg IV every 12 hours. 10/14: * BSGs have been stable on current regimen. * SoluMedrol was reduced from q8h --> q12h yesterday. Expect that insulin requirements may decrease as steroids are further tapered. * No changes indicated at this time. 10/12: * 32 year old admitted with asthma exacerbation. Type 2 diabetic - pharmacy consulted for glycemic management * Patient received total of 12 units of insulin yesterday, of which 10 units were basal insulin * Fasting BSG 122 mg/dL - will continue with same basal insulin. BSGs stable today, no change to CF/CR PLAN FOR INPATIENT GLYCEMIC CONTROL: * Hold outpatient oral diabetes medications * Basal insulin * Lantus 10 units SC HS * Bolus insulin * NovoLog per scale ACHS or Q6hrs while NPO * Goal Range: Low 110 mg/dL - High 140 mg/dL * Correction Factor: 20 mg/dL/unit * Nutritional / Prandial insulin per carb ratio of 1 unit per 7 grams CHO consumed
--- NOTE | 2022-10-15 17:58 | Hospitalist Progress Note ---
Date of Service October 15, 2022 Assessment & Plan (1) Asthma exacerbation: Plan: per admitting service notes with addendum: (2) Acute respiratory failure with hypoxia: Plan: Patient is 32-year-old female with PMH HTN, DM II, asthma, GERD, depression, anxiety, LANG, obesity presented to ER with complaint of URI symptoms x 5 days with increased SOB and wheezing x3 days. In ER O2 sat noted to drop to 87% on room air up to 95% on 2 L. In ER was given hour-long albuterol neb, magnesium sulfate 1 g IV, Solu-Medrol 60 mg IV. Patient with residual wheezing and shortness of breath No leukocytosis. Respiratory panel + human metapneumovirus CXR: No acute infiltrate Asthma exacerbation secondary to human metapneumovirus Continue with intravenous Solu-Medrol, nebulized bronchodilator and cough supp ressant Cynically not yet ready to be discharged Headache CT head: unremarkable PRN Tramadol Resolved (3) Hypokalemia: Plan: K: 3.4 Replace and monitor resolved (4) Diabetes mellitus, type 2: Plan: A1c: 6.1 on 07/24/2022 Hold home metformin and Trulicity Basal bolus insulin sliding scale per protocol. Monitor BSG's, May need to further adjust with patient receiving steroids BSG 120s continue Insulin regimen (5) Hypertension: Plan: Continue home HCTZ (6) Depression with anxiety: Plan: Continue bupropion, hydroxyzine as needed (7) Severe sleep apnea: Plan: CPAP at bedtime (8) Obesity: Plan: BMI: 49 Patient has been working with outpatient weight management and is making lifestyle changes and has had some weight loss DVT Prophylaxis Lovenox SC Full Code as per discussion with pt Follows with Dr Pichardo for routine care Disposition lives at home anticipate d/c home when medically stable plan of care discussed with patient in detail and at length all questions answered she is understanding, agreeable, comfortable with the plan of care Admission and Anticipated Discharge Date Admission Date: October 11, 2022 Subjective 10/15/2022 The patient was seen and examined in medical telemetry unit She remains very symptomatic with wheezing, shortness of breath and cough Not yet ready to be discharged Review of Systems Review of Systems: All systems reviewed and are unremarkable except as noted below Physical Exam Physical Exam: Lying in bed with shortness of breath and cough Constitutional: well developed, well nourished, + ill appearing and + morbidly obese Eyes: PERRL, conjunctivae normal, anicteric sclerae ENMT: external ear and nose normal, oropharynx normal Neck: trachea midline, no thyromegaly Respiratory: + respiratory distress and + uses accessory muscles Auscultation: + diminished lung sounds, + crackles and + wheezes Cardiovascular: Rate/Rhythm: regular rate and regular rhythm; not tachycardic Heart Sounds: normal S1 and normal S2; no murmur Extremities: + edema (Trace edema bilaterally) Gastrointestinal (Abdomen): Inspection/Auscultation: normal bowel sounds; abdomen not distended Percussion/Palpation: abdomen soft; abdomen nontender Musculoskeletal: No acute arthritis in any joint Neurologic: normal touch/pain/proprioception and moves all extremities; no focal motor deficits Psychiatric: A+Ox3, euthymic affect Lymphatic: no cervical or axillary lymphadenopathy Results & Data Results & Data Vital Signs (Past 12 Hours) Vital Signs Temp Pulse Pulse Resp BP Pulse Ox Pulse Ox 10/15/22 15:38 37.0 C 89 22 146/80 H 97 10/15/22 12:54 78 17 95 10/15/22 11:24 36.9 C 90 20 108/71 92 10/15/22 09:00 95 10/15/22 07:00 94 10/15/22 07:44 36.6 C 86 20 110/75 98 10/15/22 07:27 10/15/22 07:07 78 10/15/22 06:57 76 16 97 O2 Del Method O2 Del Method 10/15/22 15:38 Room Air 10/15/22 12:54 Room Air 10/15/22 11:24 Room Air 10/15/22 09:00 Room Air 10/15/22 07:00 Room Air 10/15/22 07:44 Room Air 10/15/22 07:27 Room Air 10/15/22 07:07 10/15/22 06:57 Room Air Medications Administered Current Inpatient Medications Bupropion HCl (Bupropion Xl 300 Mg Tabcr) 300 mg PO QAM [facility] Stop: 11/10/22 14:45 Last Admin: 10/15/22 09:06 Dose: 300 mg Cetirizine HCl (Cetirizine Hcl 10 Mg Tablet) 10 mg PO PM [facility] Stop: 11/10/22 20:59 Last Admin: 10/14/22 21:33 Dose: Not Given Dextrose (Dextrose 50% 50 Ml Syringe) 25 - 50 ml IV UD PRN; Protocol PRN Reason: Hypoglycemia Protocol Stop: 11/10/22 14:45 Doxycycline Hyclate (Doxycycline Hyclate 100 Mg Cap) 100 mg PO Q12H [facility] Stop: 10/16/22 23:59 Last Admin: 10/15/22 05:58 Dose: 100 mg Enoxaparin Sodium (Enoxaparin Inj 40 Mg/0.4 Ml Syr) 40 mg SQ Q12H [facility] Stop: 11/12/22 11:29 Last Admin: 10/15/22 12:22 Dose: 40 mg Fluticasone/Vilanterol (Fluticasone/Vilanterol 100/25mcg 14 Puffs/Inhaler) 1 puffs INH DAILY [facility] Stop: 11/10/22 14:45 Last Admin: 10/15/22 09:06 Dose: 1 puffs Glucagon (Glucagon For Inj 1 Mg Vial) 1 mg SQ UD PRN; Protocol PRN Reason: Hypoglycemia Protocol Stop: 11/10/22 14:45 Glucose (Glucose 10 Tab/Tube) 4 - 8 tab PO UD PRN; Protocol PRN Reason: Hypoglycemia Treatment Stop: 11/10/22 14:45 Glucose (Glucose 40% Gel 15 Gm Tube) 15 - 30 gm PO UD PRN; Protocol PRN Reason: Hypoglycemia Protocol Stop: 11/10/22 14:45 Guaifenesin (Guaifenesin 600 Mg Tabcr) 1,200 mg PO Q12 [facility] Stop: 11/12/22 11:19 Last Admin: 10/15/22 09:06 Dose: 1,200 mg Hydrochlorothiazide (Hydrochlorothiazide 25 Mg Tab) 12.5 mg PO QAM [facility] Stop: 11/11/22 08:59 Last Admin: 10/15/22 09:07 Dose: 12.5 mg Hydroxyzine HCl (Hydroxyzine Hcl 25 Mg Tab) 25 mg PO HS PRN PRN Reason: Anxiety Stop: 11/10/22 14:45 Methylprednisolone 40 mg/ (Syringe) 0.64 mls @ 1.5 mls/min IV Q12H [facility] Stop: 11/12/22 20:59 Last Admin: 10/15/22 09:05 Dose: 1.5 mls/min Insulin Aspart (Insulin Aspart Per Unit Charge) 0 units SC ACHS [facility]; Protocol Stop: 11/12/22 11:29 Last Admin: 10/15/22 12:20 Dose: 7 units Insulin Glargine (Lantus Per Unit Charge) 10 units SQ HS [facility]; Protocol Stop: 11/12/22 20:59 Last Admin: 10/14/22 21:46 Dose: 10 units Ipratropium [place] (Ipratropium [place] Neb Soln 0.02% 2.5 Ml Vial) 0.5 mg INH Q6R [facility] Stop: 11/10/22 12:59 Last Admin: 10/15/22 12:54 Dose: 0.5 mg Levalbuterol HCl (Levalbuterol 1.25mg/0.5ml Neb) 1.25 mg INH Q6R [facility] Stop: 11/10/22 12:59 Last Admin: 10/15/22 12:54 Dose: 1.25 mg Miscellaneous (Carbohydrates For Hypoglycemia ) 15 - 30 gm PO UD PRN PRN Reason: Hypoglycemia Protocol Stop: 11/10/22 14:45 Miscellaneous Information (Pharmacy Glycemic Mgmt Consult) 1 each N/A UD PRN PRN Reason: Consult Stop: 11/10/22 14:45 Oxycodone HCl (Oxycodone Hcl Ir 5 Mg Tab (Immediate Release)) 5 mg PO Q4H PRN PRN Reason: Pain Stop: 10/26/22 00:34 Pantoprazole Sodium (Pantoprazole 40 Mg Tab) 40 mg PO DAILY [facility] Stop: 11/11/22 08:59 Last Admin: 10/15/22 09:06 Dose: 40 mg Tramadol HCl (Tramadol Hcl 50 Mg Tablet) 50 mg PO Q6H PRN PRN Reason: moderate to severe pain Stop: 11/11/22 09:20 Last Admin: 10/13/22 14:20 Dose: 50 mg
[2022-10-15] MEDS: CETIRIZINE HCL 10 MG TABLET PO SCH (22:18)
[2022-10-15] MEDS: traMADol HCL 50 MG TABLET PO PRN (22:28)
[2022-10-15] MEDS: LANTUS PER UNIT CHARGE SQ SCH (23:22)
[2022-10-16] MEDS: IPRATROPIUM BROMIDE NEB SOLN 0.02% 2.5 ML VIAL INH SCH ×2 (01:14→07:29)
[2022-10-16] MEDS: LEVALBUTEROL 1.25MG/0.5ML NEB INH SCH ×2 (01:14→07:28)
[2022-10-16] MEDS: FLUTICASONE/VILANTEROL 100/25MCG 14 PUFFS/INHALER INH SCH (07:48)
[2022-10-16] MEDS: PANTOprazole 40 MG TAB PO SCH (07:49)
[2022-10-16] MEDS: buPROPion XL 300 MG TABCR PO SCH (07:49)
[2022-10-16] MEDS: guaiFENesin 600 MG TABCR PO SCH ×2 (07:50→19:28)
[2022-10-16] MEDS: hydroCHLOROthiazide 25 MG TAB PO SCH (07:51)
[2022-10-16] MEDS: methylPREDNISolone 40 MG in SYRINGE 0 ML IV SCH ×2 (07:51→21:24)
[2022-10-16] MEDS: INSULIN ASPART PER UNIT CHARGE SC SCH ×4 (08:49→21:18)
[2022-10-16] MEDS: DOXYCYCLINE HYCLATE 100 MG CAP PO SCH ×2 (08:51→19:28)
[2022-10-16] MEDS ORDERED: LEVALBUTEROL HCL 1.25 MG/3 ML NEB INH PRN (11:33)
[2022-10-16] MEDS: ENOXAPARIN INJ 40 MG/0.4 ML SYR SQ SCH ×2 (12:58→22:45)
[2022-10-16] MEDS ORDERED: IPRATROPIUM BROMIDE/ALBUTEROL respimat INH INH SCH (13:00)
--- NOTE | 2022-10-16 13:53 | Hospitalist Progress Note ---
Date of Service October 16, 2022 Assessment & Plan (1) Asthma exacerbation: Plan: per admitting service notes with addendum: (2) Acute respiratory failure with hypoxia: Plan: Patient is 32-year-old female with PMH HTN, DM II, asthma, GERD, depression, anxiety, LANG, obesity presented to ER with complaint of URI symptoms x 5 days with increased SOB and wheezing x3 days. In ER O2 sat noted to drop to 87% on room air up to 95% on 2 L. In ER was given hour-long albuterol neb, magnesium sulfate 1 g IV, Solu-Medrol 60 mg IV. Patient with residual wheezing and shortness of breath No leukocytosis. Respiratory panel + human metapneumovirus CXR: No acute infiltrate Asthma exacerbation secondary to human metapneumovirus Continue with intravenous Solu-Medrol, nebulized bronchodilator and cough supp ressant Minimally improved today We will get PT evaluation prior to discharge Will await to a step O2 saturation test prior to discharge likely tomorrow Headache CT head: unremarkable PRN Tramadol Resolved (3) Hypokalemia: Plan: K: 3.4 Replace and monitor resolved (4) Diabetes mellitus, type 2: Plan: A1c: 6.1 on 07/24/2022 Hold home metformin and Trulicity Basal bolus insulin sliding scale per protocol. Monitor BSG's, May need to further adjust with patient receiving steroids BSG 120s continue Insulin regimen (5) Hypertension: Plan: Continue home HCTZ (6) Depression with anxiety: Plan: Continue bupropion, hydroxyzine as needed (7) Severe sleep apnea: Plan: CPAP at bedtime (8) Obesity: Plan: BMI: 49 Patient has been working with outpatient weight management and is making lifestyle changes and has had some weight loss DVT Prophylaxis Lovenox SC Full Code as per discussion with pt Follows with Dr Pichardo for routine care Disposition lives at home anticipate d/c home when medically stable plan of care discussed with patient in detail and at length all questions answered she is understanding, agreeable, comfortable with the plan of care A total of 40 minutes spent to talk to the patient, examining her, review medications and updated medicine and review of imaging studies Admission and Anticipated Discharge Date Admission Date: October 11, 2022 Subjective 10/15/2022 The patient was seen and examined in medical telemetry unit She remains very symptomatic with wheezing, shortness of breath and cough Not yet ready to be discharged 10/16/2022 The patient was seen and examined in medical telemetry unit She has been feeling much better today Minimal or no wheezing at rest and has been saturating normally on room air Gets short of breath with wheezing with exertion Review of Systems 2 Review of Systems: All systems reviewed and are unremarkable except as noted below Physical Exam Physical Exam: Lying in bed with shortness of breath and cough Constitutional: well developed, well nourished, + ill appearing and + morbidly obese Eyes: PERRL, conjunctivae normal, anicteric sclerae ENMT: external ear and nose normal, oropharynx normal Neck: trachea midline, no thyromegaly Respiratory: + respiratory distress and + uses accessory muscles Auscultation: + diminished lung sounds, + crackles and + wheezes Cardiovascular: Rate/Rhythm: regular rate and regular rhythm; not tachycardic Heart Sounds: normal S1 and normal S2; no murmur Extremities: + edema (Trace edema bilaterally) Gastrointestinal (Abdomen): Inspection/Auscultation: normal bowel sounds; abdomen not distended Percussion/Palpation: abdomen soft; abdomen nontender Musculoskeletal: No acute arthritis involving any joint Neurologic: normal touch/pain/proprioception and moves all extremities; no focal motor deficits Psychiatric: A+Ox3, euthymic affect Lymphatic: no cervical or axillary lymphadenopathy Results & Data Results & Data Vital Signs (Past 12 Hours) Vital Signs Temp Pulse Pulse Resp BP BP Pulse Ox 10/16/22 12:01 36.9 C 98 H 20 156/90 H 94 10/16/22 07:45 10/16/22 09:00 10/16/22 07:54 82 18 131/88 93 10/16/22 07:00 10/16/22 07:32 84 10/16/22 07:31 85 16 93 10/16/22 03:16 36.6 C 82 20 143/87 H 94 Pulse Ox O2 Del Method O2 Del Method FiO2 10/16/22 12:01 Room Air 10/16/22 07:45 Room Air 10/16/22 09:00 93 Room Air 10/16/22 07:54 Room Air 10/16/22 07:00 95 Room Air 10/16/22 07:32 10/16/22 07:31 Room Air 21 10/16/22 03:16 Room Air Medications Administered Current Inpatient Medications Albuterol (Albuterol Hfa 8 Gm Inhaler) 1 puffs INH QIDR [facility] Stop: 11/15/22 14:59 Bupropion HCl (Bupropion Xl 300 Mg Tabcr) 300 mg PO QAM [facility] Stop: 11/10/22 14:45 Last Admin: 10/16/22 07:49 Dose: 300 mg Cetirizine HCl (Cetirizine Hcl 10 Mg Tablet) 10 mg PO PM [facility] Stop: 11/10/22 20:59 Last Admin: 10/15/22 22:18 Dose: Not Given Dextrose (Dextrose 50% 50 Ml Syringe) 25 - 50 ml IV UD PRN; Protocol PRN Reason: Hypoglycemia Protocol Stop: 11/10/22 14:45 Doxycycline Hyclate (Doxycycline Hyclate 100 Mg Cap) 100 mg PO Q12H [facility] Stop: 10/16/22 23:59 Last Admin: 10/16/22 08:51 Dose: 100 mg Enoxaparin Sodium (Enoxaparin Inj 40 Mg/0.4 Ml Syr) 40 mg SQ Q12H [facility] Stop: 11/12/22 11:29 Last Admin: 10/16/22 12:58 Dose: 40 mg Fluticasone/Vilanterol (Fluticasone/Vilanterol 100/25mcg 14 Puffs/Inhaler) 1 puffs INH DAILY [facility] Stop: 11/10/22 14:45 Last Admin: 10/16/22 07:48 Dose: 1 puffs Glucagon (Glucagon For Inj 1 Mg Vial) 1 mg SQ UD PRN; Protocol PRN Reason: Hypoglycemia Protocol Stop: 11/10/22 14:45 Glucose (Glucose 10 Tab/Tube) 4 - 8 tab PO UD PRN; Protocol PRN Reason: Hypoglycemia Treatment Stop: 11/10/22 14:45 Glucose (Glucose 40% Gel 15 Gm Tube) 15 - 30 gm PO UD PRN; Protocol PRN Reason: Hypoglycemia Protocol Stop: 11/10/22 14:45 Guaifenesin (Guaifenesin 600 Mg Tabcr) 1,200 mg PO Q12 [facility] Stop: 11/12/22 11:19 Last Admin: 10/16/22 07:50 Dose: 1,200 mg Hydrochlorothiazide (Hydrochlorothiazide 25 Mg Tab) 12.5 mg PO QAM [facility] Stop: 11/11/22 08:59 Last Admin: 10/16/22 07:51 Dose: 12.5 mg Hydroxyzine HCl (Hydroxyzine Hcl 25 Mg Tab) 25 mg PO HS PRN PRN Reason: Anxiety Stop: 11/10/22 14:45 Methylprednisolone 40 mg/ (Syringe) 0.64 mls @ 1.5 mls/min IV Q12H [facility] Stop: 11/12/22 20:59 Last Admin: 10/16/22 07:51 Dose: 1.5 mls/min Insulin Aspart (Insulin Aspart Per Unit Charge) 0 units SC ACHS [facility]; Protocol Stop: 11/12/22 11:29 Last Admin: 10/16/22 12:18 Dose: 8 units Insulin Glargine (Lantus Per Unit Charge) 10 units SQ HS [facility]; Protocol Stop: 11/12/22 20:59 Last Admin: 10/15/22 23:22 Dose: 10 units Ipratropium [place] (Ipratropium [place] Hfa Inhaler) 1 puffs INH QIDR [facility] Stop: 11/15/22 14:59 Levalbuterol HCl (Levalbuterol Hcl 1.25 Mg/3 Ml Neb) 1.25 mg INH Q6R PRN PRN Reason: Shortness Of Breath Or Wheezing Stop: 11/10/22 12:59 Miscellaneous (Carbohydrates For Hypoglycemia ) 15 - 30 gm PO UD PRN PRN Reason: Hypoglycemia Protocol Stop: 11/10/22 14:45 Miscellaneous Information (Pharmacy Glycemic Mgmt Consult) 1 each N/A UD PRN PRN Reason: Consult Stop: 11/10/22 14:45 Oxycodone HCl (Oxycodone Hcl Ir 5 Mg Tab (Immediate Release)) 5 mg PO Q4H PRN PRN Reason: Pain Stop: 10/26/22 00:34 Pantoprazole Sodium (Pantoprazole 40 Mg Tab) 40 mg PO DAILY [facility] Stop: 11/11/22 08:59 Last Admin: 10/16/22 07:49 Dose: 40 mg Tramadol HCl (Tramadol Hcl 50 Mg Tablet) 50 mg PO Q6H PRN PRN Reason: moderate to severe pain Stop: 11/11/22 09:20 Last Admin: 10/15/22 22:28 Dose: 50 mg
[2022-10-16] MEDS: ALBUTEROL HFA 8 GM INHALER INH SCH ×2 (15:11→19:33)
[2022-10-16] MEDS: IPRATROPIUM BROMIDE HFA INHALER INH SCH ×2 (15:12→19:33)
[2022-10-16] MEDS: amLODIPine BESYLATE 5 MG TAB PO SCH (19:27)
[2022-10-16] MEDS: CETIRIZINE HCL 10 MG TABLET PO SCH ×2 (19:28→19:31)
[2022-10-16] MEDS: LANTUS PER UNIT CHARGE SQ SCH (21:22)
[2022-10-17] MEDS: IPRATROPIUM BROMIDE HFA INHALER INH SCH ×2 (07:06→11:36)
[2022-10-17] MEDS: ALBUTEROL HFA 8 GM INHALER INH SCH ×2 (07:06→11:36)
[2022-10-17 07:21] LABS: Hematocrit (blood only) 45.6 % (37.0-47.0); Hemoglobin 14.9 g/dl (12.0-16.0); Mean Corpuscular Hemoglobin 26.1 pg (25.0-34.0); Mean Corpuscular Hgb Conc 32.7 g/dL (32.0-36.0); Mean Platelet Volume 10.4 fL (9.4-12.4); Platelet Count 442 K/uL (130-400); RDW Coefficient of Variation 14.1 % (11.5-14.5); RDW Standard Deviation 41.2 fL (36.4-46.3)
[2022-10-17 07:36] LABS: Creatinine Clr Calc Pharmacy 150.9 ml/min; Est GFR (African American) 111.4 ml/min; Est GFR (Non-African American) 96.1 ml/min
[2022-10-17] MEDS: INSULIN ASPART PER UNIT CHARGE SC SCH ×2 (08:08→12:12)
[2022-10-17] MEDS: FLUTICASONE/VILANTEROL 100/25MCG 14 PUFFS/INHALER INH SCH (08:17)
[2022-10-17] MEDS: buPROPion XL 300 MG TABCR PO SCH (08:18)
[2022-10-17] MEDS: guaiFENesin 600 MG TABCR PO SCH (08:18)
[2022-10-17] MEDS: amLODIPine BESYLATE 5 MG TAB PO SCH (08:18)
[2022-10-17] MEDS: hydroCHLOROthiazide 25 MG TAB PO SCH (08:19)
[2022-10-17] MEDS: PANTOprazole 40 MG TAB PO SCH (08:20)
[2022-10-17] MEDS: methylPREDNISolone 40 MG in SYRINGE 0 ML IV SCH (08:22)
--- NOTE | 2022-10-17 12:07 | Hospitalist Progress Note ---
Date of Service October 17, 2022 Assessment & Plan (1) Asthma exacerbation: Plan: per admitting service notes with addendum: (2) Acute respiratory failure with hypoxia: Plan: Patient is 32-year-old female with PMH HTN, DM II, asthma, GERD, depression, anxiety, LANG, obesity presented to ER with complaint of URI symptoms x 5 days with increased SOB and wheezing x3 days. In ER O2 sat noted to drop to 87% on room air up to 95% on 2 L. In ER was given hour-long albuterol neb, magnesium sulfate 1 g IV, Solu-Medrol 60 mg IV. Patient with residual wheezing and shortness of breath No leukocytosis. Respiratory panel + human metapneumovirus CXR: No acute infiltrate Asthma exacerbation secondary to human metapneumovirus Continue with intravenous Solu-Medrol, nebulized bronchodilator and cough supp ressant We will get PT evaluation prior to discharge-has been ambulating in the room in the hallway without any symptoms Has been ambulating in the room and in the hallway without any shortness of tevin ath Past that 2 steps O2 saturation test Will be discharged home this afternoon on tapering dose of steroid. Headache CT head: unremarkable PRN Tramadol Resolved (3) Hypokalemia: Plan: K: 3.4 Replace and monitor resolved (4) Diabetes mellitus, type 2: Plan: A1c: 6.1 on 07/24/2022 Hold home metformin and Trulicity Basal bolus insulin sliding scale per protocol. Monitor BSG's, May need to further adjust with patient receiving steroids BSG 120s continue Insulin regimen (5) Hypertension: Plan: Continue home HCTZ (6) Depression with anxiety: Plan: Continue bupropion, hydroxyzine as needed (7) Severe sleep apnea: Plan: CPAP at bedtime (8) Obesity: Plan: BMI: 49 Patient has been working with outpatient weight management and is making lifestyle changes and has had some weight loss DVT Prophylaxis Lovenox SC Full Code as per discussion with pt Follows with Dr Pichardo for routine care Disposition lives at home anticipate d/c home when medically stable plan of care discussed with patient in detail and at length all questions answered she is understanding, agreeable, comfortable with the plan of care A total of 40 minutes spent to talk to the patient, examining her, review medications and updated medicine and review of imaging studies Admission and Anticipated Discharge Date Admission Date: October 11, 2022 Subjective 10/15/2022 The patient was seen and examined in medical telemetry unit She remains very symptomatic with wheezing, shortness of breath and cough Not yet ready to be discharged 10/16/2022 The patient was seen and examined in medical telemetry unit She has been feeling much better today Minimal or no wheezing at rest and has been saturating normally on room air Gets short of breath with wheezing with exertion 10/17/2022 The patient was seen and examined in medical telemetry unit She has been much better today and does not have any wheezing with minimal exertion Her cough is improved She will have a 2 steps O2 saturation test and will be discharged this afternoon Review of Systems Review of Systems: All systems reviewed and are unremarkable except as noted below Physical Exam Physical Exam: Lying in bed with shortness of breath and cough Constitutional: well developed, well nourished, + ill appearing and + morbidly obese Eyes: PERRL, conjunctivae normal, anicteric sclerae ENMT: external ear and nose normal, oropharynx normal Neck: trachea midline, no thyromegaly Respiratory: no respiratory distress and does not use accessory muscles Auscultation: + diminished lung sounds and + wheezes (Minimal occasional wheezing); no crackles Cardiovascular: Rate/Rhythm: regular rate and regular rhythm; not tachycardic Heart Sounds: normal S1 and normal S2; no murmur Extremities: + edema (Trace edema bilaterally) Gastrointestinal (Abdomen): Inspection/Auscultation: normal bowel sounds; abdomen not distended Percussion/Palpation: abdomen soft; abdomen nontender Musculoskeletal: No acute arthritis involving any of the joints Neurologic: normal touch/pain/proprioception and moves all extremities; no focal motor deficits Psychiatric: A+Ox3, euthymic affect Lymphatic: no cervical or axillary lymphadenopathy Results & Data Results & Data Vital Signs (Past 12 Hours) Vital Signs Temp Pulse Pulse Pulse Pulse Resp Resp 10/17/22 11:38 122 H 105 H 109 H 30 H 10/17/22 11:36 109 H 18 10/17/22 11:21 36.8 C 104 H 18 10/17/22 08:20 10/17/22 08:16 10/17/22 07:06 92 H 18 10/17/22 02:35 36.9 C 77 18 Resp Resp BP Pulse Ox Pulse Ox Pulse Ox Pulse Ox 10/17/22 11:38 22 16 92 95 96 10/17/22 11:36 95 10/17/22 11:21 149/87 H 94 10/17/22 08:20 10/17/22 08:16 145/95 H 10/17/22 07:06 98 10/17/22 02:35 144/86 H 95 O2 Del Method 10/17/22 11:38 10/17/22 11:36 Room Air 10/17/22 11:21 Room Air 10/17/22 08:20 Room Air 10/17/22 08:16 10/17/22 07:06 Room Air 10/17/22 02:35 Room Air Laboratory Results Short CBC 10/17/22 Range/Units 06:29 WBC 10.50 (4.8-10.8) K/ul Hgb 14.9 (12.0-16.0) g/dl Hct 45.6 (37.0-47.0) % Plt Count 442 H (130-400) K/uL BMP 10/17/22 06:29 Creatinine 0.81 Medications Administered Current Inpatient Medications Albuterol (Albuterol Hfa 8 Gm Inhaler) 1 puffs INH QIDR [facility] Stop: 11/15/22 14:59 Last Admin: 10/17/22 11:36 Dose: 1 puffs Amlodipine [place] (Amlodipine Besylate 5 Mg Tab) 5 mg PO QAM [facility] Stop: 11/15/22 17:14 Last Admin: 10/17/22 08:18 Dose: 5 mg Bupropion HCl (Bupropion Xl 300 Mg Tabcr) 300 mg PO QAM [facility] Stop: 11/10/22 14:45 Last Admin: 10/17/22 08:18 Dose: 300 mg Cetirizine HCl (Cetirizine Hcl 10 Mg Tablet) 10 mg PO PM [facility] Stop: 11/10/22 20:59 Last Admin: 10/16/22 19:31 Dose: Not Given Dextrose (Dextrose 50% 50 Ml Syringe) 25 - 50 ml IV UD PRN; Protocol PRN Reason: Hypoglycemia Protocol Stop: 11/10/22 14:45 Enoxaparin Sodium (Enoxaparin Inj 40 Mg/0.4 Ml Syr) 40 mg SQ Q12H [facility] Stop: 11/12/22 11:29 Last Admin: 10/16/22 22:45 Dose: 40 mg Fluticasone/Vilanterol (Fluticasone/Vilanterol 100/25mcg 14 Puffs/Inhaler) 1 puffs INH DAILY [facility] Stop: 11/10/22 14:45 Last Admin: 10/17/22 08:17 Dose: 1 puffs Glucagon (Glucagon For Inj 1 Mg Vial) 1 mg SQ UD PRN; Protocol PRN Reason: Hypoglycemia Protocol Stop: 11/10/22 14:45 Glucose (Glucose 10 Tab/Tube) 4 - 8 tab PO UD PRN; Protocol PRN Reason: Hypoglycemia Treatment Stop: 11/10/22 14:45 Glucose (Glucose 40% Gel 15 Gm Tube) 15 - 30 gm PO UD PRN; Protocol PRN Reason: Hypoglycemia Protocol Stop: 11/10/22 14:45 Guaifenesin (Guaifenesin 600 Mg Tabcr) 1,200 mg PO Q12 [facility] Stop: 11/12/22 11:19 Last Admin: 10/17/22 08:18 Dose: 1,200 mg Hydrochlorothiazide (Hydrochlorothiazide 25 Mg Tab) 12.5 mg PO QAM [facility] Stop: 11/11/22 08:59 Last Admin: 10/17/22 08:19 Dose: 12.5 mg Hydroxyzine HCl (Hydroxyzine Hcl 25 Mg Tab) 25 mg PO HS PRN PRN Reason: Anxiety Stop: 11/10/22 14:45 Methylprednisolone 40 mg/ (Syringe) 0.64 mls @ 1.5 mls/min IV Q12H [facility] Stop: 11/12/22 20:59 Last Admin: 10/17/22 08:22 Dose: 1.5 mls/min Insulin Aspart (Insulin Aspart Per Unit Charge) 0 units SC ACHS [facility]; Protocol Stop: 11/12/22 11:29 Last Admin: 10/17/22 08:08 Dose: 7 units Insulin Glargine (Lantus Per Unit Charge) 8 units SQ HS [facility] Stop: 11/16/22 20:59 Ipratropium [place] (Ipratropium [place] Hfa Inhaler) 1 puffs INH QIDR [facility] Stop: 11/15/22 14:59 Last Admin: 10/17/22 11:36 Dose: 1 puffs Levalbuterol HCl (Levalbuterol Hcl 1.25 Mg/3 Ml Neb) 1.25 mg INH Q6R PRN PRN Reason: Shortness Of Breath Or Wheezing Stop: 11/10/22 12:59 Miscellaneous (Carbohydrates For Hypoglycemia ) 15 - 30 gm PO UD PRN PRN Reason: Hypoglycemia Protocol Stop: 11/10/22 14:45 Miscellaneous Information (Pharmacy Glycemic Mgmt Consult) 1 each N/A UD PRN PRN Reason: Consult Stop: 11/10/22 14:45 Oxycodone HCl (Oxycodone Hcl Ir 5 Mg Tab (Immediate Release)) 5 mg PO Q4H PRN PRN Reason: Pain Stop: 10/26/22 00:34 Pantoprazole Sodium (Pantoprazole 40 Mg Tab) 40 mg PO DAILY [facility] Stop: 11/11/22 08:59 Last Admin: 10/17/22 08:20 Dose: 40 mg Tramadol HCl (Tramadol Hcl 50 Mg Tablet) 50 mg PO Q6H PRN PRN Reason: moderate to severe pain Stop: 11/11/22 09:20 Last Admin: 10/15/22 22:28 Dose: 50 mg
[2022-10-17] MEDS: ENOXAPARIN INJ 40 MG/0.4 ML SYR SQ SCH (12:54)
[2022-10-17] MEDS ORDERED: LANTUS PER UNIT CHARGE SQ SCH (21:00)
--- NOTE | 2022-10-18 07:40 | Discharge Summary ---
Date of Service October 18, 2022 Admission HPI Per Admitting Provider Patient is 32-year-old female with PMH HTN, DM II, asthma, GERD, depression, anxiety, LANG, obesity presented to ER with complaint of shortness of breath x3 days. Patient states 6 days ago started with generalized headache, fever. Headache and fever lasted 2 days preceded by body aches. Patient reports no further fevers. Past 3 days with shortness of breath, wheezing that is aggravated with exertion. Has been using home albuterol inhaler and nebulizer without significant relief. Yesterday and today with increased shortness of breath and has just been sitting and unable to exert herself secondary to increased shortness of breath. Reports nonproductive cough. Denies chest pain. States yesterday mild nasal congestion. Denies sore throat. Denies ill contacts. History of asthma exacerbations in past however has never required hospitalization. Denies diaphoresis, N/V/D/C, dizziness, syncope, vision changes, neck pain, palpitations, hemoptysis, otalgia, abdominal pain, paresthesias, weakness, extremity edema, rashes, urinary symptoms. Admission Exam Per Admitting Provider Physical Exam: General: no acute distress at rest, +obesity Head: normocephalic, atraumatic Eyes: conjunctiva non-injected, anicteric ENT: normal inspection external ears, nose, mucous membranes moist Neck: supple, trachea midline Lungs: +dyspnea with speaking sentences, 96% on 2L via NC, +diminished with diffuse inspiratory and expiratory wheezing throughout, no rhonchi/rales CV: RRR, no murmur, no pretibial edema Abd: Protuberant, normal BS, soft, non-tender Ext: no cyanosis, no calf tenderness Neuro: A&O x 3, no focal deficits noted, normal affect Skin: warm, dry Principal Diagnosis Asthma exacerbation, high blood pressure Discharge Exam Lying in bed with shortness of breath and cough Constitutional well developed, well nourished, + ill appearing and + morbidly obese Eyes PERRL, conjunctivae normal, anicteric sclerae ENMT external ear and nose normal, oropharynx normal Neck trachea midline, no thyromegaly Respiratory no respiratory distress and does not use accessory muscles Auscultation: + diminished lung sounds and + wheezes (Minimal occasional wheezing); no crackles Cardiovascular Rate/Rhythm: regular rate and regular rhythm; not tachycardic Heart Sounds: normal S1 and normal S2; no murmur Extremities: + edema (Trace edema bilaterally) Gastrointestinal (Abdomen) Inspection/Auscultation: normal bowel sounds; abdomen not distended Percussion/Palpation: abdomen soft; abdomen nontender Neurologic normal touch/pain/proprioception and moves all extremities; no focal motor deficits Psychiatric A+Ox3, euthymic affect Lymphatic no cervical or axillary lymphadenopathy Discharge Data Allergies Allergy/AdvReac Type Severity Reaction Status Date / Time Penicillins Allergy Unknown CHILDHOOD--CAN'T Verified 10/11/22 08:37 REMEMBER Consultations 10/11/22 09:10 ED Decision to Admit Stat Ordered Studies 10/12/22 00:20 CT head/brain wo con Stat Hospital Course (1) Asthma exacerbation: per admitting service notes with addendum: (2) Acute respiratory failure with hypoxia: Patient is 32-year-old female with PMH HTN, DM II, asthma, GERD, depression, anxiety, LANG, obesity presented to ER with complaint of URI symptoms x 5 days with increased SOB and wheezing x3 days. In ER O2 sat noted to drop to 87% on room air up to 95% on 2 L. In ER was given hour-long albuterol neb, magnesium sulfate 1 g IV, Solu-Medrol 60 mg IV. Patient with residual wheezing and shortness of breath No leukocytosis. Respiratory panel + human metapneumovirus CXR: No acute infiltrate Asthma exacerbation secondary to human metapneumovirus Continue with intravenous Solu-Medrol, nebulized bronchodilator and cough sup pressant We will get PT evaluation prior to discharge-has been ambulating in the room in the hallway without any symptoms Has been ambulating in the room and in the hallway without any shortness of br eath Past that 2 steps O2 saturation test Will be discharged home this afternoon on tapering dose of steroid. Headache CT head: unremarkable PRN Tramadol Resolved (3) Hypokalemia: K: 3.4 Replace and monitor resolved (4) Diabetes mellitus, type 2: A1c: 6.1 on 07/24/2022 Hold home metformin and Trulicity Basal bolus insulin sliding scale per protocol. Monitor BSG's, May need to further adjust with patient receiving steroids BSG 120s continue Insulin regimen (5) Hypertension: Continue home HCTZ (6) Depression with anxiety: Continue bupropion, hydroxyzine as needed (7) Severe sleep apnea: CPAP at bedtime (8) Obesity: BMI: 49 Patient has been working with outpatient weight management and is making lifestyle changes and has had some weight loss DVT Prophylaxis Lovenox SC Full Code as per discussion with pt Follows with Dr Pichardo for routine care Disposition lives at home anticipate d/c home when medically stable plan of care discussed with patient in detail and at length all questions answered she is understanding, agreeable, comfortable with the plan of care A total of 40 minutes spent to talk to the patient, examining her, review medications and updated medicine and review of imaging studies Total Time Total Time Spent Total Time Spent (In Minutes): 40 minutes Discharge Plan Discharge Items Patient Disposition: Home - Self-Care Reason For Visit: ASTHMA EXACERBATION Discharge Diagnosis: Asthma exacerbation, high blood pressure Condition on Discharge: Good Activity: Resume your previous activity Non-emergency contact: Primary Care Provider Call non-emergency contact if: you have any medication questions and your symptoms worsen Follow-up/Referrals: Genesis Pichardo DO [Primary Care Provider] - (Date & Time 10/23/2022 11:00 AM Provider Genesis Pichardo DO Department [facility] ) Diet: Carb Consistent or DM2 Addtl Attending Provider Instructions: Please take precautions to avoid falls Try to avoid respiratory irritants as advised and discussed Try to use inhalers and use less often nebulizers as advised to avoid palpitation and high heart rate and tremors Please take the medications as advised-Flovent is your inhaler that needs to be continued to prevent the attack of asthma. New medications are amlodipine 5 mg daily for blood pressure control and tapering dose of prednisone Keep appointments with your healthcare provider Pending Studies at Discharge: No Stand-Alone Forms: My [employer], Pain - Opioid Pain Management, Work/School Release, Smoking Cessation Medications and DC Order Prescriptions: New amlodipine [Norvasc] 5 mg Tablet 5 mg PO QAM 30 Days Qty: 30 0RF prednisone 10 mg tablet 10 mg PO UD Qty: 30 0RF Rx Instructions: 4 p.o. daily for 3 days, 3 p.o. daily for 3 days, 2 p.o. daily for 3 days and then 1 p.o. daily for 3 days Continued metformin 1,000 mg tablet 1,000 mg PO BID Rx Instructions: TAKE THIS MEDICATION WITH MORNING AND EVENING MEAL albuterol sulfate 90 mcg/actuation HFA aerosol inhaler 2 puffs INH Q4H PRN (Reason: Shortness Of Breath Or Wheezing) hydroxyzine pamoate [Vistaril] 25 mg capsule 25 mg PO HS PRN (Reason: Anxiety) hydrochlorothiazide 12.5 mg Tablet 12.5 mg PO QAM bupropion HCl [Wellbutrin XL] 300 mg Tablet Extended Release 24 Hr 300 mg PO QAM montelukast 10 mg tablet 10 mg PO QAM fluticasone propionate [Flovent HFA] 220 mcg/actuation HFA aerosol inhaler 2 inh INHALATION BID esomeprazole magnesium 20 mg capsule,delayed release(DR/EC) 20 mg PO DAILY levocetirizine 5 mg Tablet 5 mg PO PM Trulicity 1.5 mg/0.5 mL pen injector 1.5 mg SUBCUT WK albuterol sulfate 2.5 mg /3 mL (0.083 %) solution for nebulization 2.5 mg inhalation Q4H PRN (Reason: Shortness Of Breath Or Wheezing) Discharge Orders: Discharge Order (Routine); Ordered 10/17/22 Ordered By: Kalpesh Erickson/Other Patient Handouts: Managing Type 2 Diabetes Admission Data Admit Date/Time: 10/11/22 09:12 Attending Provider: Kalpesh Carmen Admit Provider: Luke Bonilla Primary Care Provider: Genesis Pichardo Other Providers: Luke Bonilla Other Interventions: Discharge Summary Assessment (RN) Last Done: 10/17/22 13:04
== END 2022-10-17 15:42 | disposition home or self-care (01) | DRG 202 ==
LOC: ED 06:53 → SUATTDRO 09:12 → EDINP 09:12 → 2W 14:17

== ENCOUNTER 2024-03-10 00:19 | Inpatient (IN) ==
--- NOTE | 2024-03-10 00:58 | Emergency Department Note ---
Impression & Plan Asthma exacerbation admit to the [facility] ED Provider Note NAME: DULCE CORTES AGE: 33 SEX: Female INFORMANT: Patient ED PROVIDER(S): Rita Serrato DO CHIEF COMPLAINT: Asthma attack PLAN: Disposition: admit to the [facility] MEDICAL DECISION MAKING: this is a 33-year-old female patient with a history of asthma who presents to the emergency department with significant wheezing. Patient had developed an asthma attack on Thursday for which she was seen in emergency department in [place]. They gave her an oral dose of prednisone along with an IV dose of steroids and nebulizer treatments. She has continued to use her home nebulizers and inhalers with persistent symptoms. chest x-ray was unremarkable. Bio fire was positive for rhinovirus. patient received an hour-long DuoNeb treatment here in the emergency department and was given a dose of IV Decadron. Despite this treatment she continued to have significant inspiratory and expiratory wheezing and her posttreatment peak flow was only 200. Patient went on to receive IV magnesium and I discussed the case with the [facility] for admission to the hospital. Care/management discussed with: mechanical manager and the [facility] Triage Nursing notes: reviewed and agree with them. Vital Signs: reviewed and remarkable for hypertension Additional History obtained from: family member at the bedside Chronic Medical/Social Conditions affecting care: asthma and type 2 diabetes Differential Diagnosis: pneumonia, bronchitis, viral URI, asthma attack Diagnostics, independently interpreted by me: Imaging studies: no significant cardiomegaly or pulmonary pathology as per my independent interpretation peak flow: 200 posttreatment HPI: 33 year old Female arrives for evaluation of asthma attack. Patient had developed an asthma attack on Thursday for which she was seen in emergency department in [place]. They gave her an oral dose of prednisone along with an IV dose of steroids and nebulizer treatments. She Has continued to use her home nebulizers and inhalers with persistent symptoms. . PAST MEDICAL HISTORY: See Below, PAST SURGICAL HISTORY: See Below, SOCIAL HISTORY: See Below, HOME MEDICATIONS: see list ALLERGIES: penicillin VITALS: See Below PHYSICAL EXAMINATION: HEENT: Head - normocephalic and atraumatic Pupils are equal, round, and reactive to light. Extraocular eye muscles are intact, and sclera are anicteric. Nose - moist nasal mucosa without discharge. Mouth - moist buccal mucosa. Multiple tongue piercings. Oropharynx is nonerythematous and there is no tonsillar exudate or edema noted. Neck: Supple; No cervical lymphadenopathy or JVD Heart: Regular rate and rhythm. There is a normal S1 and S2 with no murmurs, clicks, or gallops appreciated. Lungs: inspiratory and expiratory wheezing in all lung cortes with no rhonchi. Abdomen: Soft, completely nontender, nondistended, with good bowel sounds. There are no palpable pulsatile masses or hepatosplenomegaly. There is no guarding, rigidity, or rebound noted. Extremities: No evidence of cyanosis, clubbing, or edema. There are easily palpable peripheral pulses. Skin: warm and dry with good turgor and no rashes. Emergency department treatment: IV Decadron, hour-long DuoNeb treatment, IV magnesium Emergency department course: The patient was evaluated in room C-7. A complete history and physical was performed. Pulse ox was stable. Portable chest x- ray was performed.Patient was started on an hour-long DuoNeb treatment. She was given IV Decadron. Upon repeat assessment, the patient had significant persistent inspiratory and expiratory wheezing. Peak flow was tested and found to be 200. She was given IV magnesium. I discussed the case with the [facility] and she will be evaluated for further inpatient care. I have personally spent greater than 30 minutes of critical care time in the direct management of this patient. This includes bedside care, interpretation of diagnostic studies, and testing, discussion with consultants, patient, and family members, and other required patient management activities. This 30 minutes is in excess of all separately billable procedures. Past Med/Surg History Problem List (Updated 03/10/24 @ 03:11 by Rita Serrato DO) Asthma exacerbation (Acute) Obesity Diabetes mellitus, type 2 oral meds Hypokalemia Acute respiratory failure with hypoxia Left ankle instability (Acute) Asthma exacerbation (Acute) Hypoxia (Acute) Menometrorrhagia (Chronic) Intractable nausea and vomiting (Acute) DVT prophylaxis Abdominal pain (Acute) Encounter for pre-operative examination Pain at surgical incision Postoperative visit Acute left flank pain Anemia Hx multiple blood transfusions H. pylori infection Unsure if resolved yet per pt Severe sleep apnea (Acute) CPAP Depression with anxiety Hypertension PCOS (polycystic ovarian syndrome) GERD (gastroesophageal reflux disease) (Chronic) controlled Asthma (Chronic) Stable > using rescue inhaler every other day at present due to weather Medical History Anemia Hx multiple blood transfusions Asthma Stable > using rescue inhaler every other day at present due to weather Depression with anxiety Diabetes mellitus, type 2 oral meds GERD (gastroesophageal reflux disease) controlled H. pylori infection Unsure if resolved yet per pt History of anesthesia problem "i woke up during my colonoscopy and an egd" History of COVID-19 Dx 06/2020. Symptoms at time of body aches, chills, fever, cough, sob, loss of taste/smell, fatigue > occasional short of breath x2, "2 other times tested negative, but I had all the same symptoms as the first time I tested positive." tested [facility] Hx of chest pain 03/10/22, in [facility] ER, "dr said she thinks she's having a withdrawal from not taking her prescription medications." Hypertension Intractable nausea and vomiting Migraines last one 03/10/22 Morbid obesity BMI 58.0 Obesity PCOS (polycystic ovarian syndrome) Severe sleep apnea CPAP Surgical History H/O total hysterectomy History of colonoscopy History of dilatation and curettage with insertion of mirena History of esophagogastroduodenoscopy (EGD) Family History Sister Breast cancer, Onset Age: 30 had surgery and chemo 2 sisters age 31 the other Uterine cancer, Onset Age: 31 also has breast cancer Mother Myocardial infarction Hypertension Aunt Uterine cancer Mother Lung cancer Other No family history of adverse response to anesthesia Denies family history of Ovarian cancer Colorectal cancer Social History Smoking Status: Former smoker Tobacco Type: Cigarettes Cigarettes Per Day: over 5 yrs ago; Second Hand Exposure: No; Do You Dip or Chew Tobacco: No; Hx Alcohol Use: Yes Alcohol type: hard liquor Alcohol Intake Frequency: Monthly or Less Hx Substance Use: No Preferred Language: Egyptian Communication Ability: Effective Visual Impairment: No Limitations Hearing Ability: Normal Laser Set Up Operator Required: No Beliefs That Will Affect Care: None marital status: Single Current Living Situation: Other Current Living Situation Comment: roomate current occupational status: employed Feels Safe at Home: Yes Assistive Devices: Nebulizer Allergies Allergies Allergy/AdvReac Type Severity Reaction Status Date / Time Penicillins Allergy Unknown CHILDHOOD--CAN'T Verified 10/11/22 08:37 REMEMBER Home Meds Home Medications Medication Instructions Recorded Confirmed albuterol sulfate 90 mcg/actuation 2 puffs inhalation Q4H PRN 10/06/20 03/10/24 aerosol inhaler Shortness Of Breath Or Wheezing hydroxyzine pamoate 25 mg capsule 25 mg PO HS PRN Anxiety 10/06/20 03/10/24 (Vistaril) metformin 1,000 mg tablet 1,000 mg PO BID 10/06/20 10/11/22 bupropion HCl 300 mg 24 hr tablet, 300 mg PO QAM 02/11/21 03/10/24 extended release (Wellbutrin XL) hydrochlorothiazide 12.5 mg tablet 12.5 mg PO QAM 02/11/21 10/11/22 montelukast 10 mg tablet 10 mg PO QAM 03/21/21 10/11/22 albuterol sulfate 2.5 mg/3 mL 2.5 mg inhalation Q4 PRN Shortness 10/11/22 03/10/24 (0.083 %) solution for nebulization Of Breath Or Wheezing dulaglutide 1.5 mg/0.5 mL 1.5 mg subcut WK 10/11/22 10/11/22 subcutaneous pen injector (Trulicity) esomeprazole magnesium 20 mg 20 mg PO DAILY 10/11/22 10/11/22 capsule,delayed release levocetirizine 5 mg tablet 5 mg PO PM 10/11/22 10/11/22 sertraline 25 mg tablet 25 mg PO QAM 03/10/24 03/10/24 Previous Rx's Medication Instructions Recorded prednisone 10 mg tablet 10 mg PO UD #30 tabs 10/17/22 Results & Data (ED) Vital Signs Vital Signs - 24 hr 03/10/24 00:23 03/10/24 00:50 03/10/24 00:50 Temperature 36.8 C Temperature Source Temporal Artery Scan Pulse Rate 86 Respiratory Effort / Characteristics Short of Breath Respiratory Pattern Regular Blood Pressure 155/86 H Blood Pressure Mean 109 Pulse Oximetry 99 Oxygen Delivery Method Room Air Room Air Room Air Fraction of Inspired Oxygen 97 Sepsis Recent Fever Within 48 Hours No Sepsis New/Unexplained Change in Mental Status No Sepsis Action Taken by Nursing No Action Required 03/10/24 00:50 03/10/24 00:52 03/10/24 00:52 Temperature Temperature Source Pulse Rate Respiratory Effort / Characteristics Respiratory Pattern Blood Pressure Blood Pressure Mean Pulse Oximetry 97 97 Oxygen Delivery Method Room Air Room Air Room Air Fraction of Inspired Oxygen Sepsis Recent Fever Within 48 Hours Sepsis New/Unexplained Change in Mental Status Sepsis Action Taken by Nursing 03/10/24 01:03 Temperature Temperature Source Pulse Rate 87 Respiratory Effort / Characteristics Respiratory Pattern Blood Pressure Blood Pressure Mean Pulse Oximetry Oxygen Delivery Method Fraction of Inspired Oxygen Sepsis Recent Fever Within 48 Hours Sepsis New/Unexplained Change in Mental Status Sepsis Action Taken by Nursing Laboratory Data 03/10/24 00:55 03/10/24 00:55 Lab Results 03/10/24 03/10/24 Range/Units 00:55 01:05 WBC 6.76 (4.8-10.8) K/ul RBC 4.67 (4.20-5.40) M/uL Hgb 12.7 (12.0-16.0) g/dl Hct 39.6 (37.0-47.0) % MCV 84.8 (80.0-100.0) fL MCH 27.2 (25.0-34.0) pg MCHC 32.1 (32.0-36.0) g/dL RDW Std Deviation 42.5 (36.4-46.3) fL RDW Coeff of Esmer 13.7 (11.5-14.5) % Plt Count 293 (130-400) K/uL MPV 11.1 (9.4-12.4) fL Immature Gran % (Auto) 0.1 % Neut % (Auto) 48.4 % Lymph % (Auto) 33.6 % [place] % (Auto) 10.5 % Eos % (Auto) 6.8 % Baso % (Auto) 0.6 % Neut # (Auto) 3.27 (1.40-6.50) K/uL Lymph # (Auto) 2.27 (1.20-3.40) K/uL [place] # (Auto) 0.71 H (0.11-0.59) K/uL Eos # (Auto) 0.46 (0.00-0.50) K/uL Baso # (Auto) 0.04 (0.00-0.20) K/uL Immature Gran # (Auto) 0.01 (0.01-0.20) K/uL Sodium 138 (136-145) mmol/L Potassium 3.4 L (3.5-5.1) mmol/L Chloride 103 (98-107) mmol/L Carbon Dioxide 25 (21-32) mmol/L Anion Gap 10 (3-11) BUN 11 (6-23) mg/dl Creatinine 0.72 (0.6-1.2) mg/dl Est Cr Clr Drug Dosing Not Reportable Est GFR ( Amer) 127.5 ml/min Est GFR (Non-Af Amer) 110.0 ml/min BUN/Creatinine Ratio 15.3 (10-20) Glucose 119 H (70-99(Fasting)) mg/dl Calcium 8.9 (8.6-10.3) mg/dl Total Bilirubin 0.3 (0.2-1.0) mg/dl AST 29 (13-39) U/L ALT 30 (7-52) U/L Alkaline Phosphatase 81 (34-104) U/L Total Protein 7.7 (6.0-8.3) gm/dl Albumin 4.1 (3.4-5.0) gm/dl Globulin 3.6 (2.5-4.0) gm/dl Albumin/Globulin Ratio 1.1 (0.9-2) Adenovirus (PCR) Not Detected (NotDetected) B. pertussis DNA (PCR) Not Detected (NotDetected) B.parapertussis DNA PCR Not Detected (NotDetected) C. pneumoniae DNA (PCR) Not Detected (NotDetected) Coronavirus OC43 (PCR) Not Detected (NotDetected) Coronavirus HKU1 (PCR) Not Detected (NotDetected) Coronavirus 229E (PCR) Not Detected (NotDetected) SARS-CoV-2 (PCR) Not Detected (NotDetected) Coronavirus NL63 (PCR) Not Detected (NotDetected) Human Metapneumovir PCR Not Detected (NotDetected) Influenza Type A (PCR) Not Detected (NotDetected) Influenza Type B (PCR) Not Detected (NotDetected) M. pneumoniae (PCR) Not Detected (NotDetected) Parainfluenza 1 (PCR) Not Detected (NotDetected) Parainfluenza 2 (PCR) Not Detected (NotDetected) Parainfluenza 3 (PCR) Not Detected (NotDetected) Parainfluenza 4 (PCR) Not Detected (NotDetected) RSV (PCR) Not Detected (NotDetected) Entero/Rhino (PCR) DETECTED A (NotDetected) Administered Medications Discontinued Medications Albuterol (Albut/Ipratrop 3mg/0.5mg Neb 3 Ml Vial) 12 ml NEB ONE ONE; Protocol Stop: 03/10/24 00:54 Last Admin: 03/10/24 00:59 Dose: 12 ml Documented By: [facility] Dexamethasone (Dexamethasone Sod Inj 4 Mg/Ml Vial) 10 mg IV NOW STA Stop: 03/10/24 00:54 Last Admin: 03/10/24 00:59 Dose: 10 mg Documented By: [facility] Magnesium Sulfate/Dextrose (Magnesium Sulfate / D5w) 1 gm in 100 mls @ 600 mls/hr IV Q10M FEMI Stop: 03/10/24 02:59 Last Admin: 03/10/24 02:50 Dose: 600 mls/hr Documented By: Discharge Plan Visit Data Chief Complaint: Shortness of Breath/Dyspnea Stated Complaint: ASTHMA SINCE THURSDAY ED Provider: Rita Serrato Discharge Problem: Asthma exacerbation Forms Stand Alone Forms: My [facility] Prescriptions Prescriptions: No Action metformin 1,000 mg tablet 1,000 mg PO BID Rx Instructions: TAKE THIS MEDICATION WITH MORNING AND EVENING MEAL albuterol sulfate 90 mcg/actuation HFA aerosol inhaler 2 puffs INH Q4H PRN (Reason: Shortness Of Breath Or Wheezing) hydroxyzine pamoate [Vistaril] 25 mg capsule 25 mg PO HS PRN (Reason: Anxiety) hydrochlorothiazide 12.5 mg Tablet 12.5 mg PO QAM bupropion HCl [Wellbutrin XL] 300 mg Tablet Extended Release 24 Hr 300 mg PO QAM montelukast 10 mg tablet 10 mg PO QAM esomeprazole magnesium 20 mg capsule,delayed release(DR/EC) 20 mg PO DAILY levocetirizine 5 mg Tablet 5 mg PO PM Trulicity 1.5 mg/0.5 mL pen injector 1.5 mg SUBCUT WK albuterol sulfate 2.5 mg /3 mL (0.083 %) solution for nebulization 2.5 mg inhalation Q4 PRN (Reason: Shortness Of Breath Or Wheezing) prednisone 10 mg tablet 10 mg PO UD Qty: 30 0RF Rx Instructions: 4 p.o. daily for 3 days, 3 p.o. daily for 3 days, 2 p.o. daily for 3 days and then 1 p.o. daily for 3 days sertraline 25 mg tablet 25 mg PO QAM Referrals Referrals: Genesis Pichardo DO [Primary Care Provider] - Discharge Problem: Asthma exacerbation Qualifiers: Asthma severity: severe Asthma persistence: persistent Qualified Code(s): J 45.51 - Severe persistent asthma with (acute) exacerbation
[2024-03-10] MEDS: ALBUT/IPRATROP 3MG/0.5MG NEB 3 ML VIAL NEB ONE (00:59)
[2024-03-10] MEDS: DEXAMETHASONE SOD INJ 4 MG/ML VIAL IV STA (00:59)
[2024-03-10 02:01] LABS: Adenovirus PCR Not Detected (NotDetected); Bordetella parapertussis PCR Not Detected (NotDetected); Bordetella pertussis PCR Not Detected (NotDetected); Chlamydia pneumoniae PCR Not Detected (NotDetected); Coronavirus 229E PCR Not Detected (NotDetected); Coronavirus CoV-2 (COVID19)PCR Not Detected (NotDetected); Coronavirus HKU1 PCR Not Detected (NotDetected); Coronavirus NL63 PCR Not Detected (NotDetected); Coronavirus OC43PCR Not Detected (NotDetected); Human Metapneumovirus PCR Not Detected (NotDetected); Influenza A PCR Not Detected (NotDetected); Influenza B PCR Not Detected (NotDetected); Mycoplasma pneumoniae PCR Not Detected (NotDetected); Parainfluenza Virus 1 PCR Not Detected (NotDetected); Parainfluenza Virus 2 PCR Not Detected (NotDetected); Parainfluenza Virus 3 PCR Not Detected (NotDetected); Parainfluenza Virus 4 PCR Not Detected (NotDetected); Respiratory Syncytial VirusPCR Not Detected (NotDetected); Rhinovirus/Enterovirus PCR DETECTED (NotDetected)
[2024-03-10] MEDS: MAGNESIUM SULFATE / D5W 1 GM/100 ML BAG IV SCH (02:50)
[2024-03-10 03:00] LABS: Alanine Aminotransferase 30 U/L (7-52); Albumin Globulin Ratio 1.1 (0.9-2); Albumin Level 4.1 gm/dl (3.4-5.0); Alkaline Phosphatase 81 U/L (34-104); Anion Gap 10 (3-11); Aspartate Aminotransferase 29 U/L (13-39); BUN Creatinine Ratio 15.3 (10-20); Basophils # (auto) 0.04 K/uL (0.00-0.20); Basophils % (auto) 0.6 %; Bilirubin,Total 0.3 mg/dl (0.2-1.0); Blood Urea Nitrogen 11 mg/dl (6-23); Calcium 8.9 mg/dl (8.6-10.3); Carbon Dioxide 25 mmol/L (21-32); Chloride 103 mmol/L (98-107); Eosinophils # (auto) 0.46 K/uL (0.00-0.50); Eosinophils % (auto) 6.8 %; Est GFR (African American) 127.5 ml/min; Globulin 3.6 gm/dl (2.5-4.0); Glucose 119 mg/dl (70-99(Fasting)); Hematocrit (blood only) 39.6 % (37.0-47.0); Hemoglobin 12.7 g/dl (12.0-16.0); Immature Granulocytes # (auto) 0.01 K/uL (0.01-0.20); Immature Granulocytes % (auto) 0.1 %; Lymphocytes # (auto) 2.27 K/uL (1.20-3.40); Lymphocytes % (auto) 33.6 %; Mean Corpuscular Hemoglobin 27.2 pg (25.0-34.0); Mean Corpuscular Hgb Conc 32.1 g/dL (32.0-36.0); Mean Corpuscular Volume 84.8 fL (80.0-100.0); Mean Platelet Volume 11.1 fL (9.4-12.4); Monocytes # (auto) 0.71 K/uL (0.11-0.59); Monocytes % (auto) 10.5 %; Neutrophils # (auto) 3.27 K/uL (1.40-6.50); Neutrophils % (auto) 48.4 %; Platelet Count 293 K/uL (130-400); Potassium 3.4 mmol/L (3.5-5.1); RDW Coefficient of Variation 13.7 % (11.5-14.5); RDW Standard Deviation 42.5 fL (36.4-46.3); Red Blood Count 4.67 M/uL (4.20-5.40); Sodium 138 mmol/L (136-145); Total Protein 7.7 gm/dl (6.0-8.3); White Blood Count 6.76 K/ul (4.8-10.8)
[2024-03-10 03:14] LABS: Magnesium 1.8 mg/dl (1.7-2.4)
--- NOTE | 2024-03-10 03:20 | History & Physical Report ---
Date of Service March 10, 2024 Assessment & Plan (1) Asthma exacerbation: Plan: Asthma exacerbation Entero/rhinovirus infection with superimposed bacterial infection No sepsis for now Hypertensive urgency secondary to above Hypokalemia secondary to diuretic Rx LANG on CPAP DM2 on oral medications, well-controlled as of recent hemoglobin A1c of 6 last July 2023 anxiety/mood disorder, stable past tobacco abuse Admit to medical telemetry Doxycycline, Solu-Medrol, neb RTC Pulmonary consult if without improvement Initiate lisinopril Replace potassium, hold home diuretic for now DVT prophylaxis. Lovenox subcu Full code Text document was generated using [employer] voice recognition software. It may contain grammatical or spelling errors. Kindly contact undersigned for clarification of any documentation item in question. History of Present Illness Chief Complaint: Worsening shortness of breath Primary Care Provider: Genesis Pichardo, History obtained from patient and records. Medical history significant for hypertension, bronchial asthma, LANG on CPAP, DM2 on oral medications, GERD, PCOS, RLS, anxiety/mood disorder, past tobacco abuse. Last confinement September 2022 for asthma exacerbation. Patient was in [facility] for her brother's over the weekend when she woke up with junky cough symptoms productive of greenish sputum. Associated with worsening shortness of breath. Achy chest pain, headache, and flank pain possibly from coughing as per patient. No fluid retention. Denies aspiration. Decadron and neb treatment administered at the ER. SBP 180s documented at the ER. 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 Allergies Allergy/AdvReac Type Severity Reaction Status Date / Time Penicillins Allergy Unknown CHILDHOOD--CAN'T Verified 10/11/22 08:37 REMEMBER Home Medications Medication Instructions Recorded Confirmed Type albuterol sulfate 90 mcg/actuation 2 puffs inhalation Q4H PRN 10/06/20 03/10/24 History aerosol inhaler Shortness Of Breath Or Wheezing hydroxyzine pamoate 25 mg capsule 25 mg PO HS PRN Anxiety 10/06/20 03/10/24 History (Vistaril) metformin 1,000 mg tablet 1,000 mg PO BID 10/06/20 03/10/24 History bupropion HCl 300 mg 24 hr tablet, 300 mg PO QAM 02/11/21 03/10/24 History extended release (Wellbutrin XL) hydrochlorothiazide 12.5 mg tablet 12.5 mg PO QAM 02/11/21 03/10/24 History montelukast 10 mg tablet 10 mg PO QAM 03/21/21 03/10/24 History albuterol sulfate 2.5 mg/3 mL 2.5 mg inhalation Q4 PRN Shortness 10/11/22 03/10/24 History (0.083 %) solution for nebulization Of Breath Or Wheezing levocetirizine 5 mg tablet 5 mg PO PM 10/11/22 03/10/24 History sertraline 25 mg tablet 25 mg PO QAM 03/10/24 03/10/24 History Past Med/Surg History Problem List (Updated 03/10/24 @ 08:20 by Martin Keenan MD) Asymptomatic hypertensive urgency Asthma exacerbation (Acute) Obesity Diabetes mellitus, type 2 oral meds Hypokalemia Acute respiratory failure with hypoxia Left ankle instability (Acute) Asthma exacerbation (Acute) Hypoxia (Acute) Menometrorrhagia (Chronic) Intractable nausea and vomiting (Acute) DVT prophylaxis Abdominal pain (Acute) Encounter for pre-operative examination Pain at surgical incision Postoperative visit Acute left flank pain Anemia Hx multiple blood transfusions H. pylori infection Unsure if resolved yet per pt Severe sleep apnea (Acute) CPAP Depression with anxiety Hypertension PCOS (polycystic ovarian syndrome) GERD (gastroesophageal reflux disease) (Chronic) controlled Asthma (Chronic) Stable > using rescue inhaler every other day at present due to weather Medical History Anemia Hx multiple blood transfusions Asthma Stable > using rescue inhaler every other day at present due to weather Depression with anxiety Diabetes mellitus, type 2 oral meds GERD (gastroesophageal reflux disease) controlled H. pylori infection Unsure if resolved yet per pt History of anesthesia problem "i woke up during my colonoscopy and an egd" History of COVID-19 Dx 06/2020. Symptoms at time of body aches, chills, fever, cough, sob, loss of taste/smell, fatigue > occasional short of breath x2, "2 other times tested negative, but I had all the same symptoms as the first time I tested positive." tested [facility] Hx of chest pain 03/10/22, in [facility] ER, " said she thinks she's having a withdrawal from not taking her prescription medications." Hypertension Intractable nausea and vomiting Migraines last one 03/10/22 Morbid obesity BMI 58.0 Obesity PCOS (polycystic ovarian syndrome) Severe sleep apnea CPAP Surgical History H/O total hysterectomy History of colonoscopy History of dilatation and curettage with insertion of mirena History of esophagogastroduodenoscopy (EGD) Family History Sister Breast cancer, Onset Age: 30 had surgery and chemo 2 sisters age 31 the other Uterine cancer, Onset Age: 31 also has breast cancer Mother Myocardial infarction Hypertension Aunt Uterine cancer Mother Lung cancer Other No family history of adverse response to anesthesia Denies family history of Ovarian cancer Colorectal cancer Social History Smoking Status: Former smoker Tobacco Type: Cigarettes Cigarettes Per Day: over 5 yrs ago; Second Hand Exposure: No; Do You Dip or Chew Tobacco: No; Hx Alcohol Use: No Hx Substance Use: No Preferred Language: Belarusian Communication Ability: Effective Visual Impairment: No Limitations Hearing Ability: Normal Sheet Folder Required: No Beliefs That Will Affect Care: None marital status: Single Current Living Situation: Spouse Current Living Situation Comment: roomate current occupational status: employed Feels Safe at Home: Yes Safety Concerns: Feels Safe At This Time Assistive Devices: CPAP and Nebulizer Review of Systems Review of Systems: As per HPI, all other systems reviewed and negative Physical Exam Physical Exam: GENERAL: Slightly uncomfortable, pleasant, morbidly obese, no respiratory distress SKIN: Normal color, warm HEENT: [place] palpebral conjunctivae, no ptosis, dry buccal mucosa NECK : Supple, short neck, no tenderness CHEST : Decreased breath sounds, expiratory wheezes, no tenderness HEART : RRR, no obvious murmurs ABDOMEN: Some distention, nontender EXTREMITIES : Bilateral LE swelling without tenderness, no other conspicuous deformities noted NEUROLOGIC : Coherent, no facial asymmetry, no other gross focality Results & Data Results & Data Vital Signs (Past 12 Hours) Vital Signs Temp Pulse BP Pulse Ox O2 Del Method FiO2 03/10/24 01:03 87 03/10/24 00:52 97 Room Air 03/10/24 00:52 Room Air 03/10/24 00:50 97 Room Air 03/10/24 00:50 Room Air 97 03/10/24 00:50 Room Air 03/10/24 00:23 36.8 C 86 155/86 H 99 Room Air Laboratory Results Laboratory Results WBC 6.76 K/ul (4.8-10.8) 03/10/24 00:55 RBC 4.67 M/uL (4.20-5.40) 03/10/24 00:55 Hgb 12.7 g/dl (12.0-16.0) 03/10/24 00:55 Hct 39.6 % (37.0-47.0) 03/10/24 00:55 MCV 84.8 fL (80.0-100.0) 03/10/24 00:55 MCH 27.2 pg (25.0-34.0) 03/10/24 00:55 MCHC 32.1 g/dL (32.0-36.0) 03/10/24 00:55 RDW Std Deviation 42.5 fL (36.4-46.3) 03/10/24 00:55 RDW Coeff of Esmer 13.7 % (11.5-14.5) 03/10/24 00:55 Plt Count 293 K/uL (130-400) 03/10/24 00:55 MPV 11.1 fL (9.4-12.4) 03/10/24 00:55 Immature Gran % (Auto) 0.1 % 03/10/24 00:55 Neut % (Auto) 48.4 % 03/10/24 00:55 Lymph % (Auto) 33.6 % 03/10/24 00:55 [place] % (Auto) 10.5 % 03/10/24 00:55 Eos % (Auto) 6.8 % 03/10/24 00:55 Baso % (Auto) 0.6 % 03/10/24 00:55 Neut # (Auto) 3.27 K/uL (1.40-6.50) 03/10/24 00:55 Lymph # (Auto) 2.27 K/uL (1.20-3.40) 03/10/24 00:55 [place] # (Auto) 0.71 K/uL (0.11-0.59) H 03/10/24 00:55 Eos # (Auto) 0.46 K/uL (0.00-0.50) 03/10/24 00:55 Baso # (Auto) 0.04 K/uL (0.00-0.20) 03/10/24 00:55 Immature Gran # (Auto) 0.01 K/uL (0.01-0.20) 03/10/24 00:55 Sodium 138 mmol/L (136-145) 03/10/24 00:55 Potassium 3.4 mmol/L (3.5-5.1) L 03/10/24 00:55 Chloride 103 mmol/L (98-107) 03/10/24 00:55 Carbon Dioxide 25 mmol/L (21-32) 03/10/24 00:55 Anion Gap 10 (3-11) 03/10/24 00:55 BUN 11 mg/dl (6-23) 03/10/24 00:55 Creatinine 0.72 mg/dl (0.6-1.2) 03/10/24 00:55 Est Cr Clr Drug Dosing Not Reportable 03/10/24 00:55 Est GFR ( Amer) 127.5 ml/min 03/10/24 00:55 Est GFR (Non-Af Amer) 110.0 ml/min 03/10/24 00:55 BUN/Creatinine Ratio 15.3 (10-20) 03/10/24 00:55 Glucose 119 mg/dl (70-99(Fasting)) H 03/10/24 00:55 Calcium 8.9 mg/dl (8.6-10.3) 03/10/24 00:55 Magnesium 1.8 mg/dl (1.7-2.4) 03/10/24 00:55 Total Bilirubin 0.3 mg/dl (0.2-1.0) 03/10/24 00:55 AST 29 U/L (13-39) 03/10/24 00:55 ALT 30 U/L (7-52) 03/10/24 00:55 Alkaline Phosphatase 81 U/L (34-104) 03/10/24 00:55 Total Protein 7.7 gm/dl (6.0-8.3) 03/10/24 00:55 Albumin 4.1 gm/dl (3.4-5.0) 03/10/24 00:55 Globulin 3.6 gm/dl (2.5-4.0) 03/10/24 00:55 Albumin/Globulin Ratio 1.1 (0.9-2) 03/10/24 00:55 Adenovirus (PCR) Not Detected (NotDetected) 03/10/24 01:05 B. pertussis DNA (PCR) Not Detected (NotDetected) 03/10/24 01:05 B.parapertussis DNA PCR Not Detected (NotDetected) 03/10/24 01:05 C. pneumoniae DNA (PCR) Not Detected (NotDetected) 03/10/24 01:05 Coronavirus OC43 (PCR) Not Detected (NotDetected) 03/10/24 01:05 Coronavirus HKU1 (PCR) Not Detected (NotDetected) 03/10/24 01:05 Coronavirus 229E (PCR) Not Detected (NotDetected) 03/10/24 01:05 SARS-CoV-2 (PCR) Not Detected (NotDetected) 03/10/24 01:05 Coronavirus NL63 (PCR) Not Detected (NotDetected) 03/10/24 01:05 Human Metapneumovir PCR Not Detected (NotDetected) 03/10/24 01:05 Influenza Type A (PCR) Not Detected (NotDetected) 03/10/24 01:05 Influenza Type B (PCR) Not Detected (NotDetected) 03/10/24 01:05 M. pneumoniae (PCR) Not Detected (NotDetected) 03/10/24 01:05 Parainfluenza 1 (PCR) Not Detected (NotDetected) 03/10/24 01:05 Parainfluenza 2 (PCR) Not Detected (NotDetected) 03/10/24 01:05 Parainfluenza 3 (PCR) Not Detected (NotDetected) 03/10/24 01:05 Parainfluenza 4 (PCR) Not Detected (NotDetected) 03/10/24 01:05 RSV (PCR) Not Detected (NotDetected) 03/10/24 01:05 Entero/Rhino (PCR) DETECTED (NotDetected) A 03/10/24 01:05 CTA chest: No acute pulmonary embolism. CT abdomen pelvis: No acute findings in the abdomen or pelvis. (1) Asthma exacerbation Asthma persistence: persistent Asthma severity: severe Qualified Code(s): J45.51 - Severe persistent asthma with (acute) exacerbation
[2024-03-10] MEDS ORDERED: GLUCOSE 10 TAB/TUBE PO PRN (03:33)
[2024-03-10] MEDS ORDERED: DEXTROSE 50% 50 ML SYRINGE IV PRN (03:33)
[2024-03-10] MEDS ORDERED: CARBOHYDRATES FOR HYPOGLYCEMIA PO PRN (03:33)
[2024-03-10] MEDS ORDERED: GLUCOSE 40% GEL 15 GM TUBE PO PRN (03:33)
[2024-03-10] MEDS ORDERED: GLUCAGON FOR INJ 1 MG VIAL SQ PRN (03:33)
[2024-03-10] MEDS: OPTIRAY 320 125ml IV ONE (03:57)
[2024-03-10] MEDS: POTASSIUM CHLORIDE PWD 20 MEQ PACK PO STA (04:01)
[2024-03-10] MEDS: lisinopril 5 MG TAB PO STA (04:02)
[2024-03-10] MEDS: PROMETHAZINE 12.5 MG/50.5 ML BAG IV STA (04:02)
--- NOTE | 2024-03-10 04:22 | CT Scan Report ---
Exam(s): CTA CHEST IV Amt: 118 ml optiray 320 EXAM: CT Angiography Chest With Intravenous Contrast CLINICAL HISTORY: Reason for exam: cp. TECHNIQUE: Axial computed tomographic angiography images of the chest with intravenous contrast. CTDI is 63.76 mGy and DLP is 891.44 mGy-cm. Automated exposure control was utilized for the study. A dose lowering technique was utilized adhering to the principles of ALARA. MIP reconstructed images were created and reviewed. COMPARISON: Chest CT July 17, 2021. FINDINGS: LUNGS: No focal consolidation, pleural effusion, or pneumothorax. HEART: Within normal limits. VASCULATURE: No acute pulmonary embolism. THYROID: Within normal limits. MEDIASTINUM + LYMPH NODES: There are no pathologically enlarged mediastinal, hilar, or axillary lymph nodes. SUPERIOR ABDOMEN: The included portions of the superior abdomen are within normal limits. MUSCULOSKELETAL: Within normal limits. IMPRESSION: No acute pulmonary embolism. Electronically signed by: Mauricio Pino MD 03/10/24 04:22 AM
[2024-03-10] MEDS: NSS + 20MEQ KCL 20 MEQ/1,000 ML BAG IV STA (04:28)
[2024-03-10] MEDS: INSULIN ASPART PER UNIT CHARGE SC SCH (04:40)
--- NOTE | 2024-03-10 04:50 | CT Scan Report ---
Exam(s): CT ABDOMEN + PELVIS With Contrast IV Amt: 118 ml optiray 320 EXAM: CT Abdomen and Pelvis With Intravenous Contrast CLINICAL HISTORY: Reason for exam: flank pain. TECHNIQUE: Axial computed tomography images of the abdomen and pelvis with intravenous contrast. CTDI is 28.14 mGy and DLP is 1316.89 mGy-cm. Automated exposure control was utilized for the study. A dose lowering technique was utilized adhering to the principles of ALARA. CONTRAST: Patient received 118 ml optiray 320 of IV contrast COMPARISON: No relevant prior studies available. FINDINGS: Lung bases: Unremarkable. No mass. No consolidation. ABDOMEN: Liver: Unremarkable. No mass. Gallbladder and bile ducts: Unremarkable. No calcified stones. No ductal dilation. Pancreas: Unremarkable. No mass. No ductal dilation. Spleen: Unremarkable. No splenomegaly. Adrenals: Unremarkable. No mass. Kidneys and ureters: Unremarkable. No solid mass. No hydronephrosis. Stomach and bowel: Unremarkable. No obstruction. No mucosal thickening. PELVIS: Appendix: No findings to suggest acute appendicitis. Bladder: Unremarkable. No mass. Reproductive: Unremarkable as visualized. ABDOMEN and PELVIS: Intraperitoneal space: Unremarkable. No free air. No significant fluid collection. Bones/joints: No acute fracture. No dislocation. Soft tissues: Small fat-containing umbilical hernia. Vasculature: Unremarkable. No abdominal aortic aneurysm. Lymph nodes: Unremarkable. No enlarged lymph nodes. IMPRESSION: No acute findings in the abdomen or pelvis. Electronically signed by: Mauricio Pino MD 03/10/24 04:50 AM
[2024-03-10] MEDS: DOXYCYCLINE HYCLATE 100 MG in DEXTROSE 5% MINI-B 100 ML IV STA (04:53)
--- NOTE | 2024-03-10 06:47 | XRay Report ---
XR chest 1V portable CLINICAL HISTORY: dyspnea TECHNIQUE: Single frontal radiograph of the chest was obtained. Comparison: Comparison is made to chest radiographs 10/11/2022 FINDINGS: Exam is limited by underpenetration. The cardiomediastinal silhouette is normal. The lungs are clear. No evidence of pleural effusion or pneumothorax. IMPRESSION: No acute chest disease. ACT 112: Negative or not required by law. Electronically signed by: Gerardo Constantino M.D. 03/10/2024 6:46 AM
[2024-03-10] MEDS: LEVALBUTEROL 1.25 MG/3 ML NEB NEB SCH (07:00)
[2024-03-10] MEDS: IPRATROPIUM BROMIDE NEB SOLN 0.02% 0.5MG/2.5ML VIAL INH SCH (07:00)
[2024-03-10] MEDS ORDERED: hydrALAZINE 10 MG TAB PO PRN (07:30)
[2024-03-10] MEDS: buPROPion XL 300 MG TABCR PO SCH (08:32)
[2024-03-10] MEDS: SERTRALINE HCL 50 MG TABLET PO SCH (08:32)
[2024-03-10] MEDS: LOSARTAN POTASSIUM 25 MG TAB PO SCH (08:32)
[2024-03-10] MEDS: MONTELUKAST SODIUM 10 MG TABLET PO SCH (08:33)
[2024-03-10] MEDS: ENOXAPARIN INJ 40 MG/0.4 ML SYR SQ SCH (08:34)
[2024-03-10] MEDS: methylPREDNISolone 40 MG in SYRINGE 0 ML IV SCH (08:34)
[2024-03-10] MEDS: LANTUS PER UNIT CHARGE SQ SCH (08:36)
[2024-03-10 09:17] LABS: Appearance Urine Clear (Clear); Bilirubin Urine Negative (Negative); Blood Urine Negative (Negative); Color Urine Yellow; Glucose Urine UA Negative (Negative); Ketones Urine Negative (Negative); Leukocyte Esterase Urine Negative (Negative); Nitrite Urine Negative (Negative); Protein Urine Negative (Negative); Specific Gravity Urine 1.021 (1.000-1.030); Urobilinogen Urine Negative (Negative); pH Urine 7.5 (4.5-7.5)
--- OUTSIDE RECORDS SUMMARY | 2024-03-10 10:26 | External Medical Summary | Summary of Care ---
Author Name Unknown Organization [facility] Address [address] [place] [address] Phone [phone] Care Team Providers Care Chiropractor Sole Practitioner Name Role Phone Genesis Pichardo DO Primary Care Provider Encounter Details Date Type Department Care Team (Late st Contact Info) Description 02/24/[address] [facility] [address] [facility] [place] [id number] Genesis Pichardo DO [address] [facility] [id number] Allergies Active Allergy Reactions Criticality Noted Date Comments Penicillins Unknown 06/04/2017 documented as of this encounter (statuses as of 02/24/2024) Medications Medication Sig Dispensed Refills Start Date End Date Status Ketoconazole 2 % External CreamIndications:Kristel a corporis Apply topically to affected area 2 times a day. Apply to feet 60 g 1 01/30/2021 Active Hydrocortisone 2.5 % External Ointment Apply topically to affected area 3 times a day . To affected area. 30 g 5 03/13/2022 Active Ventolin HFA 108 (90 Base) MCG/ACT Inhalation Aerosol Solution Inhale by mouth 2 Puffs every 4 hours as needed for Cough, Shortness of Breath or Wheezing. 18 g 2 07/10/2022 Active Esomeprazole Magnesium 20 MG Oral Tablet Delayed Release Take 20 mg by mouth in the morning. 30 Tablet 3 09/17/2022 Active Terbinafine HCl 1 % External Cream (LamISIL AT ATHLETE'S FOOT)Indications:Kristel a pedis of both feet APPLY TOPICALLY TO AFFECTED AREA 2 TIMES A DAY TO FEET BILATERALLY 45 g 2 01/12/2023 Active hydroCHLOROthiazide 12.5 MG Oral Tablet (Hydrodiuril)Indicati ons:HTN, goal below 140/90 Take 1 Tablet by mouth in the morning. In the morning.. 90 Tablet 08/12/2023 Active amLODIPine Besylate 5 MG Oral Tablet (Norvasc)Indications: HTN, goal below 140/90 Take 1 Tablet by mouth in the morning. 90 Tablet 08/12/2023 Active Albuterol Sulfate (2.5 MG/3ML) 0.083% Inhalation Nebulization Solution (Proventil)Indication s:Moderate persistent asthma with exacerbation Inhale 1 Vial via nebulizer every 4 hours as needed for Wheezing. 120 mL 1 08/12/2023 Active buPROPion HCl ER (XL) 300 MG Oral Tablet Extended Release 24 Hour (Wellbutrin XL)Indications:Modera te episode of recurrent major depressive disorder (HCC),Morbid obesity due to excess calories (HCC) Take 1 Tablet by mouth in the morning. 90 Tablet 08/12/2023 Active Levocetirizine Dihydrochloride 5 MG Oral TabletIndications:All ergic rhinitis due to pollen, unspecified seasonality Take 1 Tablet by mouth every evening. 90 Tablet 08/12/2023 Active metFORMIN HCl 1000 MG Oral Tablet (Glucophage)Indicatio ns:PCOS (polycystic ovarian syndrome) Take 1 Tablet by mouth 2 times a day with morning and evening meals. 180 Tablet 08/12/2023 Active Montelukast Sodium 10 MG Oral Tablet (Singulair)Indication s:Non-seasonal allergic rhinitis due to pollen,Moderate persistent asthma with acute exacerbation Take 1 Tablet by mouth in the morning. 30 Tablet 08/12/2023 Active Ondansetron 4 MG Oral Tablet DisintegratingIndicat ions:Nausea Place 1 Tablet on tongue every 8 hours as needed for Nausea. dissolve on tongue. 30 Tablet 08/12/2023 Active Meloxicam 15 MG Oral Tablet (Mobic) Take 1 Tablet by mouth in the morning. for pain.. 30 Tablet 08/12/2023 Active FreeStyle Darcie 2 SensorIndications:DM type 2 nursing care encounter (HCC) Use as directed. 2 Each 11 08/12/2023 Active hydrOXYzine Pamoate 25 MG Oral Capsule (Vistaril)Indications :Moderate episode of recurrent major depressive disorder (HCC) TAKE 1 CAPSULE BY MOUTH AT BEDTIME NEEDED FOR ANXIETY 30 Capsule 5 08/12/2023 Active CPAP every night at bedtime. Active HYDROcodone-Acetamino phen 5-325 MG Oral Tablet Take 1 Tablet by mouth every 6 hours as needed for Pain, Mild or Pain, Severe. 10 Tablet 09/01/2023 Active Wegovy 1 MG/0.5ML Subcutaneous Solution Auto-injector (Semaglutide-Weight Management) Inject 1 mg under the skin once a week. 2 mL 12/30/2023 Active Sertraline HCl 25 MG Oral Tablet (Zoloft)Indications:G AD (generalized anxiety disorder),Moderate episode of recurrent major depressive disorder (HCC) Take 1 Tablet by mouth in the morning. 30 Tablet 5 02/02/2024 Active documented as of this encounter (statuses as of 02/24/2024) Active Problems Problem Noted Date Diagnosed Date Restless legs syndrome (RLS) 12/03/2022 Hypokalemia 10/23/2022 Asthma, moderate persistent 10/23/2022 Intermittent asthma with reliever use up to twic e per week 10/23/2022 Morbid obesity due to excess calories 10/23/2022 Other psychoactive substance dependence with withdrawal, unspecified 07/24/2022 Allergic rhinitis 11/15/2021 [facility]21 Essential (primary) hypertension 10/01/2021 Uncomplicated asthma 10/01/2021 Type 2 diabetes mellitus without complication PCOS (polycystic ovarian syndrome) 09/21/2020 Gastro-esophageal reflux disease without esophag itis 09/21/2020 Moderate persistent asthma with acute exacerbati on 06/04/2017 Increased abdominal girth 06/04/2017 Moderate episode of recurrent major depressive d isorder 06/04/2017 documented as of this encounter (statuses as of 02/24/2024) Resolved Problems Problem Noted Date Diagnosed Date Resolved Date Acute respiratory failure with hypoxia 10/23/2022 02/03/2023 Asthma in remission 10/23/2022 10/24/19 23 Asthma, mild persistent 10/23/2022 04/0 12/2022 Asthma, severe persistent 10/23/2022 Allergic conjunctivitis, bilateral 11/15/2021 02/03/2023 Prediabetes 09/24/2020 07/24/2022 Overview: Per Prediabetes protocol Unspecified asthma, uncomplicated 09/21/2020 11/27/2020 Body mass index (BMI) of 50. 0 to 59.9 in adult 09/01/2017 08/17/2020 Overview: Per Obesity protocol #1 Body mass index (BMI) of 45. 0 to 49.9 in adult 07/28/2017 09/09/2017 Overview: Per Obesity protocol #1 Menometrorrhagia 06/04/2017 07/24/2022 Iron deficiency anemia due t o chronic blood loss 06/04/2017 07/24/2022 documented as of this encounter (statuses as of 02/24/2024) Immunizations Name Administration Dates Next Due COVID-19 mRNA, LNP-s, No Pre serve, 2-Dose Series (Moderna) 02/05/2021 COVID-19, mRNA, LNP-s, PF, B ooster, 100mcg/0.5mg (Moderna) 01/24/2022 HEP A - Hepatitis A (Adult > 18 yrs) 06/08/2018 PPD 08/04/2020 Pneumococcal Conjugate Vacci ne, 20-valent ([id number]) 03/13/2022 Pneumococcal Polysaccharide PPV23 (Pneumovax) 07/03/2017 Seasonal Influenza, PF, 6 M & above, IM , (FluLaval or Fluzone) 08/12/2023,05/13/2021,08/17/2020,07/05,06/04/2017 TDAP (age 10 and older)(Boostrix) 10/01/2021 documented as of this encounter Social History Tobacco Use Types Packs/Day Years Used Date Smoking Tobacco: Former Cigarettes 1 6 2 010 - 2015 Smokeless Tobacco: Never Alcohol Use Standard Drinks/Week Comments Yes 0 (1 standard drink = 0.6 oz pur e alcohol) once a month PHQ-2 Answer Date Recorded PHQ Adult Total Score 16 08/12/2023 Utilities Answer Date Recorded Do you have trouble paying y our heating, water, or electric bill? (Adult - for ages 18 years and over) Not on file 01/05/2024 Is your family able to pay t he heat, water, or electric bill? (Household - for ages 0-17 years) Not on file 01/05/2024 Does your family have access to good internet? (Household - for ages 0-17 years) Not on file 01/05/2024 Social Connections Answer Date Recorded How often do you feel lonely or isolated from those around you? (Adult - for ages 18 years and over) Not on file 01/05/2024 Sex and Gender Information Value Date Recorded Sex Assigned at Not on file Gender Identity Not on file Sexual Orientation Not on file Job Start Date Occupation Industry Not on file Not on file Not on file documented as of this encounter Plan of Treatment Upcoming Encounters Date Type Department Care Team (Late st Contact Info) Description 03/29/2024 7:20 AM EDT Office Visit [facility] [address] [facility] [place] [address] Genesis Pichardo, [address] [place] [address] 08/23/2024 1:00 PM EST Office Visit Orthopaedics Kirk Odom [address] [place] [id number] Zachary Javier MD [address] [place] [address] Health Maintenance Due Date Last Done Comments Hepatitis B Vaccine (1 of 3 - 19+ 3-dose series) 2009 COVID-19 Vaccine (2022- season) 2023 01/24/2022, 03/05/2021, 02/05/2021 Albumin/Creatinine Ratio 01/20/2024 01/19/2023, 09/17 HbA1c 02/10/2024 08/12/2023, 11/2022, 03/13/2022, Additional history exists Influenza Vaccine (FLU shot) (#1) 2024 08/12/2023, 05/13/2021, 08/17/2020, Additional history exists Depression Monitoring 08/12/2024 08/12/2023 Diabetic Foot Exam 08/12/2024 08/12/2023, 07/24/2022 GFR 08/12/2024 08/12/2023, 11/2022, 10/04/2021, Additional history exists Diabetic Eye Exam 02/23/2025 02/23/2024, , 07/17/2022, Additional history exists DTaP,Tdap,and Td Vaccines (2 - Td or Tdap) 10/02/2031 10/01/2021 Pap Smear Discontinued 07/31/2013 (Done elsewhere) Pneumococcal Vaccine: Pediatrics (0 to 5 Years) and At-Risk Patients (6 to 64 Years) Completed 03/13/2022, 07/03/2017 HPV (Gardasil) Vaccine Aged Out No lo nger eligible based on patient's age to complete this topic MENINGOCOCCAL (MENACTRA/MENVEO) Aged Out No longer eligible based on patient's age to complete this topic documented as of this encounter Medical Devices Not on filedocumented as of this encounter Procedures Procedure Name Priority Date/Time Associated Diagnosis Comments DIABETIC EYE EXAM Routine 02/23/2024 documented in this encounter Results * DIABETIC EYE EXAM (02/23/2024) 02/23/2024 Madison Araujo OD OTHER OUTSIDE LAB (SEE SCANNED REPORT) documented in this encounter Advance Directives * Full Code (Latest Code Status on File) Date Activated Date Inactivated Comments 08/26/2023 3:37 PM 08/26/2023 10:04 PM This order re flects the patients wishes and were consensually agreed upon. Question Answer Comments Discussion of Advance Direct bartolo occurred with: Not Discussed due to patient's condition Care Teams Chiropractor Sole Practitioner Relationship Specialty Start Date End Date Genesis Pichardo DO [address] [place] [address] PCP - General Family Medicine 06/04/17 documented as of this encounter
--- OUTSIDE RECORDS SUMMARY | 2024-03-10 10:26 | External Medical Summary | Summary of Care ---
Author Name Unknown Organization [facility] Address [address] [place] [address] Phone [phone] Care Team Providers Care Hoof Trimmer Name Role Phone Genesis Pichardo DO Primary Care Provider Reason for Visit * Reason Comments Post-Op Encounter Details Date Type Department Care Team (Late st Contact Info) Description 02/16/2024 2:00 PM EDT Rehab Services Occupational Therapy Fausto [place] [address] [place] [address] Riri Diaz May, OT [address] [place] [address] TFCC (triangular fibrocartilage complex) tear, left, subsequent encounter* Allergies Active Allergy Reactions Criticality Noted Date Comments Penicillins Unknown 06/04/2017 documented as of this encounter (statuses as of 02/16/2024) Medications Medication Sig Dispensed Refills Start Date [...] Tablet by mouth every evening. 90 Tablet 2 08/12/2023 Active metFORMIN HCl 1000 MG Oral [...] in the morning. for pain.. 30 Tablet 5 08/12/2023 Active FreeStyle Darcie 2 SensorIndications:DM type 2 nursing care encounter (HCC) Use as directed. 2 Each 08/12/2023 Active hydrOXYzine Pamoate 25 MG Oral [...] as of this encounter (statuses as of 02/16/2024) Active Problems Problem Noted Date Diagnosed Date Restless legs syndrome (RLS) 12/03/2022 Hypokalemia 10/23/2022 Asthma, moderate persistent 10/23/2022 Intermittent asthma with reliever use up to twic e per week 10/23/2022 Morbid obesity due to excess calories 10/23/2022 Other psychoactive substance dependence with withdrawal, unspecified 07/24/2022 Allergic rhinitis 11/15/2021 Recurrent major depressive disorder, in remissio n 10/01/2021 Essential (primary) hypertension 10/01/2021 Uncomplicated asthma 10/01/2021 Type 2 diabetes mellitus without complication PCOS (polycystic ovarian syndrome) 09/21/2020 Gastro-esophageal reflux disease without esophag itis 09/21/2020 Moderate persistent asthma with acute exacerbati on 06/04/2017 Increased abdominal girth 06/04/2017 Moderate episode of recurrent major depressive d isorder 06/04/2017 documented as of this encounter (statuses as of 02/16/2024) Resolved Problems Problem Noted Date Diagnosed Date [...] as of this encounter (statuses as of 02/16/2024) Immunizations Name Administration Dates Next Due COVID-19 mRNA, LNP-s, No Pre serve, 2-Dose Series (Moderna) 02/05/2021 COVID-19, mRNA, LNP-s, PF, B ooster, 100mcg/0.5mg (Moderna) 01/24/2022 HEP A - Hepatitis A (Adult > 18 yrs) 06/08/2018 PPD 08/04/2020 Pneumococcal Conjugate Vacci ne, 20-valent ([id number]) 03/13/2022 Pneumococcal Polysaccharide PPV23 (Pneumovax) 07/03/2017 Seasonal Influenza, PF, 6 M & above, IM , (FluLaval or Fluzone) 08/12/2023,05/13/2021,08/17/2020,07/05,06/04/2017 TDAP (age 10 and older)(Boostrix) 10/01/2021 documented as of this encounter Social History Tobacco Use Types Packs/Day Years Used Date Smoking Tobacco: Former Cigarettes 1 6 2 010 - 2016 Smokeless Tobacco: Never Alcohol Use Standard Drinks/Week [...] on file documented as of this encounter Progress Notes * Riri Diaz OT - 02/16/2024 1:51 PM EDT Images from the original note were not included. No charge associated with this visit <8 minutes of time for postop measurements update: WRIST Right Left Active Passive Active Passive Flexion 61 Extension 60 Radial Deviation 15 Ulnar Deviation 25 Pronation 90 Supination 60 Distance to DPC (cm's) Index Long Ring Little 0 0 0 0 Professor Of Finance L: 31 R:85 Pinch L: 19 R:20 Riri Diaz MS OTR/L, CHT 02/16/2024 1:51 PM CEDRIC CASTRO documented in this encounter Plan of Treatment Upcoming Encounters Date Type Department Care Team (Late st Contact Info) Description 03/29/2024 7:20 AM EDT Office Visit Family Practice [place] Paula [place]in[place] [address] [place] [address] Genesis Pichardo DO [address] [place] [address] 08/23/2024 1:00 PM EST Office Visit Orthopaedics Fransico Castro 16 [place] [address] Zachary Javier MD 16 [place] [address] Health Maintenance Due Date Last Done Comments Hepatitis B Vaccine (1 of 3 - 19+ 3-dose series) 2009 COVID-19 Vaccine ( - 2022- season) 2023 01/24/2022, 03/05/2021, 02/05/2021 Diabetic Eye Exam 07/17/2023 07/17/2022, , 07/17/2022, Additional history exists Albumin/Creatinine Ratio 01/20/2024 01/19/2023, 09/17 *SPIROMETRY ONCE FOR ASTHMA-ADULT 01/31/2024 HbA1c 02/10/2024 08/12/2023, /0 11/2022, 03/13/2022, Additional history exists Influenza Vaccine (FLU shot) (#1) 2024 08/12/2023, 05/13/2021, 08/17/2020, Additional history exists Depression Monitoring 08/12/2024 08/12/2023 Diabetic Foot Exam 08/12/2024 08/12/2023, 07/24/2022 GFR 08/12/2024 08/12/2023, /0 11/2022, 10/04/2021, Additional history exists DTaP,Tdap,and Td Vaccines (2 - Td or Tdap) 10/02/2031 10/01/2021 Pap Smear Discontinued 07/31/2013 (Done elsewhere) HIV Screening Completed 07/05/2018 Hepatitis C Screening Completed 07/05/2018 Pneumococcal Vaccine: Pediatrics (0 to 5 Years) and At-Risk Patients (6 to 64 Years) Completed 03/13/2022, 07/03/2017 HPV (Gardasil) Vaccine Aged Out No lo nger eligible based on patient's age to complete this topic MENINGOCOCCAL (MENACTRA/MENVEO) Aged Out No longer eligible based on patient's age to complete this topic documented as of this encounter Medical Devices Not on filedocumented as of this encounter Visit Diagnoses Diagnosis TFCC (triangular fibrocartilage complex) tear, left, subsequent encounter- Primary documented in this encounter Advance Directives * Full Code (Latest Code Status on File) Date Activated Date Inactivated Comments 08/26/2023 3:37 PM 08/26/2023 10:04 PM This order re flects the patients wishes and were consensually agreed upon. Question Answer Comments Discussion of Advance Direct bartolo occurred with: Not Discussed due to patient's condition Care Teams Hoof Trimmer Relationship Specialty Start Date End Date Genesis Pichardo DO [address] [place] [address] PCP - General Family Medicine 06/04/17 documented as of this encounter
--- OUTSIDE RECORDS SUMMARY | 2024-03-10 10:26 | External Medical Summary | Summary of Care ---
Author Name Unknown Organization [facility] Address [address] [place] [address] Phone [phone] Care Team Providers Care Sterilization Specialist Name Role Phone Genesis Pichardo DO Primary Care Provider Reason for Visit * Reason Comments Post-Op left Wrist Diagnosti c Arthroscopy with Debridement and TFCC Repair * Evaluate & Treat - Unlimited Visits (Within 10 days (routine)) - Pending Review Specialty Diagnoses / Procedures Referred By Mehul topete Referred To Contact Orthopaedic Surgery / Orthopedics Diagnoses TFCC (triangular fibrocartilage complex) tear, left, subsequent encounter Julieth Chin MD [address] [place] [address] Referral ID Status Reason Start Date Expiration Date Visits Requested Visits Authorized [id number] Pending Review Specialty Services Required 02/18/[phone] Encounter Details Date Type Department Care Team (Late st Contact Info) Description 02/16/2024 1:00 PM EDT Office Visit Orthopaedics Fausto [address]dom[address] [address] Zachary Javier MD 16 [place], [place] [id number] Aftercare following surgery of the musculoskeletal system* Allergies Active Allergy Reactions Criticality Noted Date [...] the morning. In the morning.. 90 Tablet 3 08/12/2023 Active amLODIPine Besylate 5 MG Oral Tablet (Norvasc)Indications: HTN, goal below 140/90 Take 1 Tablet by mouth in the morning. 90 Tablet 3 08/12/2023 Active Albuterol Sulfate (2.5 MG/3ML) 0.083% [...] by mouth in the morning. 90 Tablet 2 08/12/2023 Active Levocetirizine Dihydrochloride 5 MG Oral TabletIndications:All ergic rhinitis due to pollen, unspecified seasonality Take 1 Tablet by mouth every evening. 90 Tablet 2 08/12/2023 Active metFORMIN HCl 1000 MG Oral Tablet (Glucophage)Indicatio ns:PCOS (polycystic ovarian syndrome) Take 1 Tablet by mouth 2 times a day with morning and evening meals. 180 Tablet 3 08/12/2023 Active Montelukast Sodium 10 MG Oral Tablet (Singulair)Indication s:Non-seasonal allergic rhinitis due to pollen,Moderate persistent asthma with acute exacerbation Take 1 Tablet by mouth in the morning. 30 Tablet 5 08/12/2023 Active Ondansetron 4 MG Oral Tablet [...] AT BEDTIME NEEDED FOR ANXIETY 30 Capsule 08/12/2023 Active CPAP every night at bedtime. [...] 10/23/2022 02/03/2023 Asthma in remission 10/23/2022 10/24/19 Asthma, mild persistent 10/23/2022 04/0 12/2022 Asthma, [...] PPD 08/04/2020 Pneumococcal Conjugate Vacci ne, 20-valent ([id number]) 03/13/2022 Pneumococcal Polysaccharide PPV23 (Pneumovax) 07/03/2017 Seasonal [...] Notes * Riri Diaz OT - 02/16/2024 1:41 PM EDT No charge associated with this visit <8 minutes of time for postop measurements update: WRIST Right Left Active Passive Active Passive Flexion 61 Extension 60 Radial Deviation 15 Ulnar Deviation 25 Pronation 90 Supination 60 Distance to DPC (cm's) Index Long Ring Little 0 0 0 0 Die Technician L: 31 R:85 Pinch L: 19 R:20 * Aida Burrell, PABethanyC - 02/16/2024 1:18 PM EDT Name : Susan Carrillo Date : 02/16/2024 Diagnosis: left wrist TFCC tear Procedure: left Wrist Diagnostic Arthroscopy with Debridement and TFCC Repair Date of initiation of symptoms / Date of Procedure: 08/26/23 Duration of symptoms / since Procedure: 6 month(s) Severity: Pain Scale - 5/10 Brief History of events since last encounter: Patient presents today for a follow up. She notes pain and swelling with use. Symptoms are ulnar and dorsal side of the wrist. She continues to get intermittent swollen mass like area ulnar side of the wrist. When she gets that it will resolve with massage. She notes strength has improved. She willget a popping sensation volar side of the wrist with doing massage and squeezing the wrist. She gets tingling over ring A1 tristian, but no numbness of the hand. She tries not to use the hand. EMG: No Physical Exam: HAND / WRIST / ELBOW EXAM: There were no vitals filed for this visit. There is no height or weight on file to calculate BMI. General: Patient is pleasant and cooperative, oriented to time place and person. Appears stated ageand in no acute distress. No peripheral edema or swelling. Skin intact. Elbow: LEFT no lesions, erythema, warmth, or tenderness to palpation, full range of motion without pain or obvious instability. Hand: LEFT no lesions, erythema, warmth, bleeding or drainage. + focal tenderness to palpation dorsum of the wrist. Demonstrates full range of motion. Neurovascularly intact distally. Radiology: None Injection: No injection given Assessment : Susan Carrillo is a 33 year old [id number] female s/p left Wrist Diagnostic Arthroscopy with Debridement and TFCC Repair 6 months ago. Plan: Complete discussion of diagnosis, prognosis, and treatment options including risks and benefits hasagain taken place on this encounter. Will have OT to do measurements Continue to use it for normal activities. Advised that she may always have some pain and stiffness Continue with home therapy Plan will be follow up in 6 months. Patient has demonstrated understanding, with all current questions answered, and is satisfied with the plan of care. Patient has been instructed to contact the office with any questions or concerns that may arise. This patient was seen and examined with Dr. Kimberley Javier MD. in clinic on 02/16/2024. Aida Burrell PA-C [facility] [place] [facility] [address] [facility] [address] [facility] [address] [place] [address] Name : Susan Carrillo Date : 02/16/2024 I have reviewed the advanced practitioner's documentation on the date of service referenced in note, and I agree with, and take responsibility for the plan of care. Susan Carrillo is a 33 year old [id number] female s/p left Wrist Diagnostic Arthroscopy with Debridement and TFCC Repair 6 months ago. Patient presents for follow-up. Describes continued slow steady improvement. Pain adequately controlled with no numbness or tingling. On exam demonstrates excellent range of motion with minimal diffuse discomfort surrounding wrist with no significant localization. No obvious instability appreciated. Neurovascularly intact distally. After discussion patient agrees to continue with advancement of activity. She has met with therapy for measurements and home exercise program. Follow-up appointment offered for 6 months. I was physically present and personally performed a history and physical examination of the patientwith Aida Burrell PA-C. Together with her and the patient, I have determined the planned management of the patient. I have discussed the case, findings, and plan with her, and have reviewed her doc umentation in detail. I agree with her note and the plan of care. Zachary Javier MD FAAOS Hand & Upper Extremity Surgeon [facility] [place] [facility] [address] [facility] [address] [facility] [address] [place] [phone] documented in this encounter Plan of Treatment Upcoming Encounters Date Type Department Care Team (Late st Contact Info) Description 03/29/2024 7:20 AM EDT Office Visit Family Practice [facility] [address] [facility] [place], [place] [address] Genesis Pichardo DO 200 [facility] [place] [address] 08/23/2024 1:00 PM EST Office Visit Orthopaedics Fausto [place] [address] [place] [address] Zachary Javier MD [address] [place] [address] Health Maintenance Due Date Last Done Comments Hepatitis B Vaccine (1 of 3 - 19+ 3-dose series) 2009 COVID-19 Vaccine ( - 2022- season) 2023 01/24/2022, 03/05/2021, 02/05/2021 Diabetic Eye Exam 07/17/2023 07/17/2022, , 07/17/2022, Additional history exists Albumin/Creatinine Ratio 01/20/2024 01/19/2023, 09/17 *SPIROMETRY ONCE FOR ASTHMA-ADULT 01/31/2024 HbA1c 02/10/2024 08/12/2023, 11/2022, 03/13/2022, Additional history exists Influenza Vaccine (FLU shot) (#1) 2024 08/12/2023, 05/13/2021, 08/17/2020, Additional history exists Depression Monitoring 08/12/2024 08/12/2023 Diabetic Foot Exam 08/12/2024 08/12/2023, 07/24/2022 GFR 08/12/2024 08/12/2023, 11/2022, 10/04/2021, Additional history exists DTaP,Tdap,and Td [...] as of this encounter Visit Diagnoses Diagnosis Aftercare following surgery of the musculoskeletal system- Primary Aftercare following surgery of the musculoskeletal system, NEC documented in this encounter Advance Directives * Full Code (Latest Code Status on File) Date Activated Date Inactivated Comments 08/26/2023 3:37 PM 08/26/2023 10:04 PM This order re flects the patients wishes and were consensually agreed upon. Question Answer Comments Discussion of Advance Direct bartolo occurred with: Not Discussed due to patient's condition Care Teams Sterilization Specialist Relationship Specialty Start Date End Date Genesis Pichardo DO [address] [place] [address] PCP - General Family Medicine 06/04/17 documented as of this encounter
--- OUTSIDE RECORDS SUMMARY | 2024-03-10 10:26 | External Medical Summary | Summary of Care ---
Author Name Unknown Organization [facility] Address [address] [place] [facility] [place] [place] [address] Phone [phone] Care Team Providers Care Machine Skiver Name Role Phone Genesis Pichardo DO Primary Care Provider Encounter Details Date Type Department Care Team (Late st Contact Info) Description 02/02/2024 1:00 PM EDT Telemedicine [facility] [address] [facility] [place] [address] Genesis Pichardo DO [address] [facility] [place] [address] ZACKERY (generalized anxiety disorder)*; Moderate episode of recurrent major depressive disorder (HCC) Allergies Active Allergy Reactions Criticality Noted Date Comments Penicillins Unknown 06/04/2017 documented as of this encounter (statuses as of 02/02/2024) Medications Medication Sig Dispensed Refills Start Date [...] as of this encounter (statuses as of 02/02/2024) Active Problems Problem Noted Date Diagnosed Date [...] as of this encounter (statuses as of 02/02/2024) Resolved Problems Problem Noted Date Diagnosed Date [...] as of this encounter (statuses as of 02/02/2024) Immunizations Name Administration Dates Next Due COVID-19 mRNA, LNP-s, No Pre serve, 2-Dose Series (Moderna) 02/05/2021 COVID-19, mRNA, LNP-s, PF, B ooster, 100mcg/0.5mg (Moderna) 01/24/2022 HEP A - Hepatitis A (Adult > 18 yrs) 06/08/2018 PPD 08/04/2020 Pneumococcal Conjugate Vacci ne, 20-valent ([id number]) 03/13/2022 Pneumococcal Polysaccharide PPV23 (Pneumovax) 07/03/2017 Seasonal [...] as of this encounter Progress Notes * Genesis Pichardo, - 02/02/2024 1:01 PM EDT Patient location: HOME. I was in a hospital or clinic location. After connecting through televideo,patient was verified with two unique identifiers. Patient (or authorized legal account maintenance representative) was then informed that this was a Telemedicine visit and being conducted confidentially over secure lines. Methods to assure confidentiality were taken. Patient acknowledged consent and understanding of pr ivacy and security of the Telemedicine visit. The patient agreed to participate. Subjective: Susan Carrillo is a 33 year old female. No chief complaint on file. HPI: "My depression and anxiety has been very very bad", having suicidal thoughts, locked herself in bathroom. Had wrist surgery, got fired from [place] job, then got promotion at other job, then fired. Got another job, lease is up, can't find anywhere to live. Emotionally and mentally having a hard time, needs toget herself together. told her to call PCP. Has tried to get in with counselors, waiting for call back. No SI right now. Tearful, sometimes debbie. Used to be on helpful medication in [facility] in [place], can't remember its name, made her happy and not angry. PHM: Patient Active Problem List Diagnosis Moderate persistent asthma with acute exacerbation Increased abdominal girth Moderate episode of recurrent major depressive disorder (HCC) PCOS (polycystic ovarian syndrome) Gastro-esophageal reflux disease without esophagitis Type 2 diabetes mellitus without complication (HCC) Recurrent major depressive disorder, in remission ([facility]) Essential (primary) hypertension Uncomplicated asthma Allergic rhinitis Other psychoactive substance dependence with withdrawal, unspecified (HCC) Hypokalemia Asthma, moderate persistent Intermittent asthma with reliever use up to twice per week Morbid obesity due to excess calories ([facility]) Restless legs syndrome (RLS) Current Outpatient Medications Medication Sig Dispense Refill Sertraline HCl 25 MG Oral Tablet (Zoloft) Take 1 Tablet by mouth in the morning. 30 Tablet 5 Wegovy 1 MG/0.5ML Subcutaneous Solution Auto-injector (Semaglutide-Weight Management) Inject 1 mg under the skin once a week. 2 mL 0 HYDROcodone-Acetaminophen 5-325 MG Oral Tablet Take 1 Tablet by mouth every 6 hours as needed for Pain, Mild or Pain, Severe. 10 Tablet 0 CPAP every night at bedtime. Albuterol Sulfate (2.5 MG/3ML) 0.083% Inhalation Nebulization Solution (Proventil) Inhale 1 Vial via nebulizer every 4 hours as needed for Wheezing. 120 mL 1 amLODIPine Besylate 5 MG Oral Tablet (Norvasc) Take 1 Tablet by mouth in the morning. 90 Tablet 3 buPROPion HCl ER (XL) 300 MG Oral Tablet Extended Release 24 Hour (Wellbutrin XL) Take 1 Tablet by mouth in the morning. 90 Tablet 2 FreeStyle Darcie 2 Sensor Use as directed. 2 Each 11 hydroCHLOROthiazide 12.5 MG Oral Tablet (Hydrodiuril) Take 1 Tablet by mouth in the morning. In themorning.. 90 Tablet 3 hydrOXYzine Pamoate 25 MG Oral Capsule (Vistaril) TAKE 1 CAPSULE BY MOUTH AT BEDTIME NEEDED FOR ANXIETY 30 Capsule 5 Levocetirizine Dihydrochloride 5 MG Oral Tablet Take 1 Tablet by mouth every evening. 90 Tablet 2 Meloxicam 15 MG Oral Tablet (Mobic) Take 1 Tablet by mouth in the morning. for pain.. 30 Tablet 5 metFORMIN HCl 1000 MG Oral Tablet (Glucophage) Take 1 Tablet by mouth 2 times a day with morning and evening meals. 180 Tablet 3 Montelukast Sodium 10 MG Oral Tablet (Singulair) Take 1 Tablet by mouth in the morning. 30 Tablet 5 Ondansetron 4 MG Oral Tablet Disintegrating Place 1 Tablet on tongue every 8 hours as needed for Nausea. dissolve on tongue. 30 Tablet 5 Terbinafine HCl 1 % External Cream (LamISIL AT ATHLETE'S FOOT) APPLY TOPICALLY TO AFFECTED AREA 2 TIMES A DAY TO FEET BILATERALLY 45 g 2 Esomeprazole Magnesium 20 MG Oral Tablet Delayed Release Take 20 mg by mouth in the morning. 30 Tablet 3 Ventolin HFA 108 (90 Base) MCG/ACT Inhalation Aerosol Solution Inhale by mouth 2 Puffs every 4 hours as needed for Cough, Shortness of Breath or Wheezing. 18 g 2 Hydrocortisone 2.5 % External Ointment Apply topically to affected area 3 times a day . To affectedarea. 30 g 5 Ketoconazole 2 % External Cream Apply topically to affected area 2 times a day. Apply to feet 60 g 1 No current facility-administered medications for this visit. Review of patient's allergies indicates: Allergen Reactions Penicillins Unknown Objective: LMP 08/23/2018 Physical Exam: NA ASSESSMENT/PLAN: ZACKERY (generalized anxiety disorder) (Primary) - Sertraline HCl 25 MG Oral Tablet (Zoloft); Take 1 Tablet by mouth in the morning. Moderate episode of recurrent major depressive disorder (HCC) - Sertraline HCl 25 MG Oral Tablet (Zoloft); Take 1 Tablet by mouth in the morning. Given crisis number [phone] Can be evaluated at [facility]. Go to ER if SI. Contracted for safety. Will call with update on how she is feeling by end of the week. Will go to ER if SI. 20 min spent on telemedicine, coordinating care, reviewing chart, and preparing this note. Genesis Pichardo DO documented in this encounter Plan of Treatment Upcoming Encounters Date Type Department Care Team (Late st Contact Info) Description 02/16/2024 1:00 PM EDT Office Visit [place] [phone] Zachary Javier MD [address] [place] [address] [place] [address] 03/29/2024 7:20 AM EDT Office Visit Family Practice [facility] [place] [address] [facility] [place], [place] [address] Genesis Pichardo, [address] [place] [address] Health Maintenance Due Date Last Done Comments [...] Exam 08/12/2024 08/12/2023, 07/24/2022 GFR 08/12/2024 08/12/2023, 0 11/2022, 10/04/2021, Additional history exists DTaP,Tdap,and Td [...] as of this encounter Visit Diagnoses Diagnosis ZACKERY (generalized anxiety disorder)- Primary Generalized anxiety disorder Moderate episode of recurrent major depressive disorder (HCC) documented in this encounter Advance Directives * Full Code (Latest Code Status on File) Date Activated Date Inactivated Comments 08/26/2023 3:37 PM 08/26/2023 10:04 PM This order re flects the patients wishes and were consensually agreed upon. Question Answer Comments Discussion of Advance Direct bartolo occurred with: Not Discussed due to patient's condition Care Teams Machine Skiver Relationship Specialty Start Date End Date Genesis Pichardo DO [address] [place] [address] PCP - General Family Medicine 06/04/17 documented as of this encounter
--- OUTSIDE RECORDS SUMMARY | 2024-03-10 10:27 | External Medical Summary | Summary of Care ---
Author Name Unknown Organization [facility] Address [address] [place] [address] Phone [phone] Care Team Providers Care District Adviser Name Role Phone Genesis Pichardo DO Primary Care Provider Reason for Visit * Reason Comments Follow Up Left wrist f/u * Evaluate & Treat - Unlimited Visits (Within 10 days (routine)) - Pending Review Specialty Diagnoses / Procedures Referred By Mehul topete Referred To Contact Orthopaedic Surgery / Orthopedics Diagnoses TFCC (triangular fibrocartilage complex) tear, left, subsequent encounter Julieth Chin MD [address] [place] [address] Referral ID Status Reason Start Date Expiration Date Visits Requested Visits Authorized [id number] Pending Review Specialty Services Required 02/18/[phone] Encounter Details Date Type Department Care Team (Late st Contact Info) Description 11/17/2023 1:00 PM EDT Office Visit Orthopaedics [facility] [address] [place] [address] Zachary Javier MD [address] [place] [address] Aftercare following surgery of the musculoskeletal system* Allergies Active Allergy Reactions Criticality Noted Date Comments Penicillins Unknown 06/04/2017 documented as of this encounter (statuses as of 11/17/2023) Medications Medication Sig Dispensed Refills Start Date [...] FEET BILATERALLY 45 g 2 01/12/2023 Active Semaglutide-Weight Management 2.4 MG/0.75ML Subcutaneous Solution Auto-injectorIndicati ons:Morbid obesity due to excess calories ([facility]),Type 2 diabetes mellitus without complication, without long-term current use of insulin ([facility]) Inject 2.4 mg under the skin once a week. 9 mL 2 04/07/2023 Active hydroCHLOROthiazide 12.5 MG Oral Tablet (Hydrodiuril)Indicati [...] disorder (HCC),Morbid obesity due to excess calories ([facility]) Take 1 Tablet by mouth in the [...] 08/12/2023 Active CPAP every night at bedtime. 0 Active HYDROcodone-Acetamino phen 5-325 MG Oral Tablet Take 1 Tablet by mouth every 6 hours as needed for Pain, Mild or Pain, Severe. 10 Tablet 0 09/01/2023 Active documented as of this encounter (statuses as of 11/17/2023) Active Problems Problem Noted Date Diagnosed Date Restless legs syndrome (RLS) 12/03/2022 Hypokalemia 10/23/2022 Asthma, moderate persistent 10/23/2022 Intermittent asthma with reliever use up to twic e per week 10/23/2022 Morbid obesity due to excess calories 10/23/2022 Other psychoactive substance dependence with withdrawal, unspecified 07/24/2022 Allergic rhinitis 11/15/2021 Recurrent major depressive disorder, in [facility] 10/01/2021 Essential (primary) hypertension 10/01/2021 Uncomplicated asthma 10/01/2021 Type 2 diabetes mellitus without complication PCOS (polycystic ovarian syndrome) 09/21/2020 Gastro-esophageal reflux disease without esophag itis 09/21/2020 Moderate persistent asthma with acute exacerbati on 06/04/2017 Increased abdominal girth 06/04/2017 Moderate episode of recurrent major depressive d isorder 06/04/2017 documented as of this encounter (statuses as of 11/17/2023) Resolved Problems Problem Noted Date Diagnosed Date [...] as of this encounter (statuses as of 11/17/2023) Immunizations Name Administration Dates Next Due COVID-19 mRNA, LNP-s, No Pre serve, 2-Dose Series (Moderna) 02/05/2021 COVID-19, mRNA, LNP-s, PF, B ooster, 100mcg/0.5mg (Moderna) 01/24/2022 HEP A - Hepatitis A (Adult > 18 yrs) 06/08/2018 PPD 08/04/2020 Pneumococcal Conjugate Vacci ne, 20-valent ([id number]) 03/13/2022 Pneumococcal Polysaccharide PPV23 (Pneumovax) 07/03/2017 Seasonal Influenza, PF, 6 M & above, IM , (FluLaval or Fluzone) 08/12/2023,05/13/2021,08/17/2020,07/05,06/04/2017 TDAP (age 10 and older)(Boostrix) 10/01/2021 documented as of this encounter Social History Tobacco Use Types Packs/Day Years Used Date Smoking Tobacco: Former Cigarettes 1 6 2 - 2015 Smokeless Tobacco: Never Alcohol Use Standard Drinks/Week Comments Yes 0 (1 standard drink = 0.6 oz pur e alcohol) once a month PHQ-2 Answer Date Recorded PHQ Adult Total Score 16 08/12/2023 Sex and Gender Information Value Date Recorded Sex Assigned at Not on file Gender Identity Not on file Sexual Orientation Not on file Job Start Date Occupation Industry Not on file Not on file Not on file documented as of this encounter Progress Notes * Aida Burrell PA-C - 11/17/2023 1:08 PM EDT Name : Susan Carrillo Date : 11/17/2023 Diagnosis: left wrist TFCC tear Procedure: left Wrist Diagnostic Arthroscopy with Debridement and TFCC Repair Date of initiation of symptoms / Date of Procedure: 08/26/23 Duration of symptoms / since Procedure: 12 week(s) Severity: Pain Scale - 5/10 Brief History of events since last encounter: Patient presents today for post-op. She is doing better. She is able to do more activities. She hasbeen able to take a shower by herself, wash dishes, open a soda can, dress herself, put on her socks and shoes. She still cannot open a jar. She states she was unable to return to work, as they would accommodate light duty. She notes some numbness and tingling in the palm that radiates to the shoulder. She has been doing the home therapy. EMG: No Physical Exam: HAND / WRIST [...] focal tenderness to palpation dorsum of the wrist and trff. Demonstrates full range of motion. Neurovascularly intact distally. Radiology: None Injection: No injection given Assessment : Susan Carrillo is a 33 year old eowgx-hplm-srhxczeo female s/p left Wrist Diagnostic Arthroscopy with Debridement and TFCC Repair 12 weeks ago. Plan: Complete discussion of diagnosis, prognosis, and treatment options including risks and benefits hasagain taken place on this encounter. Patient has agreed to proceed with scar massage. Will have OT provide her gel pad Continue with home therapy Plan will be follow up in 3 months. Patient has demonstrated understanding, with all current questions answered, and is satisfied with the plan of care. Patient has been instructed to contact the office with any questions or concerns that may arise. This patient was seen and examined with Dr. Kimberley Javeir MD. in clinic on 11/17/2023. Aida Burrell PA-C [facility] [address] [address] Orthopaedics, [facility] [address] [place] [address] Name : Susan Carrillo Date : 11/17/2023 I have reviewed the advanced practitioner's documentation on the date of service referenced in note, and I agree with, and take responsibility for the plan of care. Susan Carrillo is a 33 year old rpuqv-ebum-ifdaozgr female s/p left Wrist Diagnostic Arthroscopy with Debridement and TFCC Repair 12 weeks ago. Continues to progress well postoperatively with gradual improvement. Counseled regarding long-term outcomes expectations. Met with therapy for desensitization and further advancement. Documentation for return to work provided. Follow up in 3 months. I was physically present and personally [...] MD FAAOS Hand & Upper Extremity Surgeon [facility] Orthopaedics [facility] [address] [facility] [address] [facility] [address] [place] [address] documented in this encounter Plan of Treatment Upcoming Encounters Date Type Department Care Team (Late st Contact Info) Description 02/11/2024 8:20 AM EDT Office Visit Family Practice [facility] [address] [place] [address] Genesis Pichardo, [address] [place] [address] 02/16/2024 1:00 PM EDT Office Visit Orthopaedics [address] [address] Zachary Javier MD [address] [place] [address] Health Maintenance Due Date Last Done Comments Hepatitis B (1 of 3 - 19+ 3-dose series) 2009 COVID-19 Vaccine ( season) 2023 01/24/2022, 03/05/2021, 02/05/2021 Diabetic Eye Exam 07/17/2023 07/17/2022, , 07/17/2022, Additional history exists Depression, Most Recent Score >= 10 (will fire each visit until score < 10) 08/13/2023 08/12/2023 Albumin/Creatinine Ratio 01/20/2024 01/19/2023, 09/17 HbA1c 02/10/2024 08/12/2023, 11/2022, 03/13/2022, Additional history exists Diabetic Foot Exam 08/12/2024 08/12/2023, 07/24/2022 GFR 08/12/2024 08/12/2023, 11/2022, 10/04/2021, Additional history exists DTaP,Tdap,and Td Vaccines (2 - Td or Tdap) 10/02/2031 10/01/2021 Pap Smear Discontinued 07/31/2013 (Done elsewhere) Pneumococcal Vaccine: Pediatrics (0 to 5 Years) and At-Risk Patients (6 to 64 Years) Completed 03/13/2022, 07/03/2017 Influenza Vaccine (FLU shot) Completed 08/12/2023, 05/13/2021, 08/17/2020, Additional history exists GARDASIL-HPV IMMUNIZATION SERIES Aged Out No longer eligible based on [...] NEC documented in this encounter Advance Directives Latest Code Status on File Code Status Date Activated Date Inactivated Comments Full Code 08/26/2023 3:37 PM 08/26/2023 10:04 PM This o rder reflects the patients wishes and were consensually agreed upon. Question Answer Comments Discussion of Advance Directives occurred with: Not Discussed due to patient's condition Care Teams District Adviser Relationship Specialty Start Date End Date Genesis Pichardo DO [address] [place] [address] PCP - General Family Medicine 06/04/17 documented as of this encounter
--- OUTSIDE RECORDS SUMMARY | 2024-03-10 10:27 | External Medical Summary | Summary of Care ---
Author Name Unknown Organization [facility] Address [address] [place] [address] Phone [phone] Care Team Providers Care Data Control Assistant Name Role Phone Genesis Pichardo DO Primary Care Provider Reason for Visit * Reason Onset Date Comments Medication Question 12/29/2023 Encounter Details Date Type Department Care Team (Late st Contact Info) Description 12/29/2023 Telephone Gastroenterology, [place] [address] [place] [address] Services, [facility] [address] [place] [address] Medication Question Allergies Active Allergy Reactions Criticality Noted Date Comments Penicillins Unknown 06/04/2017 documented as of this encounter (statuses as of 01/01/2024) Medications Medication Sig Dispensed Refills Start Date End Date Status Ketoconazole 2 % External CreamIndications:Ti ino corporis Apply topically to affected area 2 times a day. Apply to feet 60 g 1 1 Active Hydrocortisone 2.5 % External Ointment Apply topically to affected area 3 times a day . To affected area. 30 g 5 2 Active Ventolin HFA 108 (90 Base) MCG/ACT Inhalation Aerosol Solution Inhale by mouth 2 Puffs every 4 hours as needed for Cough, Shortness of Breath or Wheezing. 18 g 2 2 Active Esomeprazole Magnesium 20 MG Oral Tablet Delayed Release Take 20 mg by mouth in the morning. 30 Tablet 3 3 Active Terbinafine HCl 1 % External Cream (LamISIL AT ATHLETE'S FOOT)Indications:Ti ino pedis of both feet APPLY TOPICALLY TO AFFECTED AREA 2 TIMES A DAY TO FEET BILATERALLY 45 g 2 3 Active hydroCHLOROthiazide 12.5 MG Oral Tablet (Hydrodiuril)Indica tions:HTN, goal below 140/90 Take 1 Tablet by mouth in the morning. In the morning.. 90 Tablet 3 4 Active amLODIPine Besylate 5 MG Oral Tablet (Norvasc)Indication s:HTN, goal below 140/90 Take 1 Tablet by mouth in the morning. 90 Tablet 3 4 Active Albuterol Sulfate (2.5 MG/3ML) 0.083% Inhalation Nebulization Solution (Proventil)Indicati ons:Moderate persistent asthma with exacerbation Inhale 1 Vial via nebulizer every 4 hours as needed for Wheezing. 120 mL 1 4 Active buPROPion HCl ER (XL) 300 MG Oral Tablet Extended Release 24 Hour (Wellbutrin XL)Indications:Mode rate episode of recurrent major depressive disorder (HCC),Morbid obesity due to excess calories (HCC) Take 1 Tablet by mouth in the morning. 90 Tablet 2 4 Active Levocetirizine Dihydrochloride 5 MG Oral TabletIndications:A llergic rhinitis due to pollen, unspecified seasonality Take 1 Tablet by mouth every evening. 90 Tablet 2 4 Active metFORMIN HCl 1000 MG Oral Tablet (Glucophage)Indicat ions:PCOS (polycystic ovarian syndrome) Take 1 Tablet by mouth 2 times a day with morning and evening meals. 180 Tablet 3 4 Active Montelukast Sodium 10 MG Oral Tablet (Singulair)Indicati ons:Non-seasonal allergic rhinitis due to pollen,Moderate persistent asthma with acute exacerbation Take 1 Tablet by mouth in the morning. 30 Tablet 5 4 Active Ondansetron 4 MG Oral Tablet DisintegratingIndic ations:Nausea Place 1 Tablet on tongue every 8 hours as needed for Nausea. dissolve on tongue. 30 Tablet 4 Active Meloxicam 15 MG Oral Tablet (Mobic) Take 1 Tablet by mouth in the morning. for pain.. 30 Tablet 4 Active FreeStyle Darcie 2 SensorIndications:D M type 2 nursing care encounter (HCC) Use as directed. 2 Each 4 Active hydrOXYzine Pamoate 25 MG Oral Capsule (Vistaril)Indicatio ns:Moderate episode of recurrent major depressive disorder (HCC) TAKE 1 CAPSULE BY MOUTH AT BEDTIME NEEDED FOR ANXIETY 30 Capsule 5 4 Active CPAP every night at bedtime. Active HYDROcodone-Acetami nophen 5-325 MG Oral Tablet Take 1 Tablet by mouth every 6 hours as needed for Pain, Mild or Pain, Severe. 10 Tablet 4 Active Wegovy 1 MG/0.5ML Subcutaneous Solution Auto-injector (Semaglutide-Weight Management) Inject 1 mg under the skin once a week. 2 mL 4 Active Semaglutide-Weight Management 2.4 MG/0.75ML Subcutaneous Solution Auto-injectorIndica tions:Morbid obesity due to excess calories (HCC),Type 2 diabetes mellitus without complication, without long-term current use of insulin (HCC) Inject 2.4 mg under the skin once a week. 9 mL 2 3 12/30/19 24 Discontinued documented as of this encounter (statuses as of 01/01/2024) Active Problems Problem Noted Date Diagnosed Date [...] as of this encounter (statuses as of 01/01/2024) Resolved Problems Problem Noted Date Diagnosed Date [...] as of this encounter (statuses as of 01/01/2024) Immunizations Name Administration Dates Next Due COVID-19 mRNA, LNP-s, No Pre serve, 2-Dose Series (Moderna) 02/05/2021 COVID-19, mRNA, LNP-s, PF, B ooster, 100mcg/0.5mg (Moderna) 01/24/2022 HEP A - Hepatitis A (Adult > 18 yrs) 06/08/2018 PPD 08/04/2020 Pneumococcal Conjugate Vacci ne, 20-valent ([id number]) 03/13/2022 Pneumococcal Polysaccharide PPV23 (Pneumovax) 07/03/2017 Seasonal [...] on file documented as of this encounter Miscellaneous Notes * Telephone Encounter - Carlos Sapp LPN - 01/01/2024 9:07 AM EDT Letter sent * Telephone Encounter - Alisha Pedro CMA - 01/01/2024 8:54 AM EDT Pt's number still not in service, attempted to contact emergency contact, no voicemail box set up. * Telephone Encounter - Carlos Sapp LPN - 12/31/2023 3:13 PM EDT The pt's number is still not in service. I left a message with her emergency contact. * Telephone Encounter - Alisha Pedro CMA - 12/30/2023 8:56 AM EDT Attempted to call pt, number listed as "not in service" will try again later. * Telephone Encounter - Ana Paula Mcclelland PA-C - 12/30/2023 8:09 AM EDT Please call pt - I gave 1 mo Wegovy 1mg. She needs a visit. Cancelled in Aug. No further refills without being seen. We need to assess her nutritional status. * Telephone Encounter - Becca Ferguson OSA - 12/29/2023 5:05 PM EDT Patient called in asking if her Wegovy prescription could be taken down a dosage. She stated she has been very sick on the 2.4mg dosage and was wondering if she could have it taken down one step. If so it can be sent to the [facility] that is on file. Thank you. documented in this encounter Plan of Treatment Upcoming Encounters Date Type Department Care Team (Late st Contact Info) Description 02/11/2024 8:20 AM EDT Office Visit Family Practice [place] [facility] [place] [address] [place] [address] Genesis Pichardo DO [address] [place] [address] 02/16/2024 1:00 PM EDT Office Visit Orthopaedics [facility] [address] [place] [phone] Zachary Javier MD 16 [facility] [place] [id number] Health Maintenance Due Date Last Done Comments Hepatitis B (1 of 3 - 19+ 3-dose series) 2009 COVID-19 Vaccine ( season) 2023 01/24/2022, 03/05/2021, 02/05/2021 Diabetic Eye Exam 07/17/2023 07/17/2022, , 07/17/2022, Additional history exists Albumin/Creatinine Ratio 01/20/2024 01/19/2023, 09/17 HbA1c 02/10/2024 08/12/2023, 11/2022, 03/13/2022, Additional history exists Depression Monitoring 08/12/2024 08/12/2023 [...] Not on filedocumented as of this encounter Advance Directives * Full Code (Latest Code Status on File) Date Activated Date Inactivated Comments 08/26/2023 3:37 PM 08/26/2023 10:04 PM This order re flects the patients wishes and were consensually agreed upon. Question Answer Comments Discussion of Advance Direct bartolo occurred with: Not Discussed due to patient's condition Care Teams Data Control Assistant Relationship Specialty Start Date End Date Genesis Pichardo DO [address] [place] [address] PCP - General Family Medicine 06/04/17 documented as of this encounter
--- OUTSIDE RECORDS SUMMARY | 2024-03-10 10:27 | External Medical Summary | Summary of Care ---
Author Name Unknown Organization [facility] Address [address] [place] [facility] [place] [address] Phone [phone] Care Team Providers Care Front Desk Name Role Phone MarinoGenesis DO Primary Care Provider Encounter Details Date Type Department Care Team (Late st Contact Info) Description 11/17/2023 Patient Reported Data Patient Survey Ortho [facility] Allergies Active Allergy Reactions Criticality Noted Date [...] Auto-injectorIndicati ons:Morbid obesity due to excess calories (HCC),Type 2 [...] PPD 08/04/2020 Pneumococcal Conjugate Vacci ne, 20-valent ([id number]) 03/13/2022 Pneumococcal Polysaccharide PPV23 (Pneumovax) 07/03/2017 Seasonal [...] 8:20 AM EDT Office Visit Family Practice [facility] [place] [address] [place] [address] Marino Hurtadosergio Archibald, [address] [facility] [place] [address] Health Maintenance Due Date Last Done Comments Hepatitis B (1 of 3 - 19+ 3-dose series) 2009 COVID-19 Vaccine (2022- season) 2023 01/24/2022, 03/05/2021, 02/05/2021 Diabetic Eye Exam 07/17/2023 07/17/2022, , 07/17/2022, Additional history exists Depression, Most Recent Score >= 10 (will fire each visit until score < 10) 08/13/2023 08/12/2023 Albumin/Creatinine Ratio 01/20/2024 01/19/2023, 09/17 HbA1c 02/10/2024 08/12/2023, 0 11/2022, 03/13/2022, Additional history exists Diabetic Foot [...] filedocumented as of this encounter Advance Directives Latest Code Status on File Code Status Date Activated Date Inactivated Comments Full Code 08/26/2023 3:37 PM 08/26/2023 10:04 PM This o rder reflects the patients wishes and were consensually agreed upon. Question Answer Comments Discussion of Advance Directives occurred with: Not Discussed due to patient's condition Care Teams Front Desk Relationship Specialty Start Date End Date Genesis Pichardo DO [address] [place] [address] PCP - General Family Medicine 06/04/17 documented as of this encounter
--- OUTSIDE RECORDS SUMMARY | 2024-03-10 10:27 | External Medical Summary | Summary of Care ---
Author Name Unknown Organization [facility] Address [address] [place] [address] Phone [phone] Care Team Providers Care Sporting Goods Salesperson Name Role Phone Genesis Pichardo DO Primary Care Provider Reason for Visit * Reason Onset Date Comments Medication Question 12/29/2023 Encounter Details Date Type Department Care Team (Late st Contact Info) Description 12/29/2023 Telephone Gastroenterology, [place] [address] [place] [address] Services, [facility] [address] [place] [address] Medication Question Allergies Active Allergy Reactions Criticality [...] PPD 08/04/2020 Pneumococcal Conjugate Vacci ne, 20-valent ([id number]) 03/13/2022 Pneumococcal Polysaccharide PPV23 (Pneumovax) 07/03/2017 Seasonal [...] so it can be sent to the [facility] that is on file. Thank you. documented in this encounter Plan of Treatment Upcoming Encounters Date Type Department Care Team (Late st Contact Info) Description 02/11/2024 8:20 AM EDT Office Visit Family Practice [facility] [place] [address] [place] [address] Genesis Pichardo DO [address] [facility] [place] [address] 02/16/2024 1:00 PM EDT Office Visit Orthopaedics [facility] [address] [place] [phone] Zachary Javier MD 16 [facility] [place] [phone] Health Maintenance Due Date Last Done Comments [...] Discussed due to patient's condition Care Teams Sporting Goods Salesperson Relationship Specialty Start Date End Date Genesis Pichardo DO [address] [place] [address] PCP - General Family Medicine 06/04/17 documented as of this encounter
--- OUTSIDE RECORDS SUMMARY | 2024-03-10 10:27 | External Medical Summary | Summary of Care ---
Author Name Unknown Organization [facility] Address [address] [facility] [place] [address] Phone [phone] Care Team Providers Care Flight Steward Name Role Phone MarinoGenesis DO Primary Care [...] PPD 08/04/2020 Pneumococcal Conjugate Vacci ne, 20-valent ([id number]) 03/13/2022 Pneumococcal Polysaccharide PPV23 (Pneumovax) 07/03/2017 Seasonal [...] EDT Office Visit Family Practice [facility] [place] [address] [facility] [address] [place] [address] Marino Hurtado Cristela, [address] [facility] [address] [place] [address] 02/16/2024 1:00 PM EDT Office Visit Orthopaedics [place], [place] [address] [place] [address] Zachary Javier MD [address] [place] [address] Health Maintenance Due Date Last Done [...] Discussed due to patient's condition Care Teams Flight Steward Relationship Specialty Start Date End Date Genesis Pichardo DO [address] [place] [address] PCP - General Family Medicine 06/04/17 documented as of this encounter
--- OUTSIDE RECORDS SUMMARY | 2024-03-10 10:27 | External Medical Summary | Summary of Care ---
Author Name Unknown Organization [facility] Address [address] [place] [address] Phone [phone] Care Team Providers Care Quality Control Clerk Name Role Phone MarinoGenesis DO Primary Care [...] PPD 08/04/2020 Pneumococcal Conjugate Vacci ne, 20-valent ([id number]) 03/13/2022 Pneumococcal Polysaccharide PPV23 (Pneumovax) 07/03/2017 Seasonal [...] EDT Office Visit Family Practice [facility] [place] [address] [facility] [address] [place] [address] Marino Hurtado Cristela, [address] [facility] [address] [place] [address] 02/16/2024 1:00 PM EDT Office Visit Orthopaedics [place], [place] [address] [place] [address] Zachary Javier MD [address] [place] [address] Health Maintenance Due Date Last [...] Discussed due to patient's condition Care Teams Quality Control Clerk Relationship Specialty Start Date End Date Genesis Pichardo DO [address] [place] [address] PCP - General Family Medicine 06/04/17 documented as of this encounter
--- OUTSIDE RECORDS SUMMARY | 2024-03-10 10:27 | External Medical Summary | Summary of Care ---
Author Name Unknown Organization [facility] Address [address] [place] [address] Phone [phone] Care Team Providers Care Transport Assistant Name Role Phone Genesis Pichardo DO Primary Care Provider Encounter Details Date Type Department Care Team (Late st Contact Info) Description 12/29/2023 Telephone Gastroenterology, [place] [address] [place] [address] Services, [facility] [address] [place] [address] Allergies Active Allergy Reactions Criticality Noted Date Comments Penicillins Unknown 06/04/2017 documented as of this encounter (statuses as of 12/30/2023) Medications Medication Sig Dispensed Refills Start Date [...] Nausea. dissolve on tongue. 30 Tablet 5 4 Active Meloxicam 15 MG Oral Tablet [...] Auto-injectorIndica tions:Morbid obesity due to excess calories ([facility]),Type 2 diabetes mellitus without complication, without long-term current use of insulin ([facility]) Inject 2.4 mg under the skin once a week. 9 mL 2 3 12/30/19 24 Discontinued documented as of this encounter (statuses as of 12/30/2023) Active Problems Problem Noted Date Diagnosed Date Restless legs syndrome (RLS) 12/03/2022 Hypokalemia 10/23/2022 Asthma, moderate persistent 10/23/2022 Intermittent asthma with reliever use up to twic e per week 10/23/2022 Morbid obesity due to excess calories 10/23/2022 Other psychoactive substance dependence with withdrawal, unspecified 07/24/2022 Allergic rhinitis 11/15/2021 Recurrent major depressive disorder, in [facility] n 10/01/2021 Essential (primary) hypertension 10/01/2021 Uncomplicated asthma 10/01/2021 Type 2 diabetes mellitus without complication PCOS (polycystic ovarian syndrome) 09/21/2020 Gastro-esophageal reflux disease without esophag itis 09/21/2020 Moderate persistent asthma with acute exacerbati on 06/04/2017 Increased abdominal girth 06/04/2017 Moderate episode of recurrent major depressive d isorder 06/04/2017 documented as of this encounter (statuses as of 12/30/2023) Resolved Problems Problem Noted Date Diagnosed Date [...] as of this encounter (statuses as of 12/30/2023) Immunizations Name Administration Dates Next Due COVID-19 mRNA, LNP-s, No Pre serve, 2-Dose Series (Moderna) 02/05/2021 COVID-19, mRNA, LNP-s, PF, B ooster, 100mcg/0.5mg (Moderna) 01/24/2022 HEP A - Hepatitis A (Adult > 18 yrs) 06/08/2018 PPD 08/04/2020 Pneumococcal Conjugate Vacci ne, 20-valent ([id number]) 03/13/2022 Pneumococcal Polysaccharide PPV23 (Pneumovax) 07/03/2017 Seasonal [...] encounter Miscellaneous Notes * Telephone Encounter - Ana Paula Mcclelland [...] so it can be sent to the [facility] that is on file. Thank you. documented in this encounter Plan of Treatment Upcoming Encounters Date Type Department Care Team (Late st Contact Info) Description 02/11/2024 8:20 AM EDT Office Visit Family Practice [facility] [address] [place] [address] Genesis Pichardo DO [address] [facility] [place] [address] 02/16/2024 1:00 PM EDT Office Visit Orthopaedics [place]ans[place] Odom [address] [place] [phone] Zachary Javier MD [address] [place] [address] Health Maintenance Due Date Last Done Comments Hepatitis B (1 of 3 - 19+ 3-dose series) 2009 COVID-19 Vaccine ( season) 2023 01/24/2022, 03/05/2021, 02/05/2021 Diabetic Eye Exam 07/17/2023 07/17/2022, , 07/17/2022, Additional history exists Albumin/Creatinine Ratio 01/20/2024 01/19/2023, 09/17 HbA1c 02/10/2024 08/12/2023, 0 11/2022, 03/13/2022, Additional history exists Depression Monitoring [...] 3:37 PM 08/26/2023 10:04 PM This order r eflects the patients wishes and were consensually agreed upon. Question Answer Comments Discussion of Advance Direct bartolo occurred with: Not Discussed due to patient's condition Care Teams Transport Assistant Relationship Specialty Start Date End Date Genesis Pichardo DO [address] [place] [address] PCP - General Family Medicine 06/04/17 documented as of this encounter
--- OUTSIDE RECORDS SUMMARY | 2024-03-10 10:27 | External Medical Summary | Summary of Care ---
Author Name Unknown Organization [facility] Address [address] [place] [address] Phone [phone] Care Team Providers Care Launderer Hand Name Role Phone MarinoGenesis DO Primary Care [...] PPD 08/04/2020 Pneumococcal Conjugate Vacci ne, 20-valent ([id number]) 03/13/2022 Pneumococcal Polysaccharide PPV23 (Pneumovax) 07/03/2017 Seasonal [...] EDT Office Visit Family Practice [facility] [place] [address] [place] [address] Marino Hurtado [place], 200 [facility] [address] [place] [address] 02/16/2024 1:00 PM EDT Office Visit Orthopaedics [place], [place] [address] [place] [address] Zachary Javier MD [address] [place] [address] Health Maintenance Due Date Last [...] Discussed due to patient's condition Care Teams Launderer Hand Relationship Specialty Start Date End Date Genesis Pichardo DO [address] [place] [address] PCP - General Family Medicine 06/04/17 documented as of this encounter
--- OUTSIDE RECORDS SUMMARY | 2024-03-10 10:27 | External Medical Summary | Summary of Care ---
Author Name Unknown Organization [facility] Address [address] [facility] [place] [address] Phone [phone] Care Team Providers Care Quality Officer Name Role Phone MarinoGenesis DO Primary Care [...] PPD 08/04/2020 Pneumococcal Conjugate Vacci ne, 20-valent ([id number]) 03/13/2022 Pneumococcal Polysaccharide PPV23 (Pneumovax) 07/03/2017 Seasonal [...] EDT Office Visit Family Practice [facility]am [facility] [place] [address] [place] [address] Marino Hurtadosergio Archib[place], [address] [facility] [place] [address] Health Maintenance Due Date Last Done Comments [...] due to patient's condition Care Teams Quality Officer Relationship Specialty Start Date End Date Genesis Pichardo DO [address] [place] [address] PCP - General Family Medicine 06/04/17 documented as of this encounter
--- OUTSIDE RECORDS SUMMARY | 2024-03-10 10:27 | External Medical Summary | Summary of Care ---
Author Name Unknown Organization [facility] Address [address] [place] [place] [address] Phone [phone] Care Team Providers Care Enterprise Resource Planning Consultant Name Role Phone MarinoGenesis DO Primary Care [...] PPD 08/04/2020 Pneumococcal Conjugate Vacci ne, 20-valent ([id number]) 03/13/2022 Pneumococcal Polysaccharide PPV23 (Pneumovax) 07/03/2017 Seasonal [...] EDT Office Visit Family Practice [facility] [place] [address] [facility] [address] [place] [address] Marino Hurtado Cristela, 200 [facility] [address] [place] [address] 02/16/2024 1:00 PM EDT Office Visit Orthopaedics [place], [place] [address] [place] [address] Zachary Javier MD [address] [place] [address] Health Maintenance Due Date Last [...] Discussed due to patient's condition Care Teams Enterprise Resource Planning Consultant Relationship Specialty Start Date End Date Genesis Pichardo DO [address] [place] [address] PCP - General Family Medicine 06/04/17 documented as of this encounter
--- OUTSIDE RECORDS SUMMARY | 2024-03-10 10:27 | External Medical Summary | Summary of Care ---
Author Name Unknown Organization [facility] Address [address] [place] [address] Phone [phone] Care Team Providers Care Hop Farmer Name Role Phone Genesis Pichardo DO Primary Care Provider Reason for Visit * Reason Onset Date Comments Medication Question 12/29/2023 Encounter Details Date Type Department Care Team (Late st Contact Info) Description 12/29/2023 Telephone Gastroenterology, [place] [address] [place] [address] Services, [facility] [address] [place] [address] Medication Question Allergies Active Allergy Reactions Criticality [...] PPD 08/04/2020 Pneumococcal Conjugate Vacci ne, 20-valent ([id number]) 03/13/2022 Pneumococcal Polysaccharide PPV23 (Pneumovax) 07/03/2017 Seasonal [...] encounter Miscellaneous Notes * Telephone Encounter - Alisha Pedro CMA [...] so it can be sent to the [facility] that is on file. Thank you. documented in this encounter Plan of Treatment Upcoming Encounters Date Type Department Care Team (Late st Contact Info) Description 02/11/2024 8:20 AM EDT Office Visit Family Practice [facility] [place] [address] [place] [address] [address] Genesis Pichardo DO [address] [place] [address] 02/16/2024 1:00 PM EDT Office Visit Orthopaedics Kirk Odom [address] [place] [address] Zachary Javier MD [address] [place] [address] Health Maintenance Due Date Last [...] Discussed due to patient's condition Care Teams Hop Farmer Relationship Specialty Start Date End Date Genesis Pichardo DO [address] [place] [address] PCP - General Family Medicine 06/04/17 documented as of this encounter
--- OUTSIDE RECORDS SUMMARY | 2024-03-10 10:27 | External Medical Summary | Summary of Care ---
Author Name Unknown Organization [facility] Address [address] [facility] [place] [address] Phone [phone] Care Team Providers Care Tool Design Engineer Name Role Phone MarinoGenesis DO Primary Care [...] PPD 08/04/2020 Pneumococcal Conjugate Vacci ne, 20-valent ([id number]) 03/13/2022 Pneumococcal Polysaccharide PPV23 (Pneumovax) 07/03/2017 Seasonal [...] EDT Office Visit Family Practice [facility]am [facility] [place] [address] [facility] [place] [address] Marino Hurtado Cristela, 200 [facility] [place] [address] 02/16/2024 1:00 PM EDT Office Visit Orthopaedics [place], [place] [address] [place] [address] Zachary Javier MD 16 [place] [address] Health Maintenance Due Date Last [...] Discussed due to patient's condition Care Teams Tool Design Engineer Relationship Specialty Start Date End Date Genesis Pichardo DO [address] [place] [address] PCP - General Family Medicine 06/04/17 documented as of this encounter
--- OUTSIDE RECORDS SUMMARY | 2024-03-10 10:27 | External Medical Summary | Summary of Care ---
Author Name Unknown Organization [facility] Address [address] [place] [address] Phone [phone] Care Team Providers Care Oil Rig Roughneck Name Role Phone Genesis Pichardo DO Primary Care Provider Reason for Visit * Reason Onset Date Comments Medication Question 12/29/2023 Encounter Details Date Type Department Care Team (Late st Contact Info) Description 12/29/2023 Telephone Gastroenterology, [place] [address] [place] [address] Services, [facility] [place] [address] [place] [address] Medication Question Allergies Active Allergy Reactions Criticality [...] PPD 08/04/2020 Pneumococcal Conjugate Vacci ne, 20-valent ([id number]) 03/13/2022 Pneumococcal Polysaccharide PPV23 (Pneumovax) 07/03/2017 Seasonal [...] encounter Miscellaneous Notes * Telephone Encounter - Shira Perez OSA - 01/01/2024 11:24 AM EDT Patient has been notified of the message. Patient has no further questions. Pt. Is aware of previous message however there are no visits available in [facility] pt. Has been added to fast pass. * Telephone Encounter - Carlos Sapp LPN [...] so it can be sent to the [facility] that is on file. Thank you. documented in this encounter Plan of Treatment Upcoming Encounters Date Type Department Care Team (Late st Contact Info) Description 02/11/2024 8:20 AM EDT Office Visit Family Practice [facility] [address] [facility] [address] Genesis Pichardo DO [address] [facility] [place] [address] 02/16/2024 1:00 PM EDT Office Visit Orthopaedics Kirk Odom [address] [place], [place] [address] [address] Zachary Javier MD [address] [place] [address] [place] [address] Health Maintenance Due Date Last Done Comments [...] Discussed due to patient's condition Care Teams Oil Rig Roughneck Relationship Specialty Start Date End Date Genesis Pichardo DO [address] [place] [address] PCP - General Family Medicine 06/04/17 documented as of this encounter
--- OUTSIDE RECORDS SUMMARY | 2024-03-10 10:27 | External Medical Summary | Summary of Care ---
Author Name Unknown Organization [facility] Address [address] [place] [address] Phone [phone] Care Team Providers Care Business Records Manager Name Role Phone Genesis Pichardo DO Primary Care Provider Reason for Visit * Reason Comments Post-Op Left wrist Encounter Details Date Type Department Care Team (Latest Contact Info) Description 11/17/2023 12:45 PM EDT Rehab Services Occupational Therapy Kirk Odom 16 [place] [address] Denis Dutta OT 16 [place], [place] [id number] TFCC (triangular fibrocartilage complex) tear, left, subsequent [...] Auto-injectorIndicati ons:Morbid obesity due to excess calories ([facility]),Type 2 diabetes mellitus without complication, without long-term current use of insulin ([facility]) Inject 2.4 mg under the skin once [...] disorder (HCC),Morbid obesity due to excess calories ([facility]) Take 1 Tablet by mouth in the [...] Nausea. dissolve on tongue. 30 Tablet 5 08/12/2023 Active Meloxicam 15 MG Oral Tablet [...] rhinitis 11/15/2021 Recurrent major depressive disorder, in [facility] 10/01/2021 Essential (primary) hypertension 10/01/2021 Uncomplicated asthma [...] PPD 08/04/2020 Pneumococcal Conjugate Vacci ne, 20-valent ([id number]) 03/13/2022 Pneumococcal Polysaccharide PPV23 (Pneumovax) 07/03/2017 Seasonal [...] as of this encounter Progress Notes * Denis Dutta, OT - 11/17/2023 3:06 PM EDT OUTPATIENT OCCUPATIONAL THERAPY PROGRESS NOTE Occupational Therapy Kirk Odom [address] [place] [address] Patient Name: Susan Carrillo Date: 11/17/2023 Visit Number: 2 Subjective: patient reports the green putty helps with her pain Pain Rating: Patient has complaints of Pain. Location left wrist 09/26 on isinger FACES Pain Scale ~~~~~~~~~~~~~~~~~~~~~~~~~~~~~~~~~~~~~~~~~~~~~~~~~~~~~~~~~~~~~~ ~~~~~~~~~~~~~~~~~~~~~~~~~~~~~~~~~~~~~~~~~~~~~~~~~~~~~~~~~~~~~~ UNTIMED SERVICES: TIMED SERVICES: 12 minutes Therapeutic Activities: scar management, taping, gel pad ~~~~~~~~~~~~~~~~~~~~~~~~~~~~~~~~~~~~~~~~~~~~~~~~~~~~~~~~~~~~~~ ~~~~~~~~~~~~~~~~~~~~~~~~~~~~~~~~~~~~~~~~~~~~~~~~~~~~~~~~~~~~~~ 12 MINUTES TOTAL TIMED CODES Objective Findings: WRIST Right Left Active Passive Active Passive Flexion 25 Extension 60 Radial Deviation 15 Ulnar Deviation 25 Pronation 90 Supination 60 Distance to DPC (cm's) Index Long Ring Little 0 0 0 0 Squash Centre Manager L: 42 R:103 Pinch L: 12 R:20 Treatment Sequence: measurements Taping - "X" tape with center over ulnar incision. 25% stretch Patient fit with compression gloves for comfort and edema control. Patient was educated on donning and doffing gloves, as well as assessment of skin for irritation, circulation and sensation when wearing gloves. Instructed to remove gloves with any pain, discomfort or change in sensation/circulation. Patient fit with left edema gloves, size XL, to be worn for comfort. Demonstrated understanding of donning and doffing instructions. Reported good fit and an increase in comfort. PATIENT EDUCATION AND HOME EXERCISE PROGRAM: Person(s) Taught: Patient and Family Member Topic: Edema Management, Home Exercise Program , and Discussed present condition, treatment rationale and progression of treatment Method: Verbal, Demonstration, and Written Outcome: Patient verbalizes understanding and Patient demonstrates understanding Other: SPLINT ISSUED: na ASSESSMENT: patient making gains in motion and strength since IE. She continues to be motivated formaximum outcome following surgery. PLAN: con't POC, follow up PRN. Denis Dutta OT 11/17/2023 Occupational Therapy [address] [address] documented in this encounter Plan of Treatment Upcoming Encounters Date Type Department Care Team (Late st Contact Info) Description 02/11/2024 8:20 AM EDT Office Visit Family [facility] [address] [facility] [place] [address] Genesis Pichardo DO [address] [facility] [place] [address] 02/16/2024 1:00 PM EDT Office Visit Orthopaedics [address] [address] Zachary Javier MD [address] [place] [address] Health Maintenance Due Date Last Done Comments [...] Primary documented in this encounter Advance Directives Latest Code Status on File Code Status Date Activated Date Inactivated Comments Full Code 08/26/2023 3:37 PM 08/26/2023 10:04 PM This o rder reflects the patients wishes and were consensually agreed upon. Question Answer Comments Discussion of Advance Directives occurred with: Not Discussed due to patient's condition Care Teams Business Records Manager Relationship Specialty Start Date End Date Genesis Pichardo DO [address] [place] [address] PCP - General Family Medicine 06/04/17 documented as of this encounter
--- OUTSIDE RECORDS SUMMARY | 2024-03-10 10:28 | External Medical Summary | Summary of Care ---
Author Name Unknown Organization [facility] Address [address] [place] [address] Phone [phone] Care Team Providers Care Wire Communications Engineer Name Role Phone Geneiss Pichardo DO Primary Care Provider Reason for Visit * Reason Onset Date Comments Return To Work 10/21/2023 Encounter Details Date Type Department Care Team (Late st Contact Info) Description 10/21/2023 Telephone Orthopaedics [facility] 16 [place] [address] Zachary Javier MD 16 [place] [address] Return To Work Allergies Active Allergy Reactions Criticality Noted Date Comments Penicillins Unknown 06/04/2017 documented as of this encounter (statuses as of 10/22/2023) Medications Medication Sig Dispensed Refills Start Date [...] long-term current use of insulin ([facility]) Inject 2.4 mg under the skin [...] obesity due to excess calories ([facility]) Take 1 Tablet by mouth in [...] 2 SensorIndications:DM type 2 nursing care encounter ([facility]) Use as directed. 2 Each 08/12/2023 Active [...] as of this encounter (statuses as of 10/22/2023) Active Problems Problem Noted Date Diagnosed Date Restless legs syndrome (RLS) 12/03/2022 Hypokalemia 10/23/2022 Asthma, moderate persistent 10/23/2022 Intermittent asthma with reliever use up to twic e per week 10/23/2022 Morbid obesity due to excess calories 10/23/2022 Other psychoactive substance dependence with withdrawal, unspecified 07/24/2022 Allergic rhinitis 11/15/2021 Recurrent major depressive disorder, in [facility] n 10/01/2021 Essential (primary) hypertension 10/01/2021 Uncomplicated asthma 10/01/2021 Type 2 diabetes mellitus without complication PCOS (polycystic ovarian syndrome) 09/21/2020 Gastro-esophageal reflux disease without esophag itis 09/21/2020 Moderate persistent asthma with acute exacerbati on 06/04/2017 Increased abdominal girth 06/04/2017 Moderate episode of recurrent major depressive d isorder 06/04/2017 documented as of this encounter (statuses as of 10/22/2023) Resolved Problems Problem Noted Date Diagnosed Date [...] as of this encounter (statuses as of 10/22/2023) Immunizations Name Administration Dates Next Due COVID-19 mRNA, LNP-s, No Pre serve, 2-Dose Series (Moderna) 02/05/2021 COVID-19, mRNA, LNP-s, PF, B ooster, 100mcg/0.5mg (Moderna) 01/24/2022 HEP A - Hepatitis A (Adult > 18 yrs) 06/08/2018 PPD 08/04/2020 Pneumococcal Conjugate Vacci ne, 20-valent ([id number]) 03/13/2022 Pneumococcal Polysaccharide PPV23 (Pneumovax) 07/03/2017 Seasonal [...] Miscellaneous Notes * Telephone Encounter - Shira Gibbons OSA - 10/22/2023 2:23 PM EDT Pt called back and stated she needs her work to state. No heavy lifting or No lifting over 5lbs. * Telephone Encounter - Shira Gerber PA-C - 10/22/2023 2:00 PM EDT Left message for patient to discuss. Shira Gerber PA-C 10/22/2023 2:01 PM * Telephone Encounter - April Acevedo OSA - 10/21/2023 3:37 PM EDT Pt calling to discuss RTW note. Please call to discuss.Employer not letting pt work at all. Pt needs it to be more clear. documented in this encounter Plan of Treatment Upcoming Encounters Date Type Department Care Team (Late st Contact Info) Description 11/17/2023 1:00 PM EDT Office Visit Orthopaedics Kirk Odom [address] [place], [place] [address] [address] Zachary Javier MD [address] [place] [address] 02/11/2024 8:20 AM EDT [facility] [address] [place] [address] Genesis Pichardo, [address] [facility] [place] [address] Health Maintenance Due Date Last Done Comments [...] Discussed due to patient's condition Care Teams Wire Communications Engineer Relationship Specialty Start Date End Date Genesis Pichardo DO [address] [place] [address] PCP - General Family Medicine 06/04/17 documented as of this encounter
--- OUTSIDE RECORDS SUMMARY | 2024-03-10 10:28 | External Medical Summary | Summary of Care ---
Author Name Unknown Organization [facility] Address [address] [place] [place] [address] Phone [phone] Care Team Providers Care Nurse Esthetician Name Role Phone MarinoGenesis DO Primary Care [...] PPD 08/04/2020 Pneumococcal Conjugate Vacci ne, 20-valent ([id number]) 03/13/2022 Pneumococcal Polysaccharide PPV23 (Pneumovax) 07/03/2017 Seasonal [...] EDT Office Visit Family Practice Fam [facility] [place] [address] [place] [address] Marino Hurtadosergio Archibald, [address] [facility] [place] [address] Health Maintenance Due Date Last Done Comments [...] Discussed due to patient's condition Care Teams Nurse Esthetician Relationship Specialty Start Date End Date Genesis Pichardo DO [address] [place] [address] PCP - General Family Medicine 06/04/17 documented as of this encounter
--- OUTSIDE RECORDS SUMMARY | 2024-03-10 10:28 | External Medical Summary | Summary of Care ---
Author Name Unknown Organization [facility] Address [address] [place] [address] Phone [phone] Care Team Providers Care Production Supv Name Role Phone Genesis Pichardo DO Primary Care Provider Reason for Visit * Reason Onset Date Comments Return To Work 10/21/2023 Encounter Details Date Type Department Care Team (Late st Contact Info) Description 10/21/2023 Telephone Orthopaedics [facility] [address] [place] [address] Zachary Javier MD [address] [place] [address] Return To Work Allergies Active Allergy Reactions Criticality Noted Date Comments Penicillins Unknown 06/04/2017 documented as of this encounter (statuses as of 10/23/2023) Medications Medication Sig Dispensed Refills Start Date [...] complication, without long-term current use of insulin ([facility]) Inject 2.4 mg under the skin once [...] disorder (HCC),Morbid obesity due to excess calories ([facility]) Take 1 Tablet by mouth in the [...] 2 SensorIndications:DM type 2 nursing care encounter ([facility]) Use as directed. 2 Each 08/12/2023 Active [...] as of this encounter (statuses as of 10/23/2023) Active Problems Problem Noted Date Diagnosed Date Restless legs syndrome (RLS) 12/03/2022 Hypokalemia 10/23/2022 Asthma, moderate persistent 10/23/2022 Intermittent asthma with reliever use up to twic e per week 10/23/2022 Morbid obesity due to excess calories 10/23/2022 Other psychoactive substance dependence with withdrawal, unspecified 07/24/2022 Allergic rhinitis 11/15/2021 Recurrent major depressive disorder, in [facility] n 10/01/2021 Essential (primary) hypertension 10/01/2021 Uncomplicated asthma 10/01/2021 Type 2 diabetes mellitus without complication PCOS (polycystic ovarian syndrome) 09/21/2020 Gastro-esophageal reflux disease without esophag itis 09/21/2020 Moderate persistent asthma with acute exacerbati on 06/04/2017 Increased abdominal girth 06/04/2017 Moderate episode of recurrent major depressive d isorder 06/04/2017 documented as of this encounter (statuses as of 10/23/2023) Resolved Problems Problem Noted Date Diagnosed Date [...] as of this encounter (statuses as of 10/23/2023) Immunizations Name Administration Dates Next Due COVID-19 mRNA, LNP-s, No Pre serve, 2-Dose Series (Moderna) 02/05/2021 COVID-19, mRNA, LNP-s, PF, B ooster, 100mcg/0.5mg (Moderna) 01/24/2022 HEP A - Hepatitis A (Adult > 18 yrs) 06/08/2018 PPD 08/04/2020 Pneumococcal Conjugate Vacci ne, 20-valent ([id number]) 03/13/2022 Pneumococcal Polysaccharide PPV23 (Pneumovax) 07/03/2017 Seasonal [...] as of this encounter Miscellaneous Notes * Addendum Note - Markus Roper ATC - 10/23/2023 8:25 AM EDTAddended by: MARKUS ROPER on: 10/23/2023 08:25 AM Modules accepted: Orders * Telephone Encounter - Markus Roper ATC - 10/23/2023 8:21 AM EDT Note in epic with added wording of no lifting over 5 lbs with left hand. Please contact patient to obtain fax number for it to be sent to employer. Markus Roper ATC * Telephone Encounter - Shira Gibbons OSA [...] 11/17/2023 1:00 PM EDT Office Visit Orthopaedics [facility] [place] [address] [place] [address] Zachary Javier MD [address] [place] [address] 02/11/2024 8:20 AM EDT Office Visit Family Practice [facility] [address] [place] [address] Genesis Pichardo, [address] [facility] [place] [address] Health Maintenance Due Date Last Done Comments [...] Discussed due to patient's condition Care Teams Production Supv Relationship Specialty Start Date End Date Genesis Pichardo DO [address] [place] [address] PCP - General Family Medicine 06/04/17 documented as of this encounter
--- OUTSIDE RECORDS SUMMARY | 2024-03-10 10:28 | External Medical Summary | Summary of Care ---
Author Name Unknown Organization [facility] Address [address] [place] [address] Phone [phone] Care Team Providers Care Intake Clinician Name Role Phone Genesis Pichardo DO Primary Care Provider Reason for Visit * Reason Comments Pain Post-Op Encounter Details Date Type Department Care Team (Latest Contact Info) Description 10/06/2023 1:20 PM EDT Rehab Services Occupational Therapy [place] [facility] [address] [place] [address] Denis Dutta OT [address] [place], [place] [id number] TFCC (triangular fibrocartilage complex) tear, left, subsequent encounter*; Left wrist pain Allergies Active Allergy Reactions Criticality Noted Date Comments Penicillins Unknown 06/04/2017 documented as of this encounter (statuses as of 10/06/2023) Medications Medication Sig Dispensed Refills Start Date [...] Auto-injectorIndicati ons:Morbid obesity due to excess calories ([facility]),Type 2 diabetes mellitus without complication, without long-term current use of insulin ([facility]) Inject 2.4 mg under the [...] disorder (HCC),Morbid obesity due to excess calories ([facility]) Take 1 Tablet by mouth [...] as of this encounter (statuses as of 10/06/2023) Active Problems Problem Noted Date Diagnosed Date Restless legs syndrome (RLS) 12/03/2022 Hypokalemia 10/23/2022 Asthma, moderate persistent 10/23/2022 Intermittent asthma with reliever use up to twic e per week 10/23/2022 Morbid obesity due to excess calories 10/23/2022 Other psychoactive substance dependence with withdrawal, unspecified 07/24/2022 Allergic rhinitis 11/15/2021 Recurrent major depressive disorder, in [facility] 10/01/2021 Essential (primary) hypertension 10/01/2021 Uncomplicated asthma 10/01/2021 Type 2 diabetes mellitus without complication PCOS (polycystic ovarian syndrome) 09/21/2020 Gastro-esophageal reflux disease without esophag itis 09/21/2020 Moderate persistent asthma with acute exacerbati on 06/04/2017 Increased abdominal girth 06/04/2017 Moderate episode of recurrent major depressive d isorder 06/04/2017 documented as of this encounter (statuses as of 10/06/2023) Resolved Problems Problem Noted Date Diagnosed Date [...] as of this encounter (statuses as of 10/06/2023) Immunizations Name Administration Dates Next Due COVID-19 mRNA, LNP-s, No Pre serve, 2-Dose Series (Moderna) 02/05/2021 COVID-19, mRNA, LNP-s, PF, B ooster, 100mcg/0.5mg (Moderna) 01/24/2022 HEP A - Hepatitis A (Adult > 18 yrs) 06/08/2018 PPD 08/04/2020 Pneumococcal Conjugate Vacci ne, 20-valent ([id number]) 03/13/2022 Pneumococcal Polysaccharide PPV23 (Pneumovax) 07/03/2017 Seasonal [...] on file documented as of this encounter Patient Instructions * Patient Instructions* Denis Dutta OT - 10/06/2023 3:21 PM EDT Images from the original note were not included. documented in this encounter Progress Notes * Denis Dutta OT - 10/06/2023 2:56 PM EDT OUTPATIENT OCCUPATIONAL THERAPY GENERAL EVALUATION Occupational Therapy [place] [facility] [address] [place], [place] [address] [address] Date: 10/06/2023 Patient Name: Susan Carrillo Date of : 1990 Age: [age] year old Date: 10/06/2023 Visit Number: 1 Date of Contact: 10/06/23 Insurance: Payor: [facility] Plan: [facility] [id number] Product Type: *No Product type* Referring Physician: Zachary Javier MD Primary Care Physician: Genesis Pichardo DO Encounter Diagnosis: left TFCC tear Plan of Care Date: 10/06/23 Patient Verified by: Name and Date of Fall Risk: no Precautions: universal Orders: eval and treat Dates covered: 10/06/23 to 01/06/2024 Precertification dates/visits: tbd Authorization number: tbd Past Medical History: Past Medical History: Diagnosis Date Asthma Essential (primary) hypertension 10/01/2021 Gastro-esophageal reflux disease without esophagitis 09/21/2020 Iron deficiency anemia due to chronic blood loss 06/04/2017 Menometrorrhagia 06/04/2017 Moderate episode of recurrent major depressive disorder (HCC) 06/04/2017 PCOS (polycystic ovarian syndrome) 09/21/2020 Prediabetes 09/24/2020 Per Prediabetes protocol Type 2 diabetes mellitus without complication (HCC) 05/23/2021 Test Results: see imaging Current Outpatient Medications Medication Sig Dispense Refill Ketoconazole 2 % External Cream Apply topically to affected area 2 times a day. Apply to feet 60 g 1 Hydrocortisone 2.5 % External Ointment Apply topically to affected area 3 times a day . To affectedarea. 30 g 5 Ventolin HFA 108 (90 Base) MCG/ACT Inhalation Aerosol Solution Inhale by mouth 2 Puffs every 4 hours as needed for Cough, Shortness of Breath or Wheezing. 18 g 2 Esomeprazole Magnesium 20 MG Oral Tablet Delayed Release Take 20 mg by mouth in the morning. 30 Tablet 3 Terbinafine HCl 1 % External Cream (LamISIL AT ATHLETE'S FOOT) APPLY TOPICALLY TO AFFECTED AREA 2 TIMES A DAY TO FEET BILATERALLY 45 g 2 Semaglutide-Weight Management 2.4 MG/0.75ML Subcutaneous Solution Auto-injector Inject 2.4 mg underthe skin once a week. 9 mL 2 hydroCHLOROthiazide 12.5 MG Oral Tablet (Hydrodiuril) Take 1 Tablet by mouth in the morning. In themorning.. 90 Tablet 3 amLODIPine Besylate 5 MG Oral Tablet (Norvasc) Take 1 Tablet by mouth in the morning. 90 Tablet 3 Albuterol Sulfate (2.5 MG/3ML) 0.083% Inhalation Nebulization Solution (Proventil) Inhale 1 Vial via nebulizer every 4 hours as needed for Wheezing. 120 mL 1 buPROPion HCl ER (XL) 300 MG Oral Tablet Extended Release 24 Hour (Wellbutrin XL) Take 1 Tablet by mouth in the morning. 90 Tablet 2 Levocetirizine Dihydrochloride 5 MG Oral Tablet Take 1 Tablet by mouth every evening. 90 Tablet 2 metFORMIN HCl 1000 MG Oral Tablet (Glucophage) [...] Nausea. dissolve on tongue. 30 Tablet 5 Meloxicam 15 MG Oral Tablet (Mobic) Take 1 Tablet by mouth in the morning. for pain.. 30 Tablet 5 FreeStyle Darcie 2 Sensor Use as directed. 2 Each 11 hydrOXYzine Pamoate 25 MG Oral Capsule (Vistaril) TAKE 1 CAPSULE BY MOUTH AT BEDTIME NEEDED FOR ANXIETY 30 Capsule 5 CPAP every night at bedtime. HYDROcodone-Acetaminophen 5-325 MG Oral Tablet Take 1 Tablet by mouth every 6 hours as needed for Pain, Mild or Pain, Severe. 10 Tablet 0 No current facility-administered medications for this visit. SUBJECTIVE: patient reports compliance with orthosis Pain Rating: Patient has complaints of Pain. Location left wrist 3/10 on [facility] Pain Scalewith forearm rotation HPI/Onset of Complaint: patient underwent left wrist diagnostic arthroscopy and TFCC debridement and repair on 08/26/2023. Was fit with muenster splint on 09/08/2023. Referred to OT this date for motionand edema control. 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 Incision is C/D/I. moderate edema of left wrist, hand and fingers. Patient fit with compression gloves for comfort and edema control. Patient was educated on donning and doffing gloves, as well as assessment of skin for irritation, circulation and sensation when wearing gloves. Instructed to remove gloves with any pain, discomfort or change in sensation/circulation. Patient fit with left edema gloves, size medium, leola worn for comfort. Demonstrated understanding of donning and doffing instructions. Reported good fit and an increase in comfort. 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 ~~~~~~~~~~~~~~~~~~~~~~~~~~~~~~~~~~~~~~~~~~~~~~~~~~~~~~~~~~~~~~ ~~~~~~~~~~~~~~~~~~~~~~~~~~~~~~~~~~~~~~~~~~~~~~~~~~~~~~~~~~~~~~ 15 MINUTES TOTAL TIMED CODES PATIENT EDUCATION AND HOME EXERCISE PROGRAM: Person(s) Taught: Patient and Family Member Topic: Edema Management, Home Exercise Program , and Discussed present condition, treatment rationale and progression of treatment Method: Verbal, Demonstration, and Written Outcome: Patient verbalizes understanding and Patient demonstrates understanding Other: Type of ORTHOSIS Issued: muenster splint d/c ASSESSMENT: Patient was cooperative, motivated, and actively participated in evaluation during treatment session. There were 1-3 performance deficits identified as follows Decreased ROM, Edema, Pain,Decreased strength, and Decreased dexterity. These deficits result in activity limitations. The patient does not have any comorbidities that affect occupational performance. There were no modifications necessary to complete the evaluation. Barriers to patient obtaining set goals include: No known barriers Rehabilitation Potential: good Current Problems that limit ADL function: Edema, Limited range of motion, Impaired strength, Pain, and Post operative activity restrictions GOALS: Independent with home excercise program Pain free left hand use Increase left wrist flex/ext to 45/60 Increase left forearm rotation to 75/75 TREATMENT: Therapeutic Exercise Therapeutic Activities Manual Therapy Heat/Cold Patient/Family Education on Home Exercise Program PLAN: Patient will benefit from skilled Occupational therapy services 4 visits over 12 weeks, as indicated, to address orthotic management, post operative management, scar management, edema control, progressive range of motion, strengthening, and pain management. Denis Dutta, OTR/L, CHT 10/06/2023 Occupational Therapy [place] [facility] [address] Physician Signature documented in this encounter Plan of Treatment Upcoming Encounters Date Type Department Care Team (Late st Contact Info) Description 11/17/2023 1:00 PM EDT Office Visit Orthopaedics [place] [facility] [address] [place] [address] Zachary Javier MD [address] [place] [address] 02/11/2024 8:20 AM EDT [facility] [place] [address] [facility] [place] [address] Genesis Pichardo DO [address] [facility] [place] [address] Health Maintenance Due Date Last Done Comments [...] fibrocartilage complex) tear, left, subsequent encounter- Primary Left wrist pain Pain in joint, forearm documented in this encounter Advance Directives Latest Code Status on File Code Status Date Activated Date Inactivated Comments Full Code 08/26/2023 3:37 PM 08/26/2023 10:04 PM This o rder reflects the patients wishes and were consensually agreed upon. Question Answer Comments Discussion of Advance Directives occurred with: Not Discussed due to patient's condition Care Teams Intake Clinician Relationship Specialty Start Date End Date Genesis Pichardo DO [address] [place] [address] PCP - General Family Medicine 06/04/17 documented as of this encounter
--- OUTSIDE RECORDS SUMMARY | 2024-03-10 10:28 | External Medical Summary | Summary of Care ---
Author Name Unknown Organization [facility] Address [address] [place] [address] Phone [phone] Care Team Providers Care Tool Smith Name Role Phone Genesis Pichardo DO Primary Care Provider Reason for Visit * Reason Onset Date Comments Return To Work 10/21/2023 Encounter Details Date Type Department Care Team (Late st Contact Info) Description 10/21/[address] [facility] [address] [place] [address] Zachary Javier MD [address] [place] [address] Return To Work Allergies Active [...] complication, without long-term current use of insulin ([facility]) Inject 2.4 mg under the skin [...] disorder (HCC),Morbid obesity due to excess calories ([facility]) Take 1 Tablet by mouth in [...] 2 SensorIndications:DM type 2 nursing care encounter ([facility]) Use as directed. 2 Each 08/12/2023 [...] Recurrent major depressive disorder, in [facility] n 10/01/2021 Essential (primary) hypertension 10/01/2021 Uncomplicated [...] PPD 08/04/2020 Pneumococcal Conjugate Vacci ne, 20-valent ([id number]) 03/13/2022 Pneumococcal Polysaccharide PPV23 (Pneumovax) 07/03/2017 Seasonal [...] Miscellaneous Notes * Telephone Encounter - Shira Gerber PA-C [...] EDT Office Visit Orthopaedics [place] [facility] [address] [place] [facility] [place] [phone] Zachary Javier MD [address] [place] [address] 02/11/2024 8:20 AM EDT Office Visit Family Practice [facility] [place] [address] [place] [address] Genesis Pichardo, [address] [place] [address] Health Maintenance Due Date Last Done Comments [...] due to patient's condition Care Teams Tool Smith Relationship Specialty Start Date End Date Genesis Pichardo DO [address] [place] [address] PCP - General Family Medicine 06/04/17 documented as of this encounter
--- OUTSIDE RECORDS SUMMARY | 2024-03-10 10:28 | External Medical Summary | Summary of Care ---
Author Name Unknown Organization [facility] Address [address] [place] [address] Phone [phone] Care Team Providers Care Interactive Web Developer Name Role Phone Genesis Pichardo DO Primary Care Provider Reason for Visit * Reason Onset Date Comments Return To Work 10/21/2023 Encounter Details Date Type Department Care Team (Late st Contact Info) Description 10/21/2023 Telephone Orthopaedics [facility] [address] [place] [address] Zachary Javier MD [address] [place] [address] Return To Work Allergies Active Allergy Reactions Criticality Noted Date Comments Penicillins Unknown 06/04/2017 documented as of this encounter (statuses as of 10/21/2023) Medications Medication Sig Dispensed Refills Start Date [...] as of this encounter (statuses as of 10/21/2023) Active Problems Problem Noted Date Diagnosed Date Restless legs syndrome (RLS) 12/03/2022 Hypokalemia 10/23/2022 Asthma, moderate persistent 10/23/2022 Intermittent asthma with reliever use up to twic e per week 10/23/2022 Morbid obesity due to excess calories 10/23/2022 Other psychoactive substance dependence with withdrawal, unspecified 07/24/2022 Allergic rhinitis 11/15/2021 Recurrent major depressive disorder, in [facility] n 10/01/2021 Essential (primary) hypertension 10/01/2021 Uncomplicated asthma 10/01/2021 Type 2 diabetes mellitus without complication PCOS (polycystic ovarian syndrome) 09/21/2020 Gastro-esophageal reflux disease without esophag itis 09/21/2020 Moderate persistent asthma with acute exacerbati on 06/04/2017 Increased abdominal girth 06/04/2017 Moderate episode of recurrent major depressive d isorder 06/04/2017 documented as of this encounter (statuses as of 10/21/2023) Resolved Problems Problem Noted Date Diagnosed Date [...] as of this encounter (statuses as of 10/21/2023) Immunizations Name Administration Dates Next Due COVID-19 mRNA, LNP-s, No Pre serve, 2-Dose Series (Moderna) 02/05/2021 COVID-19, mRNA, LNP-s, PF, B ooster, 100mcg/0.5mg (Moderna) 01/24/2022 HEP A - Hepatitis A (Adult > 18 yrs) 06/08/2018 PPD 08/04/2020 Pneumococcal Conjugate Vacci ne, 20-valent ([id number]) 03/13/2022 Pneumococcal Polysaccharide PPV23 (Pneumovax) 07/03/2017 Seasonal [...] encounter Miscellaneous Notes * Telephone Encounter - Apirl Acevedo OSA - 10/21/2023 3:37 PM EDT Pt calling to discuss RTW note. Please call to discuss.Employer not letting pt work at all. Pt needs it to be more clear. documented in this encounter Plan of Treatment Upcoming Encounters Date Type Department Care Team (Late st Contact Info) Description 11/17/2023 1:00 PM EDT Office Visit Orthopaedics [place] [facility] [address] [place] [address] [place] [id number] Zachary Javier MD [address] [place] [address] 02/11/2024 8:20 AM EDT Office Visit Family Practice [facility] [address] [facility] [place] [address] Genesis Pichardo DO [address] [facility] [place] [address] Health Maintenance Due Date Last Done Comments [...] Discussed due to patient's condition Care Teams Interactive Web Developer Relationship Specialty Start Date End Date Genesis Pichardo DO [address] [place] [address] PCP - General Family Medicine 06/04/17 documented as of this encounter
--- OUTSIDE RECORDS SUMMARY | 2024-03-10 10:29 | External Medical Summary | Summary of Care ---
Author Name Unknown Organization [facility] Address [address] [place] [address] Phone [phone] Care Team Providers Care Contract Assistant Name Role Phone Genesis Pichardo DO Primary Care Provider Reason for Referral * Evaluate & Treat - Unlimited Visits (Within 24 hrs (call dept; emergent)) - Authorized Specialty Diagnoses / Procedures Referred By Mehul topete Referred To Contact Occupational Medicine / Occupational Therapy Diagnoses TFCC (triangular fibrocartilage complex) tear, left, subsequent encounter Zachary Javier MD [address] [place] [address] Referral ID Status Reason Start Date Expiration Date Visits Requested Visits Authorized [id number] Authorized Specialty Services Required 10/06/2023 [id number] Question Answer Referral Priority Within 24 hrs (call dept; emergent) Where should this appointment be scheduled? Maite Comments To [facility] today. S/p Left Wrist Diagnostic Arthroscopy with Debridement and TFCC Repair on 08/26/23 Evaluate and treat Scar management Motion. Progressive strengthening. Reason for Visit * Reason Comments Follow Up Left wrist arthrosco py 08 26 2023 * Evaluate & Treat - Unlimited Visits (Within 10 days (routine)) - Pending Review Specialty Diagnoses / Procedures Referred By Mehul topete Referred To Contact Orthopaedic Surgery / Orthopedics Diagnoses TFCC (triangular fibrocartilage complex) tear, left, subsequent encounter Julieth Chin MD [address] [place] [address] Referral ID Status Reason Start Date Expiration Date Visits Requested Visits Authorized [id number] Pending Review Specialty Services Required 02/18/2023 [id number] Encounter Details Date Type Department Care Team (Late st Contact Info) Description 10/06/2023 1:15 PM EDT Office Visit Orthopaedics [facility] [place] [address] [place] [address] Zachary Javier MD [address] [place] [address] TFCC (triangular fibrocartilage complex) tear, left, subsequent [...] FEET BILATERALLY 45 g 2 3 Active Semaglutide-Weight Management 2.4 MG/0.75ML Subcutaneous Solution Auto-injectorIndica tions:Morbid obesity due to excess calories (HCC),Type 2 diabetes mellitus without complication, without long-term current use of insulin (HCC) Inject 2.4 mg under the skin once a week. 9 mL 2 3 Active hydroCHLOROthiazide 12.5 MG Oral [...] AT BEDTIME NEEDED FOR ANXIETY 30 Capsule 4 Active CPAP every night at bedtime. 0 Active HYDROcodone-Acetami nophen 5-325 MG Oral Tablet Take 1 Tablet by mouth every 6 hours as needed for Pain, Mild or Pain, Severe. 10 Tablet 0 4 Active Fluticasone Propionate 50 MCG/ACT Nasal Suspension (Flonase)Indication s:Allergic rhinitis due to pollen, unspecified seasonality instill 2 sprays into each nostril once daily 48 g 2 3 10/06/19 24 Discontinued Fluticasone Propionate HFA 220 MCG/ACT Inhalation Aerosol (Flovent HFA)Indications:Mod erate persistent asthma with exacerbation Inhale 2 Puffs by mouth in the morning and 2 Puffs before bedtime. 36 g 2 4 10/06/19 24 Discontinued documented as of this encounter [...] PPD 08/04/2020 Pneumococcal Conjugate Vacci ne, 20-valent ([id number]) 03/13/2022 Pneumococcal Polysaccharide PPV23 (Pneumovax) 07/03/2017 Seasonal [...] on file documented as of this encounter Last Filed Vital Signs Vital Sign Reading Time Taken Comments Blood Pressure - - Pulse - - Temperature - - Respiratory Rate - - Oxygen Saturation - - Inhaled Oxygen Concentration - - Weight 149.2 kg (329 lb) 10/06/2023 1:12 PM EDT Height 168.9 cm (5' 6.5") 10/06/2023 1:12 PM EDT Body Mass Index 52.31 10/06/2023 1:12 PM EDT documented in this encounter Progress Notes * Markus Roper ATC - 10/06/2023 1:20 PM EDT Kaia Simmons ATC, am scribing for, and in the presence of, Dr Zachary Javier MD. Name : Susan Carrillo Date : 10/06/2023 Diagnosis: left wrist TFCC tear Procedure: left Wrist Diagnostic Arthroscopy with Debridement and TFCC Repair Date of initiation of symptoms / Date of Procedure: 08/26/23 Duration of symptoms / since Procedure: 6 week(s) Severity: Pain Scale - 2/10 Brief History of events since last encounter: Patient has been progressing well post-operatively. 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 Patient denies fever, chills, and other complaints or concerns. They describe improvement in symptoms. She is no longer working for [employer] and has not returned to [facility] [employer] [facility] since surgery. EMG: NA Physical Exam: HAND / WRIST / ELBOW EXAM: Filed Vitals: 10/06/23 1312 Weight: (!) 149.2 kg (329 lb) Height: 1.689 m (5' 6.5") Body mass index is 52.31 kg/m. General: Patient is pleasant and cooperative, oriented to time place and person. Appears stated ageand in no acute distress. No peripheral edema or swelling. Skin intact. Elbow: no lesions, erythema, warmth, or tenderness to palpation, full range of motion without pain or obvious instability. Hand: LEFT well healed incision, dorsal steri strip in place, no erythema, warmth, bleeding or drainage. Incisional tenderness to palpation. Minimal diffuse swelling. Demonstrates active satisfactoryrange of motion without pain. Neurovascularly intact distally. Radiology: No new films. Injection: None. Assessment : Susan Carrillo is a 33 year old year-old qcaef-zjjb-ffhttspt female with left Wrist TFCC Tear status post left Wrist Diagnostic Arthroscopy with Debridement and TFCC Repair on 08/26/23, 6 week(s). Plan: Complete discussion of diagnosis, prognosis, and treatment options including risks and benefits hasagain taken place on this encounter. Patient has progressed well post-operatively. They are counseled on scar massage and advancement of activity as tolerated. May discontinue use of custom orthosis. Return to work light duty provided. Follow up in 6 weeks. Plan to return to work full duty at that time. Patient has demonstrated understanding, with all current questions answered, and is satisfied with the plan of care. Patient has been instructed to contact the office with any questions or concerns that may arise. Zachary Javier MD [facility] [address] [address] [facility] [address] [place] [address] I, Dr. Javier, was physically present and personally performed the services described in this documentation as scribed for me by Markus Roper ATC in my presence. I attest that this note is both accurate and complete. Zachary Javier MD [facility] Hand & Upper Extremity Surgeon [facility] documented in this encounter Miscellaneous Notes * Addendum Note - Markus Roper ATC - 10/06/2023 3:01 PM EDTAddended by: MARKUS ROPER on: 10/06/2023 03:01 PM Modules accepted: Orders documented in this encounter Plan of Treatment Upcoming Encounters Date Type Department Care Team (Late st Contact Info) Description 11/17/2023 1:00 PM EDT Office Visit Orthopaedics [address] [place] [phone] Zachary Javier MD [address] [place] [address] 02/11/2024 8:20 AM EDT Office Visit Family Practice [facility] [address] [facility] [place] [address] Genesis Pichardo, [address] [facility] [place] [id number] Scheduled Referrals Name Type Priority Associated Diagnoses Orde r Schedule OCCUPATIONAL THERAPY REFERRAL OP Referral Within 24 hrs (call dept; emergent) TFCC (triangular fibrocartilage complex) tear, left, subsequent encounter Ordered: 10/06/2023 Health Maintenance Due Date Last Done Comments [...] Discussed due to patient's condition Care Teams Contract Assistant Relationship Specialty Start Date End Date Genesis Pichardo DO [address] [place] [address] PCP - General Family Medicine 06/04/17 documented as of this encounter
--- OUTSIDE RECORDS SUMMARY | 2024-03-10 10:29 | External Medical Summary | Summary of Care ---
Author Name Unknown Organization [facility] Address [address] [place] [address] Phone [phone] Care Team Providers Care Traffic Rate Clerk Name Role Phone Genesis Pichardo DO Primary Care Provider Reason for Visit * Reason Comments Follow Up Left wrist arthrosco py 2 2023 * Evaluate & Treat - Unlimited Visits (Within 10 days (routine)) - Pending Review Specialty Diagnoses / Procedures Referred By Mehul topete Referred To Contact Orthopaedic Surgery / Orthopedics Diagnoses TFCC (triangular fibrocartilage complex) tear, left, subsequent encounter Julieth Chin MD [address] [place] [address] Referral ID Status Reason Start Date Expiration Date Visits Requested Visits Authorized [id number] Pending Review Specialty Services Required 02/18/[phone] Encounter Details Date Type Department Care Team (Late st Contact Info) Description 10/06/2023 1:15 PM EDT Office Visit Orthopaedics [facility] [address] [place] [phone] Zachary Javier MD [address] [place] [address] TFCC (triangular fibrocartilage complex) tear, left, subsequent [...] Auto-injectorIndica tions:Morbid obesity due to excess calories ([facility]),Type 2 diabetes mellitus without complication, without long-term current use of insulin ([facility]) Inject 2.4 mg under the skin once [...] disorder (HCC),Morbid obesity due to excess calories ([facility]) Take 1 Tablet by mouth in the [...] the morning. for pain.. 30 Tablet 5 4 Active FreeStyle Darcie 2 SensorIndications:D M [...] PPD 08/04/2020 Pneumococcal Conjugate Vacci ne, 20-valent ([id number]) 03/13/2022 Pneumococcal Polysaccharide PPV23 (Pneumovax) 07/03/2017 Seasonal [...] documented in this encounter Progress Notes * Cristela Roper ATC - 10/06/2023 1:20 PM EDT [...] post-operatively. 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 Patient denies fever, chills, and other complaints or concerns. They describe improvement in symptoms. She is no longer working for [employer] and has not returned to [facility] since surgery. EMG: NA Physical Exam: HAND [...] Carrillo is a 33 year old year-old rbkue-plqo-wlkzjfsh female with left Wrist TFCC Tear status [...] concerns that may arise. Zachary Javier MD [facility] [address] [address] Orthopaedics, [facility] [address] [place] [address] I, Dr. Javier, was physically present and personally performed the services described in this documentation as scribed for me by Cristela Roper ATC in my presence. I attest that this note is both accurate and complete. Zachary Javier MD FAA[facility] Hand & Upper Extremity Surgeon [facility] documented in this encounter Plan of Treatment Upcoming Encounters Date Type Department Care Team (Late st Contact Info) Description 11/17/2023 1:00 PM EDT Office Visit Orthopaedics [place], [address] [phone] Zachary Javier MD [address] [place] [id number] 02/11/2024 8:20 AM EDT Office Visit Family Practice [facility] [address] [place] [place] [address] Genesis Pichardo, [address] [place] [address] Health Maintenance Due Date Last Done Comments [...] Discussed due to patient's condition Care Teams Traffic Rate Clerk Relationship Specialty Start Date End Date Genesis Pichardo DO [address] [place] [address] PCP - General Family Medicine 06/04/17 documented as of this encounter
--- NOTE | 2024-03-10 16:43 | Hospitalist Progress Note ---
Date of Service March 10, 2024 Assessment & Plan (1) Asthma exacerbation: Plan: Acute asthma exacerbation Secondary to entero/rhinovirus infection Suspected superimposed bacterial infection --Chest CTA:No acute pulmonary embolism. -- BioFire positive for Entero/Rhinovirus --Procalcitonin pending Continue IV Solu-Medrol, doxycycline Isolation precautions Saturating well on room air Received IV fluids Continue Singulair Continue nebs Hypertensive urgency Likely situational Steroids contributing as well Started on losartan Hydralazine as needed Resume HCTZ as able Monitor BP Hypokalemia Monitor and replete electrolytes as needed LANG Continue CPAP HS DM Type II: Update HbA1c Hold p.o. medications Monitor blood glucose levels Continue insulin while hospitalized Morbid obesity BMI 57 Needs counseling Anxiety/mood disorder, stable Past tobacco abuse Continue home medications DVT Px: Lovenox SQ CODE STATUS Full code Admission and Anticipated Discharge Date Admission Date: March 10, 2024 Subjective Patient is seen and examined at bedside States having cough with expectoration today Also reports dyspnea and chest pain associated with cough States having intermittent dizziness Denies any nausea, vomiting, abdominal pain No other complaints Saturating well on room air Review of Systems Review of Systems: All systems reviewed & are unremarkable except as noted in Subjective Physical Exam Physical Exam: Physical Exam: Vitals signs as noted above General Appearance: Morbidly obese, no apparent distress Head: normocephalic, Atraumatic Eyes: normal inspection, EOMI Neck: supple, Trachea midline Respiratory/Chest: Decreased coarse breath sounds, scattered wheezing, No accessory muscle use Cardiovascular: S1, S2, No murmur, tachycardia Abdomen/GI:Soft, Non tender, Bowel sounds present Extremities/Musculoskeletal:normal inspection, trace pedal edema Neurologic/Psych:AAOX3, grossly no focal neurological deficits Skin: normal color, warm Results & Data Results & Data Vital Signs (Past 12 Hours) Vital Signs Pulse Pulse Resp BP Pulse Ox O2 Del Method 03/10/24 14:05 102 H 03/10/24 13:22 89 19 94 Room Air 03/10/24 07:00 87 18 98 Room Air 03/10/24 06:59 111 H 03/10/24 06:00 98 H 20 177/101 H 95 Room Air 03/10/24 05:06 96 H 03/10/24 04:39 Room Air Laboratory Results Short CBC 03/10/24 Range/Units 00:55 WBC 6.76 (4.8-10.8) K/ul Hgb 12.7 (12.0-16.0) g/dl Hct 39.6 (37.0-47.0) % Plt Count 293 (130-400) K/uL BMP 03/10/24 00:55 Sodium 138 Potassium 3.4 L Chloride 103 Carbon Dioxide 25 BUN 11 Creatinine 0.72 Glucose 119 H Calcium 8.9 Liver Function 03/10/24 Range/Units 00:55 Total Bilirubin 0.3 (0.2-1.0) mg/dl AST 29 (13-39) U/L ALT 30 (7-52) U/L Alkaline Phosphatase 81 (34-104) U/L Albumin 4.1 (3.4-5.0) gm/dl Urine 03/10/24 Range/Units 08:49 Urine Color Yellow Urine Appearance Clear (Clear) Urine pH 7.5 (4.5-7.5) Ur Specific [place] 1.021 (1.000-1.030) Urine Protein Negative (Negative) Urine Glucose (UA) Negative (Negative) (1) Asthma exacerbation Asthma persistence: persistent Asthma severity: severe Qualified Code(s): J45.51 - Severe persistent asthma with (acute) exacerbation
[2024-03-10] MEDS: ACETAMINOPHEN 325 MG TAB PO PRN (19:47)
[2024-03-10] MEDS: hydrOXYzine HCl 10 MG TAB PO PRN (20:21)
[2024-03-10] MEDS: CETIRIZINE HCL 10 MG TABLET PO SCH (20:21)
[2024-03-10] MEDS: DOXYCYCLINE HYCLATE 100 MG CAP PO SCH (20:21)
[2024-03-11 06:53] LABS: Basophils # (auto) 0.01 K/uL (0.00-0.20); Basophils % (auto) 0.1 %; Hemoglobin 12.8 g/dl (12.0-16.0); Immature Granulocytes # (auto) 0.06 K/uL (0.01-0.20); Immature Granulocytes % (auto) 0.5 %; Lymphocytes # (auto) 1.53 K/uL (1.20-3.40); Lymphocytes % (auto) 13.2 %; Mean Corpuscular Hemoglobin 27.1 pg (25.0-34.0); Mean Corpuscular Volume 84.6 fL (80.0-100.0); Mean Platelet Volume 10.7 fL (9.4-12.4); Monocytes # (auto) 0.76 K/uL (0.11-0.59); Monocytes % (auto) 6.5 %; Neutrophils # (auto) 9.27 K/uL (1.40-6.50); Neutrophils % (auto) 79.7 %; Platelet Count 314 K/uL (130-400); RDW Coefficient of Variation 14.1 % (11.5-14.5); RDW Standard Deviation 43.6 fL (36.4-46.3); Red Blood Count 4.73 M/uL (4.20-5.40); White Blood Count 11.63 K/ul (4.8-10.8)
[2024-03-11 07:10] LABS: Calcium 9.1 mg/dl (8.6-10.3); Magnesium 2.1 mg/dl (1.7-2.4); Potassium 3.9 mmol/L (3.5-5.1)
[2024-03-11 07:15] LABS: BUN Creatinine Ratio 17.9 (10-20); Creatinine Clr Calc Pharmacy 188.3 ml/min; Est GFR (African American) 133.9 ml/min; Est GFR (Non-African American) 115.5 ml/min
[2024-03-11 08:08] LABS: Estimated Average Glucose 134 mg/dl; Hemoglobin A1C 6.3 % (4.5-5.6)
[2024-03-11] MEDS ORDERED: lisinopril 5 MG TAB PO SCH (09:00)
--- NOTE | 2024-03-11 15:57 | Hospitalist Progress Note ---
Date of Service March 11, 2024 Assessment & Plan (1) Asthma exacerbation: Plan: Acute asthma exacerbation Secondary to entero/rhinovirus infection Suspected superimposed bacterial infection --Chest CTA:No acute pulmonary embolism. -- BioFire positive for Entero/Rhinovirus --Procalcitonin Normal Continue IV Solu-Medrol, doxycycline Isolation precautions Saturating well on room air Received IV fluids Continue Singulair Continue scheduled nebs Slowly improving Hypertensive urgency Likely situational Steroids contributing as well Continue losartan Hydralazine as needed Resume HCTZ today Monitor BP Hypokalemia Monitor and replete electrolytes as needed LANG Continue CPAP HS DM Type II: HbA1c 6.3 Hold p.o. medications Monitor blood glucose levels Continue insulin while hospitalized Morbid obesity BMI 57 Needs counseling Anxiety/mood disorder, stable Past tobacco abuse Continue home medications DVT Px: Lovenox SQ CODE STATUS Full code Admission and Anticipated Discharge Date Admission Date: March 11, 2024 Subjective Patient is seen and examined at bedside Reports nausea but no vomiting this morning Subjectively feels breathing is better today Still has dyspnea on minimal exertion Cough, chest tightness slowly improving as well Saturating well on room air currently No other complaints today Review of Systems Review of Systems: All systems reviewed & are unremarkable except as noted in Subjective Physical Exam Physical Exam: Physical Exam: Vitals signs as noted above General Appearance: Morbidly obese, no apparent distress Head: normocephalic, Atraumatic Eyes: normal inspection, EOMI Neck: supple, Trachea midline Respiratory/Chest: Decreased coarse breath sounds, scattered wheezing, No accessory muscle use Cardiovascular: S1, S2, No murmur, tachycardia Abdomen/GI:Soft, Non tender, Bowel sounds present Extremities/Musculoskeletal:normal inspection, trace pedal edema Neurologic/Psych:AAOX3, grossly no focal neurological deficits Skin: normal color, warm Results & Data Results & Data Vital Signs (Past 12 Hours) Vital Signs Temp Pulse Pulse Pulse Pulse Resp BP 03/11/24 15:15 36.8 C 81 18 139/77 03/11/24 12:16 78 20 03/11/24 08:01 36.9 C 93 H 16 131/89 03/11/24 06:56 97 H 03/11/24 04:59 74 22 03/11/24 04:00 36.8 C 78 20 154/86 H Pulse Ox O2 Del Method 03/11/24 15:15 94 Room Air 03/11/24 12:16 94 Room Air 03/11/24 08:01 98 Room Air 03/11/24 06:56 03/11/24 04:59 98 Room Air 03/11/24 04:00 99 Room Air Laboratory Results Short CBC 03/11/24 Range/Units 05:45 WBC 11.63 H (4.8-10.8) K/ul Hgb 12.8 (12.0-16.0) g/dl Hct 40.0 (37.0-47.0) % Plt Count 314 (130-400) K/uL BMP 03/11/24 05:45 Sodium 138 Potassium 3.9 Chloride 105 Carbon Dioxide 25 BUN 12 Creatinine 0.67 Glucose 149 H Calcium 9.1 (1) Asthma exacerbation Asthma persistence: persistent Asthma severity: severe Qualified Code(s): J45.51 - Severe persistent asthma with (acute) exacerbation
[2024-03-11] MEDS: hydroCHLOROthiazide 25 MG TAB PO SCH (17:53)
[2024-03-11] MEDS: LOSARTAN POTASSIUM 25 MG TAB PO STA (20:59)
[2024-03-11] MEDS: methylPREDNISolone 40 MG in SYRINGE 0 ML IV ONE (21:00)
--- NOTE | 2024-03-12 08:20 | XRay Report ---
SINGLE VIEW CHEST CLINICAL HISTORY: Wheezing FINDINGS: 2 AP, portable, upright chest radiographs are compared to chest x-ray and chest CT dated . The cardiomediastinal silhouette is unremarkable. The lungs and pleural spaces are clear. No pneumothorax is seen. The bony thorax is grossly intact. IMPRESSION: The lungs are clear. Mild patchy airspace consolidation in the right upper lung seen by C T is not apparent on x-ray. ACT 112: Negative or not required by law. Electronically signed by: Abimael Lovell M.D. 03/12/2024 8:19 AM
[2024-03-12] MEDS: LOSARTAN POTASSIUM 50 MG TAB PO SCH (09:28)
[2024-03-12] MEDS: methylPREDNISolone 40 MG in SYRINGE 0 ML IV SCH (09:31)
[2024-03-12] MEDS: ALBUT/IPRATROP 3MG/0.5MG NEB 3 ML VIAL NEB PRN (09:53)
--- NOTE | 2024-03-12 15:52 | Hospitalist Progress Note ---
Date of Service March 12, 2024 Assessment & Plan (1) Asthma exacerbation: Plan: Acute asthma exacerbation Secondary to entero/rhinovirus infection Suspected superimposed bacterial infection --Chest CTA:No acute pulmonary embolism. -- BioFire positive for Entero/Rhinovirus --Procalcitonin Normal Continue IV Solu-Medrol, doxycycline Isolation precautions Saturating well on room air Received IV fluids Continue Singulair Continue nebs Continue current management Hypertensive urgency Likely situational Steroids contributing as well Continue losartan, HCTZ Hydralazine as needed BP better today Hypokalemia Monitor and replete electrolytes as needed LANG Continue CPAP HS DM Type II: HbA1c 6.3 Hold p.o. medications Monitor blood glucose levels Continue insulin while hospitalized Morbid obesity BMI 57 Needs counseling Anxiety/mood disorder, stable Past tobacco abuse Continue home medications DVT Px: Lovenox SQ CODE STATUS Full code Admission and Anticipated Discharge Date Admission Date: March 11, 2024 Subjective Patient is seen and examined at bedside Reports headache today Dyspnea, cough slowly improving Saturating well on room air today No other complaints Review of Systems Review of Systems: All systems reviewed & are unremarkable except as noted in Subjective Physical Exam Physical Exam: Physical Exam: Vitals signs as noted above General Appearance: Morbidly obese, no apparent distress Head: normocephalic, Atraumatic Eyes: normal inspection, EOMI Neck: supple, Trachea midline Respiratory/Chest: Decreased breath sounds, scattered wheezing/rhonchi, No accessory muscle use Cardiovascular: S1, S2, No murmur, tachycardia Abdomen/GI:Soft, Non tender, Bowel sounds present Extremities/Musculoskeletal:normal inspection, trace pedal edema Neurologic/Psych:AAOX3, grossly no focal neurological deficits Skin: normal color, warm Results & Data Results & Data Vital Signs (Past 12 Hours) Vital Signs Temp Pulse Pulse Resp BP Pulse Ox O2 Del Method 03/12/24 13:53 88 18 97 Room Air 03/12/24 13:35 82 03/12/24 11:56 36.9 C 76 16 135/92 94 Room Air 03/12/24 09:54 79 18 99 Room Air 03/12/24 09:30 Room Air 03/12/24 08:27 36.7 C 88 20 158/85 H 100 Room Air 03/12/24 07:10 68 18 97 Room Air 03/12/24 07:00 67 (1) Asthma exacerbation Asthma persistence: persistent Asthma severity: severe Qualified Code(s): J45.51 - Severe persistent asthma with (acute) exacerbation
[2024-03-13 05:51] LABS: BUN Creatinine Ratio 21.3 (10-20); Calcium 9.4 mg/dl (8.6-10.3); Creatinine Clr Calc Pharmacy 168.1 ml/min; Est GFR (African American) 121.4 ml/min; Est GFR (Non-African American) 104.7 ml/min; Potassium 3.6 mmol/L (3.5-5.1)
[2024-03-13] MEDS: BUTALBITAL/ACETAMIN/CAFFEINE TAB PO PRN (11:54)
--- NOTE | 2024-03-13 14:45 | Hospitalist Progress Note ---
Date of Service March 13, 2024 Assessment & Plan (1) Asthma exacerbation: Plan: Acute asthma exacerbation Secondary to entero/rhinovirus infection Suspected superimposed bacterial infection --Chest CTA:No acute pulmonary embolism. -- BioFire positive for Entero/Rhinovirus --Procalcitonin Normal Continue IV Solu-Medrol, doxycycline Isolation precautions Saturating well on room air Received IV fluids Continue Singulair Continue nebs Slowly improving Will likely need 2 step prior to discharge Hypertensive urgency Likely situational Steroids contributing as well Continue losartan, HCTZ Hydralazine as needed Headache likely due to above Added Fioricet as needed Consider CT head if persistent headache Monitor BP and adjust medications as needed Hypokalemia Monitor and replete electrolytes as needed LANG Continue CPAP HS DM Type II: HbA1c 6.3 Hold p.o. medications Monitor blood glucose levels Continue insulin while hospitalized Morbid obesity BMI 57 Needs counseling Anxiety/mood disorder, stable Past tobacco abuse Continue home medications DVT Px: Lovenox SQ CODE STATUS Full code Admission and Anticipated Discharge Date Admission Date: March 11, 2024 Subjective Patient is seen and examined at bedside Still has dyspnea on exertion Reports cough Headache transiently improves with Tylenol Saturating well on room air Subjectively feels respiratory status slowly improving Review of Systems Review of Systems: All systems reviewed & are unremarkable except as noted in Subjective Physical Exam Physical Exam: Physical Exam: Vitals signs as noted above General Appearance: Morbidly obese, no apparent distress Head: normocephalic, Atraumatic Eyes: normal inspection, EOMI Neck: supple, Trachea midline Respiratory/Chest: Decreased breath sounds, scattered rhonchi, No accessory muscle use Cardiovascular: S1, S2, No murmur, tachycardia Abdomen/GI:Soft, Non tender, Bowel sounds present Extremities/Musculoskeletal:normal inspection, trace pedal edema Neurologic/Psych:AAOX3, grossly no focal neurological deficits Skin: normal color, warm Results & Data Results & Data Vital Signs (Past 12 Hours) Vital Signs Temp Pulse Pulse Resp BP BP Pulse Ox 03/13/24 14:02 78 18 95 03/13/24 13:45 83 03/13/24 11:46 36.9 C 82 16 168/89 H 100 03/13/24 09:55 65 17 98 03/13/24 09:00 03/13/24 08:03 36.6 C 89 16 140/80 97 03/13/24 07:37 69 18 98 03/13/24 07:00 70 03/13/24 04:26 36.8 C 74 18 151/92 H 97 O2 Del Method O2 Flow Rate FiO2 03/13/24 14:02 Room Air 03/13/24 13:45 03/13/24 11:46 Room Air 03/13/24 09:55 Room Air 21 03/13/24 09:00 Room Air 03/13/24 08:03 Room Air 03/13/24 07:37 Nasal Cannula 2 03/13/24 07:00 03/13/24 04:26 Room Air Laboratory Results BMP 03/13/24 04:54 Sodium 136 Potassium 3.6 Chloride 101 Carbon Dioxide 26 BUN 16 Creatinine 0.75 Glucose 134 H Calcium 9.4 (1) Asthma exacerbation Asthma persistence: persistent Asthma severity: severe Qualified Code(s): J45.51 - Severe persistent asthma with (acute) exacerbation
[2024-03-14] MEDS ORDERED: hydrALAZINE 10 MG TAB PO PRN (09:48)
[2024-03-14] MEDS: guaiFENesin/DEXTROM SYRUP 200MG/20MG 10ML UDC PO PRN (11:09)
--- NOTE | 2024-03-14 14:27 | CT Scan Report ---
HEAD CT NONCONTRAST CT DOSE: 919.27 mGy.cm HISTORY: headache TECHNIQUE: Multiaxial CT images of the head were performed without the use of intravenous contrast. A utomated exposure control was utilized for this study. A dose lowering technique was utilized adheri ng to the principles of ALARA. Comparison: Head CT 10/12/2022. Findings: The paranasal sinuses and mastoid air cells are clear. The calvarium and skull base are int act. The ventricles and sulci are within normal limits. There is no mass, hematoma, midline shift, or acute infarct. Impression: No acute intracranial abnormality. ACT 112: Negative or not required by law. Electronically signed by: Benjamin Choudhury M.D. 03/14/2024 2:25 PM
[2024-03-14] MEDS: IBUPROFEN 200 MG TAB PO ONE (16:15)
--- NOTE | 2024-03-14 17:30 | Hospitalist Progress Note ---
Date of Service March 14, 2024 Assessment & Plan (1) Asthma exacerbation: Plan: Acute asthma exacerbation Secondary to entero/rhinovirus infection Suspected superimposed bacterial infection --Chest CTA:No acute pulmonary embolism. -- BioFire positive for Entero/Rhinovirus --Procalcitonin Normal Continue IV Solu-Medrol, doxycycline Isolation precautions Saturating well on room air Received IV fluids Continue Singulair Continue nebs Taper down IV Solu-Medrol to prednisone tomorrow Will likely need 2 step prior to discharge Hypertensive urgency Likely situational Steroids contributing as well Continue losartan, HCTZ Hydralazine as needed Monitor BP and adjust medications as needed Headache Likely secondary to hypertensive urgency CT head showed no acute findings Pain control Hypokalemia Monitor and replete electrolytes as needed LANG Continue CPAP HS DM Type II: HbA1c 6.3 Hold p.o. medications Monitor blood glucose levels Continue insulin while hospitalized Morbid obesity BMI 57 Needs counseling Anxiety/mood disorder, stable Past tobacco abuse Continue home medications DVT Px: Lovenox SQ CODE STATUS Full code Admission and Anticipated Discharge Date Admission Date: March 11, 2024 Subjective Patient is seen and examined at bedside States having persistent headache Dyspnea much improved Still has some cough No other complaints today Saturating well on room air Review of Systems Review of Systems: All systems reviewed & are unremarkable except as noted in Subjective Physical Exam Physical Exam: Physical Exam: Vitals signs as noted above General Appearance: Morbidly obese, no apparent distress Head: normocephalic, Atraumatic Eyes: normal inspection, EOMI Neck: supple, Trachea midline Respiratory/Chest: Decreased breath sounds, minimal rhonchi, No accessory muscle use Cardiovascular: S1, S2, No murmur, tachycardia Abdomen/GI:Soft, Non tender, Bowel sounds present Extremities/Musculoskeletal:normal inspection, trace pedal edema Neurologic/Psych:AAOX3, grossly no focal neurological deficits Skin: normal color, warm Results & Data Results & Data Vital Signs (Past 12 Hours) Vital Signs Temp Pulse Pulse Resp BP BP Pulse Ox 03/14/24 16:21 37.0 C 102 H 16 138/90 95 03/14/24 14:02 37 C 105 H 20 125/84 95 03/14/24 13:16 94 H 03/14/24 12:57 85 23 98 03/14/24 07:45 36.5 C 74 16 175/81 H 96 03/14/24 07:20 03/14/24 07:16 82 18 96 03/14/24 05:47 74 O2 Del Method FiO2 03/14/24 16:21 Room Air 03/14/24 14:02 Room Air 03/14/24 13:16 03/14/24 12:57 Room Air 21 03/14/24 07:45 Nebulizer 03/14/24 07:20 Aerosol Mask 03/14/24 07:16 Room Air 03/14/24 05:47 (1) Asthma exacerbation Asthma persistence: persistent Asthma severity: severe Qualified Code(s): J45.51 - Severe persistent asthma with (acute) exacerbation
[2024-03-14] MEDS: oxyCODONE HCL IR 5 MG TAB (IMMEDIATE RELEASE) PO PRN (21:08)
[2024-03-15] MEDS: predniSONE 20 MG TAB PO SCH (08:09)
[2024-03-15 08:26] LABS: BUN Creatinine Ratio 22.1 (10-20); Calcium 9.1 mg/dl (8.6-10.3); Creatinine Clr Calc Pharmacy 146.6 ml/min; Est GFR (African American) 102.9 ml/min; Est GFR (Non-African American) 88.8 ml/min; Potassium 3.3 mmol/L (3.5-5.1)
[2024-03-15] MEDS: POTASSIUM CHLORIDE CRTAB 20 MEQ TABCR PO ONE (10:09)
[2024-03-15] MEDS: POTASSIUM CHLORIDE 20 MEQ/15 ML UDC PO ONE (10:35)
[2024-03-15 11:28] VITALS: RESP 18; TEMP 98.4
--- NOTE | 2024-03-15 13:10 | Hospitalist Progress Note ---
Date of Service March 15, 2024 Assessment & Plan (1) Asthma exacerbation: Plan: Acute asthma exacerbation Secondary to entero/rhinovirus infection Suspected superimposed bacterial infection --Chest CTA:No acute pulmonary embolism. -- BioFire positive for Entero/Rhinovirus --Procalcitonin Normal Continue IV Solu-Medrol, doxycycline>> plan to discharge on prednisone taper course, doxycycline Isolation precautions Saturating well on room air Received IV fluids Continue Singulair Continue nebs Plan to discharge home today Hypertensive urgency Likely situational Steroids contributing as well Continue losartan, HCTZ Hydralazine as needed Added amlodipine 2.5 mg daily Monitor BP Headache Likely secondary to hypertensive urgency CT head showed no acute findings Pain control Hypokalemia Monitor and replete electrolytes as needed LANG Continue CPAP HS DM Type II: HbA1c 6.3 Hold p.o. medications Monitor blood glucose levels Continue insulin while hospitalized Morbid obesity BMI 57 Needs counseling Anxiety/mood disorder, stable Past tobacco abuse Continue home medications DVT Px: Lovenox SQ CODE STATUS Full code Admission and Anticipated Discharge Date Admission Date: March 11, 2024 Subjective Patient is seen and examined at bedside Patient reports having transient dizziness this morning, later improved Saturating well on room air Dyspnea, cough much improved Still has headache No other complaints today Prefers to be discharged home today Review of Systems Review of Systems: All systems reviewed & are unremarkable except as noted in Subjective Physical Exam Physical Exam: Physical Exam: Vitals signs as noted above General Appearance: Morbidly obese, no apparent distress Head: normocephalic, Atraumatic Eyes: normal inspection, EOMI Neck: supple, Trachea midline Respiratory/Chest: Decreased breath sounds, scant wheeze, No accessory muscle use Cardiovascular: S1, S2, No murmur, tachycardia Abdomen/GI:Soft, Non tender, Bowel sounds present Extremities/Musculoskeletal:normal inspection, trace pedal edema Neurologic/Psych:AAOX3, grossly no focal neurological deficits Skin: normal color, warm Results & Data Results & Data Vital Signs (Past 12 Hours) Vital Signs Temp Pulse Pulse Resp BP BP Pulse Ox 03/15/24 11:28 36.9 C 96 H 18 171/99 H 97 03/15/24 07:27 36.6 C 81 20 145/95 H 98 03/15/24 07:23 100 H 16 97 03/15/24 06:03 86 03/15/24 02:30 36.5 C 70 16 137/80 100 03/15/24 01:32 86 18 99 O2 Del Method 03/15/24 11:28 Room Air 03/15/24 07:27 Room Air, Nebulizer 03/15/24 07:23 Room Air 03/15/24 06:03 03/15/24 02:30 Room Air 03/15/24 01:32 Room Air Laboratory Results [facility] 03/15/24 07:38 Sodium 138 Potassium 3.3 L Chloride 101 Carbon Dioxide 29 BUN 19 Creatinine 0.86 Glucose 90 Calcium 9.1 (1) Asthma exacerbation Asthma persistence: persistent Asthma severity: severe Qualified Code(s): J45.51 - Severe persistent asthma with (acute) exacerbation
[2024-03-15] MEDS: amLODIPine BESYLATE 5 MG TAB PO SCH (13:18)
[2024-03-15 13:42] VITALS: O2SAT 94
[2024-03-15 14:56] VITALS: BP 125/90
--- NOTE | 2024-03-15 15:02 | Discharge Summary ---
Date of Service March 15, 2024 Admission HPI Per Admitting Provider History obtained from patient and records. Medical history significant for hypertension, bronchial asthma, LANG on CPAP, DM2 on oral medications, GERD, PCOS, RLS, anxiety/mood disorder, past tobacco abuse. Last confinement September 2022 for asthma exacerbation. Patient was in [facility] for her brother's over the weekend when she woke up with junky cough symptoms productive of greenish sputum. Associated with worsening shortness of breath. Achy chest pain, headache, and flank pain possibly from coughing as per patient. No fluid retention. Denies aspiration. Decadron and neb treatment administered at the ER. SBP 180s documented at the ER. 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 Diagnosis Acute asthma exacerbation Entero/rhinovirus infection Hypertensive urgency Headache Hypokalemia Discharge Data Allergies Allergy/AdvReac Type Severity Reaction Status Date / Time Penicillins Allergy Unknown CHILDHOOD--CAN'T Verified 10/11/22 08:37 REMEMBER Consultations 03/10/24 02:40 ED Decision to Admit Stat Procedures Performed Laboratory Results WBC 11.63 K/ul (4.8-10.8) H 03/11/24 05:45 RBC 4.73 M/uL (4.20-5.40) 03/11/24 05:45 Hgb 12.8 g/dl (12.0-16.0) 03/11/24 05:45 Hct 40.0 % (37.0-47.0) 03/11/24 05:45 MCV 84.6 fL (80.0-100.0) 03/11/24 05:45 MCH 27.1 pg (25.0-34.0) 03/11/24 05:45 MCHC 32.0 g/dL (32.0-36.0) 03/11/24 05:45 RDW Std Deviation 43.6 fL (36.4-46.3) 03/11/24 05:45 RDW Coeff of Esmer 14.1 % (11.5-14.5) 03/11/24 05:45 Plt Count 314 K/uL (130-400) 03/11/24 05:45 MPV 10.7 fL (9.4-12.4) 03/11/24 05:45 Immature Gran % (Auto) 0.5 % 03/11/24 05:45 Neut % (Auto) 79.7 % 03/11/24 05:45 Lymph % (Auto) 13.2 % 03/11/24 05:45 [place] % (Auto) 6.5 % 03/11/24 05:45 Eos % (Auto) 0.0 % 03/11/24 05:45 Baso % (Auto) 0.1 % 03/11/24 05:45 Neut # (Auto) 9.27 K/uL (1.40-6.50) H 03/11/24 05:45 Lymph # (Auto) 1.53 K/uL (1.20-3.40) 03/11/24 05:45 [place] # (Auto) 0.76 K/uL (0.11-0.59) H 03/11/24 05:45 Eos # (Auto) 0.00 K/uL (0.00-0.50) 03/11/24 05:45 Baso # (Auto) 0.01 K/uL (0.00-0.20) 03/11/24 05:45 Immature Gran # (Auto) 0.06 K/uL (0.01-0.20) 03/11/24 05:45 Sodium 138 mmol/L (136-145) 03/15/24 07:38 Potassium 3.3 mmol/L (3.5-5.1) L 03/15/24 07:38 Chloride 101 mmol/L (98-107) 03/15/24 07:38 Carbon Dioxide 29 mmol/L (21-32) 03/15/24 07:38 Anion Gap 8 (3-11) 03/15/24 07:38 BUN 19 mg/dl (6-23) 03/15/24 07:38 Creatinine 0.86 mg/dl (0.6-1.2) 03/15/24 07:38 Est Cr Clr Drug Dosing 146.6 ml/min 03/15/24 07:38 Est GFR ( Amer) 102.9 ml/min 03/15/24 07:38 Est GFR (Non-Af Amer) 88.8 ml/min 03/15/24 07:38 BUN/Creatinine Ratio 22.1 (10-20) H 03/15/24 07:38 Glucose 90 mg/dl (70-99(Fasting)) 03/15/24 07:38 POC Glucose 157 mg/dl (70-99) H 03/15/24 12:14 Estimat Average Glucose 134 mg/dl 03/11/24 05:45 Hemoglobin A1c 6.3 % (4.5-5.6) H 03/11/24 05:45 Calcium 9.1 mg/dl (8.6-10.3) 03/15/24 07:38 Magnesium 2.1 mg/dl (1.7-2.4) 03/11/24 05:45 Total Bilirubin 0.3 mg/dl (0.2-1.0) 03/10/24 00:55 AST 29 U/L (13-39) 03/10/24 00:55 ALT 30 U/L (7-52) 03/10/24 00:55 Alkaline Phosphatase 81 U/L (34-104) 03/10/24 00:55 Total Protein 7.7 gm/dl (6.0-8.3) 03/10/24 00:55 Albumin 4.1 gm/dl (3.4-5.0) 03/10/24 00:55 Globulin 3.6 gm/dl (2.5-4.0) 03/10/24 00:55 Albumin/Globulin Ratio 1.1 (0.9-2) 03/10/24 00:55 Procalcitonin < 0.02 ng/ml (0-0.5) 03/11/24 05:45 Urine Color Yellow 03/10/24 08:49 Urine Appearance Clear (Clear) 03/10/24 08:49 Urine pH 7.5 (4.5-7.5) 03/10/24 08:49 Ur Specific [place] 1.021 (1.000-1.030) 03/10/24 08:49 Urine Protein Negative (Negative) 03/10/24 08:49 Urine Glucose (UA) Negative (Negative) 03/10/24 08:49 Urine Ketones Negative (Negative) 03/10/24 08:49 Urine Blood Negative (Negative) 03/10/24 08:49 Urine Nitrite Negative (Negative) 03/10/24 08:49 Urine Bilirubin Negative (Negative) 03/10/24 08:49 Urine Urobilinogen Negative (Negative) 03/10/24 08:49 Ur Leukocyte Esterase Negative (Negative) 03/10/24 08:49 Adenovirus (PCR) Not Detected (NotDetected) 03/10/24 01:05 B. pertussis DNA (PCR) Not Detected (NotDetected) 03/10/24 01:05 B.parapertussis DNA PCR Not Detected (NotDetected) 03/10/24 01:05 C. pneumoniae DNA (PCR) Not Detected (NotDetected) 03/10/24 01:05 Coronavirus OC43 (PCR) Not Detected (NotDetected) 03/10/24 01:05 Coronavirus HKU1 (PCR) Not Detected (NotDetected) 03/10/24 01:05 Coronavirus 229E (PCR) Not Detected (NotDetected) 03/10/24 01:05 SARS-CoV-2 (PCR) Not Detected (NotDetected) 03/10/24 01:05 Coronavirus NL63 (PCR) Not Detected (NotDetected) 03/10/24 01:05 Human Metapneumovir PCR Not Detected (NotDetected) 03/10/24 01:05 Influenza Type A (PCR) Not Detected (NotDetected) 03/10/24 01:05 Influenza Type B (PCR) Not Detected (NotDetected) 03/10/24 01:05 M. pneumoniae (PCR) Not Detected (NotDetected) 03/10/24 01:05 Parainfluenza 1 (PCR) Not Detected (NotDetected) 03/10/24 01:05 Parainfluenza 2 (PCR) Not Detected (NotDetected) 03/10/24 01:05 Parainfluenza 3 (PCR) Not Detected (NotDetected) 03/10/24 01:05 Parainfluenza 4 (PCR) Not Detected (NotDetected) 03/10/24 01:05 RSV (PCR) Not Detected (NotDetected) 03/10/24 01:05 Entero/Rhino (PCR) DETECTED (NotDetected) A 03/10/24 01:05 Impressions Abdomen/Pelvis CT 03/10/24 03:19 Exam(s): CT ABDOMEN + PELVIS With Contrast IV Amt: 118 ml optiray 320 EXAM: CT Abdomen and Pelvis With Intravenous Contrast CLINICAL HISTORY: Reason for exam: flank pain. TECHNIQUE: Axial computed tomography images of the abdomen and pelvis with intravenous contrast. CTDI is 28.14 mGy and DLP is 1316.89 mGy-cm. Automated exposure control was utilized for the study. A dose lowering technique was utilized adhering to the principles of ALARA. CONTRAST: Patient received 118 ml optiray 320 of IV contrast COMPARISON: No relevant prior studies available. FINDINGS: Lung bases: Unremarkable. No mass. No consolidation. ABDOMEN: Liver: Unremarkable. No mass. Gallbladder and bile ducts: Unremarkable. No calcified stones. No ductal dilation. Pancreas: Unremarkable. No mass. No ductal dilation. Spleen: Unremarkable. No splenomegaly. Adrenals: Unremarkable. No mass. Kidneys and ureters: Unremarkable. No solid mass. No hydronephrosis. Stomach and bowel: Unremarkable. No obstruction. No mucosal thickening. PELVIS: Appendix: No findings to suggest acute appendicitis. Bladder: Unremarkable. No mass. Reproductive: Unremarkable as visualized. ABDOMEN and PELVIS: Intraperitoneal space: Unremarkable. No free air. No significant fluid collection. Bones/joints: No acute fracture. No dislocation. Soft tissues: Small fat-containing umbilical hernia. Vasculature: Unremarkable. No abdominal aortic aneurysm. Lymph nodes: Unremarkable. No enlarged lymph nodes. IMPRESSION: No acute findings in the abdomen or pelvis. Electronically signed by: Mauricio Pino MD 03/10/24 04:50 AM Chest CTA 03/10/24 03:19 Exam(s): CTA CHEST IV Amt: 118 ml optiray 320 EXAM: CT Angiography Chest With Intravenous Contrast CLINICAL HISTORY: Reason for exam: cp. TECHNIQUE: Axial computed tomographic angiography images of the chest with intravenous contrast. CTDI is 63.76 mGy and DLP is 891.44 mGy-cm. Automated exposure control was utilized for the study. A dose lowering technique was utilized adhering to the principles of ALARA. MIP reconstructed images were created and reviewed. COMPARISON: Chest CT July 17, 2021. FINDINGS: LUNGS: No focal consolidation, pleural effusion, or pneumothorax. HEART: Within normal limits. VASCULATURE: No acute pulmonary embolism. THYROID: Within normal limits. MEDIASTINUM + LYMPH NODES: There are no pathologically enlarged mediastinal, hilar, or axillary lymph nodes. SUPERIOR ABDOMEN: The included portions of the superior abdomen are within normal limits. MUSCULOSKELETAL: Within normal limits. IMPRESSION: No acute pulmonary embolism. Electronically signed by: Mauricio Pino MD 03/10/24 04:22 AM Chest X-Ray 03/11/24 19:46 SINGLE VIEW CHEST CLINICAL HISTORY: Wheezing FINDINGS: 2 AP, portable, upright chest radiographs are compared to chest x-ray and chest CT dated 03/10/2024. The cardiomediastinal silhouette is unremarkable. The lungs and pleural spaces are clear. No pneumothorax is seen. The bony thorax is grossly intact. IMPRESSION: The lungs are clear. Mild patchy airspace consolidation in the right upper lung seen by CT is not apparent on x-ray. ACT 112: Negative or not required by law. Electronically signed by: Abimael Lovell M.D. 03/12/2024 8:[address] 03/14/24 10:[address] DOSE: 919.27 mGy.cm HISTORY: headache TECHNIQUE: Multiaxial CT images of the head were performed without the use of intravenous contrast. Automated exposure control was utilized for this study. A dose lowering technique was utilized adhering to the principles of ALARA. Comparison: Head CT 10/12/2022. Findings: The paranasal sinuses and mastoid air cells are clear. The calvarium and skull base are intact. The ventricles and sulci are within normal limits. There is no mass, hematoma, midline shift, or acute infarct. Impression: No acute intracranial abnormality. ACT 112: Negative or not required by law. Electronically signed by: Benjamin Choudhury M.D. 03/14/2024 2:25 PM Ordered Studies 03/10/24 03:19 CT Abd and Pelvis [CT abd pelvis IV con only] Stat CT angio chest PE protocol Stat 03/14/24 10:21 CT head/brain wo con Urgent Hospital Course (1) Asthma exacerbation: Acute asthma exacerbation Secondary to entero/rhinovirus infection Suspected superimposed bacterial infection --Chest CTA:No acute pulmonary embolism. -- BioFire positive for Entero/Rhinovirus --Procalcitonin Normal Continue IV Solu-Medrol, doxycycline>> plan to discharge on prednisone taper course, doxycycline Isolation precautions Saturating well on room air Received IV fluids Continue Singulair Continue nebs Plan to discharge home today Hypertensive urgency Likely situational Steroids contributing as well Continue losartan, HCTZ Hydralazine as needed Added amlodipine 2.5 mg daily Monitor BP Headache Likely secondary to hypertensive urgency CT head showed no acute findings Pain control Hypokalemia Monitor and replete electrolytes as needed LANG Continue CPAP HS DM Type II: HbA1c 6.3 Hold p.o. medications Monitor blood glucose levels Continue insulin while hospitalized Morbid obesity BMI 57 Needs counseling Anxiety/mood disorder, stable Past tobacco abuse Continue home medications DVT Px: Lovenox SQ CODE STATUS Full code Total Time Total Time Spent Total Time Spent (In Minutes): 54 minutes Discharge Plan Discharge Items Patient Disposition: Home - Self-Care Reason For Visit: SOB Discharge Diagnosis: Acute asthma exacerbation Entero/rhinovirus infection Hypertensive urgency Headache Hypokalemia Activity: Per Instructions section Exercise/Sports: Wait until after follow-up appointment Non-emergency contact: Primary Care Provider Call non-emergency contact if: you have any medication questions, your symptoms worsen, your pain is concerning for you and you have a fever Follow-up/Referrals: Genesis Pichardo DO [Primary Care Provider] - (Date & Time 03/25/2024 11:20 AM Provider Genesis Pichardo DO Department [facility] ) Diet: Carb Consistent or DM2 Addtl Attending Provider Instructions: Follow-up with your primary care physician on 03/25/2024 11:20 AM Consider following with a neurologist as outpatient if you have persistent headache -- Complete the prednisone tapering course, doxycycline as prescribed -- Monitor your blood pressure regularly at home. Discuss with your physician for further adjustment of medications as needed Prednisone tapering course: Start taking prednisone 20 mg daily for 2 days, then take 10 mg daily for 2 days and stop Seek immediate medical attention if your symptoms reoccur or worsen Please take all medications as instructed on discharge list below. Please call if you have any questions or problems. You can reach a [facility] hospitalist on duty at [facility] 24 hours a day by calling [phone] Pending Studies at Discharge: No Stand-Alone Forms: My [facility], Smoking Cessation Medications and DC Order Prescriptions: New losartan 50 mg Tablet 50 mg PO QAM Qty: 30 0RF doxycycline hyclate 100 mg Capsule 100 mg PO BID Qty: 4 0RF amlodipine [Norvasc] 5 mg Tablet 2.5 mg PO QAM Qty: 30 0RF [id number] 50-325-40 mg Tablet 1 tab PO BID PRN (Reason: pain) Qty: 10 0RF prednisone 10 mg tablet 10 mg PO DIRECTED Qty: 6 0RF Rx Instructions: Start taking prednisone 20 mg daily for 2 days, then take 10 mg daily for 2 days and stop dextromethorphan-guaifenesin [Robitussin Cough-Chest Marcelo DM] 5-100 mg/5 mL Liquid 10 ml PO Q6H PRNQty: 0 0RF Continued metformin 1,000 mg tablet 1,000 mg PO BID Rx Instructions: TAKE THIS MEDICATION WITH MORNING AND EVENING MEAL albuterol sulfate 90 mcg/actuation HFA aerosol inhaler 2 puffs INH Q4H PRN (Reason: Shortness Of Breath Or Wheezing) hydroxyzine pamoate [Vistaril] 25 mg capsule 25 mg PO HS PRN (Reason: Anxiety) hydrochlorothiazide 12.5 mg Tablet 12.5 mg PO QAM bupropion HCl [Wellbutrin XL] 300 mg Tablet Extended Release 24 Hr 300 mg PO QAM montelukast 10 mg tablet 10 mg PO QAM levocetirizine 5 mg Tablet 5 mg PO PM albuterol sulfate 2.5 mg /3 mL (0.083 %) solution for nebulization 2.5 mg inhalation Q4 PRN (Reason: Shortness Of Breath Or Wheezing) sertraline 25 mg tablet 25 mg PO QAM Discharge Orders: Discharge Order (Routine); Ordered 03/15/24 Ordered By: Herbert Erickson/Other Patient Handouts: Managing Type 2 Diabetes, Healthy Meals for Diabetes Admission Data Admit Date/Time: 03/11/24 11:56 Attending Provider: Herbert Murphy Admit Provider: Martin Keenan Primary Care Provider: Genesis Pichardo Other Providers: Martin Keenan
[2024-03-15 15:36] VITALS: PULSE 106
== END 2024-03-15 15:45 | disposition home or self-care (01) | DRG 202 ==
LOC: EDINP 00:19 → ED 00:19 → 2W 03:34